=== PATIENT | female | born 1995 | race Hispanic/Latino ===

== ENCOUNTER 2018-08-26 10:21 | Emergency (ER) | payer OTHER ==
--- OUTSIDE RECORDS SUMMARY | 2018-08-26 10:27 | XMS REPORT | Continuity of Care Document ---
:1995 Author Organization Interface Problems Problem Status Onset Classification Date Comments Source Date Reported Encounter for 11/01/19 02/07/2018 other general 18 Medical counseling and Group advice on contraception care 11/01/19 02/07/2018 following 18 Medical vaginal delivery Group Second degree 10/14/19 01/12/2018 [place] perineal 18 [facility] laceration during delivery False labor at 10/12/19 01/09/2018 [place] or after 37 18 Land completed weeks of gestation LEAKING/PRESSURE Active 10/03/19 [place] 18 [facility] Encounter for 09/29/19 01/05/2018 supervision of 18 Medical other normal Group , third trimester Final: Uterine 09/23/19 09/26/2017 size-date 18 Medical discrepancy, Group third trimester Final: Encounter 09/15/20 09/18/2017 for supervision 17 Medical of other normal Group , third trimester Final: Need for 08/16/20 08/19/2017 Tdap vaccination 17 Medical Group Discharge 04/25/20 04/28/2017 [place] Diagnosis: 17 [facility] Vaginal discharge during Resolved 12/05/19 Problem 02/07/2018 17 Medical Group, [place] NON-STRESS TEST Active 08/14/20 [place] 15 [place] 2ND + PREG - Active 05/07/20 Condition 05/06/2015 NORMAL PREG 15 Medical SUPERV Group CONFIRMATION OF Inactive 04/05/20 Condition 05/06/2015 15 Medical Group VAGINITIS Inactive 04/04/20 Condition 05/06/2015 15 Medical Group Discharge 03/15/20 03/18/2015 [place] Diagnosis: 15 [facility] Abdominal pain in Discharge 03/15/20 03/18/2015 [place] Diagnosis: 15 [facility] Subchorionic hematoma Discharge 03/15/20 03/18/2015 [place] Diagnosis: 15 [facility] Morning sickness VOMITING AND Active 03/15/20 [facility] THINKS SHE'S PG 15 Land NORMAL DELIVERY Active 01/19/20 [facility] 15 [facility] Active 01/19/20 [facility] RELATED 15 Land Diaper Active 05/08/20 Problem 03/18/2015 3Data [place] rash<sup>3</sup> 14 migrated from Land [employer] on 02/16/15. Eruption<sup>4</ Active 05/08/20 Problem 03/18/2015 4Data MH [place] sup> 14 migrated from [place] [employer] on 02/16/15. DIAPER OR NAPKIN Inactive 05/08/20 Condition 05/06/2015 RASH 14 Medical Group RASH AND OTHER Inactive 05/08/20 Condition 05/06/2015 NONSPECIFIC SKIN 14 Medical ERUPTION Group Contraception Active 04/10/20 Problem 03/18/2015 1Data [place] care 14 migrated from Land management<sup>1 [employer] </sup> on 02/16/15. CONTRACEPTIVE Inactive 04/10/20 Condition 05/06/2015 MANAGEMENT 14 Medical Group - Inactive 03/23/20 Condition 05/06/2015 SPONTANEOUS 14 Medical Group FAMILY HISTORY Active 03/22/20 Condition 05/06/2015 OF DIABETES 14 Medical Group FAMILY HISTORY Active 03/22/20 Condition 05/06/2015 OF HYPERTENSION 14 Medical Group Cyst of Active 06/24/20 Problem 03/18/2015 2Data [place] ovary<sup>2</sup 12 migrated from Land > [employer] on 02/16/15. Generalized Active 06/24/20 Problem 03/18/2015 5Data [place] abdominal 12 migrated from Land pain<sup>5</sup> [employer] on 02/16/15. PELVIC PAIN Inactive 06/24/20 Condition 05/06/2015 12 Medical Group OTHER AND Inactive 06/24/20 Condition 05/06/2015 UNSPECIFIED 12 Medical OVARIAN CYST Group control Active Problem 02/07/2018 Medical Group, [place] Female Active Problem 02/07/2018 dyspareunia Medical Group, [place] Family history Active Problem 02/07/2018 of breast cancer Medical Group, [place] Fatigue Active Problem 02/07/2018 Medical Group, [place] Vaginitis Active Problem 02/07/2018 Medical Group, [place] Obesity Active Problem 02/07/2018 Medical Group, [place] care Active Problem 02/07/2018 following Medical vaginal delivery Group, [place] Gestational Active Problem 10/13/2015 [place] hypertension [place] Depression Active Problem 10/06/2017 Medical Group, [place] Encounter for Active Problem 04/28/2017 [place] supervision of Land other normal , second trimester Surveillance of Active Problem 10/06/2017 contraceptive Medical pill Group, [place] Final: 10/13/2015 [place] related [place] conditions, unspecified, unspecified trimester Gestational Active Problem 10/13/2015 [place] hypertension Land Gestational 01/09/2018 [place] [-induc Land ed] hypertension without significant proteinuria, third trimester 39 weeks 01/12/2018 Sugar gestation of Land Encounter for Active Problem 10/06/2017 supervision of Medical other normal Group, , third Sugar trimester Land Uterine Active Problem 10/06/2017 size-date Medical discrepancy, Group, third trimester [place] Other specified 01/12/2018 [facility] trauma to Land perineum and vulva Single live 01/12/2018 [place] ENCOUNTER FOR Active MH Sugar FULL-TERM Land UNCOMPLICATED DE Active Sugar RELATED Land CONDITIONS, UNSP, UNSP Medications Medication Details Route Status Patient Ordering Order Source Instructions Provider Date norethindrone 0.35 0.35 mg=1 tab, Active mg oral tablet PO, Daily, # 2018 Medical 30 tab, 6 Group Refill(s), Pharmacy: [place] [id number] 1 tab, Route: Inactive [place] Multivitamins oral PO, Drug Form: 2017 [place] tablet TAB, Dosing Weight 73.636, kg, Daily, Start date: 10/06/17 9:00:00 CARTRIDGE LOADER, Duration: 30 day, Stop date: 11/04/17 9:00:00 CARTRIDGE LOADER ibuprofen 600 mg 600 mg=1 tab, No Longer [place] oral tablet PO, Q6H, PRN Active 2017 [facility] Pain, take with food, X 30 day, # 30 tab, 0 Refill(s) Ibuprofen 600 mg, 1 tab, No Longer [place] Route: PO, Active 2017 [facility] Drug form: TAB, Q6H, Dosing Weight 73.636, kg, Start date: 10/05/17 12:00:00 CARTRIDGE LOADER, Duration: 30 day, Stop date: 11/04/17 6:00:00 CSTNotes: (Same as: Joshua) "Do Not Crush" Take with food. 0.5 ML Bordetella 0.5 mL, Route: No Longer [place] pertussis IM, Drug Form: Active 2018 [place] filamentous SUSP, Dosing hemagglutinin Weight 73.636, vaccine, kg, ONCALL, inactivated 0.01 Start date: MG/ML / Bordetella 10/05/17 pertussis fimbriae 12:00:00 CARTRIDGE LOADER, 2/3 vaccine, Duration: 1 inactivated 0.01 doses or MG/ML / Bordetella timesNotes: pertussis (Tdap ) For pertactin vaccine, Adolecent and inactivated 0.006 Adult use For MG/ML / Bordetella IM Use. Same pertussis toxoid as: Adacel vacci (Tdap) M-M-R II 0.5 mL, Route: No Longer [place] SUB-Q, Drug Active 2018 [place] Form: PDR/INJ, Dosing Weight 73.636, kg, ONCALL, Give only if patient rubella non-immune, Start date: 10/05/17 12:00:00 CARTRIDGE LOADER, Duration: 1 doses or timesNotes: (Same as: M-M-R II) (measles-mumps -rubella virus vaccine 0.5 ml INJ VL) WASTE: F/P - Red; E -Red GIVE PRIOR TO DISCHARGE Acetaminophen 325 1 tab, Route: No Longer [place] MG / Hydrocodone PO, Drug Form: Active 2018 [place] Bitartrate 5 MG TAB, Dosing Oral Tablet Weight 73.636, kg, Q4H, PRN Pain Score 4-6, Start date: 10/05/17 11:59:00 CARTRIDGE LOADER, Duration: 30 day, Stop date: 11/04/17 11:58:00 CSTNotes: (Same as: Coleridge 325/5) Do not exceed 4gm/day of acetaminophen. Acetaminophen 325 1 tab, Route: No Longer [place] MG / Hydrocodone PO, Drug Form: Active 2018 [place] Bitartrate 10 MG TAB, Dosing Oral Tablet Weight 73.636, kg, Q4H, PRN Pain Score 7-10, Start date: 10/05/17 11:59:00 CARTRIDGE LOADER, Duration: 30 day, Stop date: 11/04/17 11:58:00 CSTNotes: Do not exceed 4gm/day of acetaminophen. (Same as: Coleridge 325/10) Methylergonovine 0.2 mg, 1 mL, No Longer Sugar Route: IM, Active 2017 [facility] Drug form: INJ, PRN, Dosing Weight 73.636, kg, PRN Other -See Comment, Start date: 10/05/17 11:59:00 CARTRIDGE LOADER, Duration: 30 day, Stop date: 11/04/17 11:58:00 CSTNotes: (Same as:Methergine) zolpidem 5 mg, 1 tab, No Longer Sugar Route: PO, Active 2017 [facility] Drug form: TAB, Bedtime, Dosing Weight 73.636, kg, PRN Sleep, Start date: 10/05/17 11:59:00 CARTRIDGE LOADER, Duration: 30 day, Stop date: 11/04/17 11:58:00 CSTNotes: (Same As: Ambien) Benzocaine 200 1 spray, No Longer [place] MG/ML Topical Route: TOP, 2017 [facility] [place] [Dermoplast] PRN, Drug form: SPRY, PRN Irritation, Start date: 10/05/17 11:59:00 CARTRIDGE LOADER, Duration: 30 day, Stop date: 11/04/17 11:58:00 CSTNotes: (Same As: Dermoplast) WASTE: Aerosol - Return to Pharmacy FOR EXTERNAL USE ONLY Bisacodyl 15 mg, 3 tab, No Longer Sugar Route: PO, Active 2017 [facility] Drug form: ECTAB, Daily, Dosing Weight 73.636, kg, PRN Other -See Comment, Start date: 10/05/17 11:59:00 CARTRIDGE LOADER, Duration: 30 day, Stop date: 11/04/17 11:58:00 CSTNotes: (Same As: Dulcolax, Correctol) (Do Not Crush) "Do Not Crush" Ondansetron 4 mg, 2 mL, No Longer Sugar Route: IVP, Active 2017 [facility] Drug form: INJ, Q8H, Dosing Weight 73.636, kg, PRN Nausea & Vomiting, Start date: 10/05/17 11:59:00 CARTRIDGE LOADER, Duration: 30 day, Stop date: 11/04/17 11:58:00 CSTNotes: (Same as: Zofran) MEDICATION WASTE Product Size: 4 mg Product Wasted: ___ mg Docusate 100 mg, 1 cap, No Longer Sugar Route: PO, Active 2017 Drug form: CAP, BID, Dosing Weight 73.636, kg, PRN Constipation, Start date: 10/05/17 11:59:00 CARTRIDGE LOADER, Duration: 30 day, Stop date: 11/04/17 11:58:00 CSTNotes: (Same as: Colace) (Do Not Crush) lanolin topical 1 appl, Route: No Longer Sugar TOP, PRN, Drug Active 2017 form: OINT, PRN Other -See Comment, Start date: 10/05/17 11:59:00 CARTRIDGE LOADER, Duration: 30 day, Stop date: 11/04/17 11:58:00 CSTNotes: (Same as:Lanolin) Oxytocin 30 unit, 500 No Longer Sugar mL, Rate: 42 Active 2017 [place] ml/hr, Infuse over: 11.9 hr, Dosing Weight 73.636, kg, Route: IV, Total Volume: 500 mL, Start date: 10/05/17 11:59:00 CARTRIDGE LOADER, Duration: 2 day, Stop date: 10/07/17 11:58:00 CARTRIDGE LOADER, Replace Every: 11.9 hr Lactated Ringers 1,000 mL, No Longer [place] IV 1,000 mL Rate: 100 2017 [place] ml/hr, Infuse over: 10 hr, Route: IV, Dosing Weight 73.636 kg, Total Volume: 1,000, Start date: 10/05/17 11:59:00 CARTRIDGE LOADER, Duration: 30 day, Stop date: 11/04/17 11:58:00 CARTRIDGE LOADER, 1.79, m2 Carboprost 250 microgram, No Longer Sugar 1 mL, Route: Active 2017 [place] IM, Drug form: INJ, ONCALL, Dosing Weight 73.636, kg, Start date: 10/05/17 3:00:00 CARTRIDGE LOADER, Duration: 30 day, Stop date: 11/04/17 2:59:00 CSTNotes: (Same As: Hemabate) Citric Acid / 30 mL, Route: No Longer Sugar sodium citrate PO, Drug Form: Active 2017 [place] SOLN, Dosing Weight 73.636, kg, ONCALL, Start date: 10/05/17 3:00:00 CARTRIDGE LOADER, Duration: 30 day, Stop date: 11/04/17 2:59:00 CSTNotes: (Same As: Bicitra) Methylergonovine 0.2 mg, 1 mL, No Longer Sugar Route: IM, 2017 [facility] Drug form: INJ, ONCALL, Dosing Weight 73.636, kg, Start date: 10/05/17 3:00:00 CARTRIDGE LOADER, Duration: 30 day, Stop date: 11/04/17 2:59:00 CSTNotes: (Same as:Methergine) Misoprostol 1,000 No Longer Sugar microgram, 5 2017 [facility] tab, Route: RI, Drug form: TAB, ONCALL, Dosing Weight 73.636, kg, Start date: 10/05/17 3:00:00 CARTRIDGE LOADER, Duration: 1 doses or timesNotes: (Same as:Cytotec) Take with food Famotidine 20 mg, 2 mL, No Longer Sugar Route: IVP, 2017 [facility] Drug form: INJ, ONCALL, Dosing Weight 73.636, kg, Start date: 10/05/17 3:00:00 CARTRIDGE LOADER, Duration: 30 day, Stop date: 11/04/17 2:59:00 CSTNotes: (Same as: Pepcid) Can be dilute in 5-10cc NS IVP: Slow IV push over at least 2 minutes. Fentanyl / Route: No Longer Sugar ropivacaine EPIDURAL, 2017 [facility] Continuous Rate: 8, ml/hr, Infusion site: Lumbar, LEAD NURSE dose 3 mL, LEAD NURSE dose lockout: 15 minutes, 1 Hour limit: 20 mL, 200, mL, Start date: 10/05/17 2:45:00 CARTRIDGE LOADER, Duration: 30, day, Drug Form: INJ, Total volume: 200, mL, kg, Stop date: ...Notes: (Same as Naropin-Sublim aze) Oxytocin 30 unit, 500 No Longer Sugar mL, Rate: 2017 [facility] Titrate, Dosing Weight 73.636, kg, Route: IV, Total Volume: 500 mL, Start date: 10/05/17 2:44:00 CARTRIDGE LOADER, Duration: 2 day, Stop date: 10/07/17 2:43:00 CARTRIDGE LOADER, Replace Every: 24 hr Ondansetron 4 mg, 2 mL, No Longer Sugar Route: IVP, Active 2017 [place] Drug form: INJ, Q8H, Dosing Weight 73.636, kg, PRN Nausea & Vomiting, Start date: 10/05/17 2:44:00 CARTRIDGE LOADER, Duration: 30 day, Stop date: 11/04/17 2:43:00 CSTNotes: (Same as: Micki) MEDICATION WASTE Product Size: 4 mg Product Wasted: ___ mg Lidocaine 200 mg, 20 mL, No Longer Sugar Hydrochloride 10 Route: PERCUT, Active 2017 [facility] MG/ML Injectable Drug Form: Solution INJ, Dosing Weight 73.636, kg, PRN, PRN Other -See Comment, Start date: 10/05/17 2:44:00 CARTRIDGE LOADER, Duration: 1 doses or times, Stop date: Limited # of timesNotes: (Same as: Xylocaine) Terbutaline 0.25 mg, 0.25 No Longer Sugar mL, Route: Active 2017 [place] SUB-Q, Drug form: INJ, PRN, Dosing Weight 73.636, kg, PRN Other -See Comment, Start date: 10/05/17 2:44:00 CARTRIDGE LOADER, Duration: 1 doses or times, Stop date: Limited # of timesNotes: DO NOT USE IN BECK TENDER AREA (Same As: Savannathinikkie) Acetaminophen 325 2 tab, Route: No Longer [place] MG / Hydrocodone PO, Drug Form: Active 2017 [place] Bitartrate 5 MG TAB, Dosing Oral Tablet Weight 73.636, kg, Q4H, PRN Pain Score 7-10, Start date: 10/05/17 2:44:00 CARTRIDGE LOADER, Duration: 30 day, Stop date: 11/04/17 2:43:00 CSTNotes: (Same as: Coleridge 325/5) Do not exceed 4gm/day of acetaminophen. Ibuprofen 600 mg, 1 tab, No Longer Sugar Route: PO, Active 2017 [place] Drug form: TAB, Q6H, Dosing Weight 73.636, kg, PRN Other -See Comment, Start date: 10/05/17 2:44:00 CARTRIDGE LOADER, Duration: 30 day, Stop date: 11/04/17 2:43:00 CSTNotes: (Same as: Motrin) "Do Not Crush" Take with food. Butorphanol 2 mg, 1 mL, No Longer Sugar Route: IVP, Active 2017 [facility] Drug form: INJ, Q2H, Dosing Weight 73.636, kg, PRN Pain Score 7-10, Start date: 10/05/17 2:44:00 CARTRIDGE LOADER, Duration: 30 day, Stop date: 11/04/17 2:43:00 CSTNotes: (Same As: Stadol) MEDICATION WASTE Product Size: 2 mg Product Wasted: ___ mg Lactated Ringers 1,000 mL, No Longer Sugar IV 1,000 mL Rate: 125 Active 2017 [place] ml/hr, Infuse over: 8 hr, Route: IV, Dosing Weight 73.636 kg, Total Volume: 1,000, Start date: 10/05/17 2:44:00 CARTRIDGE LOADER, Duration: 30 day, Stop date: 11/04/17 2:43:00 CARTRIDGE LOADER, 1.79, m2 Calcium Chloride 1,000 mL, No Longer Sugar 0.0014 MEQ/ML / 1,000 ml/hr, Active 2017 [facility] Potassium Chloride Infuse Over: 1 0.004 MEQ/ML / hr, Route: IV, Sodium Chloride 1,000, Drug 0.103 MEQ/ML / form: INJ, Sodium Lactate ONCE, Dosing 0.028 MEQ/ML Weight 73.636 Injectable kg, Start Solution date: 10/05/17 2:44:00 CARTRIDGE LOADER, Stop date: 10/05/17 2:44:00 CARTRIDGE LOADER, Bolus for regional anesthesia per unit protocol Calcium Chloride 1,000 mL, Inactive Sugar 0.0014 MEQ/ML / Rate: 125 2018 [place] Potassium Chloride ml/hr, Infuse 0.004 MEQ/ML / over: 8 hr, Sodium Chloride Route: IV, 0.103 MEQ/ML / Dosing Weight Sodium Lactate 73.636 kg, 0.028 MEQ/ML Total Volume: Injectable 1,000, Start Solution date: 10/03/17 11:40:00 CARTRIDGE LOADER, Duration: 30 day, Stop date: 11/02/17 11:39:00 CARTRIDGE LOADER, 1.79, m2 ferrous sulfate Active 2017 [facility] Group Tylenol 975 mg, Route: Inactive [place] PO, Drug form: 2017 [place] TAB, ONCE, Dosing Weight 65.227, kg, Priority: STAT, Start date: 04/24/17 22:36:00 CDT, Stop date: 04/24/17 22:36:00 CDT 1 tab, Route: No Longer [place] Multivitamins oral PO, Drug Form: Active 2015 [place] tablet TAB, Dosing Weight 73.636, kg, Daily, Start date: 10/09/15 9:00:00, Duration: 30 day, Stop date: 11/07/15 9:00:00 ibuprofen 600 mg 600 mg=1 tab, Active [place] oral tablet PO, Q6H, PRN 2015 Pain, take with food, # 30 tab, 0 Refill(s) M-M-R II 0.5 mL, Route: No Longer Sugar SUB-Q, Drug Active 2015 [facility] Form: PDR/INJ, Dosing Weight 73.636, kg, ONCALL, Give only if patient rubella non-immune, Start date: 10/08/15 21:00:00, Duration: 1 doses or timesNotes: (Same as: M-M-R II) (measles-mumps -rubella virus vaccine 0.5 ml INJ VL) GIVE PRIOR TO DISCHARGE Ibuprofen 600 mg, 1 tab, No Longer Sugar Route: PO, Active 2015 [facility] Drug form: TAB, Q6H, Dosing Weight 73.636, kg, PRN Pain Score 4-6, Start date: 10/08/15 20:15:00, Duration: 30 day, Stop date: 11/07/15 20:14:00Notes: (Same as: Motrin) "Do Not Crush" Take with food. Acetaminophen 650 mg, 2 tab, No Longer Sugar Route: PO, Active 2015 [facility] Drug form: TAB, Q4H, Dosing Weight 73.636, kg, PRN Pain Score 1-3, Start date: 10/08/15 20:15:00, Duration: 30 day, Stop date: 11/07/15 20:14:00Notes: Do not exceed 4 gm/day. (Same as: Tylenol) Acetaminophen 325 1 tab, Route: No Longer [place] MG / Hydrocodone PO, Drug Form: Active 2015 [facility] Bitartrate 5 MG TAB, Dosing Oral Tablet Weight 73.636, kg, Q4H, PRN Pain Score 7-10, Start date: 10/08/15 20:15:00, Duration: 30 day, Stop date: 11/07/15 20:14:00Notes: (Same as: Coleridge 325/5) Do not exceed 4gm/day of acetaminophen. Bisacodyl 15 mg, 3 tab, No Longer Sugar Route: PO, Active 2015 [facility] Drug form: ECTAB, Daily, Dosing Weight 73.636, kg, PRN Other -See Comment, Start date: 10/08/15 20:15:00, Duration: 30 day, Stop date: 11/07/15 20:14:00Notes: (Same As: Dulcolax, Correctol) (Do Not Crush) "Do Not Crush" Ondansetron 4 mg, 2 mL, No Longer Sugar Route: IVP, Active 2015 [facility] Drug form: INJ, Q8H, Dosing Weight 73.636, kg, PRN Nausea & Vomiting, Start date: 10/08/15 20:15:00, Duration: 30 day, Stop date: 11/07/15 20:14:00Notes: (Same as: Micki) MEDICATION WASTE Product Size: 4 mg Product Wasted: ___ mg Docusate 100 mg, 1 cap, No Longer Sugar Route: PO, Active 2015 [facility] Drug form: CAP, BID, Dosing Weight 73.636, kg, PRN Constipation, Start date: 10/08/15 20:15:00, Duration: 30 day, Stop date: 11/07/15 20:14:00Notes: (Same as: Colace) (Do Not Crush) Benzocaine 200 1 spray, No Longer Sugar MG/ML Topical Route: TOP, Active 2015 [facility] [place] [Dermoplast] PRN, Drug form: SPRY, PRN Irritation, Start date: 10/08/15 20:15:00, Duration: 30 day, Stop date: 11/07/15 20:14:00Notes: (Same As: Dermoplast) FOR EXTERNAL USE ONLY Methylergonovine 0.2 mg, 1 mL, No Longer Sugar Route: IM, Active 2015 Drug form: INJ, PRN, Dosing Weight 73.636, kg, PRN Other -See Comment, Start date: 10/08/15 20:15:00, Duration: 30 day, Stop date: 11/07/15 20:14:00Notes: (Same as:Methergine) lanolin topical 1 appl, Route: No Longer Sugar TOP, PRN, Drug Active 2015 form: OINT, PRN Other -See Comment, Start date: 10/08/15 20:15:00, Duration: 30 day, Stop date: 11/07/15 20:14:00Notes: (Same as:Lanolin) zolpidem 5 mg, 1 tab, No Longer Sugar Route: PO, Active 2015 Drug form: TAB, Bedtime, Dosing Weight 73.636, kg, PRN Sleep, Start date: 10/08/15 20:15:00, Duration: 30 day, Stop date: 11/07/15 20:14:00Notes: (Same As: Ambien) Oxytocin 0.06 30 unit, 500 No Longer Sugar UNT/ML Injectable mL, Rate: 42 Active 2015 [place] Solution ml/hr, Infuse over: 11.9 hr, Dosing Weight 73.636, kg, Route: IV, Total Volume: 500 mL, Start date: 10/08/15 20:15:00, Duration: 2 doses or times, Stop date: 10/09/15 20:02:00, Replace Every: 11.9 hrNotes: (Same as: OXYTOCIN-D5LR) Lactated Ringers 1,000 mL, No Longer Sugar IV 1,000 mL Rate: 100 Active 2015 [place] ml/hr, Infuse over: 10 hr, Route: IV, Dosing Weight 73.636 kg, Total Volume: 1,000, Start date: 10/08/15 20:15:00, Duration: 30 day, Stop date: 11/07/15 20:14:00 Penicillin G 2,500,000 No Longer Sugar unit, 50 mL, 2015 Route: IVPB, Drug form: INJ, ABXQ4H, Dosing Weight 73.636, kg, Start date: 10/08/15 3:00:00 Penicillin G 5,000,000 No Longer Sugar Potassium [id number] unit, 100 mL, Active 2015 UNT/ML Injectable Route: IVPB, Solution Drug form: PDR/INJ, ONCALL, Dosing Weight 73.636, kg, Start date: 10/07/15 23:00:00 Misoprostol 1,000 No Longer Sugar microgram, 10 2015 tab, Route: RI, Drug form: TAB, ONCALL, Dosing Weight 73.636, kg, Start date: 10/07/15 23:00:00, Duration: 1 doses or timesNotes: (Same as:Cytotec) Take with food Famotidine 20 mg, 2 mL, No Longer Sugar Route: IVP, 2015 Drug form: INJ, ONCALL, Dosing Weight 73.636, kg, Start date: 10/07/15 23:00:00, Duration: 30 day, Stop date: 11/06/15 22:59:00Notes: (Same as: Pepcid) Can be dilute in 5-10cc NS IVP: Slow IV push over at least 2 minutes. Methylergonovine 0.2 mg, 1 mL, No Longer Sugar Route: IM, 2015 Drug form: INJ, ONCALL, Dosing Weight 73.636, kg, Start date: 10/07/15 23:00:00, Duration: 30 day, Stop date: 11/06/15 22:59:00Notes: (Same as:Methergine) Citric Acid / 30 mL, Route: No Longer Sugar sodium citrate PO, Drug Form: 2015 SOLN, Dosing Weight 73.636, kg, ONCALL, Start date: 10/07/15 23:00:00, Duration: 30 day, Stop date: 11/06/15 22:59:00Notes: (Same As: Bicitra) Carboprost 250 microgram, No Longer Sugar 1 mL, Route: Active 2015 [place] IM, Drug form: INJ, ONCALL, Dosing Weight 73.636, kg, Start date: 10/07/15 23:00:00, Duration: 30 day, Stop date: 11/06/15 22:59:00Notes: (Same As: Hemabate) Misoprostol 25 microgram, No Longer Sugar 0.25 tab, 2015 Route: VAG, Drug form: TAB, Q4H, Dosing Weight 73.636, kg, Priority: NOW, Start date: 10/07/15 22:08:00, Duration: 30 day, Stop date: 11/06/15 20:00:00Notes: (Same as:Cytotec) Take with food Fentanyl / Route: No Longer Sugar ropivacaine EPIDURAL, 2015 Continuous Rate: 8, ml/hr, Infusion site: Lumbar, LEAD NURSE dose 3 mL, LEAD NURSE dose lockout: 15 minutes, 1 Hour limit: 20 mL, 200, mL, Start date: 10/07/15 22:08:00, Duration: 30, day, Drug Form: INJ, Total volume: 200, mL, kg, Stop date: 11/06...Notes: (Same as Naropin-Sublim aze) lidocaine 1% 20 mL, Route: No Longer Sugar PERCUT, Drug Active 2015 [facility] Form: INJ, Dosing Weight 73.636, kg, PRN, PRN Other -See Comment, Start date: 10/07/15 22:01:00, Duration: 1 doses or times, Stop date: Limited # of timesNotes: Preservative free. (Same as: Xylocaine MPF) Butorphanol 2 mg, 1 mL, No Longer Sugar Route: IVP, Active 2015 Drug form: INJ, Q2H, Dosing Weight 73.636, kg, PRN Pain Score 6-10, Start date: 10/07/15 22:01:00, Duration: 30 day, Stop date: 11/06/15 22:00:00Notes: (Same As: Stadol) MEDICATION WASTE Product Size: 2 mg Product Wasted: ___ mg Ondansetron 4 mg, 2 mL, No Longer Sugar Route: IVP, Active 2015 [facility] Drug form: INJ, Q8H, Dosing Weight 73.636, kg, PRN Nausea & Vomiting, Start date: 10/07/15 22:01:00, Duration: 30 day, Stop date: 11/06/15 22:00:00Notes: (Same as: Micki) MEDICATION WASTE Product Size: 4 mg Product Wasted: ___ mg Terbutaline 0.25 mg, 0.25 No Longer Sugar mL, Route: Active 2015 [place] SUB-Q, Drug form: INJ, PRN, Dosing Weight 73.636, kg, PRN Other -See Comment, Start date: 10/07/15 22:01:00, Duration: 1 doses or times, Stop date: Limited # of timesNotes: DO NOT USE IN BECK TENDER AREA (Same As: Kenia) Calcium Chloride 1,000 mL, No Longer Sugar 0.0014 MEQ/ML / 1,000 ml/hr, Active 2015 [facility] Potassium Chloride Infuse Over: 1 0.004 MEQ/ML / hr, Route: IV, Sodium Chloride 1,000, Drug 0.103 MEQ/ML / form: INJ, Sodium Lactate ONCE, Dosing 0.028 MEQ/ML Weight 73.636 Injectable kg, Start Solution date: 10/07/15 22:01:00, Stop date: 10/07/15 22:01:00, Bolus for regional anesthesia per unit protocol lidocaine 1% 0.25 mL, No Longer Sugar injectable Route: Active 2015 [facility] solution INTRADERM, Drug Form: INJ, Dosing Weight 73.636, kg, PRN, PRN Other -See Comment, Start date: 10/07/15 22:01:00, Duration: 30 day, Stop date: 11/06/15 22:00:00Notes: Preservative free. (Same as: Xylocaine MPF) Lactated Ringers 1,000 mL, No Longer Sugar IV 1,000 mL Rate: 125 Active 2015 [place] ml/hr, Infuse over: 8 hr, Route: IV, Dosing Weight 73.636 kg, Total Volume: 1,000, Start date: 10/07/15 22:01:00, Duration: 30 day, Stop date: 11/06/15 22:00:00 Oxytocin 0.06 30 unit, 500 No Longer Sugar UNT/ML Injectable mL, Rate: 42 Active 2015 [place] Solution ml/hr, Infuse over: 11.9 hr, Dosing Weight 73.636, kg, Route: IV, Total Volume: 500 mL, Start date: 10/07/15 22:01:00, Duration: 2 day, Stop date: 10/09/15 22:00:00, Replace Every: 11.9 hrNotes: (Same as: OXYTOCIN-D5LR) ferrous sulfate 325 mg=1 tab, Active Sugar 325 MG Oral Tablet PO, TID, 0 2014 Refill(s) PROMETHAZINE HCL 1 tablet three Active 25 MG TABS times daily as 2015 Medical needed for Group nausea VITAMIN one by mouth Active daily 2014 [facility] Ondansetron 4 MG 4 mg=1 tab, Active [facility] Disintegrating PO, TID, PRN 2014 Tablet [Zofran] Nausea and Vomiting, X 4 day, # 10 tab, 0 Refill(s) Acetaminophen 650 mg, 2 tab, Inactive Sugar Route: PO, 2014 Drug form: TAB, ONCE, Dosing Weight 62.443, kg, Priority: STAT, Start date: 03/15/15 12:12:00, Stop date: 03/15/15 12:12:00Notes: Do not exceed 4 gm/day. (Same as: Tylenol) Saline Flush 0.9% 10 mL, Route: Inactive Sugar IVP, Drug 2014 Form: INJ, Dosing Weight 62.443, kg, PRN, PRN Line Flush, Start date: 03/15/15 12:12:00, Duration: 30 day, Stop date: 04/14/15 12:11:00Notes: (Same as: BD Posiflush) Sodium Chloride 1,000 mL, Inactive Sugar 0.154 MEQ/ML 1,000 ml/hr, 2014 Injectable Infuse Over: 1 Solution hr, Route: IV, 1,000, Drug form: INJ, ONCE, Priority: STAT, Dosing Weight 62.443 kg, Start date: 03/15/15 12:12:00, Duration: 1 doses or times, Stop date: 03/15/15 12:12:00 Ondansetron 4 mg, 2 mL, Inactive Sugar Route: IVP, 2014 Drug form: INJ, ONCE, Dosing Weight 62.443, kg, Priority: STAT, Start date: 03/15/15 12:12:00, Stop date: 03/15/15 12:12:00Notes: (Same as: Micki) MEDICATION WASTE Product Size: 4 mg Product Wasted: ___ mg PROMETHAZINE HCL 1/2 to 1 No Longer 25 MG TABS tablet three Active 2014 Medical times daily as Group needed for nausea ELIMITE 5 % CREA apply from No Longer neck down to Active 2013 Medical toes at HS and Group wash off in the morning SPRINTEC 28 1 tablet daily Active 0.25-35 MG-MCG 2013 Medical TABS Group SPRINTEC 28 1 tablet daily No Longer 0.25-35 MG-MCG Active 2013 Medical TABS Group SPRINTEC 28 one p.o. q. No Longer 0.25-35 MG-MCG day Active 2011 Medical TABS Group SPRINTEC 28 one p.o. q. No Longer 0.25-35 MG-MCG day Active 2011 Medical TABS Group Allergies, Adverse Reactions, Alerts Substance Category Reaction Severity Reaction Status Date Comments Source type Reported Immunizations Immunization Date Site Status Last Comments Source Given Updated diphtheria/pertu Left completed [facility] ssis, 7 Deltoid Comment: Group, acel/tetanus Injection [place] adult<sup>1</sup given and > patient tolerated well. Patient monitored for 15 minutes with no report of adverse reaction or concerns. influenza virus Left completed [facility] vaccine, 7 Deltoid Comment: Group, inactivated<sup> Injection [place] 2</sup> given and patient tolerated well. Patient monitored for 15 minutes with no complaints of adverse reaction or concerns. influenza virus Left completed [place] [facility] Medical vaccine, 7 Deltoid Comment: Group inactivated<sup> Injection 1</sup> given and patient tolerated well. Patient monitored for 15 minutes with no complaints of adverse reaction or concerns. diphtheria/pertu Right completed [facility] ssis, 5 deltoid Group, acel/tetanus [place] adult influenza virus Right completed [facility] vaccine, 5 deltoid Group, inactivated [place] Results Order Name Results Value Reference Date Interpretation Comments Source Range HEMATOLOGY Hgb 9.7 g/dL 12.0 - 10/06 [facility] 16.0 [facility] HEMATOLOGY Hct 29.6 % 36.0 - 10/06 [facility] 48.0 [facility] BLOOD BANK Antibody Negative 10/05 [facility] RESULTS Scrn [facility] (10/05/17 3:40 AM) BLOOD BANK ABO/Rh O POS 10/05 [facility] RESULTS [facility] HEMATOLOGY MPV 8.4 fL 7.4 - 10.4 10/05 Sugar /2017 [facility] HEMATOLOGY Platelet 242 K/CMM 133 - 450 10/05 Sugar /2017 [facility] HEMATOLOGY MCHC 32.7 g/dL 32.0 - 10/05 [facility] 36.0 [facility] HEMATOLOGY MCH 30.1 pg 27.0 - 10/05 [facility] 31.0 [facility] HEMATOLOGY Hct 31.8 % 36.0 - 10/05 [facility] 48.0 /2017 [facility] HEMATOLOGY MCV 91.9 fL 80.0 - 10/05 [place] 98.0 [facility] HEMATOLOGY RDW 13.6 % 11.5 - 10/05 [place] 14.5 [facility] HEMATOLOGY WBC 12.7 K/CMM 3.7 - 10.4 10/05 Sugar /2017 [facility] HEMATOLOGY Hgb 10.4 g/dL 12.0 - 10/05 [facility] 16.0 2018 [facility] HEMATOLOGY RBC 3.46 M/CMM 4.20 - 10/05 [facility] 5.40 /2017 [facility] HEMATOLOGY Segs-Bands # 8.6 K/CMM 1.5 - 8.1 10/05 Sugar /2017 [facility] HEMATOLOGY Eosinophils 0.1 K/CMM 0.0 - 0.5 10/05 [place] # /2017 [facility] HEMATOLOGY Basophils # 0.0 K/CMM 0.0 - 0.2 10/05 Sugar /2017 [facility] HEMATOLOGY Lymphocytes 3.1 K/CMM 1.0 - 5.5 10/05 [place] # /2017 [place] HEMATOLOGY Monocytes # 1.0 K/CMM 0.0 - 0.8 10/05 HEMATOLOGY Basophils 0.3 % 0.0 - 1.0 10/05 [place] HEMATOLOGY Segs 67.2 % 45.0 - 10/05 [place] 75.0 [place] HEMATOLOGY Lymphocytes 24.0 % 20.0 - 10/05 [place] 40.0 [place] HEMATOLOGY Eosinophils 0.7 % 0.0 - 4.0 10/05 HEMATOLOGY Monocytes 7.8 % 2.0 - 12.0 10/05 HEMATOLOGY RBC Morph Normal 10/05 (10/05/17 3:40 AM) HEMATOLOGY Plt Morph Normal 10/05 (10/05/17 3:40 AM) IMMUNOLOGY Treponemal Non Reactive Non 10/05 Ab *NA* (10/05/17 3:40 AM) IMMUNOLOGY Hep Bs Ag Negative Negative 10/05 *NA* (10/05/17 3:40 AM) BODY FLUIDS Amnisure ROM Negative Negative 10/03 (10/03/17 12:29 PM) BODY FLUIDS Amnisure ROM Negative Negative 04/25 [facility] (04/24/17 11:21 PM) URINE AND UA Bacteria Occasional None Seen 04/25 [facility] STOOL /HPF /HPF /2016 [facility] URINE AND UA Mucus Moderate None Seen 04/25 [facility] STOOL /LPF /LPF [place] URINE AND UA Blood Negative Negative 04/25 [facility] STOOL (04/24/17 10:46 PM) URINE AND UA 2.0 mg/dL 0.1 - 1.0 04/25 [facility] STOOL Urobilinogen /2016 [place] URINE AND UA WBC 1 /HPF 0 - 5 04/25 [place] URINE AND UA RBC null 0 - 2 04/25 [place] [facility] [place] URINE AND UA Nitrite Negative Negative 04/25 [facility] STOOL (04/24/17 10:46 PM) URINE AND UA Sq Epi Occasional Few /LPF 04/25 [facility] STOOL /LPF [place] URINE AND UA Leuk Est Negative Negative 04/25 [facility] STOOL (04/24/17 10:46 PM) URINE AND UA Ketones Trace Negative 04/25 [facility] STOOL mg/dL mg/dL [facility] URINE AND UA Bili Negative Negative 04/25 [place] STOOL [facility] *NA* (04/24/17 10:46 PM) URINE AND UA pH 5.0 5.0 - 8.0 04/25 [place] STOOL [facility] URINE AND UA Protein 30 mg/dL Negative 04/25 [place] STOOL mg/dL [facility] URINE AND UA Glucose 50 mg/dL Negative 04/25 [place] STOOL mg/dL [facility] URINE AND UA Turbidity Slight Clear 04/25 Sugar [facility] *ABN* (04/24/17 10:46 PM) URINE AND UA Color Yellow Yellow 04/25 Sugar [facility] *NA* (04/24/17 10:46 PM) URINE AND UA Spec Grav 1.032 <=1.030 04/25 Sugar [facility] Pelvis Pelvis EXAM: Pelvis Transvaginal US 01/06 - [facility] Transvagina Transvaginal /2016 - [facility] US US HISTORY: PAIN COMPARISON: 03/15/2015 Read by: Kong Daniel MD Dictated Date/time: 01/06/17 16:09 Electronically Signed by: Kong Daniel MD 01/06/17 16:10 FINAL REPORT Technique: Transvaginal Card scale and color doppler with limited spectral doppler imaging of the uterus and ovaries. Findings: The uterus measures 6.9 x 6.0 x 3.4 cm. The endometrial stripe measures 0.6 cm. The right ovary measures 2.5 x 1.7 x 1.6 cm. The left ovary measures 2.0 x 1.7 x 1.4 cm. There is normal doppler flow. No large masses are seen in the bilateral adnexa. There is no free fluid. IMPRESSION: Unremarkable pelvic ultrasound. HEMATOLOGY Hct 26.9 % 36.0 - 10/09 [facility] 48.0 /2015 [facility] HEMATOLOGY Hgb 9.0 g/dL 12.0 - 10/09 [facility] 16.0 [facility] BLOOD BANK ABO/Rh O POS 10/08 [facility] RESULTS [facility] BLOOD BANK Antibody Negative 10/08 [facility] RESULTS Scr [facility] (10/07/15 11:17 PM) HEMATOLOGY Basophils # 0.0 K/CMM 0.0 - 0.2 10/08 [place] /2015 [place] HEMATOLOGY Segs-Bands # 9.8 K/CMM 1.5 - 8.1 10/08 [place] /2015 [place] HEMATOLOGY Segs 72.7 % 45.0 - 10/08 [place] 75.0 /2015 [place] HEMATOLOGY Monocytes 7.9 % 2.0 - 12.0 10/08 [place] /2015 [place] HEMATOLOGY Basophils 0.3 % 0.0 - 1.0 10/08 [place] /2015 [place] HEMATOLOGY Eosinophils 0.4 % 0.0 - 4.0 10/08 [place] /2015 [place] HEMATOLOGY Lymphocytes 18.7 % 20.0 - 10/08 [place] 40.0 [place] HEMATOLOGY Monocytes # 1.1 K/CMM 0.0 - 0.8 10/08 [place] HEMATOLOGY Lymphocytes 2.5 K/CMM 1.0 - 5.5 10/08 [place] # /2015 [place] HEMATOLOGY Eosinophils 0.1 K/CMM 0.0 - 0.5 10/08 [place] # /2015 [place] HEMATOLOGY RDW 12.8 % 11.5 - 10/08 [place] 14.5 /2015 [place] HEMATOLOGY MPV 8.7 fL 7.4 - 10.4 10/08 [place] /2015 [place] HEMATOLOGY Platelet 269 K/CMM 133 - 450 10/08 [place] HEMATOLOGY MCV 93.2 fL 80.0 - 10/08 [place] 98.0 /2015 [place] HEMATOLOGY MCHC 33.6 g/dL 32.0 - 10/08 [place] 36.0 /2015 [place] HEMATOLOGY RBC 3.21 M/CMM 4.20 - 10/08 [place] 5.40 /2015 [place] HEMATOLOGY WBC 13.4 K/CMM 3.7 - 10.4 10/08 [place] HEMATOLOGY MCH 31.3 pg 27.0 - 10/08 [place] 31.0 /2015 [place] HEMATOLOGY Hct 29.9 % 36.0 - 10/08 [place] 48.0 [place] HEMATOLOGY Hgb 10.0 g/dL 12.0 - 10/08 [place] 16.0 [place] IMMUNOLOGY Hep Bs Ag Negative Negative 10/08 [place] *NA* (10/07/15 11:17 PM) IMMUNOLOGY Treponemal Non Reactive Non 10/08 [facility] Scr Reactive [place] *NA* (10/07/15 11:17 PM) Exam: Complete OB Ultrasound. 08/14 - [facility] F/U or F/U or /2014 - [facility] Repeat US Repeat US Reason for Exam: . Read by: Lottie Fritz MD Dictated Date/time: 08/14/15 15:59 Electronically Signed by: Lottie Fritz MD 08/14/15 16:30 FINAL REPORT Comparison Exam: 06/03/2015 Discussion: Real-time examination reveals the followin. Single 2. Live . 3. Presentation: Cephalic 4. heart rate: 135 bpm. 5. JEFERSON=14.0 cm. 6. Placenta: A. Position: Posterior B. Grade I C. No previa or abruptio. 7. Morphology: A. Cerebral ventricles not identified. B. Cerebellum not identified. C. Nose/lips identified. D. Four-chamber heart not well-seen due to lie E. Spine identified. F. Stomach identified. G. Bladder identified. H. Kidneys identified. I. Umbilical cord: 1. Three vessels. 2. insertion site not well-seen due to lie. 8. Cervix is not well-seen. 9. Biometry: BPD: 7.6 cm: ( 30 w 2 d) HC: 28.6 cm: ( 31 w 3 d) AC: 26.5 cm: ( 30 w 4 d) FL: 5.9 cm: ( 31 w 5 d) Ratios (%) FL/AC: 22 (20-24) FL/BPD: 78 (71-87) HC/AC: 1.08 ( 0.96 - 1.17 ) CI: 76 (70-86) PTM=4937 grams which is at 44 percentile, previously measuring 350 grams. ULTRASOUND: MA: 30 weeks 6 days CAM: 10/17/2015 IMPRESSION: 1. A single viable intrauterine in cephalic presentation with heart rate of 135 bpm. 2. Sonographic gestational age is 30 weeks 6 days. 3. Please see above for details. OBSTETRICAL ULTRASOUND 06/03 - [facility] complete US complete US /2014 [place] presentation: Cephalic Read by: Crescencio Hall MD Dictated Date/time: 06/03/15 15:19 Biometry: Electronically Signed by: Crescencio Hall 06/03/15 15:23 FINAL REPORT BPD: 4.5 cm 19 weeks and 6 days HC: 17.3 cm 19 weeks and 6 days AC: 15.3 cm 20 weeks and 4 days Femur: 3.3 cm 20 weeks and 2 days FL/AC (20-24): 21 FL/BPD (71-87): 72 HC/AC: 1.13 JEFERSON: Amniotic fluid volume appears normal and the JEFERSON is 11.3 cm EFW: 350 +/- 51 grams Placenta: Posterior not previa maturation grade 1 Cervical Length: 5.1 ESTIMATED GESTATIONAL AGE: By LMP: 20 weeks and 6 days By Ultrasound: 20 weeks and one day ESTIMATED DUE DATE: By LMP: 10/15/2015 By Ultrasound: 10/20/2015 By Prior Ultrasound: -- MORPHOLOGIC ASSESSMENT heart rate is 138 bpm. Details of anatomy visualized includes all 4 extremities, mid facial profile, 4 chamber heart, kidneys, cord insertion site, intracranial ventricles , spine, stomach, urinary bladder and a three-vessel cord. IMPRESSION: Single viable gestation in cephalic presentation. The sonographic age is 20 weeks and one day and CAM is 10/20/2015. heart rate is 138 bpm. The placenta is posterior not previa maturation grade 1. Hematology HGB 12.0 g/dL 12.0 - 05/06 16.0 /2014 [facility] Hematology HCT 35.4 % 36.0 - 05/06 MH 48.0 /2014 [facility] Hematology PLATELETS 226 K/CMM 133 - 450 05/06 MH /mm3 /2014 [facility] Serology RPR Non 05/06 Reactive /2014 [facility] BLOOD BANK ABO/Rh O POS 03/15 [facility] RESULTS /2014 [facility] [place] [id number] 03/15 1Interpretive Data: Reference Range: [place] GY mIU/mL /2014 Male 0 - 5 mIU/mL [facility] Non- Female 0 - 5 mIU/mL Note: hCG result should be used in conjunction with symptoms, results of other tests, and clinical impressions. Weeks of Gestation hCG (mIU/mL) 3 6 - 71 4 10-750 5 217 - 7,138 6 158 -31,795 7 3,697 - 163,563 8 32,065 - 149,571 9 63,803 - 151,410 10 46,506 - 186,977 11 27,832 - 210,612 14 13,950 - 62,530 15 12,039 - 70,971 16 9,040 - 56,451 17 8,175 - 55,868 18 8,099 - 58,176 HEMATOLOGY Basophils # 0.0 K/CMM 0.0 - 0.2 03/15 [place] /2014 [place] HEMATOLOGY Lymphocytes 15.9 % 20.0 - 03/15 [place] 40.0 /2014 [place] HEMATOLOGY Monocytes 7.6 % 2.0 - 12.0 03/15 [place] HEMATOLOGY Basophils 0.2 % 0.0 - 1.0 03/15 [place] HEMATOLOGY Eosinophils 0.3 % 0.0 - 4.0 03/15 [place] HEMATOLOGY Lymphocytes 1.9 K/CMM 1.0 - 5.5 03/15 [place] # /2014 [place] HEMATOLOGY Segs-Bands # 9.1 K/CMM 1.5 - 8.1 03/15 /2014 [place] HEMATOLOGY Eosinophils 0.0 K/CMM 0.0 - 0.5 03/15 [place] # /2014 [place] HEMATOLOGY Monocytes # 0.9 K/CMM 0.0 - 0.8 03/15 /2014 [place] HEMATOLOGY Segs 76.0 % 45.0 - 03/15 [place] 75.0 [place] HEMATOLOGY MCHC 33.2 g/dL 32.0 - 03/15 [place] 36.0 [place] HEMATOLOGY MCH 30.7 pg 27.0 - 03/15 [place] 31.0 [place] HEMATOLOGY RDW 12.4 % 11.5 - 03/15 [place] 14.5 /2014 [place] HEMATOLOGY Platelet 272 K/CMM 133 - 450 03/15 [place] /2014 [place] HEMATOLOGY MPV 9.0 fL 7.4 - 10.4 03/15 /2014 [place] HEMATOLOGY Hct 35.8 % 36.0 - 03/15 [place] 48.0 [place] HEMATOLOGY MCV 92.7 fL 80.0 - 03/15 [place] 98.0 [place] HEMATOLOGY WBC 12.0 K/CMM 3.7 - 10.4 03/15 /2014 [place] HEMATOLOGY Hgb 11.9 g/dL 12.0 - 03/15 [place] 16.0 [facility] HEMATOLOGY RBC 3.86 M/CMM 4.20 - 03/15 [place] 5.40 /2014 [place] URINE AND UA Bacteria Occasional None Seen 03/15 [place] STOOL /HPF /HPF /2014 [place] URINE AND UA WBC 0-2 /HPF None Seen 03/15 [place] STOOL /HPF /2014 [facility] URINE AND UA Sq Epi Occasional Few /LPF 03/15 [place] STOOL /LPF /2014 [facility] URINE AND Micro? Performed 03/15 [facility] STOOL [place] (03/15/15 12:26 PM) URINE AND UA Turbidity Clear Clear 03/15 [place] STOOL [facility] (03/15/15 12:26 PM) URINE AND UA Color Yellow Yellow 03/15 [place] STOOL [facility] *NA* (03/15/15 12:26 PM) URINE AND UA Glucose Negative Negative 03/15 [facility] STOOL mg/dL mg/dL [facility] URINE AND UA Protein Negative Negative 03/15 [place] STOOL mg/dL mg/dL [facility] URINE AND UA pH 6.0 5.0 - 8.0 03/15 Sugar [facility] URINE AND UA Spec Grav 1.020 <=1.030 03/15 Sugar [facility] URINE AND UA Blood Negative Negative 03/15 [place] STOOL [facility] (03/15/15 12:26 PM) URINE AND UA Bili Negative Negative 03/15 Sugar [facility] *NA* (03/15/15 12:26 PM) URINE AND UA Ketones Negative Negative 03/15 [place] STOOL mg/dL mg/dL [facility] URINE AND UA Leuk Est Negative Negative 03/15 [place] STOOL [facility] (03/15/15 12:26 PM) URINE AND UA Nitrite Negative Negative 03/15 [place] STOOL [facility] (03/15/15 12:26 PM) URINE AND UA 0.2 EU/dL 0.1 - 1.0 03/15 [place] STOOL Urobilinogen /2014 [facility] Pelvis w Pelvis w Examination: Pelvic with Transvaginal and Pelvic Dopp 03/15 - [place] Transvag Transvag and /2014 - [place] and Pelvis Pelvis Doppler US Doppler US History: Abdominal pain, acute Read by: Garfield Rider MD Dictated Date/time: 03/15/15 15:19 Electronically Signed by: Garfield Rider MD 03/15/15 15:22 FINAL REPORT DIAGNOSIS : Viable 9 week gestation with evidence of a semilunar fairly prominent subchorionic hemorrhage DISCUSSION: Pelvic sonography was completed demonstrating an intrauterine gestation with a mean sac diameter of 3.73 cm, and a crown-rump measurement of 20.24 mm, correlating with an average gestationa l age of 9 weeks and a heart rate of 167 beats per minute. There is a hypoechoic fluid collection around the chorion. It is fairly prominent and consistent with subchorionic hemorrhage. Both ovaries are identified showing no evidence of torsion or free fluid. Right Ovary: 2.7 x 1.8 x 1 cm Left Ovary: 3 x 1.8 x 1.4 cm Chemistry BETA-HCG QL POSITIVE 02/20 [facility] Chemistry BETA-HCG QL POSITIVE 02/20 [facility] Chemistry BETA-HCG QN 1.5 mIU/mL 03/22 [facility] Chemistry BETA-HCG QN 1.5 mIU/mL 03/22 [facility] Chemistry BETA-HCG QL POSITIVE 02/27 [facility] Chemistry BETA-HCG QL POSITIVE 02/27 [facility] Vital Signs Vital Sign Value Date Comments Source Heart Rate 80 11/01/2017 [facility] Temperature Oral (F) 98.4 F 11/01/2017 [facility] Systolic (mm Hg) 128 11/01/2017 [facility] Diastolic (mm Hg) 86 11/01/2017 [facility] BMI Calculated 28.38 11/01/2017 [facility] Height 152.4 cm 11/01/2017 [facility] Weight 65.909 11/01/2017 [facility] Systolic (mm Hg) 114 10/06/2017 [place] Diastolic (mm Hg) 79 10/06/2017 [place] Respitory Rate 18 10/06/2017 [place] Temperature Oral (F) 98.9 F 10/06/2017 [place] Heart Rate 97 10/06/2017 [place] Systolic (mm Hg) 121 10/06/2017 [place] Diastolic (mm Hg) 78 10/06/2017 [place] Temperature Oral (F) 98.9 F 10/06/2017 [place] Respitory Rate 18 10/06/2017 [place] Heart Rate 75 10/06/2017 [place] Heart Rate 88 10/06/2017 [place] Respitory Rate 18 10/06/2017 [place] Temperature Oral (F) 98.6 F 10/06/2017 [place] Systolic (mm Hg) 120 10/06/2017 [place] Diastolic (mm Hg) 81 10/06/2017 [place] BMI Calculated 31.7 10/05/2017 [place] Weight 73.636 10/05/2017 [place] Height 152.4 cm 10/05/2017 [place] Temperature Oral (F) 98.4 F 10/03/2017 [place] BMI Calculated 31.7 10/03/2017 [place] Weight 73.636 10/03/2017 [place] Height 152.4 cm 10/03/2017 [place] Respitory Rate 18 10/03/2017 [place] Heart Rate 113 10/03/2017 [place] Systolic (mm Hg) 122 10/03/2017 [place] Diastolic (mm Hg) 77 10/03/2017 [place] Heart Rate 118 09/29/2017 [facility] Weight 73.636 09/29/2017 [facility] BMI Calculated 31.7 09/29/2017 [facility] Height 152.4 cm 09/29/2017 [facility] Systolic (mm Hg) 133 09/29/2017 [facility] Diastolic (mm Hg) 87 09/29/2017 [facility] Height 152.4 cm 09/23/2017 [facility] BMI Calculated 30.92 09/23/2017 [facility] Weight 71.818 09/23/2017 [facility] Heart Rate 116 09/23/2017 [facility] Systolic (mm Hg) 115 09/23/2017 [facility] Diastolic (mm Hg) 76 09/23/2017 [facility] BMI Calculated 32.38 09/15/2017 [facility] Weight 72.727 09/15/2017 [facility] Height 149.86 cm 09/15/2017 [facility] Systolic (mm Hg) 121 09/15/2017 [facility] Diastolic (mm Hg) 82 09/15/2017 [facility] Height 152.4 cm 08/30/2017 [facility] BMI Calculated 31.9 08/30/2017 [facility] Weight 74.091 08/30/2017 [facility] Systolic (mm Hg) 126 08/30/2017 [facility] Diastolic (mm Hg) 79 08/30/2017 [facility] Heart Rate 122 08/30/2017 [facility] Height 149.86 cm 08/16/2017 [facility] Systolic (mm Hg) 129 08/16/2017 [facility] Diastolic (mm Hg) 80 08/16/2017 [facility] BMI Calculated 32.79 08/16/2017 [facility] Weight 73.636 08/16/2017 [facility] Weight 50.909 08/02/2017 [facility] Height 152.4 cm 08/02/2017 [facility] Systolic (mm Hg) 111 08/02/2017 [facility] Diastolic (mm Hg) 73 08/02/2017 [facility] BMI Calculated 21.92 08/02/2017 [facility] Heart Rate 112 08/02/2017 [facility] Diastolic (mm Hg) 68 04/25/2017 [place] Systolic (mm Hg) 104 04/25/2017 [place] Respitory Rate 18 04/25/2017 [place] Heart Rate 98 04/25/2017 [place] Temperature Oral (F) 97.9 F 04/25/2017 [place] Weight 65.227 04/25/2017 [place] Temperature Oral (F) 98.1 F 04/25/2017 [place] Heart Rate 113 04/25/2017 [place] Respitory Rate 20 04/25/2017 [place] Systolic (mm Hg) 135 04/25/2017 [place] Diastolic (mm Hg) 82 04/25/2017 [place] Systolic (mm Hg) 124 10/10/2015 [place] Diastolic (mm Hg) 77 10/10/2015 [place] Respitory Rate 18 10/10/2015 [place] Heart Rate 93 10/10/2015 [place] Temperature Oral (F) 98.5 F 10/10/2015 [place] Heart Rate 83 10/10/2015 [place] Respitory Rate 18 10/10/2015 [place] Systolic (mm Hg) 132 10/10/2015 [place] Diastolic (mm Hg) 85 10/10/2015 [place] Temperature Oral (F) 98.4 F 10/10/2015 [place] Systolic (mm Hg) 120 10/10/2015 [place] Diastolic (mm Hg) 69 10/10/2015 [place] Heart Rate 93 10/10/2015 [place] Temperature Oral (F) 98.1 F 10/10/2015 [place] Respitory Rate 16 10/10/2015 [place] Height 152.4 cm 10/08/2015 [place] BMI Calculated 31.7 10/08/2015 [place] Weight 73.636 10/08/2015 [place] Diastolic (mm Hg) 64 08/14/2015 [place] Respitory Rate 18 08/14/2015 [place] Heart Rate 109 08/14/2015 [place] Systolic (mm Hg) 110 08/14/2015 [place] Temperature Oral (F) 98.6 F 08/14/2015 [place] Weight 67.727 08/14/2015 [place] BMI Calculated 29.16 08/14/2015 [place] Height 152.4 cm 08/14/2015 [place] Weight 136 05/06/2015 [facility] Systolic (mm Hg) 98 05/06/2015 [facility] Diastolic (mm Hg) 63 05/06/2015 [facility] Heart Rate 103 05/06/2015 [facility] Weight 133 04/04/2015 [facility] Systolic (mm Hg) 119 04/04/2015 [facility] Diastolic (mm Hg) 76 04/04/2015 [facility] Heart Rate 98 04/04/2015 [facility] Heart Rate 75 03/15/2015 [place] Temperature Oral (F) 98.0 F 03/15/2015 [place] Systolic (mm Hg) 116 03/15/2015 [place] Diastolic (mm Hg) 67 03/15/2015 [place] Respitory Rate 18 03/15/2015 [place] Systolic (mm Hg) 112 03/15/2015 [place] Diastolic (mm Hg) 64 03/15/2015 [place] Respitory Rate 8 03/15/2015 [place] Heart Rate 79 03/15/2015 [place] Temperature Oral (F) 98.4 F 03/15/2015 [place] BMI Calculated 27.8 03/15/2015 [place] Weight 62.443 03/15/2015 [place] Respitory Rate 20 03/15/2015 [place] Temperature Oral (F) 98.0 F 03/15/2015 [place] Height 149.86 cm 03/15/2015 [place] Heart Rate 91 03/15/2015 [place] Systolic (mm Hg) 120 03/15/2015 [place] Diastolic (mm Hg) 81 03/15/2015 [place] Height 60 05/08/2014 [facility] Weight 143 05/08/2014 [facility] Temperature Oral (F) 99.2 F 05/08/2014 [facility] Respitory Rate 16 05/08/2014 [facility] Systolic (mm Hg) 125 05/08/2014 [facility] Diastolic (mm Hg) 79 05/08/2014 [facility] Heart Rate 116 05/08/2014 [facility] Weight 134 04/10/2014 [facility] Systolic (mm Hg) 124 04/10/2014 [facility] Diastolic (mm Hg) 80 04/10/2014 [facility] Heart Rate 92 04/10/2014 [facility] Weight 131 03/22/2014 [facility] Systolic (mm Hg) 136 03/22/2014 [facility] Diastolic (mm Hg) 83 03/22/2014 [facility] Heart Rate 96 03/22/2014 [facility] Weight 101 06/24/2012 [facility] Height 59 06/24/2012 [facility] Systolic (mm Hg) 102 06/24/2012 [facility] Diastolic (mm Hg) 70 06/24/2012 [facility] Heart Rate 84 06/24/2012 [facility] Encounters Location Location Encounter Encounter Reason Attending ADM DC Status Source Details Type Number For Provider Date Date Visit [facility] [id number] Chao 05/08 05/08 [facility] Visit [id number] DeFriece, Medical Medical MD Group Group [facility] Report [id number] Mejia 02/20 02/20 [place] [facility] [id number] Jun, /2014 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 [id number] Abram Roblero 03/15 03/15 [facility] [id number] Mejia 04/04 04/04 [place] [facility] [id number] [place], /2014 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 [facility] Report [id number] Mejia 05/06 05/06 [place] [facility] [address] [place], /2014 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 [facility] 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 Report [id number] Mejia 05/06 05/06 [place] [facility] [address] Jun, /2014 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 [id number] MEJIA 05/06 [facility] 0 [facility] Outpatient [id number] SONO VISIT 06/03 Active [facility] Outpatient [id number] SONO VISIT 06/03 Active [facility] Outpatient [id number] SONO VISIT 06/03 Active [facility] Outpatient [id number] SONO VISIT 06/03 Active [facility] Outpatient [id number] MEJIA 06/03 Active [facility] 2 [facility] Outpatient [id number] MEJIA 07/10 Active [facility] 6 [facility] Outpatient [id number] MEJIA 08/05 Active [facility] 7 [facility] Outpatient [id number] SONO VISIT 08/14 Active [facility] Outpatient [id number] MEJIA 08/14 Active [facility] 9 [facility] OBS [id number] Mejia 08/14 08/14 [facility] Observation 9 [place] /2014 [facility] [place] Patient Outpatient [id number] SONO VISIT 08/20 Active [facility] Outpatient [id number] MARCELL 08/20 Active [facility] 1 JACQUELINE /2015 [facility] Outpatient [id number] SONO VISIT 08/28 Active [facility]patient [id number] MEJIA 08/28 Active [facility] 3 [facility] Outpatient [id number] SONO VISIT 09/04 Active [facility] Outpatient [id number] MEJIA 09/04 Active [facility] 5 [facility] Outpatient [id number] SONO VISIT 09/11 Active [facility] Outpatient [id number] MEJIA 09/11 Active [facility] 7 [facility] Outpatient [id number] SONO VISIT 09/18 Active [facility] Outpatient [id number] MEJIA 09/18 Active [facility] 9 [facility] Outpatient [id number] SONO VISIT 09/25 Active [facility] Outpatient [id number] MEJIA 09/25 Active [facility] 1 [facility] Outpatient [id number] SONO VISIT 10/02 Active [facility] Outpatient [id number] MEJIA 10/02 Active [facility] 3 [facility] Inpatient [id number] Mejia 10/08 10/10 [facility] 0 Sang /2015 [facility] [place] Outpatient [id number] MEJIA 11/06 Active [facility] 4 [facility] Outpatient [id number] MEJIA 12/11 Active [facility] 5 [facility] Outpatient [id number] MEJIA 03/05 Active [facility] 6 [facility] Outpatient [id number] MEJIA 06/04 Active [facility] 7 [facility] Outpatient [id number] MEJIA 12/09 Active [facility] 8 [facility] Outpatient [id number] SONO VISIT 01/06 Active [facility] Outpatient [id number] SONO VISIT 01/06 Active [facility] Outpatient [id number] MEJIA 01/06 Active [facility] 0 [facility] Outpatient [id number] MEJIA 01/06 Active [facility] 1 [facility] Outpatient [id number] NEW[facility] ROOM 01/29 Active [facility] Outpatient [id number] SONO VISIT 02/22 Active [facility] Outpatient [id number] MEJIA 02/22 Active [facility] 7 [facility] Outpatient [id number] MEJIA 03/29 Active [facility] 8 [facility] Emergency [id number] [place] 04/25 04/25 [facility] 4 [facility] [place] Outpatient [id number] MEJIA 04/26 Active [facility] 9 [facility] Outpatient [id number] SONO VISIT 05/26 Active [facility] Outpatient [id number] MEJIA 05/26 Active [facility] 1 [facility] Outpatient [id number] MEJIA 06/14 Active [facility] 3 [facility] Outpatient [id number] MEJIA 06/28 Active [facility] 2 [facility] Outpatient [id number] MEJIA 07/19 Active [facility] 4 [facility] Outpatient [id number] SONO VISIT 08/02 Active [facility] Outpatient [id number] MEJIA 08/02 Active [facility] 6 [facility] 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 [id number] NURSE VISIT 08/02 08/03 [facility] 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 [id number] Mejia 08/02 08/03 [facility] 6 Medical Group Outpatient [id number] MEJIA 08/16 Active [facility] 7 [facility] 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 [id number] Mejia 08/16 08/17 [facility] 7 [facility] Group Outpatient [id number] MEJIA 08/30 Active [facility] 8 [facility] 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 [id number] Mejia 08/30 08/31 [facility] 8 Medical Group [facility] BECK TENDER Phone [phone] 09/08 09/10 [facility] Outpatient [id number] MEJIA 09/15 Active [facility] 9 [facility] 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 [id number] Mejia 09/15 09/16 [facility] 9 [facility] Group Outpatient [id number] SONO VISIT 09/23 Active [facility] Outpatient [id number] MEJIA 09/23 Active [facility] 0 [facility] 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 [id number] Mejia 09/23 09/24 [facility] [place] [facility] 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 Mejia 09/23 09/24 [facility] 0 [facility] Group Outpatient [id number] MEJIA 09/29 Active [facility] 1 [facility] BECK TENDER Phone [phone] 09/29 10/01 [facility] 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 [id number] Mejia 09/29 09/30 [facility] 1 Medical Group [facility] Observation [id number] Mejia 10/03 10/03 [facility] 4 [facility] [place] [facility] Inpatient [id number] Mejia 10/05 10/06 [facility] 1 [facility] [place] Outpatient [id number] MEJIA 11/01 Active [facility] 3 [facility] 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 [id number] Mejia 11/01 11/02 [facility] Group Outpatient [id number] MEJIA 05/18 [facility] 9 [facility] Outpatient [id number] MEJIA 05/31 [facility] 5 [facility] Outpatient [id number] MEJIA 08/22 [facility] 6 [place] Outpatient [id number] MEJIA 11/14 [facility] 7 [facility] Procedures Procedure Code Date Perfomer Comments Source care 50901 11/01/2017 Medical only (separate Group procedure)
--- OUTSIDE RECORDS SUMMARY | 2018-08-26 10:28 | XMS REPORT | Summary of Care ---
:1995 Author Organization [facility] Address [address] [place], [place] [address]- Encounter [facility]) [id number] Date(s): 08/14/15 - 08/14/15 [facility] [address] [place] [address]- Discharge Disposition: Home Attending Physician: Mejia Barahona MD Vital Signs Most recent to oldest [Reference Range]: 1 Height 152.4 cm (08/14/15 4:06 PM) Temperature Oral [96.4-99.1 DegF] 98.6 DegF (08/14/15 4:10 PM) Systolic Blood Pressure [90-140 mmHg] 110 mmHg (08/14/15 4:10 PM) Diastolic Blood Pressure [60-90 mmHg] 64 mmHg (08/14/15 4:10 PM) Respiratory Rate [14-20 BRMIN] 18 BRMIN (08/14/15 4:10 PM) Peripheral Pulse Rate [60-100 bpm] 109 bpm *HI* (08/14/15 4:10 PM) Weight 67.727 kg (08/14/15 4:06 PM) Body Mass Index 29.16 m2 (08/14/15 4:06 PM) Problem List Condition Effective Dates Status Health Status Informant Gestational hypertension(Confirmed) Active (Confirmed) 01/08/15 Active (Confirmed) < 03/24/14 Resolved Allergies, Adverse Reactions, Alerts Substance Reaction Severity Status NKDA Active Medications iron sulfate (ferrous sulfate) 325 mg oral tablet 325 mg=1 tab, PO, TID, 0 Refill(s) Start Date: 08/14/15 Status: Ordered Results No data available for this section Immunizations Vaccine Date Refusal Reason influenza virus vaccine, inactivated 07/10/15 Procedures No data available for this section Social History Social History Type Response Substance Abuse Use: None. Sexual Sexually active: Yes. Alcohol Never, Previous treatment: None. Smoking Status Never smoker; Exposure to Tobacco Smoke None; Cigarette Smoking Last 365 Days No; Reg Smoking Cessation Counseling No Assessment and Plan No data available for this section
--- OUTSIDE RECORDS SUMMARY | 2018-08-26 10:28 | XMS REPORT | Summary of Care ---
:1995 Author Encounter JOSIAH Trejo(BINTA) [id number] Date(s): 03/15/15 - 03/15/15 [facility] [address] [place] [address]- Discharge Diagnosis: Abdominal pain in Discharge Diagnosis: Subchorionic hematoma Discharge Diagnosis: Morning sickness Discharge Disposition: Home Physician Attending: Abram Roblero MD Vital Signs Most recent to oldest 1 2 3 [Reference Range]: Height 149.86 cm (03/15/15 11:46 AM) Temperature Oral [96.4-99.1 98.0 DegF 98.4 DegF 98.0 DegF DegF] (03/15/15 3:47 PM) (03/15/15 1:52 PM) (03/15/15 11:46 AM) Blood Pressure [90-140/60-90 116/67 mmHg 112/64 mmHg 120/81 mmHg mmHg] (03/15/15 3:47 PM) (03/15/15 1:52 PM) (03/15/15 11:46 AM) Respiratory Rate [14-20 18 BRMIN 8 BRMIN 20 BRMIN BRMIN] (03/15/15 3:47 PM) *LOW* (03/15/15 11:46 AM) (03/15/15 1:52 PM) Peripheral Pulse Rate [60-100 75 bpm 79 bpm 91 bpm bpm] (03/15/15 3:47 PM) (03/15/15 1:52 PM) (03/15/15 11:46 AM) Weight 62.443 kg (03/15/15 11:46 AM) Body Mass Index 27.8 m2 (03/15/15 11:46 AM) Problem List Condition Effective Dates Status Health Status Informant Contraception care management1 04/10/14 Active Cyst of ovary2 06/24/12 Active Diaper rash3 05/08/14 Active Eruption4 8/19/14 Active Generalized abdominal pain5 06/24/12 Active 1Data migrated from [employer] on 02/16/15.2Data migrated from [employer] on 02/16/15.3Data migrated from [employer] on 02/16/15.4Data migrated from [employer] on 02/16/15.5Data migrated from [employer] on 02/16/15. Allergies, Adverse Reactions, Alerts Substance Reaction Severity Status NKDA Active Medications acetaminophen 650 mg, 2 tab, Route: PO, Drug form: TAB, ONCE, Dosing Weight 62.443, kg, Priority: STAT, Start date: 03/15/15 12:12:00, Stop date: 03/15/15 12:12:00 Notes: Do not exceed 4 gm/day. (Same as: Tylenol) Start Date: 03/15/15 Stop Date: 03/15/15 Status: Completedondansetron 4 mg, 2 mL, Route: IVP, Drug form: INJ, ONCE, Dosing Weight 62.443, kg, Priority : STAT, Start date: 03/15/15 12:12:00, Stop date: 03/15/15 12:12:00 Notes: (Same as: Zofran) MEDICATION WASTE Product Size: 4 mgProduct Wasted: ___ mg Start Date: 03/15/15 Stop Date: 03/15/15 Status: CompletedSaline Flush 0.9% 10 mL, Route: IVP, Drug Form: INJ, Dosing Weight 62.443, kg, PRN, PRN Line Flush , Start date: 03/15/15 12:12:00, Duration: 30 day, Stop date: 04/14/15 12:11:00 Notes: (Same as: BD Posiflush) Start Date: 03/15/15 Stop Date: 03/15/15 Status: DiscontinuedSodium Chloride 0.9% (Bolus) IV 1,000 mL, 1,000 ml/hr, Infuse Over: 1 hr, Route: IV, 1,000, Drug form: INJ, ONCE , Priority: STAT, Dosing Weight 62.443 kg, Start date: 03/15/15 12:12:00, Duration: 1 doses or times, Stop date: 03/15/1512:12:00 Start Date: 03/15/15 Stop Date: 03/15/15 Status: CompletedZofran ODT 4 mg oral tablet, disintegrating 4 mg=1 tab, PO, TID, PRN Nausea and Vomiting, X 4 day, # 10 tab, 0 Refill(s) Start Date: 03/15/15 Stop Date: 03/19/15 Status: Ordered Results BLOOD BANK RESULTS Most recent to oldest [Reference Range]: 1 ABO/Rh O POS *Unknown* (03/15/15 12:26 PM) ENDOCRINOLOGY Most recent to oldest [Reference Range]: 1 hCG Tot [id number] mIU/mL 1 *NA* (03/15/15 12:26 PM) 1Interpretive Data: Reference Range: Male 0 - 5 mIU/mL Non- Female 0 - 5 mIU/mL Note: [...] 17 8,175 - 55,868 18 8,099 - 58,176URINE AND STOOL Most recent to oldest [Reference Range]: 1 UA Turbidity [Clear] Clear (03/15/15 12:26 PM) UA Color [Yellow] Yellow *NA* (03/15/15 12:26 PM) UA pH [5.0-8.0] 6.0 (03/15/15 12:26 PM) UA Spec Grav [<=1.030] 1.020 (03/15/15 12:26 PM) UA Glucose [Negative mg/dL] Negative mg/dL (03/15/15 12:26 PM) UA Blood [Negative] Negative (03/15/15 12:26 PM) UA Ketones [Negative mg/dL] Negative mg/dL *NA* (03/15/15 12: PM) UA Protein [Negative mg/dL] Negative mg/dL (03/15/15 12: PM) UA Urobilinogen [0.1-1.0 EU/dL] 0.2 EU/dL (03/15/15 12:26 PM) UA Bili [Negative] Negative *NA* (03/15/15: PM) UA Leuk Est [Negative] Negative (03/15/15 12:26 PM) UA Nitrite [Negative] Negative (03/15/15:26 PM) UA WBC [None Seen /HPF] 0-2 /HPF (03/15/15: PM) UA Bacteria [None Seen /HPF] Occasional /HPF (03/15/15: PM) UA Sq Epi [Few /LPF] Occasional /LPF (03/15/15:26 PM) Micro? Performed (03/15/15: PM) HEMATOLOGY Most recent to oldest [Reference Range]: 1 WBC [3.7-10.4 K/CMM] 12.0 K/CMM *HI* (03/15/15 12: PM) RBC [4.20-5.40 M/CMM] 3.86 M/CMM *LOW* (03/15/15 12: PM) Hgb [12.0-16.0 g/dL] 11.9 g/dL *LOW* (03/15/15: PM) Hct [36.0-48.0 %] 35.8 % *LOW* (03/15/15: PM) MCV [80.0-98.0 fL] 92.7 fL (03/15/15 12: PM) MCH [27.0-31.0 pg] 30.7 pg (03/15/15: PM) MCHC [32.0-36.0 g/dL] 33.2 g/dL (03/15/15: PM) RDW [11.5-14.5 %] 12.4 % (03/15/15 12: PM) Platelet [133-450 K/CMM] 272 K/CMM (03/15/15 12:26 PM) MPV [7.4-10.4 fL] 9.0 fL (03/15/15 12:26 PM) Segs [45.0-75.0 %] 76.0 % *HI* (03/15/15 12:26 PM) Lymphocytes [20.0-40.0 %] 15.9 % *LOW* (03/15/15 12:26 PM) Monocytes [2.0-12.0 %] 7.6 % (03/15/15 12:26 PM) Eosinophils [0.0-4.0 %] 0.3 % (03/15/15 12:26 PM) Basophils [0.0-1.0 %] 0.2 % (03/15/15 12:26 PM) Segs-Bands # [1.5-8.1 K/CMM] 9.1 K/CMM *HI* (03/15/15 12:26 PM) Lymphocytes # [1.0-5.5 K/CMM] 1.9 K/CMM (03/15/15 12:26 PM) Monocytes # [0.0-0.8 K/CMM] 0.9 K/CMM *HI* (03/15/15 12:26 PM) Eosinophils # [0.0-0.5 K/CMM] 0.0 K/CMM (03/15/15 12:26 PM) Basophils # [0.0-0.2 K/CMM] 0.0 K/CMM (03/15/15 12:26 PM) Immunizations No data available for this section Procedures No data available for this section Social History Social History Type Response Smoking Status Never smoker; Exposure to Tobacco Smoke None; Cigarette Smoking Last 365 Days No; Reg Smoking Cessation Counseling No Assessment and Plan No data available for this section
--- OUTSIDE RECORDS SUMMARY | 2018-08-26 10:28 | XMS REPORT | Summary of Care ---
:1995 Author Organization [facility] Address [address] [place], [place] [address]- Encounter HQ Maya([facility]) [id number] Date(s): 10/07/15 - 10/10/15 [facility] [address] [place] [address]- Final: related conditions, unspecified, unspecified trimester Discharge Disposition: Home Attending Physician: Mejia Barahona MD Admitting Physician: Mejia Barahona MD Vital Signs Most recent to oldest 1 2 3 [Reference Range]: Height 152.4 cm (10/07/15 9:53 PM) Temperature Oral [96.4-99.1 98.5 DegF 98.4 DegF 98.1 DegF DegF] (10/10/15 12:00 PM) (10/10/15 8:00 AM) (10/10/15 3:44 AM) Blood Pressure [90-140/60-90 124/77 mmHg 132/85 mmHg 120/69 mmHg mmHg] (10/10/15 12:00 PM) (10/10/15 8:00 AM) (10/10/15 3:44 AM) Respiratory Rate [14-20 BRMIN] 18 BRMIN 18 BRMIN 16 BRMIN (10/10/15 12:00 PM) (10/10/15 8:00 AM) (10/10/15 3:44 AM) Peripheral Pulse Rate [60-100 93 bpm 83 bpm 93 bpm bpm] (10/10/15 12:00 PM) (10/10/15 8:00 AM) (10/10/15 3:44 AM) Weight 73.636 kg (10/07/15 9:53 PM) Body Mass Index 31.7 m2 (10/07/15 9:53 PM) Problem List Condition Effective Dates Status Health Status Informant Gestational Active hypertension(Confirmed) Gestational Active hypertension(Confirmed) (Confirmed) 01/08/15 - 10/08/15 Resolved (Confirmed) < 03/24/14 Resolved Allergies, Adverse Reactions, Alerts Substance Reaction Severity Status NKDA Active Medications acetaminophen 650 mg, 2 tab, Route: PO, Drug form: TAB, Q4H, Dosing Weight 73.636, kg, PRN Pain Score 1-3, Start date: 10/08/15 20:15:00, Duration: 30 day, Stop date: 20:14:00 Notes: Do not exceed 4 gm/day. (Same as: Tylenol) Start Date: 10/08/15 Stop Date: 10/10/15 Status: Discontinuedacetaminophen-hydrocodone 325 mg-5 mg oral tablet 1 tab, Route: PO, Drug Form: TAB, Dosing Weight 73.636, kg, Q4H, PRN Pain Score 7-10, Start date: 10/08/15 20:15:00, Duration: 30 day, Stop date: 11/07/15 20:14 :00 Notes: (Same as: Echo 325/5) Do not exceed 4gm/day of acetaminophen. Start Date: 10/08/15 Stop Date: 10/10/15 Status: Discontinuedbisacodyl 15 mg, 3 tab, Route: PO, Drug form: ECTAB, Daily, Dosing Weight 73.636, kg, PRN Other -See Comment, Start date: 10/08/15 20:15:00, Duration: 30 day, Stop date: 11/07/15 20:14:00 Notes: (Same As: Dulcolax, Correctol) (Do Not Crush) "Do Not Crush" Start Date: 10/08/15 Stop Date: 10/10/15 Status: Discontinuedbisacodyl 10 mg, 1 supp, Route: PA, Drug form: SUPP, PRN, Dosing Weight 73.636, kg, PRN Other -See Comment, Start date: 10/08/15 20:15:00, Duration: 30 day, Stop date: 11/07/15 20:14:00 Notes: (Same As: Dulcolax, Bisco-Lax) Start Date: 10/08/15 Stop Date: 10/10/15 Status: Discontinuedbutorphanol 2 mg, 1 mL, Route: IVP, Drug form: INJ, Q2H, Dosing Weight 73.636, kg, PRN Pain Score 6-10, Start date: 10/07/15 22:01:00, Duration: 30 day, Stop date: 22:00:00 Notes: (Same As: Stadol) MEDICATION WASTE Product Size: 2 mgProduct Wasted: ___ mg Start Date: 10/07/15 Stop Date: 10/10/15 Status: Discontinuedbutorphanol 1 mg, 0.5 mL, Route: IVP, Drug form: INJ, Q2H, Dosing Weight 73.636, kg, PRN Pain Score 1-5, Start date: 10/07/15 22:01:00, Duration: 30 day, Stop date: 22:00:00 Notes: (Same As: Stadol) MEDICATION WASTE Product Size: 2 mgProduct Wasted: _1__ mg Start Date: 10/07/15 Stop Date: 10/10/15 Status: Discontinuedcarboprost 250 microgram, 1 mL, Route: IM, Drug form: INJ, ONCALL, Dosing Weight 73.636, kg , Start date: 10/07/15 23:00:00, Duration: 30 day, Stop date: 11/06/15 22:59:00 Notes: (Same As: Hemabate) Start Date: 10/07/15 Stop Date: 10/10/15 Status: Discontinuedcitric acid-sodium citrate 30 mL, Route: PO, Drug Form: SOLN, Dosing Weight 73.636, kg, ONCALL, Start date : 10/07/15 23:00:00, Duration: 30 day, Stop date: 11/06/15 22:59:00 Notes: (Same As: Bicitra) Start Date: 10/07/15 Stop Date: 10/10/15 Status: DiscontinuedDermoplast 20% topical spray 1 spray, Route: TOP, PRN, Drug form: SPRY, PRN Irritation, Start date: 10/08/15 20:15:00, Duration: 30 day, Stop date: 11/07/15 20:14:00 Notes: (Same As: Dermoplast) FOR EXTERNAL USE ONLY Start Date: 10/08/15 Stop Date: 10/10/15 Status: Discontinueddocusate 100 mg, 1 cap, Route: PO, Drug form: CAP, BID, Dosing Weight 73.636, kg, PRN Constipation, Start date: 10/08/15 20:15:00, Duration: 30 day, Stop date: 20:14:00 Notes: (Same as: Colace) (Do Not Crush) Start Date: 10/08/15 Stop Date: 10/10/15 Status: Discontinuedfamotidine 20 mg, 2 mL, Route: IVP, Drug form: INJ, ONCALL, Dosing Weight 73.636, kg, Start date: 10/07/15 23:00:00, Duration: 30 day, Stop date: 11/06/15 22:59:00 Notes: (Same as: Pepcid)Can be dilute in 5-10cc NS IVP: Slow IV push over at least 2 minutes. Start Date: 10/07/15 Stop Date: 10/10/15 Status: Discontinuedibuprofen 600 mg, 1 tab, Route: PO, Drug form: TAB, Q6H, Dosing Weight 73.636, kg, PRN Pain Score 4-6, Start date: 10/08/15 20:15:00, Duration: 30 day, Stop date: 20:14:00 Notes: (Same as: Motrin)"Do Not Crush" Take with food. Start Date: 10/08/15 Stop Date: 10/10/15 Status: Discontinuedibuprofen 800 mg, 2 tab, Route: PO, Drug form: TAB, Q8H, Dosing Weight 73.636, kg, PRN Pain Score 7-10, Start date: 10/08/15 20:15:00, Duration: 30 day, Stop date: 20:14:00 Notes: (Same as: Motrin)"Do Not Crush" Give with food. Start Date: 10/08/15 Stop Date: 10/10/15 Status: Discontinuedibuprofen 600 mg oral tablet 600 mg=1 tab, PO, Q6H, PRN Pain, take with food, # 30 tab, 0 Refill(s) Start Date: 10/09/15 Status: OrderedLactated Ringers (Bolus) IV 1,000 mL, 1,000 ml/hr, Infuse Over: 1 hr, Route: IV, 1,000, Drug form: INJ, ONCE , Dosing Weight 73.636 kg, Start date: 10/07/15 22:01:00, Stop date: 10/07/15 22 :01:00, Bolus for regional anesthesia perunit protocol Start Date: 10/07/15 Stop Date: 10/09/15 Status: CompletedLactated Ringers IV 1,000 mL 1,000 mL, Rate: 100 ml/hr, Infuse over: 10 hr, Route: IV, Dosing Weight 73.636 kg, Total Volume: 1,000, Start date: 10/08/15 20:15:00, Duration: 30 day, Stop date: 11/07/15 20:14:00 Start Date: 10/08/15 Stop Date: 10/10/15 Status: DiscontinuedLactated Ringers IV 1,000 mL 1,000 mL, Rate: 125 ml/hr, Infuse over: 8 hr, Route: IV, Dosing Weight 73.636 kg , Total Volume: 1,000, Start date: 10/07/15 22:01:00, Duration: 30 day, Stop date: 11/06/15 22:00:00 Start Date: 10/07/15 Stop Date: 10/10/15 Status: Discontinuedlanolin topical 1 appl, Route: TOP, PRN, Drug form: OINT, PRN Other -See Comment, Start date: 20:15:00, Duration: 30 day, Stop date: 11/07/15 20:14:00 Notes: (Same as:Lanolin) Start Date: 10/08/15 Stop Date: 10/10/15 Status: Discontinuedlidocaine 1% 20 mL, Route: PERCUT, Drug Form: INJ, Dosing Weight 73.636, kg, PRN, PRN Other - See Comment, Start date: 10/07/15 22:01:00, Duration: 1 doses or times, Stop date: Limited # of times Notes: Preservative free. (Same as: Xylocaine MPF) Start Date: 10/07/15 Stop Date: 10/09/15 Status: Completedlidocaine 1% injectable solution 0.25 mL, Route: INTRADERM, Drug Form: INJ, Dosing Weight 73.636, kg, PRN, PRN Other -See Comment, Start date: 10/07/15 22:01:00, Duration: 30 day, Stop date: 11/06/15 22:00:00 Notes: Preservative free. (Same as: Xylocaine MPF) Start Date: 10/07/15 Stop Date: 10/10/15 Status: LystaakyqaklO-F-A II 0.5 mL, Route: SUB-Q, Drug Form: PDR/INJ, Dosing Weight 73.636, kg, ONCALL, Give only if patient rubella non-immune, Start date: 10/08/15 21:00:00, Duration : 1 doses or times Notes: (Same as: M-M-R II) (yvychnu-defzi-gebnifx virus vaccine 0.5 ml INJ VL) GIVE PRIOR TO DISCHARGE Start Date: 10/08/15 Stop Date: 10/10/15 Status: Discontinuedmethylergonovine 0.2 mg, 1 mL, Route: IM, Drug form: INJ, PRN, Dosing Weight 73.636, kg, PRN Other -See Comment, Start date: 10/08/15 20:15:00, Duration: 30 day, Stop date: 11/07/15 20:14:00 Notes: (Same as:Methergine) Start Date: 10/08/15 Stop Date: 10/10/15 Status: Discontinuedmethylergonovine 0.2 mg, 1 mL, Route: IM, Drug form: INJ, ONCALL, Dosing Weight 73.636, kg, Start date: 10/07/15 23:00:00, Duration: 30 day, Stop date: 11/06/15 22:59:00 Notes: (Same as:Methergine) Start Date: 10/07/15 Stop Date: 10/10/15 Status: Discontinuedmisoprostol 25 microgram, 0.25 tab, Route: VAG, Drug form: TAB, Q4H, Dosing Weight 73.636, kg, Priority: NOW, Start date: 10/07/15 22:08:00, Duration: 30 day, Stop date: 11/06/15 20:00:00 Notes: (Same as:Cytotec) Take with food Start Date: 10/07/15 Stop Date: 10/08/15 Status: Discontinuedmisoprostol 1,000 microgram, 10 tab, Route: PA, Drug form: TAB, ONCALL, Dosing Weight 73.636 , kg, Start date: 10/07/15 23:00:00, Duration: 1 doses or times Notes: (Same as:Cytotec) Take with food Start Date: 10/07/15 Stop Date: 10/10/15 Status: Discontinuedondansetron 4 mg, 2 mL, Route: IVP, Drug form: INJ, Q8H, Dosing Weight 73.636, kg, PRN Nausea & Vomiting, Start date: 10/08/15 20:15:00, Duration: 30 day, Stop date: 11/07/15 20:14:00 Notes: (Same as: Zofran) MEDICATION WASTE Product Size: 4 mgProduct Wasted: ___ mg Start Date: 10/08/15 Stop Date: 10/10/15 Status: Discontinuedondansetron 4 mg, 2 mL, Route: IVP, Drug form: INJ, Q8H, Dosing Weight 73.636, kg, PRN Nausea & Vomiting, Start date: 10/07/15 22:01:00, Duration: 30 day, Stop date: 11/06/15 22:00:00 Notes: (Same as: Zofran) MEDICATION WASTE Product Size: 4 mgProduct Wasted: ___ mg Start Date: 10/07/15 Stop Date: 10/10/15 Status: Discontinuedoxytocin 30 units in D5LR 500mL (Titrate) IV 30 unit 30 unit, 500 mL, Rate: 42 ml/hr, Infuse over: 11.9 hr, Dosing Weight 73.636, kg , Route: IV, Total Volume: 500 mL, Start date: 10/08/15 20:15:00, Duration: 2 doses or times, Stop date: 10/09/15 20:02:00, Replace Every: 11.9 hr Notes: (Same as: OXYTOCIN-D5LR) Start Date: 10/08/15 Stop Date: 10/09/15 Status: Completedoxytocin 30 units in LR 500 mL 30 unit 30 unit, 500 mL, Rate: 42 ml/hr, Infuse over: 11.9 hr, Dosing Weight 73.636, kg , Route: IV, Total Volume: 500 mL, Start date: 10/07/15 22:01:00, Duration: 2 day, Stop date: 10/09/15 22:00:00, Replace Every: 11.9 hr Notes: (Same as: OXYTOCIN-D5LR) Start Date: 10/07/15 Stop Date: 10/09/15 Status: Completedpenicillin G potassium 2,500,000 unit, 50 mL, Route: IVPB, Drug form: INJ, ABXQ4H, Dosing Weight 73.636 , kg, Start date: 10/08/15 3:00:00 Start Date: 10/08/15 Stop Date: 10/09/15 Status: Discontinuedpenicillin G potassium 5,000,000 units injection 5,000,000 unit, 100 mL, Route: IVPB, Drug form: PDR/INJ, ONCALL, Dosing Weight 73.636, kg, Start date: 10/07/15 23:00:00 Start Date: 10/07/15 Stop Date: 10/08/15 Status: CompletedPrenatal Multivitamins oral tablet 1 tab, Route: PO, Drug Form: TAB, Dosing Weight 73.636, kg, Daily, Start date: 10/09/15 9:00:00, Duration: 30 day, Stop date: 11/07/15 9:00:00 Start Date: 10/09/15 Stop Date: 10/10/15 Status: DiscontinuedRopivacaine 0.2% + fentaNYL 2 mcg/ml Epidural CADD 200 mL Route: EPIDURAL, Continuous Rate: 8, ml/hr, Infusion site: Lumbar, SCOOP FILLER dose 3 mL , SCOOP FILLER dose lockout: 15 minutes, 1 Hour limit: 20 mL, 200, mL, Start date: 22:08:00, Duration: 30, day, Drug Form: INJ, Total volume: 200, mL, kg, Stop date: 11/06... Notes: (Same as Naropin-Sublimaze) Start Date: 10/07/15 Stop Date: 10/09/15 Status: Discontinuedterbutaline 0.25 mg, 0.25 mL, Route: SUB-Q, Drug form: INJ, PRN, Dosing Weight 73.636, kg, PRN Other -See Comment, Start date: 10/07/15 22:01:00, Duration: 1 doses or times, Stop date: Limited # of times Notes: DO NOT USE IN TIME CYCLE OPERATOR AREA(Same As: Kenia) Start Date: 10/07/15 Stop Date: 10/10/15 Status: Discontinuedzolpidem 5 mg, 1 tab, Route: PO, Drug form: TAB, Bedtime, Dosing Weight 73.636, kg, PRN Sleep, Start date: 10/08/15 20:15:00, Duration: 30 day, Stop date: 11/07/15 20: 14:00 Notes: (Same As: Cristian) Start Date: 10/08/15 Stop Date: 10/10/15 Status: Discontinued Results BLOOD BANK RESULTS Most recent to oldest [Reference Range]: 1 2 ABO/Rh O POS *Unknown* (10/07/15 11:17 PM) Antibody Scrn Negative (10/07/15 11:17 PM) IMMUNOLOGY Most recent to oldest [Reference Range]: 1 2 Treponemal Scr [Non Reactive] Non Reactive *NA* (10/07/15 11:17 PM) Hep Bs Ag [Negative] Negative *NA* (10/07/15 11:17 PM) HEMATOLOGY Most recent to oldest [Reference Range]: 1 2 WBC [3.7-10.4 K/CMM] 13.4 K/CMM *HI* (10/07/15 11:17 PM) RBC [4.20-5.40 M/CMM] 3.21 M/CMM *LOW* (10/07/15 11:17 PM) Hgb [12.0-16.0 g/dL] 9.0 g/dL 10.0 g/dL *LOW* *LOW* (10/09/15 4:25 AM) (10/07/15 11:17 PM) Hct [36.0-48.0 %] 26.9 % 29.9 % *LOW* *LOW* (10/09/15 4:25 AM) (10/07/15 11:17 PM) MCV [80.0-98.0 fL] 93.2 fL (10/07/15 11:17 PM) MCH [27.0-31.0 pg] 31.3 pg *HI* (10/07/15 11:17 PM) MCHC [32.0-36.0 g/dL] 33.6 g/dL (10/07/15 11:17 PM) RDW [11.5-14.5 %] 12.8 % (10/07/15 11:17 PM) Platelet [133-450 K/CMM] 269 K/CMM (10/07/15 11:17 PM) MPV [7.4-10.4 fL] 8.7 fL (10/07/15 11:17 PM) Segs [45.0-75.0 %] 72.7 % (10/07/15 11:17 PM) Lymphocytes [20.0-40.0 %] 18.7 % *LOW* (10/07/15 11:17 PM) Monocytes [2.0-12.0 %] 7.9 % (10/07/15 11:17 PM) Eosinophils [0.0-4.0 %] 0.4 % (10/07/15 11:17 PM) Basophils [0.0-1.0 %] 0.3 % (10/07/15 11:17 PM) Segs-Bands # [1.5-8.1 K/CMM] 9.8 K/CMM *HI* (10/07/15 11:17 PM) Lymphocytes # [1.0-5.5 K/CMM] 2.5 K/CMM (10/07/15 11:17 PM) Monocytes # [0.0-0.8 K/CMM] 1.1 K/CMM *HI* (10/07/15 11:17 PM) Eosinophils # [0.0-0.5 K/CMM] 0.1 K/CMM (10/07/15 11:17 PM) Basophils # [0.0-0.2 K/CMM] 0.0 K/CMM (10/07/15 11:17 PM) Immunizations Vaccine Date Refusal Reason diphtheria/pertussis, acel/tetanus adult 08/28/15 influenza virus vaccine, inactivated 07/10/15 Procedures No data available for this section Social History Social History Type Response Substance Abuse Use: None. Sexual Sexually active: Yes. Alcohol Never Smoking Status Never smoker; Exposure to Tobacco Smoke None; Cigarette Smoking Last 365 Days No; Reg Smoking Cessation Counseling No Assessment and Plan Extracted from: Title: ppd #2 Author: Aniyah Elise MD Date: 10/10/15 Impression and Plan PPD#2 Discharge home f/u in 4 weeks See home med rec form Patient understands precautions Acute blood loss anemia - VSS, asx Extracted from: Title: Clinical Document Author: Mejia Barahona MD Date: 10/08/15 H&P See OB record for further details. 20 y/o at 39 0/7 weeks here for induction of labor due to Gestational Hypertension. She is feeling contractions and movement. She denies headaches, vision changes, bleeding or ROM. She has had an otherwise uncomplicated course. History otherwise unchanged. VS: BPs 112-127/55-71 here (Last BP in office 141/91) FHTs: 120, reactive, moderate variability, contractions q 2-4 min. Cervix: FT/Thick/High (at 0430 by nurse). Physical Exam otherwise unchanged. GBS: + (by urine culture early in ) HIV: Neg. RPR: Neg. Impression/Plan: at 39 0/7 weeks, Gestational Hypertension, here for induction. Potential risks, complications and other options reviewed and questions answered. She states understanding and wants to proceed with induction of labor. She has received two doses of cytotec. Will re-evaluate cervix at 0830. Will repeat cytotec if needed. If not needed , will start pitocin. PCN started for GBS prophylaxis. Epidural at patient request.
--- OUTSIDE RECORDS SUMMARY | 2018-08-26 10:29 | XMS REPORT | Summary of Care ---
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 [address] [phone] Final: Encounter for supervision of other normal , third trimester Discharge Disposition: Home or Self Care Attending Physician: Mejia Barahona MD Vital Signs Most recent to oldest [Reference Range]: 1 Height 152.4 cm (08/30/17 10:47 AM) Blood Pressure [90-140/60-90 mmHg] 126/79 mmHg (08/30/17 10:47 AM) Peripheral Pulse Rate [60-100 bpm] 122 bpm *HI* (08/30/17 10:47 AM) Weight 74.091 kg (08/30/17 10:47 AM) Body Mass Index 31.9 m2 (08/30/17 10:47 AM) Problem List Condition Effective Dates Status Health Status Informant Female dyspareunia(Confirmed) Active Family history of breast Active cancer(Confirmed) Fatigue(Confirmed) Active Vaginitis(Confirmed) Active Depression(Confirmed) Active Encounter for supervision of other Active normal , third trimester(Confirmed) Obesity(Confirmed) Active Surveillance of contraceptive Active pill(Confirmed) (Confirmed) 12/04/16 Active (Confirmed) 01/08/15 - 10/08/15 Resolved (Confirmed) < 7/14 Resolved Uterine size-date discrepancy, Active third trimester(Confirmed) Allergies, Adverse Reactions, Alerts Substance Reaction Severity Status NKDA Active Medications No Known Medications Results No data available for this section Immunizations Given and Recorded Vaccine Date Status Refusal Reason diphtheria/pertussis, acel/tetanus adult1 08/16/17 Given diphtheria/pertussis, acel/tetanus adult 08/28/15 Given influenza virus vaccine, inactivated2 06/28/17 Given influenza virus vaccine, inactivated 07/10/15 Given 1Result Comment: Injection given and patient tolerated well. Patient monitored for 15 minutes with no report of adverse reaction or concerns.2Result Comment: Injection given and patient tolerated well. Patient monitored for 15 minutes with no complaints of adverse reaction or concerns. Procedures No data available for this section Social History Social History Type Response Substance Abuse Use: None. Sexual Sexually active: Yes. Alcohol Never Smoking Status Never smoker; Exposure to Tobacco Smoke None; Cigarette Smoking Last 365 Days No; Reg Smoking Cessation Counseling No Assessment and Plan No data available for this section
--- OUTSIDE RECORDS SUMMARY | 2018-08-26 10:29 | XMS REPORT | Summary of Care ---
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 [phone] Final: Encounter for supervision of other normal , third trimester Discharge Disposition: Home or Self Care Attending Physician: Mejia Barahona MD Vital Signs Most recent to oldest [Reference Range]: 1 Height 149.86 cm (09/15/17 12:36 PM) Blood Pressure [90-140/60-90 mmHg] 121/82 mmHg (09/15/17 12:36 PM) Weight 72.727 kg (09/15/17 12:36 PM) Body Mass Index 32.38 m2 (09/15/17 12:36 PM) Problem List Condition Effective Dates Status Health Status Informant Female dyspareunia(Confirmed) Active Family history of breast Active cancer(Confirmed) Fatigue(Confirmed) Active Vaginitis(Confirmed) Active Depression(Confirmed) Active Encounter for supervision of other Active normal , third trimester(Confirmed) Obesity(Confirmed) Active Surveillance of contraceptive Active pill(Confirmed) (Confirmed) 12/04/16 Active (Confirmed) 01/08/15 - 10/08/15 Resolved (Confirmed) < 03/24/14 Resolved Uterine size-date discrepancy, Active third trimester(Confirmed) [...]
--- OUTSIDE RECORDS SUMMARY | 2018-08-26 10:29 | XMS REPORT | Summary of Care ---
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 [address] [phone] Discharge Disposition: Home or Self Care Attending Physician: Mejia Barahona MD Vital Signs No data available for this section Problem List Condition Effective Dates Status Health Status Informant Female dyspareunia(Confirmed) Active Family history of breast Active cancer(Confirmed) Fatigue(Confirmed) Active Vaginitis(Confirmed) Active Depression(Confirmed) Active Encounter for supervision of other Active normal , third trimester(Confirmed) Obesity(Confirmed) Active Surveillance of contraceptive Active pill(Confirmed) (Confirmed) 12/04/16 Active (Confirmed) 01/08/15 - 10/08/15 Resolved (Confirmed) < 7/5/14 Resolved Uterine size-date discrepancy, Active third trimester(Confirmed) Allergies, Adverse Reactions, Alerts Substance Reaction Severity Status NKDA Active Medications No data available for this section Results No data available for this section [...]
--- OUTSIDE RECORDS SUMMARY | 2018-08-26 10:29 | XMS REPORT | Summary of Care ---
:1995 Author Organization [facility] Address [address] [place], [place] [address]- Encounter HQ Maya([facility]) [id number] Date(s): 10/03/17 - 10/03/17 [facility] [id number] [place] [address]- Discharge Disposition: Home or Self Care Attending Physician: Mejia Barahona MD Admitting Physician: Mejia Barahona MD Vital Signs Most recent to oldest [Reference Range]: 1 Height 152.4 cm (10/03/17 11:40 AM) Temperature Oral [96.4-99.1 DegF] 98.4 DegF (10/03/17 11:46 AM) Blood Pressure [90-140/60-90 mmHg] 122/77 mmHg (10/03/17 10:48 AM) Respiratory Rate [14-20 BRMIN] 18 BRMIN (10/03/17 10:48 AM) Peripheral Pulse Rate [60-100 bpm] 113 bpm *HI* (10/03/17 10:48 AM) Weight 73.636 kg (10/03/17 11:40 AM) Body Mass Index 31.7 m2 (10/03/17 11:40 AM) Problem List Condition Effective Dates Status [...] Substance Reaction Severity Status NKDA Active Medications Lactated Ringers Injection IV 1,000 mL 1,000 mL, Rate: 125 ml/hr, Infuse over: 8 hr, Route: IV, Dosing Weight 73.636 kg , Total Volume: 1,000, Start date: 10/03/17 11:40:00 REMOTE SENSING TECHNOLOGIST, Duration: 30 day, Stop date: 11/02/17 11:39:00 REMOTE SENSING TECHNOLOGIST, 1.79, m2 Start Date: 10/03/17 Stop Date: 10/03/17 Status: Discontinued Results BODY FLUIDS Most recent to oldest [Reference Range]: 1 Amnisure ROM [Negative] Negative (10/03/17 12:29 PM) Immunizations Given and Recorded Vaccine Date Status [...] Days No; Reg Smoking Cessation Counseling No entered on: 10/05/17 Assessment and Plan Extracted from: Title: OB Progress Note L&D Author: Ron Yen MD Date: Impression and Plan condition: Stable. Maternal condition: Stable. Plan Amniusre negative, not in labor, will discharge. .
--- OUTSIDE RECORDS SUMMARY | 2018-08-26 10:29 | XMS REPORT | Summary of Care ---
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 [phone] Final: Need for Tdap vaccination Final: Encounter for supervision of other normal , third trimester Discharge Disposition: Home or Self Care Attending Physician: Mejia Barahona MD Vital Signs Most recent to oldest [Reference Range]: 1 Height 149.86 cm (08/16/17 2:23 PM) Blood Pressure [90-140/60-90 mmHg] 129/80 mmHg (08/16/17 2:23 PM) Weight 73.636 kg (08/16/17 2:23 PM) Body Mass Index 32.79 m2 (08/16/17 2:23 PM) Problem List Condition Effective Dates Status [...]
--- OUTSIDE RECORDS SUMMARY | 2018-08-26 10:29 | XMS REPORT | Summary of Care ---
:1995 Author Organization [facility] [place] Address [address] [place] [address]- Encounter Maya(FIN) [id number] Date(s): 08/02/17 - 08/02/17 [facility] [address] [place] [phone] Discharge Disposition: Home or Self Care Attending Physician: VISIT, NURSE [facility] Vital Signs No data available for this section Problem List Condition Effective Dates Status Health Status Informant Female dyspareunia(Confirmed) Active Family history of breast Active cancer(Confirmed) Fatigue(Confirmed) Active Vaginitis(Confirmed) Active Depression(Confirmed) Active Encounter for supervision of other Active normal , third trimester(Confirmed) Obesity(Confirmed) Active Surveillance of contraceptive Active pill(Confirmed) (Confirmed) 12/04/16 Active (Confirmed) 01/08/15 - 10/08/15 Resolved (Confirmed) < 7//14 Resolved Uterine size-date discrepancy, Active third trimester(Confirmed) Allergies, Adverse Reactions, Alerts Substance Reaction Severity Status NKDA Active Medications No data available for this section Results No data available for this section Immunizations Given and Recorded Vaccine Date Status Refusal Reason influenza virus vaccine, inactivated1 06/28/17 Given influenza virus vaccine, inactivated 07/10/15 Given diphtheria/pertussis, acel/tetanus adult 08/28/15 Given 1Result Comment: Injection given and patient [...]
--- OUTSIDE RECORDS SUMMARY | 2018-08-26 10:29 | XMS REPORT | Summary of Care ---
:1995 Author Organization [facility] Address [address] [place], [place] [address]- Encounter HQ Maya(FIN) [id number] Date(s): 04/24/17 - 04/25/17 [facility] [address] [place] [address]- Discharge Diagnosis: Vaginal discharge during Discharge Disposition: Home or Self Care Attending Physician: Garfield Bustillo MD Vital Signs Most recent to oldest [Reference Range]: 1 2 Temperature Oral [96.4-99.1 DegF] 97.9 DegF 98.1 DegF (04/24/17 11:45 PM) (04/24/17 10:11 PM) Blood Pressure [90-140/60-90 mmHg] 135/82 mmHg (04/24/17 10:11 PM) Systolic Blood Pressure [90-140 mmHg] 104 mmHg (04/24/17 11:45 PM) Diastolic Blood Pressure [60-90 mmHg] 68 mmHg (04/24/17 11:45 PM) Respiratory Rate [14-20 BRMIN] 18 BRMIN 20 BRMIN (04/24/17 11:45 PM) (04/24/17 10:11 PM) Peripheral Pulse Rate [60-100 bpm] 98 bpm 113 bpm (04/24/17 11:45 PM) *HI* (04/24/17 10:11 PM) Weight 65.227 kg (04/24/17 10:11 PM) Problem List Condition Effective Dates Status Health Status Informant Female dyspareunia(Confirmed) Active Family history of breast Active cancer(Confirmed) Fatigue(Confirmed) Active Depression(Confirmed) Active Encounter for supervision of other Active normal , second trimester(Confirmed) Obesity(Confirmed) Active Surveillance of contraceptive Active pill(Confirmed) (Confirmed) 12/04/16 Active (Confirmed) 01/08/15 - 10/08/15 Resolved (Confirmed) < 03/24/14 Resolved Allergies, Adverse Reactions, Alerts Substance Reaction Severity Status NKDA Active Medications Tylenol 975 mg, Route: PO, Drug form: TAB, ONCE, Dosing Weight 65.227, kg, Priority: STAT, Start date: 04/24/17 22:36:00 CDT, Stop date: 04/24/17 22:36:00 CDT Start Date: 04/24/17 Stop Date: 04/24/17 Status: Completed Results URINE AND STOOL Most recent to oldest [Reference Range]: 1 UA Turbidity [Clear] Slight *ABN* (04/24/17 10:46 PM) UA Color [Yellow] Yellow *NA* (04/24/17 10:46 PM) UA pH [5.0-8.0] 5.0 (04/24/17 10:46 PM) UA Spec Grav [<=1.030] 1.032 *HI* (04/24/17 10:46 PM) UA Glucose [Negative mg/dL] 50 mg/dL *ABN* (04/24/17 10:46 PM) UA Blood [Negative] Negative (04/24/17 10:46 PM) UA Ketones [Negative mg/dL] Trace mg/dL *ABN* (04/24/17 10:46 PM) UA Protein [Negative mg/dL] 30 mg/dL *ABN* (04/24/17 10:46 PM) UA Urobilinogen [0.1-1.0 mg/dL] 2.0 mg/dL *HI* (04/24/17 10:46 PM) UA Bili [Negative] Negative *NA* (04/24/17 10:46 PM) UA Leuk Est [Negative] Negative (04/24/17 10:46 PM) UA Nitrite [Negative] Negative (04/24/17 10:46 PM) UA WBC [0-5 /HPF] 1 /HPF (04/24/17 10:46 PM) UA RBC [0-2 /HPF] <1 /HPF (04/24/17 10:46 PM) UA Bacteria [None Seen /HPF] Occasional /HPF *NA* (04/24/17 10:46 PM) UA Sq Epi [Few /LPF] Occasional /LPF *NA* (04/24/17 10:46 PM) UA Mucus [None Seen /LPF] Moderate /LPF *ABN* (04/24/17 10:46 PM) BODY FLUIDS Most recent to oldest [Reference Range]: 1 Amnisure ROM [Negative] Negative (04/24/17 11:21 PM) Immunizations Given and Recorded Vaccine Date Status Refusal Reason diphtheria/pertussis, acel/tetanus adult 08/28/15 Given influenza virus vaccine, inactivated 07/10/15 Given Procedures No data available for this section Social History Social History Type Response Substance Abuse Use: None. Sexual Sexually active: Yes. Alcohol Never Smoking Status Never smoker; Exposure to Tobacco Smoke None; Cigarette Smoking Last 365 Days No; Reg Smoking Cessation Counseling No Assessment and Plan No data available for this section
--- OUTSIDE RECORDS SUMMARY | 2018-08-26 10:29 | XMS REPORT | Summary of Care ---
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 [place], [place] [address] [phone] Vital Signs No data available for this section Problem List Condition Effective Dates Status Health Status Informant control(Confirmed) Active Female dyspareunia(Confirmed) Active Family history of breast Active cancer(Confirmed) Fatigue(Confirmed) Active Vaginitis(Confirmed) Active Obesity(Confirmed) Active care following vaginal Active delivery(Confirmed) (Confirmed) 12/04/16 - 10/05/17 Resolved (Confirmed) 01/08/15 - 10/08/15 Resolved (Confirmed) < 7//14 Resolved Allergies, Adverse Reactions, Alerts Substance Reaction [...] Yes. Alcohol Never Smoking Status Never smoker; Ready to change: No; Concerns about tobacco use in household: No; Exposure to Tobacco Smoke None; Cigarette Smoking Last 365 Days No; Reg Smoking Cessation Counseling No entered on: 11/01/17 Assessment and Plan No data available for this section
--- OUTSIDE RECORDS SUMMARY | 2018-08-26 10:29 | XMS REPORT | Summary of Care ---
:1995 Author Organization [facility] [place] Address [address] [place] [address]- Encounter Trenton_artemio(FIN) [id number] Date(s): 09/08/17 - 09/09/17 [facility] [address] [place] [phone] Vital Signs No data available for this [...]
--- OUTSIDE RECORDS SUMMARY | 2018-08-26 10:29 | XMS REPORT | Summary of Care ---
:1995 Author Organization [facility] Address [address] [place], [place] [address]- Encounter HQ Maya(FIN) [id number] Date(s): 10/03/17 - 10/03/17 [facility] [id number] [place] [address]- Encounter Diagnosis False labor at or after 37 completed weeks of gestation (Final) - 10/11/17 Gestational [-induced] hypertension without significant proteinuria, third trimester (Final) - 39 weeks gestation of (Final) - Discharge Disposition: Home or Self Care Attending [...] Total Volume: 1,000, Start date: 10/03/17 11:40:00 QUALITY IMPROVEMENT COORDINATOR, Duration: 30 day, Stop date: 11/02/17 11:39:00 QUALITY IMPROVEMENT COORDINATOR, 1.79, m2 Start Date: 10/03/17 Stop Date: [...] No entered on: 11/01/17 Assessment and Plan Extracted from: Title: OB Progress Note L&D Author: Ron Yen MD Date: Impression and Plan condition: Stable. Maternal condition: Stable. Plan Amniusre negative, not in labor, will discharge. .
--- OUTSIDE RECORDS SUMMARY | 2018-08-26 10:29 | XMS REPORT | Summary of Care ---
:1995 Author Organization [facility] INSPECTOR [place] Address [address] [place] [address]- Encounter Maya(FIN) [id number] Date(s): 08/02/17 - 08/02/17 [facility] INSPECTOR [address] [place] [phone] Final: Uterine size-date discrepancy, third trimester Discharge Disposition: Home or Self Care Attending Physician: Mejia Barahona MD Vital Signs Most recent to oldest [Reference Range]: 1 Height 152.4 cm (08/02/17 2:47 PM) Blood Pressure [90-140/60-90 mmHg] 111/73 mmHg (08/02/17 2:47 PM) Peripheral Pulse Rate [60-100 bpm] 112 bpm *HI* (08/02/17 2:47 PM) Weight 50.909 kg (08/02/17 2:47 PM) Body Mass Index 21.92 m2 (08/02/17 2:47 PM) Problem List Condition Effective Dates Status [...] No Assessment and Plan Extracted from: Title: Ob fu/Sono Author: Mejia Barahona MD Date: 08/02/17 Contractions: Very rare (one since last week). Bleeding: None. ROM: None. Headaches: Occasional. Movement: Yes. Other: None. BP: 111/73. Wt: 160 (158). Urine Dip: Trace protein, 1+ glucose. FH: 33 cm. FHT: 141. Cervix: Deferred. Ob Ultrasound today: Estimated Gestational Age: 30 4/7 weeks. Estimated Due Date: 10-07-17. Estimated Weight: 3# 8oz (49%). Abdominal Circumference: 44%. Amniotic Fluid Index: 11.7. Presentation: Vertex. Previa: No. Anatomy: No gross abnormalities noted. Cervix: 4.57 cm. Comments: Reassuring and consistent with dates. A/P: ( x 1) at 30 4/7 weeks. 1+ glucose: counseled diet/nutrition in . Ultrasound done for size greater than dates - ultrasound was reassuring and consistent with dates. Adequate growth noted. No abnormalities identified. Occasional headaches: discussed relief measures. Considering TDAP at next visit. Labor, Pre-Eclampsia and other warnings reviewed and questions answered. Updated on information concerning Zika virus and infection prevention measures. F/U: 2 week(s).
--- OUTSIDE RECORDS SUMMARY | 2018-08-26 10:29 | XMS REPORT | Summary of Care ---
:1995 Author Organization [facility]PER[facility] [employer] [place] Address [address] [place] [address]- Encounter Maya(FIN) [id number] Date(s): 09/23/17 - 09/23/17 [facility] [employer] [address] [place] [address] [phone] Final: Uterine size-date discrepancy, third trimester Discharge Disposition: Home or Self Care Attending Physician: Mejia Barahona MD Vital Signs Most recent to oldest [Reference Range]: 1 Height 152.4 cm (09/23/17 11:13 AM) Blood Pressure [90-140/60-90 mmHg] 115/76 mmHg (09/23/17 11:13 AM) Peripheral Pulse Rate [60-100 bpm] 116 bpm *HI* (09/23/17 11:13 AM) Weight 71.818 kg (09/23/17 11:13 AM) Body Mass Index 30.92 m2 (09/23/17 11:13 AM) Problem List Condition Effective Dates Status Health Status Informant Female dyspareunia(Confirmed) Active Family history of breast Active cancer(Confirmed) Fatigue(Confirmed) Active Vaginitis(Confirmed) Active Depression(Confirmed) Active Encounter for supervision of other Active normal , third trimester(Confirmed) Obesity(Confirmed) Active Surveillance of contraceptive Active pill(Confirmed) (Confirmed) 12/04/16 Active (Confirmed) 01/08/15 - 10/08/15 Resolved (Confirmed) < 714 Resolved Uterine size-date discrepancy, Active third trimester(Confirmed) Allergies, Adverse Reactions, Alerts Substance Reaction Severity Status NKDA Active Medications ferrous sulfate Start Date: 09/23/17 Status: Ordered Results No data available for [...]
--- OUTSIDE RECORDS SUMMARY | 2018-08-26 10:29 | XMS REPORT | Summary of Care ---
:1995 Author Organization [facility] [employer] [place] Address [address] [address]- Encounter HQ Maya(FIN) [id number] Date(s): 09/29/17 - 09/29/17 [facility] [address] [place] [address] [phone] Encounter Diagnosis Encounter for supervision of other normal , third trimester (Final) - Discharge Disposition: Home or Self Care Attending Physician: Mejia Barahona MD Vital Signs Most recent to oldest [Reference Range]: 1 Height 152.4 cm (09/29/17 12:36 PM) Blood Pressure [90-140/60-90 mmHg] 133/87 mmHg (09/29/17 12:36 PM) Peripheral Pulse Rate [60-100 bpm] 118 bpm *HI* (09/29/17 12:36 PM) Weight 73.636 kg (09/29/17 12:36 PM) Body Mass Index 31.7 m2 (09/29/17 12:36 PM) Problem List Condition Effective Dates [...] Reg Smoking Cessation Counseling No entered on: 09/29/17 Assessment and Plan No data available for this section
--- OUTSIDE RECORDS SUMMARY | 2018-08-26 10:30 | XMS REPORT | Continuity of Care Document ---
:1995 Author Organization [facility] Care Team Providers Name Role Phone MD Jun, Mejia Unavailable Unavailable Insurance Providers Payer name Policy type / Policy ID Covered democrat ID Policy Lazaro Coverage type BC[place] P[place] *SELF [place]Y* SLIDING FEE SCHEDULE - DIS[place] ACS - TMHP - TRADITIONAL *SELF PAY* *SELF PAY* SLIDING FEE SCHEDULE - DISCOUNT *SELF PAY* SLIDING FEE SCHEDULE - DISCOUNT *SELF PAY* SLIDING FEE SCHEDULE - DISCOUNT *SELF PAY* SLIDING FEE SCHEDULE - DISCOUNT *SELF PAY* SLIDING FEE SCHEDULE - DISCOUNT *SELF PAY* SLIDING FEE SCHEDULE - DISCOUNT *SELF PAY* SLIDING FEE SCHEDULE - DISCOUNT *SELF PAY* SLIDING FEE SCHEDULE - DISCOUNT *SELF PAY* SLIDING FEE SCHEDULE - DISCOUNT [facility] - [place] [facility] [facility] (MEDICAID HMO) *SELF PAY* SLIDING FEE SCHEDULE - [place] ACS - TMHP - TRADITIONAL COMMUNITY HEALTH CHOICE (MEDICAID HMO) [place] TM[place] - [place] ACS [place] TM[place] - [place]AD[place] ACS [place] TM[place] - [place] TM[place] - [place] ACS - TMHP - TRADITIONAL [facility] - [place] [facility] (MED[place] H[place]) [place] ACS - TMHP - TRADITIONAL *SELF PAY* SLIDING FEE SCHEDULE - DISCOUNT [facility] - [place] [facility] (MED[place]ID H[place]) [place] ACS - TMHP - TRADITIONAL *SELF PAY* SLIDING FEE SCHEDULE - DISCOUNT [facility] - [place] [facility] (MED[place] H[place]) [place] - TMHP - TRADITIONAL *SELF PAY* SLIDING FEE SCHEDULE - DISCOUNT [facility] - [place] [facility] (MED[place] H[place]) [place] ACS - TMHP - TRADITIONAL *SELF PAY* SLIDING FEE SCHEDULE - DISCOUNT *SELF PAY* COMMUNITY HEALTH CHOICE (MEDICAID HMO) [facility] - [place] [facility] (MED[place]ID H[place]) [place] ACS - TMHP - TRADITIONAL SLIDING FEE SCHEDULE - DISCOUNT *SELF PAY* SLIDING FEE SCHEDULE - DISCOUNT COMMUNITY HEALTH CHOICE (MEDICAID HMO) [facility] - [place] [facility] (MED[place]ID H[place]) [place] ACS - TMHP - TRADITIONAL *SELF PAY* SLIDING FEE SCHEDULE - DISCOUNT COMMUNITY HEALTH CHOICE (MEDICAID HMO) [facility] - [place] [facility] (MEDICAID H[place]) [place] ACS - TMHP - TRADITIONAL *SELF PAY* SLIDING FEE SCHEDULE - DISCOUNT COMMUNITY HEALTH CHOICE (MEDICAID HMO) [facility] - [place] [facility] (MEDICAID HMO) [place] ACS - TMHP - TRADITIONAL *SELF PAY* SLIDING FEE SCHEDULE - DISCOUNT COMMUNITY HEALTH CHOICE (MEDICAID HMO) [facility] - [place] [facility] (MEDICAID H[place]) [place] ACS - TMHP - TRADITIONAL *SELF PAY* [place]: ACS - TMHP - TRADITIONAL SLIDING FEE SCHEDULE - DISCOUNT COMMUNITY HEALTH CHOICE (MEDICAID HMO) [facility] - [place] [facility] (MEDICAID HMO) *SELF PAY* [place]: ACS - TMHP - TRADITIONAL SLIDING FEE SCHEDULE - DISCOUNT COMMUNITY HEALTH CHOICE (MEDICAID HMO) [facility] - [place] [facility] (MEDICAID HMO) [place] ACS - TMHP - TRADITIONAL SLIDING FEE SCHEDULE - DISCOUNT *SELF PAY* COMMUNITY HEALTH CHOICE (MEDICAID HMO) [facility] - [place] [facility] (MEDICAID HMO) *SELF PAY* [place]: ACS - TMHP - TRADITIONAL *SELF PAY* SLIDING FEE SCHEDULE - DISCOUNT COMMUNITY HEALTH CHOICE (MEDICAID HMO) [facility] - [place] [facility] (MEDICAID HMO) *SELF PAY* SLIDING FEE SCHEDULE - DISCOUNT [place] ACS - TMHP - TRADITIONAL *SELF PAY* SLIDING FEE SCHEDULE - DISCOUNT COMMUNITY HEALTH CHOICE (MEDICAID HMO) [facility] - [place] [facility] (MEDICAID HMO) *SELF PAY* SLIDING FEE SCHEDULE - DISCOUNT [place] ACS - TMHP - TRADITIONAL *SELF PAY* SLIDING FEE SCHEDULE - DISCOUNT COMMUNITY HEALTH CHOICE (MEDICAID HMO) [facility] - [place] [facility] (MEDICAID HMO) *SELF PAY* SLIDING FEE SCHEDULE - DISCOUNT [place] ACS - TMHP - TRADITIONAL *SELF PAY* SLIDING FEE SCHEDULE - DISCOUNT COMMUNITY HEALTH CHOICE (MEDICAID HMO) [facility] - [place] [facility] (MEDICAID HMO) *SELF PAY* SLIDING FEE SCHEDULE - DISCOUNT [place] ACS - TMHP - TRADITIONAL *SELF PAY* SLIDING FEE SCHEDULE - DISCOUNT COMMUNITY HEALTH CHOICE (MEDICAID HMO) [facility] [place] (MED[place] H[place]) [place] ACS - TMHP - TRADITIONAL *SELF PAY* SLIDING FEE SCHEDULE - DISCOUNT [facility] - COMMUN[facility] (MEDICAID [place] ACS - TMHP - TRADITIONAL *SELF PAY* SLIDING FEE SCHEDULE - DISCOUNT COMMUNITY HEALTH CHOICE (MEDICAID HMO) [facility] - [facility] [place] (MED[place] H[place]) [place] ACS - TMHP - TRADITIONAL *SELF PAY* SLIDING FEE SCHEDULE - DISCOUNT [facility] - COMMUN[facility] ([place]ICAID [place] ACS - TMHP - TRADITIONAL *SELF PAY* SLIDING FEE SCHEDULE - DISCOUNT COMMUNITY HEALTH CHOICE (MEDICAID HMO) [facility] - [facility] [place] (MEDICA[place] H[place]) [place] ACS - TMHP - TRADITIONAL *SELF PAY* SLIDING FEE SCHEDULE - DISCOUNT [place] ACS - TMHP - TRADITIONAL *SELF PAY* SLIDING FEE SCHEDULE - DISCOUNT COMMUNITY HEALTH CHOICE (MEDICAID HMO) [facility] - [facility] [place] (MEDICAID H[place]) [place] ACS - TMHP - TRADITIONAL *SELF PAY* SLIDING FEE SCHEDULE - DISCOUNT [place] ACS - TMHP - TRADITIONAL *SELF PAY* SLIDING FEE SCHEDULE - DISCOUNT [facility] CHOICE (MEDICAID HMO) [facility] [place] (MEDICAID HMO) [place] ACS - TMHP - TRADITIONAL *SELF PAY* SLIDING FEE SCHEDULE - DISCOUNT Encounters Encounter Performer Location Date Lab Report Mejia Barahona MD [facility] [place] [facility] Coordinator Apr 04, 2015 Problems Problem Effective Dates Problem Status PELVIC PAIN Jun 24, 2012 Active OTHER AND UNSPECIFIED OVARIAN CYST Jun 24, 2012 Active FAMILY HISTORY OF DIABETES Mar 22, 2014 Active FAMILY HISTORY OF HYPERTENSION Mar 22, 2014 Active - SPONTANEOUS Mar 23, 2014 Active CONTRACEPTIVE MANAGEMENT Apr 10, 2014 Active DIAPER OR [place] RASH May 08, 2014 Active RASH AND OTHER NONSPECIFIC SKIN ERUPTION May 08, 2014 Active CONFIRMATION OF Apr 05, 2015 Active VAGINITIS Apr 04, 2015 Active Procedures Date Description Comments Jun 24, 2012 smoking status never smoker May 08, 2014 smoking status Never smoker Medications Medication Instructions Start Date Status SPRINTEC 28 0.25-35 MG-MCG TABS one p.o. q. day Jun 24, 2012 Inactive SPRINTEC 28 0.25-35 MG-MCG TABS 1 tablet daily Apr 10, 2014 Inactive ELIMITE 5 % CREA apply from neck down to toes at May 08, 2014 Inactive HS and wash off in the morning PROMETHAZINE HCL 25 MG TABS 1/2 to 1 tablet three times Mar 13, 2015 Inactive daily as needed for nausea VITAMIN one by mouth daily Apr 04, 2015 Active Vital Signs Date Description Test Result Jun 24, 2012 weight E&M - 3141-9 WEIGHT 101 lb Jun 24, 2012 height E&M - 8302-2 HEIGHT 59 in Jun 24, 2012 blood pressure, systolic - 8480-6 BP SYSTOLIC 102 mm Hg Jun 24, 2012 blood pressure, diastolic - 8462-4 BP DIASTOLIC 70 mm Hg Jun 24, 2012 pulse rate E&M - 8867-4 PULSE RATE 84 /min Mar 22, 2014 weight E&M - 3141-9 WEIGHT 131 lb Mar 22, 2014 blood pressure, systolic, sitting, left arm BP SYS SIT L 136 mm Hg Mar 22, 2014 blood pressure, diastolic, sitting, left arm BP MARIA LUISA SIT L 83 mm Hg Mar 22, 2014 blood pressure, systolic - 8480-6 BP SYSTOLIC 136 mm Hg Mar 22, 2014 blood pressure, diastolic - 8462-4 BP DIASTOLIC 83 mm Hg Mar 22, 2014 pulse rate, sitting, left PULSE SIT L 96 /min Mar 22, 2014 pulse rate E&M - 8867-4 PULSE RATE 96 /min Apr 10, 2014 weight E&M - 3141-9 WEIGHT 134 lb Apr 10, 2014 blood pressure, systolic, sitting, left arm BP SYS SIT L 124 mm Hg Apr 10, 2014 blood pressure, diastolic, sitting, left arm BP MARIA LUISA SIT L 80 mm Hg Apr 10, 2014 blood pressure, systolic - 8480-6 BP SYSTOLIC 124 mm Hg Apr 10, 2014 blood pressure, diastolic - 8462-4 BP DIASTOLIC 80 mm Hg Apr 10, 2014 pulse rate, sitting, left PULSE SIT L 92 /min Apr 10, 2014 pulse rate E&M - 8867-4 PULSE RATE 92 /min May 08, 2014 height E&M - 8302-2 HEIGHT 60 in May 08, 2014 weight E&M - 3141-9 WEIGHT 143 lb May 08, 2014 temperature E&M TEMPERATURE 99.2 deg f May 08, 2014 respiratory rate E&M - 9279-1 RESP RATE 16 /min May 08, 2014 blood pressure, systolic - 8480-6 BP SYSTOLIC 125 mm Hg May 08, 2014 blood pressure, diastolic - 8462-4 BP DIASTOLIC 79 mm Hg May 08, 2014 pulse rate E&M - 8867-4 PULSE RATE 116 /min Apr 04, 2015 weight E&M - 3141-9 WEIGHT 133 lb Apr 04, 2015 blood pressure, systolic, sitting, left arm BP SYS SIT L 119 mm Hg Apr 04, 2015 blood pressure, diastolic, sitting, left arm BP MARIA LUISA SIT L 76 mm Hg Apr 04, 2015 blood pressure, systolic - 8480-6 BP SYSTOLIC 119 mm Hg Apr 04, 2015 blood pressure, diastolic - 8462-4 BP DIASTOLIC 76 mm Hg Apr 04, 2015 pulse rate, sitting, left PULSE SIT L 98 /min Apr 04, 2015 pulse rate E&M - 8867-4 PULSE RATE 98 /min Results Date Description Test Name Value Reference Interpretation Status Feb 27, beta HCG, serum, BETA-HCG POSITIVE null NEGATIVE High 2013 qualitative QL Mar 22, beta HCG, serum, BETA-HCG 1.5 mIU/mL SEEJESUS 2013 quantitative QN Feb 20, beta HCG, serum, BETA-HCG POSITIVE null NEGATIVE High 2014 qualitative QL
--- OUTSIDE RECORDS SUMMARY | 2018-08-26 10:30 | XMS REPORT | Summary of Care ---
:[address] [facility] Address [address] [place], [place] [address]- Encounter HQ Maya([facility]) [id number] Date(s): 10/05/17 - 10/06/[address] [facility] [address] [place] [address]- Encounter Diagnosis Second degree perineal laceration during delivery (Final) - 10/13/17 Other specified trauma to perineum and vulva (Final) - 39 weeks gestation of (Final) - Single live (Final) - Discharge Disposition: Home or Self Care Attending Physician: Mejia Barahona MD Admitting Physician: Mejia Barahona MD Vital Signs Most recent to oldest 1 2 3 [Reference Range]: Height 152.4 cm (10/05/17 2:42 AM) Temperature Oral [96.4-99.1 98.9 DegF 98.9 DegF 98.6 DegF DegF] (10/06/17 3:26 PM) (10/06/17 11:26 AM) (10/06/17 7:21 AM) Blood Pressure [90-140/60-90 114/79 mmHg 121/78 mmHg 120/81 mmHg mmHg] (10/06/17 3:26 PM) (10/06/17 11:26 AM) (10/06/17 7:21 AM) Respiratory Rate [14-20 BRMIN] 18 BRMIN 18 BRMIN 18 BRMIN (10/06/17 3:26 PM) (10/06/17 11:26 AM) (10/06/17 7:21 AM) Peripheral Pulse Rate [60-100 97 bpm 75 bpm 88 bpm bpm] (10/06/17 3:26 PM) (10/06/17 11:26 AM) (10/06/17 7:21 AM) Weight 73.636 kg (10/05/17 2:42 AM) Body Mass Index 31.7 m2 (10/05/17 2:42 AM) Problem List Condition Effective Dates Status Health Status Informant control(Confirmed) Active Female dyspareunia(Confirmed) Active Family history of breast Active cancer(Confirmed) Fatigue(Confirmed) Active Vaginitis(Confirmed) Active Obesity(Confirmed) Active care following vaginal Active delivery(Confirmed) (Confirmed) 12/04/16 - 10/05/17 Resolved (Confirmed) 01/08/15 - 10/08/15 Resolved (Confirmed) < 03/24/14 Resolved Allergies, Adverse Reactions, Alerts Substance Reaction Severity Status NKDA Active Medications acetaminophen-hydrocodone 325 mg-10 mg oral tablet 1 tab, Route: PO, Drug Form: TAB, Dosing Weight 73.636, kg, Q4H, PRN Pain Score 7-10, Start date: 10/05/17 11:59:00 INTELLIGENCE OFFICER BASIC, Duration: 30 day, Stop date: 11/04/17 11:58:00 INTELLIGENCE OFFICER BASIC Notes: Do not exceed 4gm/day of acetaminophen. (Same as: [place] 325/10) Start Date: 10/05/17 Stop Date: 10/06/17 Status: Discontinuedacetaminophen-hydrocodone 325 mg-5 mg oral tablet 1 tab, Route: PO, Drug Form: TAB, Dosing Weight 73.636, kg, Q4H, PRN Pain Score 4-6, Start date: 10/05/17 11:59:00 INTELLIGENCE OFFICER BASIC, Duration: 30 day, Stop date: 11/04/17 11 :58:00 INTELLIGENCE OFFICER BASIC Notes: (Same as: [place] 325/5) Do not exceed 4gm/day of acetaminophen. Start Date: 10/05/17 Stop Date: 10/06/17 Status: Discontinuedacetaminophen-hydrocodone 325 mg-5 mg oral tablet 2 tab, Route: PO, Drug Form: TAB, Dosing Weight 73.636, kg, Q4H, PRN Pain Score 7-10, Start date: 10/05/17 2:44:00 INTELLIGENCE OFFICER BASIC, Duration: 30 day, Stop date: 11/04/17 2: 43:00 INTELLIGENCE OFFICER BASIC Notes: (Same as: [place] 325/5) Do not exceed 4gm/day of acetaminophen. Start Date: 10/05/17 Stop Date: 10/06/17 Status: Discontinuedacetaminophen-hydrocodone 325 mg-5 mg oral tablet 1 tab, Route: PO, Drug Form: TAB, Dosing Weight 73.636, kg, Q4H, PRN Pain Score 4-6, Start date: 10/05/17 2:44:00 INTELLIGENCE OFFICER BASIC, Duration: 30 day, Stop date: 11/04/17 2: 43:00 INTELLIGENCE OFFICER BASIC Notes: (Same as: [place] 325/5) Do not exceed 4gm/day of acetaminophen. Start Date: 10/05/17 Stop Date: 10/06/17 Status: Discontinuedbisacodyl 15 mg, 3 tab, Route: PO, Drug form: ECTAB, Daily, Dosing Weight 73.636, kg, PRN Other -See Comment, Start date: 10/05/17 11:59:00 INTELLIGENCE OFFICER BASIC, Duration: 30 day, Stop date: 11/04/17 11:58:00 INTELLIGENCE OFFICER BASIC Notes: (Same As: Dulcolax, Correctol) (Do Not Crush) "Do Not Crush" Start Date: 10/05/17 Stop Date: 10/06/17 Status: Discontinuedbisacodyl 10 mg, 1 supp, Route: ND, Drug form: SUPP, PRN, Dosing Weight 73.636, kg, PRN Other -See Comment, Start date: 10/05/17 11:59:00 INTELLIGENCE OFFICER BASIC, Duration: 30 day, Stop date: 11/04/17 11:58:00 INTELLIGENCE OFFICER BASIC Notes: (Same As: Dulcolax, Bisco-Lax) Start Date: 10/05/17 Stop Date: 10/06/17 Status: Discontinuedbutorphanol 2 mg, 1 mL, Route: IVP, Drug form: INJ, Q2H, Dosing Weight 73.636, kg, PRN Pain Score 7-10, Start date: 10/05/17 2:44:00 INTELLIGENCE OFFICER BASIC, Duration: 30 day, Stop date: 11/04 2:43:00 INTELLIGENCE OFFICER BASIC Notes: (Same As: Stadol) MEDICATION WASTE Product Size: 2 mgProduct Wasted: ___ mg Start Date: 10/05/17 Stop Date: 10/06/17 Status: Discontinuedbutorphanol 1 mg, 0.5 mL, Route: IVP, Drug form: INJ, Q2H, Dosing Weight 73.636, kg, PRN Pain Score 4-6, Start date: 10/05/17 2:44:00 INTELLIGENCE OFFICER BASIC, Duration: 30 day, Stop date: 11/04/17 2:43:00 INTELLIGENCE OFFICER BASIC Notes: (Same As: Stadol) MEDICATION WASTE Product Size: 2 mgProduct Wasted: ___ mg Start Date: 10/05/17 Stop Date: 10/06/17 Status: Discontinuedcarboprost 250 microgram, 1 mL, Route: IM, Drug form: INJ, ONCALL, Dosing Weight 73.636, kg , Start date: 10/05/17 3:00:00 INTELLIGENCE OFFICER BASIC, Duration: 30 day, Stop date: 11/04/17 2:59: 00 INTELLIGENCE OFFICER BASIC Notes: (Same As: Hemabate) Start Date: 10/05/17 Stop Date: 10/06/17 Status: Discontinuedcitric acid-sodium citrate 30 mL, Route: PO, Drug Form: SOLN, Dosing Weight 73.636, kg, ONCALL, Start date : 10/05/17 3:00:00 INTELLIGENCE OFFICER BASIC, Duration: 30 day, Stop date: 11/04/17 2:59:00 INTELLIGENCE OFFICER BASIC Notes: (Same As: Bicitra) Start Date: 10/05/17 Stop Date: 10/06/17 Status: DiscontinuedDermoplast 20% topical spray 1 spray, Route: TOP, PRN, Drug form: SPRY, PRN Irritation, Start date: 10/05/17 11:59:00 INTELLIGENCE OFFICER BASIC, Duration: 30 day, Stop date: 11/04/17 11:58:00 INTELLIGENCE OFFICER BASIC Notes: (Same As: Dermoplast)WASTE: Aerosol - Return to Pharmacy FOR EXTERNAL USE ONLY Start Date: 10/05/17 Stop Date: 10/06/17 Status: Discontinueddocusate 100 mg, 1 cap, Route: PO, Drug form: CAP, BID, Dosing Weight 73.636, kg, PRN Constipation, Start date: 10/05/17 11:59:00 INTELLIGENCE OFFICER BASIC, Duration: 30 day, Stop date: 11:58:00 INTELLIGENCE OFFICER BASIC Notes: (Same as: Colace) (Do Not Crush) Start Date: 10/05/17 Stop Date: 10/06/17 Status: Discontinuedfamotidine 20 mg, 2 mL, Route: IVP, Drug form: INJ, ONCALL, Dosing Weight 73.636, kg, Start date: 10/05/17 3:00:00 INTELLIGENCE OFFICER BASIC, Duration: 30 day, Stop date: 11/04/17 2:59:00 INTELLIGENCE OFFICER BASIC Notes: (Same as: Pepcid)Can be dilute in 5-10cc NS IVP: Slow IV push over at least 2 minutes. Start Date: 10/05/17 Stop Date: 10/06/17 Status: Discontinuedibuprofen 600 mg, 1 tab, Route: PO, Drug form: TAB, Q6H, Dosing Weight 73.636, kg, Start date: 10/05/17 12:00:00 INTELLIGENCE OFFICER BASIC, Duration: 30 day, Stop date: 11/04/17 6:00:00 INTELLIGENCE OFFICER BASIC Notes: (Same as: Motrin)"Do Not Crush" Take with food. Start Date: 10/05/17 Stop Date: 10/06/17 Status: Discontinuedibuprofen 600 mg, 1 tab, Route: PO, Drug form: TAB, Q6H, Dosing Weight 73.636, kg, PRN Other -See Comment, Start date: 10/05/17 2:44:00 INTELLIGENCE OFFICER BASIC, Duration: 30 day, Stop date: 11/04/17 2:43:00 INTELLIGENCE OFFICER BASIC Notes: (Same as: Motrin)"Do Not Crush" Take with food. Start Date: 10/05/17 Stop Date: 10/06/17 Status: Discontinuedibuprofen 600 mg oral tablet 600 mg=1 tab, PO, Q6H, PRN Pain, take with food, X 30 day, # 30 tab, 0 Refill(s) Start Date: 10/05/17 Stop Date: 11/01/17 Status: DiscontinuedLactated Ringers (Bolus) IV 1,000 mL, 1,000 ml/hr, Infuse Over: 1 hr, Route: IV, 1,000, Drug form: INJ, ONCE , Dosing Weight 73.636 kg, Start date: 10/05/17 2:44:00 INTELLIGENCE OFFICER BASIC, Stop date: 2:44:00 INTELLIGENCE OFFICER BASIC, Bolus for regional anesthesia per unit protocol Start Date: 10/05/17 Stop Date: 10/06/17 Status: DiscontinuedLactated Ringers IV 1,000 mL 1,000 mL, Rate: 100 ml/hr, Infuse over: 10 hr, Route: IV, Dosing Weight 73.636 kg, Total Volume: 1,000, Start date: 10/05/17 11:59:00 INTELLIGENCE OFFICER BASIC, Duration: 30 day, Stop date: 11/04/17 11:58:00 INTELLIGENCE OFFICER BASIC, 1.79, m2 Start Date: 10/05/17 Stop Date: 10/06/17 Status: DiscontinuedLactated Ringers IV 1,000 mL 1,000 mL, Rate: 125 ml/hr, Infuse over: 8 hr, Route: IV, Dosing Weight 73.636 kg , Total Volume: 1,000, Start date: 10/05/17 2:44:00 INTELLIGENCE OFFICER BASIC, Duration: 30 day, Stop date: 11/04/17 2:43:00 INTELLIGENCE OFFICER BASIC, 1.79, m2 Start Date: 10/05/17 Stop Date: 10/06/17 Status: Discontinuedlanolin topical 1 appl, Route: TOP, PRN, Drug form: OINT, PRN Other -See Comment, Start date: 11:59:00 INTELLIGENCE OFFICER BASIC,Duration: 30 day, Stop date: 11/04/17 11:58:00 INTELLIGENCE OFFICER BASIC Notes: (Same as:Lanolin) Start Date: 10/05/17 Stop Date: 10/06/17 Status: Discontinuedlidocaine 1% 200 mg, 20 mL, Route: PERCUT, Drug Form: INJ, Dosing Weight 73.636, kg, PRN, PRN Other -See Comment,Start date: 10/05/17 2:44:00 INTELLIGENCE OFFICER BASIC, Duration: 1 doses or times, Stop date: Limited # of times Notes: (Same as: Xylocaine) Start Date: 10/05/17 Stop Date: 10/06/17 Status: Discontinuedlidocaine 1% injectable solution 2.5 mg, 0.25 mL, Route: INTRADERM, Drug Form: INJ, Dosing Weight 73.636, kg, PRN , PRN Other -See Comment, Start date: 10/05/17 2:44:00 INTELLIGENCE OFFICER BASIC, Duration: 30 day, Stop date: 11/04/17 2:43:00 INTELLIGENCE OFFICER BASIC Notes: (Same as: Xylocaine) Start Date: 10/05/17 Stop Date: 10/06/17 Status: JfkkoyhdqujaL-W-O II 0.5 mL, Route: SUB-Q, Drug Form: PDR/INJ, Dosing Weight 73.636, kg, ONCALL, Give only if patient rubella non-immune, Start date: 10/05/17 12:00:00 INTELLIGENCE OFFICER BASIC, Duration: 1 doses or times Notes: (Same as: M-M-R II) (kuclqqe-nwkwx-qviicwn virus vaccine 0.5 ml INJ VL) WASTE: F/P - Red; E -Red GIVE PRIOR TO DISCHARGE Start Date: 10/05/17 Stop Date: 10/06/17 Status: Discontinuedmethylergonovine 0.2 mg, 1 mL, Route: IM, Drug form: INJ, PRN, Dosing Weight 73.636, kg, PRN Other -See Comment, Start date: 10/05/17 11:59:00 INTELLIGENCE OFFICER BASIC, Duration: 30 day, Stop date: 11/04/17 11:58:00 INTELLIGENCE OFFICER BASIC Notes: (Same as:Methergine) Start Date: 10/05/17 Stop Date: 10/06/17 Status: Discontinuedmethylergonovine 0.2 mg, 1 mL, Route: IM, Drug form: INJ, ONCALL, Dosing Weight 73.636, kg, Start date: 10/05/17 3:00:00 INTELLIGENCE OFFICER BASIC, Duration: 30 day, Stop date: 11/04/17 2:59:00 INTELLIGENCE OFFICER BASIC Notes: (Same as:Methergine) Start Date: 10/05/17 Stop Date: 10/06/17 Status: Discontinuedmisoprostol 1,000 microgram, 5 tab, Route: ND, Drug form: TAB, ONCALL, Dosing Weight 73.636 , kg, Start date: 10/05/17 3:00:00 INTELLIGENCE OFFICER BASIC, Duration: 1 doses or times Notes: (Same as:Cytotec) Take with food Start Date: 10/05/17 Stop Date: 10/06/17 Status: Discontinuedondansetron 4 mg, 2 mL, Route: IVP, Drug form: INJ, Q8H, Dosing Weight 73.636, kg, PRN Nausea & Vomiting, Start date: 10/05/17 11:59:00 INTELLIGENCE OFFICER BASIC, Duration: 30 day, Stop date: 11/04/17 11:58:00 INTELLIGENCE OFFICER BASIC Notes: (Same as: Zofran) MEDICATION WASTE Product Size: 4 mgProduct Wasted: ___ mg Start Date: 10/05/17 Stop Date: 10/06/17 Status: Discontinuedondansetron 4 mg, 2 mL, Route: IVP, Drug form: INJ, Q8H, Dosing Weight 73.636, kg, PRN Nausea & Vomiting, Start date: 10/05/17 2:44:00 INTELLIGENCE OFFICER BASIC, Duration: 30 day, Stop date: 11/04/17 2:43:00 INTELLIGENCE OFFICER BASIC Notes: (Same as: Zofran) MEDICATION WASTE Product Size: 4 mgProduct Wasted: ___ mg Start Date: 10/05/17 Stop Date: 10/06/17 Status: Discontinuedoxytocin 30 units in NS 500ml (Titrate) IV 30 unit 30 unit, 500 mL, Rate: 42 ml/hr, Infuse over: 11.9 hr, Dosing Weight 73.636, kg , Route: IV, Total Volume: 500 mL, Start date: 10/05/17 11:59:00 INTELLIGENCE OFFICER BASIC, Duration: 2 day, Stop date: 10/07/17 11:58:00 INTELLIGENCE OFFICER BASIC, Replace Every: 11.9 hr Start Date: 10/05/17 Stop Date: 10/06/17 Status: Discontinuedoxytocin 30 units in NS 500ml (Titrate) IV 30 unit 30 unit, 500 mL, Rate: Titrate, Dosing Weight 73.636, kg, Route: IV, Total Volume: 500 mL, Start date: 10/05/17 2:44:00 INTELLIGENCE OFFICER BASIC, Duration: 2 day, Stop date: 2:43:00 INTELLIGENCE OFFICER BASIC, Replace Every: 24 hr Start Date: 10/05/17 Stop Date: 10/06/17 Status: Discontinuedoxytocin 30 units in NS 500ml (Titrate) IV 30 unit 30 unit, 500 mL, Rate: 42 ml/hr, Infuse over: 11.9 hr, Dosing Weight 73.636, kg , Route: IV, Total Volume: 500 mL, Start date: 10/05/17 2:44:00 INTELLIGENCE OFFICER BASIC, Duration: 2 day, Stop date: 10/07/17 2:43:00 INTELLIGENCE OFFICER BASIC, Replace Every: 11.9 hr Start Date: 10/05/17 Stop Date: 10/06/17 Status: DiscontinuedPrenatal Multivitamins oral tablet 1 tab, Route: PO, Drug Form: TAB, Dosing Weight 73.636, kg, Daily, Start date: 10/06/17 9:00:00 INTELLIGENCE OFFICER BASIC,Duration: 30 day, Stop date: 11/04/17 9:00:00 INTELLIGENCE OFFICER BASIC Start Date: 10/06/17 Stop Date: 10/06/17 Status: DiscontinuedRopivacaine 0.2% + fentaNYL 2 mcg/ml Epidural CADD 200 mL Route: EPIDURAL, Continuous Rate: 8, ml/hr, Infusion site: Lumbar, HUMAN RESOURCES OPERATIONS MANAGER dose 3 mL , HUMAN RESOURCES OPERATIONS MANAGER dose lockout: 15 minutes, 1 Hour limit: 20 mL, 200, mL, Start date: 2:45:00 INTELLIGENCE OFFICER BASIC, Duration: 30, day, Drug Form: INJ, Total volume: 200, mL, kg, Stop date: ... Notes: (Same as Naropin-Sublimaze) Start Date: 10/05/17 Stop Date: 10/06/17 Status: Discontinuedterbutaline 0.25 mg, 0.25 mL, Route: SUB-Q, Drug form: INJ, PRN, Dosing Weight 73.636, kg, PRN Other -See Comment, Start date: 10/05/17 2:44:00 INTELLIGENCE OFFICER BASIC, Duration: 1 doses or times, Stop date: Limited # of times Notes: DO NOT USE IN ORAL SURGERY ASSISTANT AREA(Same As: Kenia) Start Date: 10/05/17 Stop Date: 10/06/17 Status: Discontinuedtetanus/diphth/pertussis (Tdap) adult/adol 5 units-2 units- 15.5 mcg/0.5 mL intramuscular suspension 0.5 mL, Route: IM, Drug Form: SUSP, Dosing Weight 73.636, kg, ONCALL, Start date : 10/05/17 12:00:00 INTELLIGENCE OFFICER BASIC, Duration: 1 doses or times Notes: (Tdap ) For Adolecent and Adult use For IM Use. Same as: Adacel (Tdap) Start Date: 10/05/17 Stop Date: 10/06/17 Status: Discontinuedzolpidem 5 mg, 1 tab, Route: PO, Drug form: TAB, Bedtime, Dosing Weight 73.636, kg, PRN Sleep, Start date: 10/05/17 11:59:00 INTELLIGENCE OFFICER BASIC, Duration: 30 day, Stop date: 11/04/17 11:58:00 INTELLIGENCE OFFICER BASIC Notes: (Same As: Ninaterrell) Start Date: 10/05/17 Stop Date: 10/06/17 Status: Discontinued Results BLOOD BANK RESULTS Most recent to oldest [Reference Range]: 1 2 ABO/Rh O POS *Unknown* (10/05/17 3:40 AM) Antibody Scrn Negative (10/05/17 3:40 AM) IMMUNOLOGY Most recent to oldest [Reference Range]: 1 2 Treponemal Ab [Non Reactive] Non Reactive *NA* (10/05/17 3:40 AM) Hep Bs Ag [Negative] Negative *NA* (10/05/17 3:40 AM) HEMATOLOGY Most recent to oldest [Reference Range]: 1 2 WBC [3.7-10.4 K/CMM] 12.7 K/CMM *HI* (10/05/17 3:40 AM) RBC [4.20-5.40 M/CMM] 3.46 M/CMM *LOW* (10/05/17 3:40 AM) Hgb [12.0-16.0 g/dL] 9.7 g/dL 10.4 g/dL *LOW* *LOW* (10/06/17 5:16 AM) (10/05/17 3:40 AM) Hct [36.0-48.0 %] 29.6 % 31.8 % *LOW* *LOW* (10/06/17 5:16 AM) (10/05/17 3:40 AM) MCV [80.0-98.0 fL] 91.9 fL (10/05/17 3:40 AM) MCH [27.0-31.0 pg] 30.1 pg (10/05/17 3:40 AM) MCHC [32.0-36.0 g/dL] 32.7 g/dL (10/05/17 3:40 AM) RDW [11.5-14.5 %] 13.6 % (10/05/17 3:40 AM) MPV [7.4-10.4 fL] 8.4 fL (10/05/17 3:40 AM) Platelet [133-450 K/CMM] 242 K/CMM (10/05/17 3:40 AM) Segs [45.0-75.0 %] 67.2 % (10/05/17 3:40 AM) Lymphocytes [20.0-40.0 %] 24.0 % (10/05/17 3:40 AM) Monocytes [2.0-12.0 %] 7.8 % (10/05/17 3:40 AM) Eosinophils [0.0-4.0 %] 0.7 % (10/05/17 3:40 AM) Basophils [0.0-1.0 %] 0.3 % (10/05/17 3:40 AM) Segs-Bands # [1.5-8.1 K/CMM] 8.6 K/CMM *HI* (10/05/17 3:40 AM) Lymphocytes # [1.0-5.5 K/CMM] 3.1 K/CMM (10/05/17 3:40 AM) Monocytes # [0.0-0.8 K/CMM] 1.0 K/CMM *HI* (10/05/17 3:40 AM) Eosinophils # [0.0-0.5 K/CMM] 0.1 K/CMM (10/05/17 3:40 AM) Basophils # [0.0-0.2 K/CMM] 0.0 K/CMM (10/05/17 3:40 AM) RBC Morph Normal (10/05/17 3:40 AM) Plt Morph Normal (10/05/17 3:40 AM) Immunizations Given and Recorded Vaccine Date Status [...] 11/01/17 Assessment and Plan Extracted from: Title: - day 1 Author: Mejia Barahona MD Date: 10/06/17 PPD # 1 Subjective: No complaints. Pain controlled, tolerating regular diet, no excessive bleeding, no dizziness, no depression. VS: Stable, afebrile. PE: Heart: Regular rate and rhythm, no murmur. Lungs: Bilaterally clear to auscultation. Abdomen: Soft, non-tender. Fundus: Firm, non-tender. Extremeties: Trace edema, non-tender. Lochia: Within normal limits. H.7 (10.4 pre-delivery) A/P: PPD # 1 Doing well. Will discharge home. risks/warnings and instructions reviewed and questions answered. FU 4 weeks. Rx: Ibuprofen 600 mg. Extracted from: Title: Clinical Document Author: Mejia Barahona MD Date: 10/05/17 H&P See OB record for further details. 22y/o at 38=9 5/7 weeks here for induction of labor. She is feeling contractions and movement. She denies headaches, vision changes, bleeding or ROM. She has had an uncomplicated course. Ob Hx: 1 x term , no complications. History otherwise unchanged. VS: Stable, afebrile. FHTs: 135, moderate variability, contractions q 2-3 min. Cervix: 2/80/-2, soft, posterior, vertex. Physical Exam otherwise unchanged. GBS: Neg. HIV: Neg. RPR: Neg. BT: O+. Impression/Plan: 22y/o at 39 5/7 weeks here for induction. Potential risks, complications and other options reviewed and questions answered. She states understanding and wants to proceed with induction of labor. Epidural at patient request.
--- OUTSIDE RECORDS SUMMARY | 2018-08-26 10:30 | XMS REPORT | Summary of Care ---
:1995 Author Organization [facility] CUSTOMER CONTACT REPRESENTATIVE [facility] Address [address] [place] [address]- Encounter HQ Maya(FIN) [id number] Date(s): 11/01/17 - 11/01/17 [facility] CUSTOMER CONTACT REPRESENTATIVE [address] [place] [address] [phone] Encounter Diagnosis Encounter for other general counseling and advice on contraception (Final) - 09/06 care following vaginal delivery (Final) - 11/01/17 Discharge Disposition: Home or Self Care Attending Physician: Mejia Barahona MD Vital Signs Most recent to oldest [Reference Range]: 1 Height 152.4 cm (11/01/17 11:13 AM) Temperature Oral [96.4-99.1 DegF] 98.4 DegF (11/01/17 11:13 AM) Blood Pressure [90-140/60-90 mmHg] 128/86 mmHg (11/01/17 11:13 AM) Peripheral Pulse Rate [60-100 bpm] 80 bpm (11/01/17 11:13 AM) Weight 65.909 kg (11/01/17 11:13 AM) Body Mass Index 28.38 m2 (11/01/17 11:13 AM) Problem List Condition Effective Dates Status Health Status Informant control(Confirmed) Active Female dyspareunia(Confirmed) Active Family history of breast Active cancer(Confirmed) Fatigue(Confirmed) Active Vaginitis(Confirmed) Active Obesity(Confirmed) Active care following vaginal Active delivery(Confirmed) (Confirmed) 12/04/16 - 10/05/17 Resolved (Confirmed) 01/08/15 - 10/08/15 Resolved (Confirmed) < 7/14 Resolved Allergies, Adverse Reactions, Alerts Substance Reaction Severity Status NKDA Active Medications norethindrone 0.35 mg oral tablet 0.35 mg=1 tab, PO, Daily, # 30 tab, 6 Refill(s), Pharmacy: [facility] [id number] Start Date: 11/01/17 Status: Ordered Results No data available for [...] complaints of adverse reaction or concerns. Procedures Procedure Date Related Diagnosis Body Site Status care only (separate 11/01/17 Completed procedure) Social History Social History Type Response Substance [...]
--- OUTSIDE RECORDS SUMMARY | 2018-08-26 10:30 | XMS REPORT | Summary of Care ---
:1995 Author Organization [facility] MEAT TRIMMER [place] Address [address] [place] [address]- Encounter HQ Maya(FIN) [id number] Date(s): 09/29/17 - 09/29/17 [facility] ME[facility] TR[facility]MER [address] [place] [address] [phone] Encounter Diagnosis Encounter for supervision of other [...] (Confirmed) 01/08/15 - 10/08/15 Resolved (Confirmed) < 7/01/31 Resolved Allergies, Adverse Reactions, Alerts Substance Reaction [...]
--- OUTSIDE RECORDS SUMMARY | 2018-08-26 10:30 | XMS REPORT | Summary of Care ---
:1995 Author Organization [facility] HEAD FILTER TANK TENDER HELPER [place] Address [address] [place] [address]- Encounter HQ Maya(FIN) [id number] Date(s): 09/29/17 - 09/29/17 [facility] HEAD FILTER TANK TENDER HELPER [address] [place] [address] [phone] Encounter Diagnosis Encounter for supervision of other [...]
--- OUTSIDE RECORDS SUMMARY | 2018-08-26 10:30 | XMS REPORT | Continuity of Care Document ---
:1995 Author Organization [facility] Care Team Providers Name Role Phone MD Alice, Chao Unavailable Unavailable Insurance Providers Payer name Policy type / Policy ID Covered green party ID Policy [place] Coverage type BC[place] P[place] [place]IL[place] [employer] D[place] OSPCP [place] *SELF PAY* SLIDING FEE SCHEDULE - DISCOUNT [...] - DISCOUNT Encounters Encounter Performer Location Date Office Visit Chao Jenkins MD [facility] May 08, 2014 [place] Problems Problem Effective Dates Problem Status PELVIC [...] NONSPECIFIC SKIN ERUPTION May 08, 2014 Active Procedures Date Description Comments Jun 24, 2012 smoking status never smoker May 08, 2014 smoking status Never smoker Medications Medication Instructions Start Date Status SPRINTEC 28 0.25-35 MG-MCG TABS one p.o. q. day Jun 24, 2012 Inactive SPRINTEC 28 0.25-35 MG-MCG TABS 1 tablet daily Apr 10, 2014 Active ELIMITE 5 % CREA apply from neck down to toes at May 08, 2014 Active HS and wash off in the morning Vital Signs Date Description Test Result Jun 24, 2012 weight E&M WEIGHT 101 lb Jun 24, 2012 height E&M HEIGHT 59 in Jun 24, 2012 blood pressure, systolic BP SYSTOLIC 102 mm Hg Jun 24, 2012 blood pressure, diastolic BP DIASTOLIC 70 mm Hg Jun 24, 2012 pulse rate E&M PULSE RATE 84 /min Mar 22, 2014 weight E&M WEIGHT 131 lb Mar 22, 2014 blood pressure, systolic, sitting, left arm BP SYS SIT L 136 mm Hg Mar 22, 2014 blood pressure, diastolic, sitting, left arm BP MARIA LUISA SIT L 83 mm Hg Mar 22, 2014 blood pressure, systolic BP SYSTOLIC 136 mm Hg Mar 22, 2014 blood pressure, diastolic BP DIASTOLIC 83 mm Hg Mar 22, 2014 pulse rate, sitting, left PULSE SIT L 96 /min Mar 22, 2014 pulse rate E&M PULSE RATE 96 /min Apr 10, 2014 weight E&M WEIGHT 134 lb Apr 10, 2014 blood pressure, systolic, sitting, left arm BP SYS SIT L 124 mm Hg Apr 10, 2014 blood pressure, diastolic, sitting, left arm BP MARIA LUISA SIT L 80 mm Hg Apr 10, 2014 blood pressure, systolic BP SYSTOLIC 124 mm Hg Apr 10, 2014 blood pressure, diastolic BP DIASTOLIC 80 mm Hg Apr 10, 2014 pulse rate, sitting, left PULSE SIT L 92 /min Apr 10, 2014 pulse rate E&M PULSE RATE 92 /min May 08, 2014 height E&M HEIGHT 60 in May 08, 2014 weight E&M WEIGHT 143 lb May 08, 2014 temperature E&M TEMPERATURE 99.2 deg f May 08, 2014 respiratory rate E&M RESP RATE 16 /min May 08, 2014 blood pressure, systolic BP SYSTOLIC 125 mm Hg May 08, 2014 blood pressure, diastolic BP DIASTOLIC 79 mm Hg May 08, 2014 pulse rate E&M PULSE RATE 116 /min Results Date Description Test Name Value Reference Interpretation Status Feb 27, beta HCG, serum, BETA-HCG POSITIVE null NEGATIVE High 2013 qualitative QL Mar 22, beta HCG, serum, BETA-HCG 1.5 mIU/mL SEEBELOW 2013 quantitative QN
--- OUTSIDE RECORDS SUMMARY | 2018-08-26 10:31 | XMS REPORT | Continuity of Care Document ---
:1995 Author Organization [facility] Care Team Providers Name Role Phone MD Jun, Mejia Unavailable Unavailable Insurance Providers Payer name Policy type / Policy ID Covered republican ID Policy Lazaro Coverage type BCBS P[place] *SELF PAY* SLIDING FEE SCHEDULE - DISCOUNT [...] SLIDING FEE SCHEDULE - DISCOUNT [facility] - [place] [facility] (MEDICAID HMO) *SELF PAY* SLIDING F[place]EDU[place] - [place] ACS - TM[place] - TRADITIONAL COMMUNITY HEALTH CHOICE (MEDICA[place] H[place]) [place]: [place] ACS [place] ACS - [place] ACS [place]: [place] TRADITIONAL [facility] - [place] [facility] ([place] H[place]) [place] - [place] - [place]ADITION[place] *SELF PAY* SLIDING FEE SCHEDULE - DISCOUNT [facility] - [place] [facility] ([place] H[place]: [place] - [place] - [place]ITION[place] *SELF PAY* SLIDING FEE SCHEDULE - DISCOUNT [facility] - [place] [facility] ([place] H[place]) [place] ACS - TMHP - [place]ADITION[place] *SELF PAY* SLIDING FEE SCHEDULE - DISCOUNT [facility] - [place] [facility] ([place] H[place] ACS - TM[place] - [place]ADITION[place] *SELF PAY* SLIDING FEE SCHEDULE - DISCOUNT *SELF PAY* COMMUNITY HEALTH CHOICE (MEDICAID HMO) [facility] - [place] [facility] ([place] H[place]) [place] ACS - TM[place] - [place]ADITION[place] SLIDING FEE SCHEDULE - DISCOUNT *SELF PAY* SLIDING FEE SCHEDULE - DISCOUNT [facility] (MEDICAID HMO) [facility] - [place] [facility] [place] (MED[place] H[place] - TMHP - TRADITIONAL Encounters Encounter Performer Location Date Lab Report Mejia Barahona MD [facility] [employer] Feb 20, 2015 Problems Problem Effective Dates Problem Status [...] E&M - 8867-4 PULSE RATE 116 /min Results Date Description Test Name Value Reference Interpretation Status Feb 27, beta HCG, serum, BETA-HCG POSITIVE null NEGATIVE High 2013 qualitative QL Mar 22, beta HCG, serum, BETA-HCG 1.5 mIU/mL SEEBELOW 2014 quantitative QN Feb 20, beta HCG, serum, BETA-HCG POSITIVE null NEGATIVE High 2014 qualitative QL
--- OUTSIDE RECORDS SUMMARY | 2018-08-26 10:31 | XMS REPORT | Continuity of Care Document ---
:1995 Author Organization [facility] Care Team Providers Name Role Phone MD Jun, Mejia Unavailable Unavailable Insurance Providers Payer name Policy type / Policy ID Covered constitution party ID Policy Lazaro Coverage type BCBS P[place] *SELF PAY* SLIDING FEE SCHEDULE - DISCOUNT [...] SLIDING FEE SCHEDULE - DISCOUNT [facility] - [place] [facility] (MEDICAID HMO) *SELF PAY* SLIDING F[place]EDULE - [place] ACS - TMHP - TRADITIONAL COMMUNITY HEALTH CHOICE (MEDICA[place] H[place]) [place]: [place] - [place] ACS - [place] - [place] ACS - [place] - [place] ACS - [place] - [place]: ACS - TMHP - TRADITIONAL [facility] - [place] [facility] (MED[place] H[place]) [place] ACS - TMHP - TRADITIONAL *SELF PAY* SLIDING FEE SCHEDULE - DISCOUNT [facility] - [place] [facility] (MED[place] H[place]) [place] ACS - TM[place] - TRADITIONAL *SELF PAY* SLIDING FEE SCHEDULE - DISCOUNT [facility] - [place] [facility] (MED[place] H[place]) [place] ACS - TM[place] - TRADITIONAL *SELF PAY* SLIDING FEE SCHEDULE - DISCOUNT [facility] - [place] [facility] (MED[place] H[place]) [place] ACS - TMHP - TRADITIONAL *SELF PAY* SLIDING FEE SCHEDULE - DISCOUNT *SELF PAY* COMMUNITY HEALTH CHOICE (MEDICAID HMO) [facility] - [place] [facility] (MED[place] H[place]) [place] ACS - TMHP - TRADITIONAL SLIDING FEE SCHEDULE - DISCOUNT *SELF PAY* SLIDING FEE SCHEDULE - DISCOUNT COMMUNITY HEALTH CHOICE (MEDICAID HMO) [facility] - [place] [facility] ([place] H[place]) [place] ACS - TMHP - TRADITIONAL *SELF PAY* SLIDING FEE SCHEDULE - DISCOUNT COMMUNITY HEALTH CHOICE (MEDICAID HMO) [facility] - [place] [facility] (MED[place] H[place]) [place]: ACS - TM[place] - TRADITIONAL *SELF PAY* SLIDING FEE SCHEDULE - DISCOUNT COMMUNITY HEALTH CHOICE (MEDICAID HMO) [facility] - [place] [facility] (MEDICAID H[place]) [place] ACS - TMHP - TRADITIONAL *SELF PAY* SLIDING FEE SCHEDULE - DISCOUNT COMMUNITY HEALTH CHOICE (MEDICAID HMO) [facility] - [place] [facility] (MEDICAID H[place]) [place] ACS - TMHP - TRADITIONAL *SELF [place]* [place]: ACS - TM[place] - TRADITIONAL SLIDING FEE SCHEDULE - DISCOUNT COMMUNITY HEALTH CHOICE (MEDICAID HMO) [facility] - [place] [facility] (MEDICAID HMO) *SELF [place]* [place]: ACS - TM[place] - TRADITIONAL SLIDING FEE SCHEDULE - DISCOUNT COMMUNITY HEALTH CHOICE (MEDICAID HMO) [facility] - [place] [facility] (MEDICAID H[place]) [place] ACS - TMHP - TRADITIONAL SLIDING FEE SCHEDULE - DISCOUNT *SELF PAY* COMMUNITY HEALTH CHOICE (MEDICAID HMO) [facility] - [place] [facility] (MEDICAID HMO) *SELF [place]* [place]: ACS - TMHP - TRADITION[place] *SELF PAY* SLIDING FEE SCHEDULE - DISCOUNT COMMUNITY HEALTH CHOICE (MEDICAID HMO) [facility] - [place] [facility] (MEDICAID HMO) *SELF PAY* SLIDING FEE SCHEDULE - DIS[place]: ACS - TMHP - TRADITIONAL *SELF PAY* SLIDING FEE SCHEDULE - DISCOUNT COMMUNITY HEALTH CHOICE (MEDICAID HMO) [facility] - [place] [facility] (MEDICAID HMO) *SELF PAY* SLIDING FEE SCHEDULE - DISCOUNT [place]: ACS - TMHP - TRADITIONAL *SELF PAY* SLIDING FEE SCHEDULE - DISCOUNT COMMUNITY HEALTH CHOICE (MEDICAID HMO) [facility] - [place] [facility] (MEDICAID HMO) *SELF PAY* SLIDING FEE SCHEDULE - DISCOUNT [place]: ACS - TMHP - TRADITIONAL *SELF PAY* SLIDING FEE SCHEDULE - DISCOUNT COMMUNITY HEALTH CHOICE (MEDICAID HMO) [facility] - [place] [facility] (MEDICAID HMO) *SELF PAY* SLIDING FEE SCHEDULE - DIS[place]: ACS - TMHP - TRADITIONAL *SELF PAY* SLIDING FEE SCHEDULE - DISCOUNT COMMUNITY HEALTH CHOICE (MEDICAID HMO) [facility] - [facility] (MEDICAID HMO) [place] ACS - TMHP - TRADITIONAL *SELF PAY* SLIDING FEE SCHEDULE - DISCOUNT [employer] - COMMUNITY PLAN (MEDICAID [place] ACS - TMHP - TRADITIONAL *SELF PAY* SLIDING FEE SCHEDULE - DISCOUNT COMMUNITY HEALTH CHOICE (MEDICAID HMO) [facility] - [facility] (MEDICAID H[place]) [place] ACS - TMHP - TRADITIONAL *SELF PAY* SLIDING FEE SCHEDULE - DISCOUNT [employer] - COMMUNITY PLAN (MEDICAID [place] ACS - TMHP - TRADITIONAL *SELF PAY* SLIDING FEE SCHEDULE - DISCOUNT COMMUNITY HEALTH CHOICE (MEDICAID HMO) [facility] - [facility] (MEDICAID HMO) [place] ACS - TMHP - TRADITIONAL *SELF PAY* SLIDING FEE SCHEDULE - DIS[place]: ACS - TMHP - TRADITIONAL *SELF PAY* SLIDING FEE SCHEDULE - DISCOUNT COMMUNITY HEALTH CHOICE (MEDICAID HMO) [facility] - [facility] (MEDICAID HMO) [place] ACS - TMHP - TRADITIONAL *SELF PAY* SLIDING FEE SCHEDULE - DIS[place]: ACS - TMHP - TRADITIONAL *SELF PAY* SLIDING FEE SCHEDULE - DISCOUNT COMMUNITY HEALTH CHOICE (MEDICAID HMO) [facility] - [facility] (MEDICAID HMO) [place] ACS - TMHP - TRADITIONAL *SELF PAY* SLIDING FEE SCHEDULE - DIS[place]: ACS - TMHP - TRADITIONAL *SELF PAY* SLIDING FEE SCHEDULE - DISCOUNT COMMUNITY HEALTH CHOICE (MEDICAID HMO) [facility] - [facility] (MEDICAID HMO) [place] ACS - TMHP - TRADITIONAL *SELF PAY* SLIDING FEE SCHEDULE - DIS[place]: ACS - TMHP - TRADITIONAL *SELF PAY* SLIDING FEE SCHEDULE - DISCOUNT COMMUNITY HEALTH CHOICE (MEDICAID HMO) [facility] - 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 Problems Problem Effective Dates Problem Status PELVIC PAIN Jun 24, 2012 Inactive OTHER AND UNSPECIFIED OVARIAN CYST Jun 24, 2012 Inactive FAMILY HISTORY OF DIABETES Mar 22, 2014 Active FAMILY HISTORY OF HYPERTENSION Mar 22, 2014 Active - SPONTANEOUS Mar 23, 2014 Inactive CONTRACEPTIVE MANAGEMENT Apr 10, 2014 Inactive DIAPER OR [place] RASH May 08, 2014 Inactive RASH AND OTHER NONSPECIFIC SKIN ERUPTION May 08, 2014 Inactive CONFIRMATION OF Apr 05, 2015 Inactive VAGINITIS Apr 04, 2015 Inactive 2ND + PREG - NORMAL PREG SUPERV May 07, 2015 Active Procedures Date Description Comments Jun 24, 2012 smoking status never smoker May 08, 2014 smoking status Never smoker May 06, 2015 smoking status Never smoker Medications Medication Instructions [...] by mouth daily Apr 04, 2015 Active PROMETHAZINE HCL 25 MG TABS 1 tablet three times daily as May 06, 2015 Active needed for nausea Vital Signs Date Description Test Result Jun [...] E&M - 8867-4 PULSE RATE 98 /min May 06, 2015 weight E&M - 3141-9 WEIGHT 136 lb May 06, 2015 blood pressure, systolic, sitting, left arm BP SYS SIT L 98 mm Hg May 06, 2015 blood pressure, diastolic, sitting, left arm BP MARIA LUISA SIT L 63 mm Hg May 06, 2015 blood pressure, systolic - 8480-6 BP SYSTOLIC 98 mm Hg May 06, 2015 blood pressure, diastolic - 8462-4 BP DIASTOLIC 63 mm Hg May 06, 2015 pulse rate, sitting, left PULSE SIT L 103 /min May 06, 2015 pulse rate E&M - 8867-4 PULSE RATE 103 /min Results Date Description Test Name Value Reference Interpretation Status Feb 27, beta HCG, serum, BETA-HCG POSITIVE null NEGATIVE High 2013 qualitative QL Mar 22, beta HCG, serum, BETA-HCG 1.5 mIU/mL SEEBELOW 2014 quantitative QN Feb 20, beta HCG, serum, BETA-HCG POSITIVE null NEGATIVE High 2014 qualitative QL
--- OUTSIDE RECORDS SUMMARY | 2018-08-26 10:31 | XMS REPORT | Continuity of Care Document ---
:1995 Author Organization [facility] Care Team Providers Name Role Phone MD Jun, Mejia Unavailable Unavailable Insurance Providers Payer name Policy type / Policy ID Covered libertarian ID Policy Lazaro Coverage type BC[place] *SELF PAY* SLIDING FEE SCHEDULE - DISCOUNT [...] - DISCOUNT COMMUNITY HEALTH CHOICE (MEDICAID HMO) [facility] [place] [facility] (MED[place] H[place]) [place] ACS - TMHP - TRADITIONAL *SELF PAY* SLIDING FEE SCHEDULE - DISCOUNT COMMUNITY HEALTH CHOICE (MEDICAID HMO) [facility] [place] [facility] (MEDICA[place] H[place]) [place] ACS - [place] - TRADITION[place] *SELF [place]* [place]: [place] - [place] - TRADITIONAL SLIDING FEE SCHEDULE - DISCOUNT COMMUNITY HEALTH CHOICE (MEDICAID HMO) [facility] [place] [facility] (MEDICAID HMO) *SELF [place]* [place]: ACS - TM[place] - TRADITIONAL SLIDING FEE SCHEDULE - DISCOUNT COMMUNITY HEALTH CHOICE (MEDICAID HMO) [facility] [place] [facility] (MEDICAID H[place]) [place] ACS - TMHP - TRADITIONAL SLIDING FEE SCHEDULE - DISCOUNT *SELF PAY* COMMUNITY HEALTH CHOICE (MEDICAID HMO) [facility] [place] [facility] (MEDICAID HMO) *SELF [place]* [place]: ACS - TM[place] - TRADITION[place] *SELF PAY* SLIDING FEE SCHEDULE - DISCOUNT COMMUNITY HEALTH CHOICE (MEDICAID HMO) [facility] [place] [facility] (MEDICAID HMO) *SELF PAY* SLIDING FEE SCHEDULE - DISCOUNT [place]: ACS - TMHP - TRADITIONAL *SELF PAY* SLIDING FEE SCHEDULE - DISCOUNT COMMUNITY HEALTH CHOICE (MEDICAID HMO) [facility] [place] [facility] (MEDICAID HMO) *SELF PAY* SLIDING FEE SCHEDULE - DIS[place]: ACS - TMHP - TRADITIONAL *SELF PAY* SLIDING FEE SCHEDULE - DISCOUNT COMMUNITY HEALTH CHOICE (MEDICAID HMO) [facility] [facility] (MEDICAID HMO) *SELF PAY* SLIDING FEE SCHEDULE - DISCOUNT [place]: ACS - TMHP - TRADITIONAL *SELF PAY* SLIDING FEE SCHEDULE - DISCOUNT COMMUNITY HEALTH CHOICE (MEDICAID HMO) [facility] [facility] (MEDICAID HMO) *SELF PAY* SLIDING FEE SCHEDULE - DIS[place]: ACS - TMHP - TRADITIONAL *SELF PAY* SLIDING FEE SCHEDULE - DISCOUNT COMMUNITY HEALTH CHOICE (MEDICAID HMO) [facility] [place] (MEDICAID HMO) [place] ACS - TMHP - TRADITIONAL *SELF PAY* SLIDING FEE SCHEDULE - DISCOUNT [employer] - COMMUNITY PLAN (MEDICAID [place] ACS - TMHP - TRADITIONAL *SELF PAY* SLIDING FEE SCHEDULE - DISCOUNT COMMUNITY HEALTH CHOICE (MEDICAID HMO) [facility] (MEDICAID HMO) [place] ACS - TMHP - TRADITIONAL *SELF PAY* SLIDING FEE SCHEDULE - DISCOUNT [employer] [facility] - COMMUNITY PLAN (MEDICAID [place]: ACS - TMHP - TRADITIONAL *SELF PAY* SLIDING FEE SCHEDULE - DISCOUNT COMMUNITY HEALTH CHOICE (MEDICAID HMO) [facility] (MEDICAID HMO) [place] ACS - TMHP - TRADITIONAL *SELF PAY* SLIDING FEE SCHEDULE - DISCOUNT [place]: ACS - TMHP - TRADITIONAL *SELF PAY* SLIDING FEE SCHEDULE - DISCOUNT COMMUNITY HEALTH CHOICE (MEDICAID HMO) [facility] (MEDICAID HMO) [place] ACS - TMHP - TRADITIONAL *SELF PAY* SLIDING FEE SCHEDULE - DISCOUNT [place]: ACS - TMHP - TRADITIONAL *SELF PAY* SLIDING FEE SCHEDULE - DISCOUNT COMMUNITY HEALTH CHOICE (MEDICAID HMO) [facility] (MEDICAID HMO) [place] ACS - TMHP - TRADITIONAL *SELF PAY* SLIDING FEE SCHEDULE - DISCOUNT [place]: ACS - TMHP - TRADITIONAL *SELF PAY* SLIDING FEE SCHEDULE - DISCOUNT COMMUNITY HEALTH CHOICE (MEDICAID HMO) [facility] (MEDICAID HMO) [place] ACS - TMHP - TRADITIONAL *SELF PAY* SLIDING FEE SCHEDULE - DISCOUNT [place]: ACS - TM[place] - TRADITIONAL *SELF PAY* SLIDING FEE SCHEDULE - DISCOUNT COMMUNITY HEALTH CHOICE (MEDICAID HMO) [facility] (MEDICAID HMO) [place] ACS - TMHP - TRADITIONAL *SELF PAY* SLIDING FEE SCHEDULE - DISCOUNT [place]: ACS - TMHP - TRADITIONAL *SELF PAY* SLIDING FEE SCHEDULE - DISCOUNT COMMUNITY HEALTH CHOICE (MEDICAID HMO) [facility] [place] (MEDICAID HMO) [place] ACS - TMHP - TRADITIONAL *SELF PAY* SLIDING FEE SCHEDULE - DISCOUNT Encounters Encounter Performer Location Date Lab Report 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
--- OUTSIDE RECORDS SUMMARY | 2018-08-26 10:32 | XMS REPORT | Continuity of Care Document ---
:1995 Author Organization [facility] Care Team Providers Name Role Phone MD Jun, Mejia Unavailable Unavailable Insurance Providers Payer name Policy type / Policy ID Covered democrat ID Policy Lazaro Coverage type BCBS [place] *SELF PAY* SLIDING FEE SCHEDULE - DISCOUNT [...] SLIDING FEE SCHEDULE - DISCOUNT [facility] - [place] [facility] (MEDICAID HMO) *SELF PAY* SLIDING F[place]EDULE - [place] ACS - TM[place] - TRADITIONAL COMMUNITY HEALTH CHOICE (MEDICAID H[place]: [place] - [place] - [place] ACS - TM[place] - [place]AD[place] ACS - TM[place] - [place]AD[place]: ACS - [place] - [place]AD[place]: ACS - TM[place] - TRADITIONAL [facility] - [place] [facility] (MED[place] H[place]) [place]: ACS - TM[place] - TRADITIONAL *SELF PAY* SLIDING FEE SCHEDULE - DISCOUNT [facility] - [place] [facility] (MED[place] H[place]) [place] ACS - TMHP - TRADITIONAL *SELF PAY* SLIDING FEE SCHEDULE - DISCOUNT [facility] - [place] [facility] (MED[place] H[place]) [place] ACS - TMHP - TRADITIONAL *SELF PAY* SLIDING FEE SCHEDULE - DISCOUNT [facility] - [place] [facility] (MED[place] H[place]) [place] ACS - TMHP - TRADITIONAL *SELF PAY* SLIDING FEE SCHEDULE - DISCOUNT *SELF PAY* COMMUNITY HEALTH CHOICE (MEDICAID HMO) [facility] - [place] [facility] (MED[place] H[place]) [place] ACS - TMHP - TRADITIONAL SLIDING FEE SCHEDULE - DISCOUNT *SELF PAY* SLIDING FEE SCHEDULE - DISCOUNT COMMUNITY HEALTH CHOICE (MEDICAID HMO) [facility] - [place] [facility] (MED[place] H[place]) [place] ACS - TMHP - TRADITIONAL *SELF PAY* SLIDING FEE SCHEDULE - DISCOUNT COMMUNITY HEALTH CHOICE (MEDICAID HMO) [facility] [place] [facility] (MED[place] H[place]) [place]: ACS - TMHP - TRADITIONAL *SELF PAY* SLIDING FEE SCHEDULE - DISCOUNT COMMUNITY HEALTH CHOICE (MEDICAID HMO) [facility] - [place] [facility] (MEDICAID H[place]) [place]: ACS - TMHP - TRADITIONAL *SELF PAY* SLIDING FEE SCHEDULE - DISCOUNT COMMUNITY HEALTH CHOICE (MEDICAID HMO) [facility] - [place] [facility] (MEDICAID H[place]) [place] ACS - TMHP - TRADITIONAL *SELF [place]* [place]: ACS - TMHP - TRADITIONAL SLIDING FEE SCHEDULE - DISCOUNT COMMUNITY HEALTH CHOICE (MEDICAID HMO) [facility] - [place] [facility] (MEDICAID HMO) *SELF PA[place]* [place]: ACS - TMHP - TRADITIONAL SLIDING FEE SCHEDULE - DISCOUNT COMMUNITY HEALTH CHOICE (MEDICAID HMO) [facility] - [place] [facility] (MEDICAID H[place]) [place]: ACS - TMHP - TRADITIONAL SLIDING FEE SCHEDULE - DISCOUNT *SELF PAY* COMMUNITY HEALTH CHOICE (MEDICAID HMO) [facility] - [place] [facility] (MEDICAID HMO) *SELF [place]* [place]: ACS - TM[place] - TRADITIONAL *SELF PAY* SLIDING FEE SCHEDULE - DISCOUNT COMMUNITY HEALTH CHOICE (MEDICAID HMO) [facility] - [place] [facility] (MEDICAID HMO) *SELF PAY* SLIDING FEE SCHEDULE - DIS[place]: ACS - TMHP - TRADITIONAL *SELF PAY* SLIDING FEE SCHEDULE - DISCOUNT COMMUNITY HEALTH CHOICE (MEDICAID HMO) [facility] - [place] [facility] (MEDICAID HMO) *SELF PAY* SLIDING FEE SCHEDULE - DIS[place]: ACS - TMHP - TRADITIONAL *SELF PAY* SLIDING FEE SCHEDULE - DISCOUNT COMMUNITY HEALTH CHOICE (MEDICAID HMO) [facility] - [place] [facility] (MEDICAID HMO) *SELF PAY* SLIDING FEE SCHEDULE - DIS[place]: ACS - TMHP - TRADITIONAL *SELF PAY* SLIDING FEE SCHEDULE - DISCOUNT COMMUNITY HEALTH CHOICE (MEDICAID HMO) [facility] - [place] [facility] (MEDICAID HMO) *SELF PAY* SLIDING FEE SCHEDULE - DIS[place]: ACS - TMHP - TRADITIONAL *SELF PAY* SLIDING FEE SCHEDULE - DISCOUNT COMMUNITY HEALTH CHOICE (MEDICAID HMO) [facility] [place]MED[place] H[place]) [place] ACS - TMHP - TRADITIONAL *SELF PAY* SLIDING FEE SCHEDULE - DISCOUNT [employer] - COMMUNITY PLAN (MEDICAID [place] ACS - TMHP - TRADITIONAL *SELF PAY* SLIDING FEE SCHEDULE - DISCOUNT COMMUNITY HEALTH CHOICE (MEDICAID HMO) [facility] [place]MED[place] H[place]) [place] ACS - TMHP - TRADITIONAL *SELF PAY* SLIDING FEE SCHEDULE - DISCOUNT [employer] - COMMUNITY PLAN (MEDICAID [place] ACS - TMHP - TRADITIONAL *SELF PAY* SLIDING FEE SCHEDULE - DISCOUNT COMMUNITY HEALTH CHOICE (MEDICAID HMO) [facility] [place] [place]MED[place] H[place]) [place] ACS - TMHP - TRADITIONAL *SELF PAY* SLIDING FEE SCHEDULE - DIS[place]: ACS - TMHP - TRADITIONAL *SELF PAY* SLIDING FEE SCHEDULE - DISCOUNT COMMUNITY HEALTH CHOICE (MEDICAID HMO) [facility] [place]MED[place] H[place]) [place] ACS - TMHP - TRADITIONAL *SELF PAY* SLIDING FEE SCHEDULE - DIS[place]: ACS - TMHP - TRADITIONAL *SELF PAY* SLIDING FEE SCHEDULE - DISCOUNT COMMUNITY HEALTH CHOICE (MEDICAID HMO) [facility] [place] [place]MED[place]) [place] ACS - TMHP - TRADITIONAL *SELF PAY* SLIDING FEE SCHEDULE - DIS[place]: ACS - TMHP - TRADITIONAL *SELF PAY* SLIDING FEE SCHEDULE - DISCOUNT COMMUNITY HEALTH CHOICE (MEDICAID HMO) [facility] [place]MED[place]) [place] ACS - TMHP - TRADITIONAL *SELF PAY* SLIDING FEE SCHEDULE - DIS[place]: ACS - TMHP - TRADITIONAL *SELF PAY* SLIDING FEE SCHEDULE - DISCOUNT COMMUNITY HEALTH CHOICE (MEDICAID HMO) [facility] [place]MED[place]) [place] - TM[facility] - TRADITIONAL *SELF PAY* SLIDING FEE SCHEDULE - DISCOUNT [place] - TRADITIONAL *SELF PAY* SLIDING FEE SCHEDULE - DISCOUNT [facility] CHOICE (MEDICAID HMO) [facility] [place] (MEDICAID H[place]) [place] - TM[facility] - TRADITIONAL *SELF PAY* SLIDING FEE SCHEDULE - DISCOUNT Encounters Encounter Performer Location Date Lab Report Mejia Barahona MD [facility] [employer] May 06, 2015 Problems Problem Effective Dates [...] blood pressure, diastolic, sitting, left arm BP MAIRA LUISA SIT L 63 mm Hg May [...] Description Test Name Value Reference Interpretation Status May 06, hemoglobin, blood HGB 12.0 g/dL 12.0-16.0 2014May 06, hematocrit, blood HCT 35.4 % 36.0-48.0 Low 2014May 06, platelet count PLATELETS 226 K/CMM [phone] /mm3 Feb 27, beta HCG, serum, BETA-HCG QL POSITIVE NEGATIVE High 2013 qualitative null Mar 22, beta HCG, serum, BETA-HCG QN 1.5 mIU/mL SEEBELOW 2013 quantitative Feb 20, beta HCG, serum, BETA-HCG QL POSITIVE NEGATIVE High 2014 qualitative null May 06, rapid plasma RPR Non Reactive Non Reactive 2014 reagin antibody, null serum
--- OUTSIDE RECORDS SUMMARY | 2018-08-26 10:32 | XMS REPORT | Continuity of Care Document ---
:1995 Author Organization [facility] Care Team Providers Name Role Phone MD Jun, Mejia Unavailable Unavailable Insurance Providers Payer name Policy type / Policy ID Covered democrat ID Policy Lazaro Coverage type BCBS P[place] *SELF [place]Y* SLIDING FEE SCHEDULE - DISCOUNT [...] SLIDING FEE SCHEDULE - DISCOUNT [facility] - [place] [facility] (MEDICAID HMO) *SELF PAY* SLIDING F[place]EDU[place] - [place] ACS - [facility] - TRADITIONAL COMMUNITY HEALTH CHOICE (MEDICAID H[place]) [place]: [place] ACS - TM[place] ACS - TM[facility] - [place] ACS - [place]: ACS - TM[place] - TRADITIONAL [facility] - [place] [facility] (MED[place] H[place]) [place] ACS - TMHP - TRADITIONAL *SELF PAY* SLIDING FEE SCHEDULE - DISCOUNT [facility] - [place] [facility] [place]MED[place]) [place] ACS - TM[facility] - TRADITIONAL *SELF PAY* SLIDING FEE SCHEDULE - DISCOUNT [facility] - [place] [facility] (MED[place]) [place] ACS - TMHP - TRADITIONAL *SELF PAY* SLIDING FEE SCHEDULE - DISCOUNT [facility] - [place] [facility] (MED[place] ACS - TM[facility] - TRADITIONAL *SELF PAY* SLIDING FEE SCHEDULE - DISCOUNT *SELF PAY* COMMUNITY HEALTH CHOICE (MEDICAID HMO) [facility] - [place] [facility] (MED[place] H[place]) [place] ACS - TM[facility] - TRADITIONAL SLIDING FEE SCHEDULE - DISCOUNT *SELF PAY* SLIDING FEE SCHEDULE - DISCOUNT COMMUNITY HEALTH CHOICE (MEDICAID HMO) [facility] - [place] [facility] (MED[place] H[place]) [place] ACS - TMHP - TRADITIONAL *SELF PAY* SLIDING FEE SCHEDULE - DISCOUNT COMMUNITY HEALTH CHOICE (MEDICAID HMO) [facility] - [place] [facility] (MED[place] H[place]) [place]: ACS - TM[facility] - TRADITIONAL *SELF PAY* SLIDING FEE SCHEDULE - DISCOUNT COMMUNITY HEALTH CHOICE (MEDICAID HMO) [facility] - [place] [facility] (MEDICAID H[place]) [place] ACS - TMHP - TRADITIONAL *SELF PAY* SLIDING FEE SCHEDULE - DISCOUNT COMMUNITY HEALTH CHOICE (MEDICAID HMO) [facility] - [place] [facility] (MEDICAID H[place]) [place] ACS - TM[facility] - TRADITIONAL *SELF PAY* [place]: ACS - TMHP - TRADITIONAL SLIDING FEE SCHEDULE - DISCOUNT COMMUNITY HEALTH CHOICE (MEDICAID HMO) [facility] - [place] [facility] (MEDICAID HMO) *SELF PAY* [place]: ACS - TM[facility] - TRADITIONAL SLIDING FEE SCHEDULE - DISCOUNT COMMUNITY HEALTH CHOICE (MEDICAID HMO) [facility] - [place] [facility] (MEDICAID H[place]) [place]: ACS - [facility] - TRADITIONAL SLIDING FEE SCHEDULE - DISCOUNT *SELF PAY* COMMUNITY HEALTH CHOICE (MEDICAID HMO) [facility] - [place] [facility] (MEDICAID HMO) *SELF PAY* [place]: ACS - [facility] - TRADITIONAL *SELF PAY* SLIDING FEE SCHEDULE - DISCOUNT COMMUNITY HEALTH CHOICE (MEDICAID HMO) [facility] - [place] [facility] (MEDICAID HMO) *SELF PAY* SLIDING FEE SCHEDULE - DIS[place]: ACS - TM[facility] - TRADITIONAL *SELF PAY* SLIDING FEE SCHEDULE - DISCOUNT COMMUNITY HEALTH CHOICE (MEDICAID HMO) [facility] - [place] [facility] (MEDICAID HMO) *SELF PAY* SLIDING FEE SCHEDULE - DISCOUNT [place]: ACS - TM[facility] - TRADITIONAL *SELF PAY* SLIDING FEE SCHEDULE - DISCOUNT COMMUNITY HEALTH CHOICE (MEDICAID HMO) [facility] - [place] [facility] (MEDICAID HMO) *SELF PAY* SLIDING FEE SCHEDULE - DIS[place]: ACS - TM[facility] - TRADITIONAL *SELF PAY* SLIDING FEE SCHEDULE - DISCOUNT COMMUNITY HEALTH CHOICE (MEDICAID HMO) [facility] - [place] [facility] (MEDICAID HMO) *SELF PAY* SLIDING FEE SCHEDULE - DISCOUNT [place]: ACS - TM[facility] - TRADITIONAL *SELF PAY* SLIDING FEE SCHEDULE - DISCOUNT COMMUNITY HEALTH CHOICE (MEDICAID HMO) [facility] (MEDICAID HMO) [place] ACS - TM[facility] - TRADITIONAL *SELF PAY* SLIDING FEE SCHEDULE - DISCOUNT [employer] - COMMUNITY PLAN (MEDICAID [place]: ACS - TM[facility] - TRADITIONAL *SELF PAY* SLIDING FEE SCHEDULE - DISCOUNT COMMUNITY HEALTH CHOICE (MEDICAID HMO) [facility] - [facility] (MEDICAID HMO) [place] ACS - TM[facility] - TRADITIONAL *SELF PAY* SLIDING FEE SCHEDULE - DISCOUNT [employer] - COMMUNITY PLAN (MEDICAID [place]: ACS - TMHP - TRADITIONAL *SELF PAY* SLIDING FEE SCHEDULE - DISCOUNT COMMUNITY HEALTH CHOICE (MEDICAID HMO) [facility] (MEDICAID HMO) [place] ACS - TM[facility] - TRADITIONAL *SELF PAY* SLIDING FEE SCHEDULE - DISCOUNT [place]: ACS - TM[facility] - TRADITIONAL *SELF PAY* SLIDING FEE SCHEDULE - DISCOUNT COMMUNITY HEALTH CHOICE (MEDICAID HMO) [facility] (MEDICAID HMO) [place] ACS - TM[facility] - TRADITIONAL *SELF PAY* SLIDING FEE SCHEDULE - DISCOUNT [place]: ACS - TM[facility] - TRADITIONAL *SELF PAY* SLIDING FEE SCHEDULE - DISCOUNT COMMUNITY HEALTH CHOICE (MEDICAID HMO) [facility] (MEDICAID HMO) [place] ACS - TM[facility] - TRADITIONAL *SELF PAY* SLIDING FEE SCHEDULE - DISCOUNT [place]: ACS - TM[facility] - TRADITIONAL *SELF PAY* SLIDING FEE SCHEDULE - DISCOUNT COMMUNITY HEALTH CHOICE (MEDICAID HMO) [facility] (MEDICAID HMO) [place] ACS - TM[facility] - TRADITIONAL *SELF PAY* SLIDING FEE SCHEDULE - DISCOUNT [place]: ACS - TM[facility] - TRADITIONAL *SELF PAY* SLIDING FEE SCHEDULE - DISCOUNT COMMUNITY HEALTH CHOICE (MEDICAID HMO) [facility] (MEDICAID HMO) [place] ACS - TM[facility] - TRADITIONAL *SELF PAY* SLIDING FEE SCHEDULE - DISCOUNT [place]: ACS - TM[facility] - TRADITIONAL *SELF PAY* SLIDING FEE SCHEDULE - DISCOUNT COMMUNITY HEALTH CHOICE (MEDICAID HMO) [facility] (MEDICAID HMO) [place] ACS - TM[facility] - TRADITIONAL *SELF PAY* SLIDING FEE SCHEDULE - DISCOUNT Encounters Encounter Performer Location Date Lab Report Mejia Barahona MD [facility] [place] [facility]Re[facility] May 06, 2015 Problems Problem Effective Dates [...] 2014May 06, platelet count PLATELETS 226 K/CMM [phone] /mm3 Feb 27, beta HCG, serum, BETA-HCG QL POSITIVE NEGATIVE High 2013 qualitative null Mar 22, beta HCG, serum, BETA-HCG QN 1.5 mIU/mL SEEBELOW 2013 quantitative Feb 20, beta HCG, serum, BETA-HCG QL POSITIVE NEGATIVE High 2014 qualitative null May 06, rapid plasma RPR Non Reactive Non Reactive 2014 reagin antibody, null serum
--- OUTSIDE RECORDS SUMMARY | 2018-08-26 10:33 | XMS REPORT | Continuity of Care Document ---
:1995 Author Organization [facility] Care Team Providers Name Role Phone MD Jun, Mejia Unavailable Unavailable Insurance Providers Payer name Policy type / Policy ID Covered constitution party ID Policy Lazaro Coverage type BCBS P[place]IL[place] OSPCP [place] *SELF PAY* SLIDING FEE SCHEDULE - DISCOUNT [...] SLIDING FEE SCHEDULE - DISCOUNT [facility] - [place] [facility] (MEDICAID HMO) *SELF PAY* SLIDING FEE SCHEDULE - [place] ACS - TM[facility] - TRADITIONAL COMMUNITY HEALTH CHOICE (MEDICAID H[place]) [place]: ACS - TM[place] - TRADITIONAL [place] ACS - TMHP - [place]ADITIONAL [place] ACS - TMHP - [place]ADITIONAL [place]: ACS - TM[facility] - [place]AD[place]AL [place]: ACS - TM[facility] - TRADITIONAL [facility] - [place] [facility] (MEDICAID H[place]) [place]: ACS - TMHP - TRADITIONAL *SELF PAY* SLIDING FEE SCHEDULE - DISCOUNT [facility] - [place] [facility] (MEDICAID H[place]) [place] ACS - TMHP - TRADITIONAL *SELF PAY* SLIDING FEE SCHEDULE - DISCOUNT [facility] - [place] [facility] (MEDICAID H[place]) [place]: ACS - TMHP - TRADITIONAL *SELF PAY* SLIDING FEE SCHEDULE - DISCOUNT [facility] - [place] [facility] (MEDICAID HMO) [place]: ACS - TMHP - TRADITIONAL *SELF PAY* SLIDING FEE SCHEDULE - DISCOUNT *SELF PAY* COMMUNITY HEALTH CHOICE (MEDICAID HMO) [facility] - [place] [facility] (MEDICAID H[place]) [place]: ACS - TM[facility] - TRADITIONAL SLIDING FEE SCHEDULE - DISCOUNT *SELF PAY* SLIDING FEE SCHEDULE - DISCOUNT COMMUNITY HEALTH CHOICE (MEDICAID HMO) [facility] - [place] [facility] (MEDICAID HMO) [place]: ACS - TM[facility] - TRADITIONAL *SELF PAY* SLIDING FEE SCHEDULE - DISCOUNT COMMUNITY HEALTH CHOICE (MEDICAID HMO) [facility] - [place] [facility] (MEDICAID H[place]) [place]: ACS - TMHP - TRADITIONAL *SELF PAY* SLIDING FEE SCHEDULE - DISCOUNT COMMUNITY HEALTH CHOICE (MEDICAID HMO) [facility] - [place] [facility] (MEDICAID H[place]) [place]: ACS - TM[facility] - TRADITIONAL *SELF PAY* SLIDING FEE SCHEDULE - DISCOUNT COMMUNITY HEALTH CHOICE (MEDICAID HMO) [facility] - [place] [facility] (MEDICAID H[place]) [place] ACS - TMHP - TRADITIONAL *SELF PAY* [place]: ACS - TMHP - TRADITIONAL SLIDING FEE SCHEDULE - DISCOUNT COMMUNITY HEALTH CHOICE (MEDICAID HMO) [facility] - [place] [facility] (MEDICAID HMO) *SELF PAY* [place]: ACS - TM[facility] - TRADITIONAL SLIDING FEE SCHEDULE - DISCOUNT COMMUNITY HEALTH CHOICE (MEDICAID HMO) [facility] - [place] [facility] (MEDICAID H[place]) [place]: ACS - TM[facility] - TRADITIONAL SLIDING FEE SCHEDULE - DISCOUNT *SELF PAY* COMMUNITY HEALTH CHOICE (MEDICAID HMO) [facility] - [place] [facility] (MEDICAID HMO) *SELF PAY* [place]: ACS - TM[facility] - TRADITIONAL *SELF PAY* SLIDING FEE SCHEDULE - DISCOUNT COMMUNITY HEALTH CHOICE (MEDICAID HMO) [facility] - [place] [facility] (MEDICAID HMO) *SELF PAY* SLIDING FEE SCHEDULE - DIS[place]: ACS - TMHP - TRADITIONAL *SELF PAY* SLIDING FEE SCHEDULE - DISCOUNT COMMUNITY HEALTH CHOICE (MEDICAID HMO) [facility] - [place] [facility] (MEDICAID HMO) *SELF PAY* SLIDING FEE SCHEDULE - DISCOUNT [place]: ACS - TMHP - TRADITIONAL *SELF PAY* SLIDING FEE SCHEDULE - DISCOUNT COMMUNITY HEALTH CHOICE (MEDICAID HMO) [facility] - [place] [facility] (MEDICAID HMO) *SELF PAY* SLIDING FEE SCHEDULE - DISCOUNT [place]: ACS - TMHP - TRADITIONAL *SELF PAY* SLIDING FEE SCHEDULE - DISCOUNT COMMUNITY HEALTH CHOICE (MEDICAID HMO) [facility] - [place] [facility] (MEDICAID HMO) *SELF PAY* SLIDING FEE SCHEDULE - DISCOUNT [place]: ACS - TMHP - TRADITIONAL *SELF PAY* SLIDING FEE SCHEDULE - DISCOUNT COMMUNITY HEALTH CHOICE (MEDICAID HMO) [facility] (MEDICAID HMO) [place] ACS - TMHP - TRADITIONAL *SELF PAY* SLIDING FEE SCHEDULE - DISCOUNT [employer] - COMMUNITY PLAN (MEDICAID [place]: ACS - TMHP - TRADITIONAL *SELF PAY* SLIDING FEE SCHEDULE - DISCOUNT COMMUNITY HEALTH CHOICE (MEDICAID HMO) [facility] (MEDICAID HMO) [place] ACS - TM[facility] - TRADITIONAL *SELF PAY* SLIDING FEE SCHEDULE - DISCOUNT [employer] - COMMUNITY PLAN (MEDICAID [place]: ACS - TMHP - TRADITIONAL *SELF PAY* SLIDING FEE SCHEDULE - DISCOUNT COMMUNITY HEALTH CHOICE (MEDICAID HMO) [facility] (MEDICAID HMO) [place] ACS - TMHP - TRADITIONAL *SELF PAY* SLIDING FEE SCHEDULE - DISCOUNT [place]: ACS - TMHP - TRADITIONAL *SELF PAY* SLIDING FEE SCHEDULE - DISCOUNT COMMUNITY HEALTH CHOICE (MEDICAID HMO) [facility] - [facility] (MEDICAID HMO) [place] ACS - TMHP - TRADITIONAL *SELF PAY* SLIDING FEE SCHEDULE - DISCOUNT [place]: ACS - TM[facility] - TRADITIONAL *SELF PAY* SLIDING FEE SCHEDULE - DISCOUNT COMMUNITY HEALTH CHOICE (MEDICAID HMO) [facility] (MEDICAID HMO) [place] ACS - TM[facility] - TRADITIONAL *SELF PAY* SLIDING FEE SCHEDULE - DISCOUNT [place]: ACS - TMHP - TRADITIONAL *SELF PAY* SLIDING FEE SCHEDULE - DISCOUNT COMMUNITY HEALTH CHOICE (MEDICAID HMO) [facility] (MEDICAID HMO) [place]: ACS - TMHP - TRADITIONAL *SELF PAY* SLIDING FEE SCHEDULE - DISCOUNT [place]: ACS - TMHP - TRADITIONAL *SELF PAY* SLIDING FEE SCHEDULE - DISCOUNT COMMUNITY HEALTH CHOICE (MEDICAID HMO) [facility] (MEDICAID HMO) [place] ACS - TMHP - TRADITIONAL *SELF PAY* SLIDING FEE SCHEDULE - DISCOUNT [place]: ACS - TMHP - TRADITIONAL *SELF PAY* SLIDING FEE SCHEDULE - DISCOUNT COMMUNITY HEALTH CHOICE (MEDICAID HMO) [facility] (MEDICAID H[facility]) [place] ACS - TMHP - TRADITIONAL *SELF PAY* SLIDING FEE SCHEDULE - DISCOUNT Encounters Encounter Performer Location Date Lab Report Mejia Barahona MD [facility] [place] [facility]-N[facility] 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
--- NOTE | 2018-08-26 12:33 | EDPHYS ---
Physician Documentation [facility] Unit Name: Veronica Hdogson Age: 23 yrs Sex: Female : 1995 Arrival Date: 08/26/2018 Time: 10:25 Bed 12 Private MD: out of town, doctor ED Physician Audie Stoll HPI: 08/26 11:28 This 23 yrs old Female presents to ER via Ambulatory with complaints of Cough, snw Ear Pain. 11:28 The patient or guardian reports cough, described as moderate. Onset: The snw symptoms/episode began/occurred gradually, 1 week(s) ago, and became persistent. Severity of symptoms: At their worst the symptoms were mild, moderate. Associated signs and symptoms: Pertinent positives: earache. It is unknown whether or not the patient has had similar symptoms in the past. The patient has not recently seen a physician. daughter with similar s/s. 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 - Social history:: Smoking status: Patient/guardian denies using tobacco. - Ebola Screening: : Patient negative for fever greater than or equal to 101.5 degrees Fahrenheit, and additional compatible Ebola Virus Disease symptoms Patient denies exposure to infectious person Patient denies travel to an Ebola-affected area in the 21 days before illness onset No symptoms or risks identified at this time. ROS: 11:27 Constitutional: Negative for fever, chills, and weight loss, Eyes: Negative for injury, snw pain, redness, and discharge. 11:27 Neck: Negative for injury, pain, and swelling, Cardiovascular: Negative for chest pain, palpitations, and edema. 11:27 Abdomen/GI: Negative for abdominal pain, nausea, vomiting, diarrhea, and constipation, Back: Negative for injury and pain, : Negative for injury, bleeding, discharge, and swelling, MS/Extremity: Negative for injury and deformity, Skin: Negative for injury, rash, and discoloration, Neuro: Negative for headache, weakness, numbness, tingling, and seizure, Psych: Negative for depression, anxiety, suicide ideation, homicidal ideation, and hallucinations. 11:27 ENT: Positive for ear pain, nasal discharge. 11:27 Respiratory: Positive for cough. Exam: 11:27 Constitutional: This is a well developed, well nourished patient who is awake, alert, snw and in no acute distress. Head/Face: Normocephalic, atraumatic. Eyes: Pupils equal round and reactive to light, extra-ocular motions intact. Lids and lashes normal. Conjunctiva and sclera are non-icteric and not injected. Cornea within normal limits. Periorbital areas with no swelling, redness, or edema. ENT: Nares patent. No nasal discharge, no septal abnormalities noted. Tympanic membranes are normal and external auditory canals are clear. Oropharynx with no redness, swelling, or masses, exudates, or evidence of obstruction, uvula midline. Mucous membranes moist. Neck: Trachea midline, no thyromegaly or masses palpated, and no cervical lymphadenopathy. Supple, full range of motion without nuchal rigidity, or vertebral point tenderness. No Meningismus. Chest/axilla: Normal chest wall appearance and motion. Nontender with no deformity. No lesions are appreciated. Cardiovascular: Regular rate and rhythm with a normal S1 and S2. No gallops, murmurs, or rubs. Normal PMI, no JVD. No pulse deficits. Abdomen/GI: Soft, non-tender, with normal bowel sounds. No distension or tympany. No guarding or rebound. No evidence of tenderness throughout. Back: No spinal tenderness. No costovertebral tenderness. Full range of motion. Skin: Warm, dry with normal turgor. Normal color with no rashes, no lesions, and no evidence of cellulitis. MS/ Extremity: Pulses equal, no cyanosis. Neurovascular intact. Full, normal range of motion. Neuro: Awake and alert, GCS 15, oriented to person, place, time, and situation. Cranial nerves II-XII grossly intact. Motor strength 5/5 in all extremities. Sensory grossly intact. Cerebellar exam normal. Normal gait. Psych: Awake, alert, with orientation to person, place and time. Behavior, mood, and affect are within normal limits. 11:27 Respiratory: the patient does not display signs of respiratory distress, Respirations: shallow respirations, Breath sounds: are clear throughout, cough. Vital Signs: 11:00 BP 142 / 80; Pulse 77; Resp 16; Temp 97.7; Pulse Ox 100% on R/A; Pain 4/10; iw MDM: 11:01 Patient medically screened. snw 12:33 Data reviewed: vital signs, nurses notes. Data interpreted: Pulse oximetry: on room air snw is 100 %. Interpretation: normal. Counseling: I had a detailed discussion with the patient and/or guardian regarding: the historical points, exam findings, and any diagnostic results supporting the discharge/admit diagnosis, the presence of at least one elevated blood pressure reading (>120/80) during this emergency department visit, lab results, the need for outpatient follow up, to return to the emergency department if symptoms worsen or persist or if there are any questions or concerns that arise at home. Special discussion: Based on the history and exam findings, there is no indication for further emergent testing or inpatient evaluation. I discussed with the patient/guardian the need to see the primary care provider for further evaluation of the symptoms. 08/26 11:19 Order name: Flu; Complete Time: 12:31 snw Administered Medications: No medications were administered Disposition: 17:40 Co-signature as Attending Physician, Audie Stoll MD I agree with the assessment and kdr plan of care. Disposition: 08/26/18 12:32 Discharged to Home. Impression: Acute upper respiratory infection, unspecified. - Condition is Stable. - Discharge Instructions: Viral Respiratory Infection, Cool Mist Vaporizer, Rehydration, Adult. - Prescriptions for Zyrtec 10 mg Oral Tablet - take 1 tablet by ORAL route once daily As needed; 20 tablet. Tessalon Perles 100 mg Oral Capsule - take 1 capsule by ORAL route every 8 hours As needed; 15 capsule. - Work release form, Medication Reconciliation Form, Thank You Letter, Antibiotic Education, Prescription Opioid Use form. - Follow up: Private Physician; When: 2 - 3 days; Reason: Recheck today's complaints, Continuance of care, Re-evaluation by your physician. Follow up: Emergency Department; When: As needed; Reason: Worsening of condition. Signatures: Dispatcher [employer] Audie Gupta MD MD kdr Therrien, Shelly, MANAGER RESOURCE-C MANAGER RESOURCE-Csnw Keny, Ariela, RN RN iw Corrections: (The following items were deleted from the chart) 12:57 12:32 08/26/2018 12:32 Discharged to Home. Impression: Acute upper respiratory iw infection, unspecified. Condition is Stable. Forms are Medication Reconciliation Form, Thank You Letter, Antibiotic Education, Prescription Opioid Use. Follow up: Private Physician; When: 2 - 3 days; Reason: Recheck today's complaints, Continuance of care, Re-evaluation by your physician. Follow up: Emergency Department; When: As needed; Reason: Worsening of condition. snw
--- NOTE | 2018-08-26 12:33 | ER ---
Nurse's Notes [facility] Name: Veronica Hodgson Age: 23 yrs Sex: Female : 1995 Arrival Date: 08/26/2018 Time: 10:25 Bed 12 Private MD: out of town, doctor Diagnosis: Acute upper respiratory infection, unspecified Presentation: 08/26 11:00 Presenting complaint: Patient states: Bilateral Ear Pain, dry cough and runny nose for iw several days now, denies fever, reports bodyaches as well. Transition of care: patient was not received from another setting of care. Onset of symptoms was August 26, 2018. Risk Assessment: Do you want to hurt yourself or someone else? Patient reports no desire to harm self or others. Initial Sepsis Screen: Does the patient meet any 2 criteria? No. Patient's initial sepsis screen is negative. Does the patient have a suspected source of infection? No. Patient's initial sepsis screen is negative. Care prior to arrival: None. 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 - Social history:: Smoking status: Patient/guardian denies using tobacco. - Ebola Screening: : Patient negative for fever greater than or equal to 101.5 degrees Fahrenheit, and additional compatible Ebola Virus Disease symptoms Patient denies exposure to infectious person Patient denies travel to an Ebola-affected area in the 21 days before illness onset No symptoms or risks identified at this time. Vital Signs: 11:00 BP 142 / 80; Pulse 77; Resp 16; Temp 97.7; Pulse Ox 100% on R/A; Pain 4/10; iw ED Course: 10:25 Patient arrived in ED. ag5 10:26 out of town, doctor is Private Physician. ag5 10:47 [facility]alloway [facility]-C [facility] snw 10:47 Audie Stoll MD is Attending Physician. snw 11:00 Keny, Ariela, RN is Primary Nurse. iw 11:11 Triage completed. iw 11:11 Arm band placed on. iw Administered Medications: No medications were administered Outcome: 12:32 Discharge ordered by . snw 12:57 Patient left the ED. iw Signatures: Emely Galloway, APPEALS BOARD REFEREE-C APPEALS BOARD REFEREE-Csnw Ariela Bustillo, RN RN iw CatalinaDennise clayton ag5
== END 2018-08-26 12:57 | disposition home or self-care (01) ==
LOC: ER 10:21
DX: J06.9 Acute upper respiratory infection, unspecified (principal); F41.9 Anxiety disorder, unspecified; F32.9 Major depressive disorder, single episode, unspecified; Z79.899 Other long term (current) drug therapy
CPT/HCPCS: 87804; 99281

== ENCOUNTER 2023-07-25 20:19 | Emergency (ER) | payer OTHER ==
--- OUTSIDE RECORDS SUMMARY | 2023-07-25 20:24 | XMS REPORT | Continuity of Care Document ---
:1995 Author Organization [facility] t Address [address] [facility] [place] [address] Care Team Providers Name Role Phone Shanita Selby Primary Care Physician Chapin Fragoso Attending Clinician Unavailable MEJIA BARAHONA Attending Clinician Unavailable MEJIA BARAHONA Attending Clinician Unavailable ROSAMARIA IBANEZ Attending Clinician Unavailramu MEDINA Attending Clinician Unavailable Mejia Barahona Attending Clinician Peggy Mena RN Attending Clinician Unavailable Ritu Haley RD Attending Clinician Unavailable ELYSSA AJ Attending Clinician Unavailable Doctor Unassigned, [facility] Attending Clinician Unavailable [facility] Attending Clinician Unavailable Holly Chacon PA-C Attending Clinician HOLLY CHACON Attending Clinician Unavailable VISIT, NURSE CINDY Attending Clinician Unavailable Garfield Bustillo Attending Clinician Abram Roblero Attending Clinician MEJIA BARAHONA Admitting Clinician Unavailable CAROL Admitting Clinician Unavailable Mejia Barahona Admitting Clinician Payers Payer Name Policy Type Policy Number Effective Date Expiration Date Elvira kovacs [facility] COMMUNITY PLAN [id number] 2015 STAR 00:00:00 [facility] [place] STAR [id number] 2020 00:00:00 Problems Condition Condition Condition Status Onset Resolution Last Treating Co mments Source Name Details Category Date Date Treatment Clinician Date CONTRACTIO CONTRACTI Diagnosis Active 2021-11-29 Memalice N ON Active 11-29 03:16:00 l 11/29/2021 00:00: Justice pretty [place] 00 [place] 37 weeks 37 weeks Disease Active [place] gestation gestation 11-25 00:00: 00 WEEKLY BPP WEEKLY Diagnosis Active 2021-11-21 Memoria BPP Active 11-20 13:00:00 l 11/20/2021 00:00: Jsutice SHAHID [place] 00 [place] Gestationa Gestationa Disease Active U T l diabetes l diabetes 1-20 He alth mellitus mellitus 00:00: (GDM) (GDM) 00 controlled controlled on oral on oral hypoglycem hypoglycem ic drug, ic drug, antepartum antepartum 32 W 32 W Diagnosis Active 2020-092021-11-14 Mem oria GROWTH GROWTH 09-28 11:05:00 l Active 00:00: Bruce 07/29/2021 00 MH [place] Diagnosis Active 2020-092021-07-29 Me moria ANATOMY US ANATOMY US 0- 13:21:00 l FOR FOR 00:00: Bruce ANOMALIES ANOMALIES 00 AND CX LE AND CX LE Active 07/10/2021 [place] Diagnosis Active 2021-11-28 Memoria RELATED-VA RELATED-VA 03-20 15:59:00 l GINAL GINAL 08:00: Bruce Active 00 03/20/2021 [place] R10.2 - R10.2 - Diagnosis Active 2020-11-15 Memoria PELVIC AND PELVIC AND 10-29 11:10:00 l PERINEAL PERINEAL 00:01: Justice pretty PAIN PAIN 00 Active 10/29/2020 KLEBER OPID Reynolds LEAKING/ND LEAKING/P Diagnosis Active 2017-10-06 Memoria ESSURE RESSURE 1-14 21:50:00 l Active 00:00: [place] 10/03/2017 00 MH [place] NON-STRESS NON-STRES Diagnosis Active 2014-092015-08-16 Memoria TEST S TEST 10-14 09:51:00 l Active 00:00: [place] 08/14/2015 00 MH [place] VOMITING VOMITING Diagnosis Active 2015-03-15 Memoria AND THINKS AND THINKS 03-15 12:54:00 l SHE'S PG SHE'S PG 00:00: Justice n Active 00 03/15/2015 MH [place] NORMAL NORMAL Diagnosis Active 2015-10-15 Me moria DELIVERY DELIVERY 01-18 16:23:00 l Active 00:00: Bruce 01/18/2015 00 MH [place] Diagnosis Active 2015-08-25 Memoria RELATED RELATED 01-18 14:24:00 l Active 00:00: [place] 01/18/2015 00 MH [place] Diaper Diaper Problem Active 2015-03-18 Mem oria rash rash 05-08 04:51:32 l (disorder) (disorder) 00:00: He rmann Active 00 05/08/2014 Problem 03/18/2015 <sup>3</guaman p>Data migrated from OpenTable on 02/16/15. [place] Eruption Eruption Problem Active 2015-03-18 Memoria of skin of skin 05-08 04:51:32 l (disorder) (disorder) 00:00: He rmann Active 05/08/2014 Problem 03/18/2015 <sup>4</guaman p>Data migrated from OpenTable on 02/16/15. [place] Contracept Contracep Problem Active 2015-03-18 Memoria ion care tion care 04-10 04:51:32 l management management 00:00: He rmann (procedure (procedure 00 ) ) Active 04/10/2014 Problem 03/18/2015 <sup>1</guaman p>Data migrated from OpenTable on 02/16/15. [place] Cyst of Cyst of Problem Active 2011-092015-03-18 Me moria ovary ovary 0-05 04:51:32 l (disorder) (disorder) 00:00: He rmann Active 00 06/24/2012 Problem 03/18/2015 <sup>2</guaman p>Data migrated from OpenTable on 02/16/15. Kelly Joe Generalize Problem Active 2011-092015-03-18 M emoria d Generalize 0-05 04:51:32 l abdominal d 00:00: Bruce pain abdominal 00 (finding) pain (finding) Active 06/24/2012 Problem 03/18/2015 <sup>5</s up>Data migrated from OpenTable on 02/16/15. Kelly Joe No known No known Disease Unive rs active active ity of problems problems [facility] Gestationa Problem 2018-01-09 M emoria l Gestationa 13:51:43 l [ l Justice n -induced] [ hypertensi -induced] on without hypertensi significan on without t significan proteinuri t a, third proteinuri trimester a, third trimester 01/09/2018 Kelly Joe 39 weeks 39 weeks Problem 2018-01-12 Memoria gestation gestation 14:50:03 l of of Bruce 01/12/2018 Kelly Joe Other Other Problem 2018-01-12 Memor ia specified specified 14:50:03 l trauma to trauma to Herm melony perineum perineum and vulva and vulva 01/12/2018 Kelly Joe Single Single Problem 2018-01-12 Lorenzo sunday live live 14:50:03 l 01/12/2018 Justice n Kelly Joe Final: Final: Problem 2015-10-13 Mem oria 01:13:27 l related related [place] conditions conditions , , unspecifie unspecifie d, d, unspecifie unspecifie d d trimester trimester 10/13/2015 Kelly Joe Patient Patient Problem Active 2019-03-12 Ri moria encounter encounter 11:56:53 l status status [place] (finding) (finding) Active Problem 03/12/2019 Medical Group Dyspareuni Dyspareun Problem Active 2021-12-22 Memoria a ia 23:25:04 l (finding) (finding) Herm melony Active Problem 12/22/2021 Medical Group, IRASEMA GarciaM H Kelly Joe Family Family Problem Active 2021-12-22 Lorenzo sunday history of history of 23:25:04 l malignant malignant Herm melony neoplasm neoplasm of breast of breast (situation (situation ) ) Active Problem 12/22/2021 Medical Group, IRASEMA Garcia,Keith H [place] Fatigue Fatigue Problem Active 2021-12-22 Me moripark (finding) (finding) 23:25:04 l Active Bruce Problem 12/22/2021 Medical Group, IRASEMA Garcia,Keith H [place] Depressive Depressiv Problem Active 2017-10-06 Memoria disorder e disorder 04:25:06 l (disorder) (disorder) He rmann Active Problem 10/06/2017 Medical Group, [place] Obesity Obesity Problem Active 2021-12-22 Me moria (disorder) (disorder) 23:25:04 l Active [place] Problem 12/22/2021 Medical Group, IRASEMA Garcia,Keith H [place] Oral Oral Problem Active 2017-10-06 Memor ia contracept contracept 04:25:06 l ion status ion status He rmann (finding) (finding) Active Problem 10/06/2017 Medical Group, [place] Problem Active 2018-02-07 Me femi care 11:37:25 l status care Bruce (finding) status (finding) Active Problem 02/07/2018 Medical Group, [place] Vaginitis Vaginitis Problem Active 2021-12-22 Memoria (disorder) (disorder) 23:25:04 l Active Bruce Problem 12/22/2021 Medical Group, IRASEMA Garcia,Keith H [place] Gravid Gravid Problem Active 2017-10-06 Lorenzo sunday uterus uterus 04:25:06 l size for size for Justice n dates dates discrepanc discrepanc y y (finding) (finding) Active Problem 10/06/2017 Medical Group, [place] Contracept Contracep Problem Active 2021-12-22 Memoria ion tion 23:25:04 l (finding) (finding) Herm melony Active Problem 12/22/2021 Medical Group, IRASEMA Garcia,Keith H [place] Amenorrhea Amenorrhe Problem Active 2021-12-22 Memoria (finding) a 23:25:04 l (finding) Bruce Active Problem 12/22/2021 Medical Group, IRASEMA Garcia,M H [place] Pain in Pain in Problem Active 2021-12-22 Me moripark female female 23:25:04 l pelvis pelvis Bruce (finding) (finding) Active Problem 12/22/2021 Medical Group, IRASEMA Garcia,Keith Salomon [place] Gestationa Gestation Problem Active 2015-10-13 Memoria l al 01:13:27 l hypertensi hypertensi Rafi blue on on (disorder) (disorder) Active Problem 10/13/2015 [place] - Problem Active 2015-10-13 M emoria induced - 01:13:27 l hypertensi induced Stacey nn on hypertensi (disorder) on (disorder) Active Problem 10/13/2015 [place] ENCOUNTER ENCOUNTER Diagnosis Active 2015-10-15 Memoria FOR FOR 16:23:00 l FULL-TERM FULL-TERM Herm melony UNCOMPLICA UNCOMPLICA SHERRON DE SHERRON DE Active [place] Diagnosis Active 2015-10-08 Memoria RELATED RELATED 15:20:00 l CONDITIONS CONDITIONS He su , UNSP, , UNSP, UNSP UNSP Active [place] Patient Patient Problem Resolve 2021-12-22 2021-12-22 Memoria currently currently d 03-24 23:25:04 23:25:04 l 00:00: Justice pretty (finding) (finding) 00 Resolved 03/24/2014 Problem 12/22/2021 Medical Group, IRASEMA Garcia,M H [place] History of Past Illness Condition Condition Condition Status Onset Resolution Last Treating Co mments Source Name Details Category Date Date Treatment Clinician Date Amenorrhea Amenorrhe Problem 2018-092019-07-22 2019-07-22 Memaliec , a, 0-30 00:00:29 00:00:29 l unspecifie unspecifie 21:24: Rafi blue d d 00 07/19/2019 9 [facility] Group Pelvic and Pelvic Problem 2018-092019-07-22 2019-07-22 Memoria perineal and 0-30 00:00:29 00:00:29 l pain perineal 21:24: Bruce pain 00 07/19/2019 07/22/2019 Medical Group Other Other Problem 2018-2019-06-21 2019-06-21 M emoria specified specified 06-19 23:26:43 23:26:43 l dyspareuni dyspareuni 18:21: Rafi nick a 00 06/19/2019 06/21/2019 Medical Group Secondary Secondary Problem 2018-2019-06-21 2019-06-21 Memoria amenorrhea amenorrhea 06-19 23:26:43 23:26:43 l 06/19/2019 18:21: Justice pretty 06/21/2019 00 Medical Group Other Other Problem 2018-2019-06-04 2019-06-04 M emoria fatigue fatigue 06-02 23:03:32 23:03:32 l 06/02/2019 19:53: Justice pretty 06/04/2019 00 [facility] Group Encounter Encounter Problem 2019-06-04 2019-06-04 Memoria for other for other 06-02 23:03:32 23:03:32 l general general 19:53: Bruce counseling counseling 00 and advice and advice on on contracept contracept ion ion 06/02/2019 9 [facility] Encounter Encounter Problem 2017-092019-03-12 2019-03-12 Memoria for for 10-23 11:56:53 11:56:53 l surveillan surveillan 21:45: Rafi blue ce of ce of 00 injectable injectable contracept contracept kristina kristina 08/22/2018 03/12/2019 Medical Group Encounter Encounter Problem 2018-12-18 2018-12-18 Memoria for for 05-31 12:19:06 12:19:06 l initial initial 20:51: Bruce prescripti prescripti 00 on of on of injectable injectable contracept contracept kristina kristina 05/31/2018 12/18/2018 Medical Group Unspecifie Problem 2018-12-05 2018-12-05 Memoria d Unspecifie 05-18 11:00:40 11:00:40 l dyspareuni d 18:21: Justice pretty a dyspareuni 00 a 05/18/2018 12/05/2018 [facility] Group Encounter Problem 2018-02-07 2018-02-07 Memoria for Encounter 2 11:37:25 11:37:25 l routine for 17:37: Bruce routine 00 follow-up follow-up 11/01/2017 02/07/2018 Medical Group Second Second Problem 2018-01-12 2018-01-12 Memoria degree degree 1-25 14:50:03 14:50:03 l perineal perineal 04:58: Justice pretty laceration laceration 54 during during delivery delivery 10/14/2017 8 [place] False False Problem 2018-01-09 2018-01-09 M emoria labor at labor at 10-12 13:51:43 13:51:43 l or after or after 05:10: Justcie pretty 37 37 07 completed completed weeks of weeks of gestation gestation 10/12/2017 01/09/2018 [place] Encounter Encounter Problem 2018-01-05 2018-01-05 Memoria for for 09-29 13:50:37 13:50:37 l supervisio supervisio 23:12: Rafi blue n of other n of other 00 normal normal , , third third trimester trimester 09/29/2017 01/05/2018 Medical Group Uterine Uterine Problem 2017-09-26 2017-09-26 Memoria size-date size-date 09-23 01:27:04 01:27:04 l discrepanc discrepanc 17:31: Rafi blue y, third y, third 00 trimester trimester 09/23/2017 09/26/2017 Medical Group Encounter Encounter Problem 2016-092017-08-19 2017-08-19 Memoria for for 10-16 02:14:41 02:14:41 l immunizati immunizati 21:06: Rafi blue on on 08/16/2017 08/19/2017 Medical Group Other Other Problem 2017-04-28 2017-04-28 M emoria specified specified 04-25 00:23:25 00:23:25 l 05:00: Herm melony related related 00 conditions conditions , , unspecifie unspecifie d d trimester trimester 04/25/2017 7 [place] Discharge Discharge Problem 2015-03-18 2015-03-18 Memoria Diagnosis: Diagnosis: 03-15 04:51:32 04:51:32 l Abdominal Abdominal 05:00: Herm melony pain in pain in 00 03/15/2015 03/18/2015 [place] Discharge Discharge Problem 2015-03-18 2015-03-18 Memoria Diagnosis: Diagnosis: 03-15 04:51:32 04:51:32 l Subchorion Subchorion 05:00: He rmann ic ic 00 hematoma hematoma 03/15/2015 03/18/2015 MH [place] Discharge Discharge Problem 2014-2015-03-18 2015-03-18 Memoria Diagnosis: Diagnosis: 03-15 04:51:32 04:51:32 l Morning Morning 05:00: Bruce sickness sickness 00 03/15/2015 03/18/2015 MH [place] Allergies, Adverse Reactions, Alerts Allergy Allergy Status Severity Reaction(s) Onset Inactive Treating Comm ents Source Name Type Date Date Clinician No Known No Known Active Memori a Medicati Medicati l on on [place] Allergie Allergie s s NO KNOWN Drug Active Univers ALLERGIE Class ity of S [facility] Social History Social Habit Start Date Stop Date Quantity Comments [facility] Std Drinks History [facility] Health Alcohol Binge History [facility] Alcohol Comment Alcohol intake 2023-05-07 2023-05-07 Lifetime [facility] 00:00:00 00:00:00 non-drinker (finding) Tobacco use and 2022-05-07 2022-05-07 Smokeless tobacco [facility] exposure 00:00:00 00:00:00 non-user Exposure to 2022-04-21 2022-05-01 Not sure [facility] SARS-CoV-2 00:00:00 10:00:00 (event) History SDOH 2021-04-18 2021-04-18 1 [facility] Alcohol Frequency 00:00:00 00:00:00 Social History 2019[facility]06[facility]02 [facility]06[facility] 19:06:52 Sex [birth year] [facility] 00:00[facility]00 00:00:00 [facility] Smoking Status Start Date Stop Date Source Never smoked tobacco [facility] Unknown if ever smoked [facility] Medications Ordered Filled Start Stop Current Ordering Indication Dosage Frequency Signature Comments Components Source Medication Medication Date Date Medication? Clinician (SIG) Name Name 2022- No Take by [facility] Vit-Fe 05-07 mouth. Health Fumarate-FA 13:13: 00:00 ( 15 :00 PO) 2022- No Take by [facility] Vit-Fe 05-07 mouth. Health Fumarate-FA 13:13: 00:00 ( 15 :00 PO) sertraline Yes [facility] (Zoloft) 50 8-11 Health MG tablet 00:00: 00 sertraline 0 Yes [facility] (Zoloft) 50 8-11 Health MG tablet 00:00: 00 Yes Take by [facility] Vit-Fe 8-18 mouth. Health Fumarate-FA 10:40: ( 33 PO) No 1 tab, Memoria Multivitami 3-13 Route: PO, l ns oral 14:00: Drug Form: Herm melony tablet 00 TAB, Dosing Weight 81.364, kg, Daily, Start date: 11/30/21 9:00:00 CDT, Duration: 30 day, Stop date: 12/29/21 9:00:00 CDT, 0 ibuprofen Yes 600 mg = 1 Me moria 600 mg oral 3-13 tab, PO, l tablet 12:48: Q6H, PRN Pain, take with food, X 30 day, # 30 tab, 0 Refill(s), Pharmacy: [facility] [id number], 152.4, cm, 11/29/21 0:43:00 ED TRANSPORTER, Height, 81.364, kg, 11/29/21 0:43:00 ED TRANSPORTER, Weight Saline No Notes: Memoria Flush 0.9% 3-13 (Same as: l 03:00: BD Bruce 00 Posiflush) Ibuprofen No Notes: Memori a 3-12 (Same as: kathleen 18:00: Motrin) "Do Not Crush" Take with food. Measles No Notes: Memoria Virus 3-12 (Same as: l Vaccine 16:00: M-M-R II) Stacey nn Live, 00 (measles-m Lainey' umps-rubel attenuated la virus [place] vaccine strain 2000 0.5 ml INJ UNT/ML / VL) WASTE: Mumps Virus F/P - Red; Vaccine E -Red Live, [place] [id number] DISCHARGE UNT/ML / Rubella Virus Vaccine Live ([place] RA 27-3 Strain) 2000 UNT/ML Injectable Solution [M-M-R II] Calcium No 1,000 mL, Memor ia Chloride 3-12 1,000 l 0.0014 16:00: ml/hr, MEQ/ML / 00 Infuse Potassium Over: 1 Chloride hr, Route: 0.004 IV, 1,000, MEQ/ML / Drug form: Sodium INJ, Chloride ONCALL, 0.103 Dosing MEQ/ML / Weight Sodium 81.364 kg, Lactate Start 0.028 date: MEQ/ML 11/29/21 Injectable 10:00:00 Solution ED TRANSPORTER, Duration: 1 doses or times, For OB hemorrhage per physician direction, 0 Oxytocin No Notes: Memoria 3-12 (Same as: l 16:00: Pitocin) Hazardous Drug Group 3:Reproduc tive risk Hazardous Drug -- Refer to safe handling procedure PPE Matrix Misoprostol No Notes: Lorenzo sunday 3-12 (Same l 16:00: as:Cytotec ) Hazardous Drug Group 3:Reproduc tive risk Hazardous Drug -- Refer to safe handling procedure PPE Matrix Take with food Methylergon No Notes: Lorenzo sunday ovine 3-12 (Same l 16:00: as:Metherg ine) Hazardous Drug Group 3:Reproduc tive risk Hazardous Drug -- Refer to safe handling procedure PPE Matrix Atropine No Notes: Memoria Sulfate 3-12 (Same As: l 0.025 MG / 16:00: Lomotil) [facility] Diphenoxyla MAX Adult te dose = 8 Hydrochlori tabs/day de 2.5 MG Oral Tablet Carboprost No Notes: Memor ia 3-12 (Same As: l 16:00: Hemabate) Tranexamic No Notes: Memor ia Acid 3-12 (Same As: l 16:00: Cyklokapro n) Lactated No 1,000 mL, Lorenzo sunday Ringers IV 3-12 Rate: 100 l 1,000 mL 15:16: ml/hr, Infuse over: 10 hr, Route: IV, Dosing Weight 81.364 kg, Total Volume: 1,000, see special instructio n for rate while completing infusion from recovery for the 20 Units of Oxytocin., Start date: 11/29/21 9:16:00 ED TRANSPORTER, Duration:. .. Ondansetron No Notes: Lorenzo sunday 3-12 (Same as: l 15:16: Zofran) MEDICATION WASTE Product Size: 4 mg Product Wasted: ___ mg Docusate No Notes: Memoria 3-12 (Same as: l 15:16: Colace) (Do Not Crush) Bisacodyl No Notes: Memori a 3-12 (Same As: l 15:16: Dulcolax, Correctol) (Do Not Crush) "Do Not Crush" lanolin No Notes: Memoria topical 3-12 (Same l 15:16: as:Lanolin ) Benzocaine No Notes: Memor ia 200 MG/ML / 12 (Same As: l Menthol 5 15:16: [facility] He rmann MG/ML ) WASTE: Topical Aerosol - Trevett Return to [[facility]] FOR EXTERNAL USE ONLY Oxytocin No Notes: Memoria 3-12 Hazardous l 15:16: Drug Group 3:Reproduc tive risk Hazardous Drug -- Refer to safe handling procedure PPE Matrix Saline No Notes: Memoria Flush 0.9% -12 (Same as: l 15:16: BD Posiflush) Acetaminoph No Notes: Lorenzo sunday en 325 MG / 3-12 (Same as: l Hydrocodone 15:16: [place] Stacey nn Bitartrate 00 325/5) Do 5 MG Oral not exceed Tablet 4gm/day of acetaminop hen. Acetaminoph No Notes: Do M emoria en 325 MG / 3-12 not exceed l Hydrocodone 15:16: 4gm/day of [place] Bitartrate 00 acetaminop 10 MG Oral hen. (Same Tablet as: [place] 325/10) Oxytocin No Notes: Memoria 3-12 Hazardous l 10:17: Drug Group [place] 00 3:Reproduc tive risk Hazardous Drug -- Refer to safe handling procedure PPE Matrix Ibuprofen No Notes: Memori a 3-12 (Same as: l 09:00: Motrin) "Do Not Crush" Take with food. Calcium No 1,000 mL, Memor ia Chloride 3-12 1,000 l 0.0014 09:00: ml/hr, MEQ/ML 00 Infuse Potassium Over: 1 Chloride hr, Route: 0.004 IV, 1,000, MEQ/ML / Drug form: Sodium INJ, Chloride ONCALL, 0.103 Dosing MEQ/ML / Weight Sodium 81.364 kg, Lactate Start 0.028 date: MEQ/ML 11/29/21 Injectable 3:00:00 Solution ED TRANSPORTER, Duration: 1 doses or times, For OB hemorrhage per physician direction, 0 Oxytocin No Notes: Memoria 3-12 (Same as: l 09:00: Pitocin) [facility]ardous Drug Group 3:Reproduc tive risk Hazardous Drug -- Refer to safe handling procedure PPE Matrix Misoprostol No Notes: Lorenzo sunday 3-12 (Same l 09:00: as:Cytotec ) Hazardous Drug Group 3:Reproduc tive risk Hazardous Drug -- Refer to safe handling procedure PPE Matrix Take with food Methylergon No Notes: Lorenzo sunday ovine 3-12 (Same l 09:00: as:Metherg ine) Hazardous Drug Group 3:Reproduc tive risk Hazardous Drug -- Refer to safe handling procedure PPE Matrix Atropine No Notes: Memoria Sulfate 3-12 (Same As: l 0.025 MG / 09:00: Lomotil) [facility] Diphenoxyla 00 MAX Adult te dose = 8 Hydrochlori tabs/day de 2.5 MG Oral Tablet Carboprost No Notes: Memor ia 3-12 (Same As: l 09:00: Hemabate) Tranexamic No Notes: Memor ia Acid 3-12 (Same As: l 09:00: Cyklokapro n) Fentanyl / No Notes: Memor ia ropivacaine 3-12 (Same as l 08:46: Naropin-Guaman blimaze) Calcium No 1,000 mL, Memor ia Chloride 3-12 Rate: 125 l 0.0014 08:11: ml/hr, Bruce MEQ/ML / 00 Infuse Potassium over: 8 Chloride hr, Route: 0.004 IV, Dosing MEQ/ML / Weight Sodium 81.364 kg, Chloride Total 0.103 Volume: MEQ/ML / 1,000, see Sodium special Lactate instructio 0.028 ns when MEQ/ML infusing Injectable 20 Units Solution of Oxytocin., Start date: 11/29/21 2:11:00 ED TRANSPORTER, Duration: 30 day, Stop date: 12/29/21 2:10:00 CDT, B... oxytocin 30 No Notes: Lorenzo sunday units in NS 3-12 Hazardous l 500 mL 08:11: Drug Group Stacey nn (Bolus) IV 00 3:Reproduc 10.02 unit tive risk Hazardous Drug -- Refer to safe handling procedure PPE Matrix oxytocin 30 No Notes: Lorenzo sunday units in NS 3-12 Hazardous l 500 mL IV 08:11: Drug Group Rafi rmann 19.98 unit 00 3:Reproduc tive risk Hazardous Drug -- Refer to safe handling procedure PPE Matrix Butorphanol No Notes: Lorenzo sunday 3-12 (Same As: l 08:11: Stadol) [place] 00 Acetaminoph No Notes: Lorenzo sunday en 325 MG / 3-12 (Same as: l Hydrocodone 08:11: [place] Stacey nn Bitartrate 00 325/5) Do 5 MG Oral not exceed Tablet 4gm/day of acetaminop hen. Acetaminoph No Notes: Do M emoria en 325 MG / 3-12 not exceed l Hydrocodone 08:11: 4gm/day of [place] Bitartrate 00 acetaminop 10 MG Oral hen. (Same Tablet as: [place] 325/10) Ondansetron No Notes: Lorenzo sunday 3-12 (Same as: l 08:11: Zofran) Bruce 00 MEDICATION WASTE Product Size: 4 mg Product Wasted: ___ mg Lidocaine No Notes: Memori a Hydrochlori 3-12 Preservati l de 10 MG/ML 08:11: ve free. He rmann Injectable 00 (Same as: Solution Xylocaine MPF) Terbutaline No Notes: Lorenzo sunday 3-12 DO NOT l 08:11: USE IN Bruce 00 BUSINESS SUPPORT ADMINISTRATOR AREA (Same As: Brethine) Benzocaine No Notes: Memor ia 200 MG/ML / 3-12 (Same As: l Menthol 5 08:11: [facility] He rmann MG/ML ) WASTE: Topical Aerosol - Trevett Return to [[facility]] FOR EXTERNAL USE ONLY Oxytocin No Notes: Memoria 3-12 Hazardous l 08:11: Drug Group 3:Reproduc tive risk Hazardous Drug -- Refer to safe handling procedure PPE Matrix Labetalol No 0 Memoria 12 Refill(s) l 06:52: Prena1 Yes PO, Daily, Memor ia 3-12 0 l 06:52: Refill(s) glyBURIDE No 2.5 mg = 1 Me moria 2.5 mg oral 12 tab, PO, l tablet 06:52: Daily, 0 Refill(s) labetalol Yes [facility] (Normodyne) [facility] 100 MG 00:00: tablet 00 labetalol 0 2022- No [facility] (Normodyne) 2-18 Health 100 MG 00:00: 00:00 tablet 00 :00 labetalol 2021-0 2022- No [facility] (Normodyne) 10-28-18 Health 100 MG 00:00: 00:00 tablet 00 :00 glyBURIDE 2021-0 Yes [id number] 2.5mg Take 1 U T (Diabeta) 10-16 tablet Health 2.5 MG 00:00: (2.5 mg tablet 00 total) by mouth 2 (two) times a day with meals. glyBURIDE 2021-0 3- No [id number] 2.5mg Take 1 [facility] (Diabeta) 10-16 tablet Health 2.5 MG 00:00: 00:00 (2.5 mg tablet 00 :00 total) by mouth 2 (two) times a day with meals. glyBURIDE 2021-0 3- No [id number] 2.5mg Take 1 UT (Diabeta) 10-16 tablet Health 2.5 MG 00:00: 00:00 (2.5 mg tablet 00 :00 total) by mouth 2 (two) times a day with meals. Alcohol 2020-09 Yes [id number] Use as UT Swabs 2-30 directed. Health (Alcohol 00:00: Prep) pads 00 Gauze Pads 2020-09 Yes [id number] Use as U T 2"X2" pads 2-30 directed. Heal th 00:00: 00 Lancets 33G 2020-09 Yes [id number] 1{fabienne Q.25D 1 Lancet 4 UT misc 2-30 t} (four) Health 00:00: times a 00 day. sharps 2020-09 Yes [id number] Use as UT container 2-30 directed. Healt h 00:00: 00 Blood 2020-09 Yes [id number] Check UT Glucose 2-30 fasting Health Monitoring 00:00: blood Suppl (True 00 sugar and Metrix Air 2 hours Glucose after each Meter) meal. w/Device kit glucose 2020-09 Yes [id number] Use as UT blood (True 2-30 instructed He alth Metrix 00:00: Blood 00 Glucose Test) test strip Alcohol 2020-09- No [id number] Use as UT Swabs 2-30 08-18 directed. Health (Alcohol 00:00: 00:00 Prep) pads 00 :00 Gauze Pads 2020-09- No [id number] Use as UT 2"X2" pads 2-30 08-18 directed. [facility] 00:00: 00:00 00 :00 Lancets 33G 2020-09- No [id number] 1{fabienne Q.25D 1 Lancet 4 UT misc 2-30 08-18 t} (four) Health 00:00: 00:00 times a 00 :00 day. sharps 2020-09- No [id number] Use as UT container 2-30 08-18 directed. Heal 00:00: 00:00 00 :00 Blood 2020-09- No [id number] Check UT Glucose 2-30 08-18 fasting Health Monitoring 00:00: 00:00 blood Suppl (True 00 :00 sugar and Metrix Air 2 hours Glucose after each Meter) meal. w/Device kit glucose 2020-09- No [id number] Use as UT blood (True 2-30 08-18 instructed H ealth Metrix 00:00: 00:00 Blood 00 :00 Glucose Test) test strip Alcohol 2020-09- No [id number] Use as UT Swabs 05-07 directed. Health (Alcohol 00:00: 00:00 Prep) pads 00 :00 Gauze Pads 2020-09- No [id number] Use as UT 2"X2" pads 05-07 directed. Hea lth 00:00: 00:00 00 :00 Lancets 33G 2020-09- No [id number] 1{fabienne Q.25D 1 Lancet 4 UT misc 05-07 t} (four) Health 00:00: 00:00 times a 00 :00 day. sharps 2020-09- No [id number] Use as UT container 05-07 directed. Heal th 00:00: 00:00 00 :00 Blood 2020-09- No [id number] Check UT Glucose 05-07 fasting Health Monitoring 00:00: 00:00 blood Suppl (True 00 :00 sugar and Metrix Air 2 hours Glucose after each Meter) meal. w/Device kit glucose 2020-09- No [id number] Use as UT blood (True 05-07 instructed H ealth Metrix 00:00: 00:00 Blood 00 :00 Glucose Test) test strip norethindro 2018-09 Yes 0.35 mg = M emoria ne 0.35 mg 0-30 1 tab, PO, l oral tablet 21:24: Daily, # He rmann 00 30 tab, 6 Refill(s), Pharmacy: [place] [id number] medroxyprog 2019- Yes 10 mg = 1 M emoria esterone 9-13 tab, PO, l acetate 10 19:54: Daily, # Her gomes MG Oral 00 10 tab, 1 Tablet Refill(s), [Provera] Pharmacy: [place] [id number] Depo-Controller [place] 2019-0 No 150 mg, Mem oria a 2-25 Route: IM, l 22:32: Drug form: Bruce 00 SUSP, ONCE, Dosing Weight 65.909, kg, Start date: 11/14/18 16:32:00 ED TRANSPORTER, Stop date: 11/14/18 16:32:00 ED TRANSPORTER Depo-Controller [place] 2018- No 150 mg, Mem oria a 2-03 Route: IM, l 21:46: Drug form: [place] 00 SUSP, ONCE, Dosing Weight 63.324, kg, Start date: 08/22/18 15:46:00 ED TRANSPORTER, Stop date: 08/22/18 15:46:00 ED TRANSPORTER Depo-Controller [place] 2017-09 Yes 150 mg = 1 Memoria a 2-03 mL, IM, l Contracepti 21:45: q3mo, # 1 H ermann ve 150 00 mL, 0 mg/mL Refill(s) intramuscul ar suspension Depo-Controller [place] No 150 mg, Mem oria a 9-11 Route: IM, l 20:52: Drug form: [place] 00 SUSP, ONCE, Dosing Weight 64.545, kg, Start date: 05/31/18 15:52:00 CDT, Stop date: 05/31/18 15:52:00 CDT norethindro Yes 0.35 mg = M emoria ne 0.35 mg 12 1 tab, PO, l oral tablet 17:38: Daily, # He rmann 00 30 tab, 6 Refill(s), Pharmacy: [address] No 1 tab, Memoria Multivitami -17 Route: PO, l ns oral 15:00: Drug Form: Herm melony tablet 00 TAB, Dosing Weight 73.636, kg, Daily, Start date: 10/06/17 9:00:00 ED TRANSPORTER, Duration: 30 day, Stop date: 11/04/17 9:00:00 ED TRANSPORTER ibuprofen No 600 mg = 1 Me moria 600 mg oral 1-16 tab, PO, l tablet 18:00: Q6H, PRN [place] 00 Pain, take with food, X 30 day, # 30 tab, 0 Refill(s) Ibuprofen No Notes: Memori a 1-16 (Same as: l 18:00: Motrin) Bruce 00 "Do Not Crush" Take with food. 0.5 ML No Notes: Memoria Bordetella 1-16 (Tdap ) l pertussis 18:00: For Bruce filamentous 00 Adolecent hemagglutin and Adult in vaccine, use For IM inactivated Use. Same 0.01 MG/ML as: Adacel / (Tdap) Bordetella pertussis fimbriae 2/3 vaccine, inactivated 0.01 MG/ML / Bordetella pertussis pertactin vaccine, inactivated 0.006 MG/ML / Bordetella pertussis toxoid vacci M-M-R II No Notes: Memoria 10-05 (Same as: l 18:00: M-M-R II) [place] (measles-m umps-rubel la virus vaccine 0.5 ml INJ VL) WASTE: F/P - Red; E -Red GIVE PRIOR TO DISCHARGE Acetaminoph No Notes: Lorenzo sunday en 325 MG / 10-05 (Same as: l Hydrocodone 17:59: [place] Stacey nn Bitartrate 00 325/5) Do 5 MG Oral not exceed Tablet 4gm/day of acetaminop hen. Acetaminoph No Notes: Do M emoria en 325 MG / 10-05 not exceed l Hydrocodone 17:59: 4gm/day of [place] Bitartrate 00 acetaminop 10 MG Oral hen. (Same Tablet as: [place] 325/10) Methylergon No Notes: Lorenzo sunday ovine 10-05 (Same l 17:59: as:Metherg [place] ine) zolpidem No Notes: Memoria 10-05 (Same As: l 17:59: Ambien) [place] 00 Benzocaine No Notes: Memor ia 200 MG/ML 10-05 (Same As: l Topical 17:59: Dermoplast Herm melony Trevett 00 ) WASTE: [Dermoplast Aerosol - ] Return to Pharmacy FOR EXTERNAL USE ONLY Bisacodyl No Notes: Memori a 10-05 (Same As: l 17:59: Dulcolax, [place] Correctol) (Do Not Crush) "Do Not Crush" Ondansetron No Notes: Lorenzo sunday 16 (Same as: l 17:59: Zofran) [place] MEDICATION WASTE Product Size: 4 mg Product Wasted: ___ mg Docusate No Notes: Memoria 1-16 (Same as: l 17:59: Colace) Bruce 00 (Do Not Crush) lanolin No Notes: Memoria topical 1-16 (Same l 17:59: as:Lanolin ) Oxytocin No 30 unit, Memor ia 1-16 500 mL, l 17:59: Rate: 42 [place] 00 ml/hr, Infuse over: 11.9 hr, Dosing Weight 73.636, kg, Route: IV, Total Volume: 500 mL, Start date: 10/05/17 11:59:00 ED TRANSPORTER, Duration: 2 day, Stop date: 10/07/17 11:58:00 ED TRANSPORTER, Replace Every: 11.9 hr Lactated No 1,000 mL, Lorenzo sunday Ringers IV - Rate: 100 l 1,000 mL 17:59: ml/hr, Bruce 00 Infuse over: 10 hr, Route: IV, Dosing Weight 73.636 kg, Total Volume: 1,000, Start date: 10/05/17 11:59:00 ED TRANSPORTER, Duration: 30 day, Stop date: 11/04/17 11:58:00 ED TRANSPORTER, 1.79, m2 Carboprost No Notes: Memor ia 1-16 (Same As: l 09:00: Hemabate) [place] Citric Acid No Notes: Lorenzo sunday / sodium 1-16 (Same As: l citrate 09:00: Bicitra) Justice n 00 Methylergon No Notes: Lorenzo sunday ovine 1-16 (Same l 09:00: as:Metherg [place] 00 ine) Misoprostol No Notes: Lorenzo sunday 1-16 (Same l 09:00: as:Cytotec Bruce ) Take with food Famotidine No Notes: Memor ia 1-16 (Same as: l 09:00: Pepcid) [place] 00 Can be dilute in 5-10cc NS IVP: Slow IV push over at least 2 minutes. Fentanyl / 2018 No Notes: Memor ia ropivacaine 1-16 (Same as l 08:45: Naropin-Guaman [place] 00 blimaze) Oxytocin 2018-0 No 30 unit, Memor ia 1-16 500 mL, l 08:44: Rate: Bruce 00 Titrate, Dosing Weight 73.636, kg, Route: IV, Total Volume: 500 mL, Start date: 10/05/17 2:44:00 ED TRANSPORTER, Duration: 2 day, Stop date: 10/07/17 2:43:00 ED TRANSPORTER, Replace Every: 24 hr Ondansetron No Notes: Lorenzo sunday 16 (Same as: l 08:44: Zofran) Rbuce 00 MEDICATION WASTE Product Size: 4 mg Product Wasted: ___ mg Lidocaine No Notes: Memori a Hydrochlori 10-05 (Same as: l de 10 MG/ML 08:44: Xylocaine) Bruce Injectable 00 Solution Terbutaline No Notes: Lorenzo sunday 10-05 DO NOT l 08:44: USE IN [place] 00 BUSINESS SUPPORT ADMINISTRATOR AREA (Same As: [place]) Acetaminoph No Notes: Lorenzo sunday en 325 MG / 10-05 (Same as: l Hydrocodone 08:44: [place] Stacey nn Bitartrate 00 325/5) Do 5 MG Oral not exceed Tablet 4gm/day of acetaminop hen. Ibuprofen No Notes: Memori a 16 (Same as: l 08:44: Motrin) "Do Not Crush" Take with food. Butorphanol No Notes: Lorenzo sunday 16 (Same As: l 08:44: Stadol) [place] 00 MEDICATION WASTE Product Size: 2 mg Product Wasted: ___ mg Lactated No 1,000 mL, Lorenzo sunday Ringers IV 10-05 Rate: 125 l 1,000 mL 08:44: ml/hr, Bruce 00 Infuse over: 8 hr, Route: IV, Dosing Weight 73.636 kg, Total Volume: 1,000, Start date: 10/05/17 2:44:00 ED TRANSPORTER, Duration: 30 day, Stop date: 11/04/17 2:43:00 ED TRANSPORTER, 1.79, m2 Calcium 2018 No 1,000 mL, Memor ia Chloride 10-05 1,000 l 0.0014 08:44: ml/hr, Bruce MEQ/ML / 00 Infuse Potassium Over: 1 Chloride hr, Route: 0.004 IV, 1,000, MEQ/ML / Drug form: Sodium INJ, ONCE, Chloride Dosing 0.103 Weight MEQ/ML / 73.636 kg, Sodium Start Lactate date: 0.028 10/05/17 MEQ/ML 2:44:00 Injectable ED TRANSPORTER, Stop Solution date: 10/05/17 2:44:00 ED TRANSPORTER, Bolus for regional anesthesia per unit protocol Calcium No 1,000 mL, Memor ia Chloride 1-14 Rate: 125 l 0.0014 17:40: ml/hr, Brcue MEQ/ML / 00 Infuse Potassium over: 8 Chloride hr, Route: 0.004 IV, Dosing MEQ/ML / Weight Sodium 73.636 kg, Chloride Total 0.103 Volume: MEQ/ML / 1,000, Sodium Start Lactate date: 0.028 10/03/17 MEQ/ML 11:40:00 Injectable ED TRANSPORTER, Solution Duration: 30 day, Stop date: 11/02/17 11:39:00 ED TRANSPORTER, 1.79, m2 ferrous Yes Memoria sulfate 1-04 l 17:20: Bruce Tylenol No 975 mg, Memoria 8-06 Route: PO, l 03:36: Drug form: [place] 00 TAB, ONCE, Dosing Weight 65.227, kg, Priority: STAT, Start date: 04/24/17 22:36:00 CDT, Stop date: 04/24/17 22:36:00 CDT No 1 tab, Memoria Multivitami 1-20 Route: PO, l ns oral 15:00: Drug Form: Herm melony tablet 00 TAB, Dosing Weight 73.636, kg, Daily, Start date: 10/09/15 9:00:00, Duration: 30 day, Stop date: 11/07/15 9:00:00 ibuprofen Yes 600 mg = 1 Me moria 600 mg oral 1-20 tab, PO, l tablet 12:30: Q6H, PRN [place] Pain, take with food, # 30 tab, 0 Refill(s) M-M-R II No Notes: Memoria 1-20 (Same as: l 03:00: M-M-R II) Bruce (measles-m umps-rubel la virus vaccine 0.5 ml INJ VL) GIVE PRIOR TO DISCHARGE Ibuprofen No Notes: Memori a 1-20 (Same as: l 02:15: Motrin) [place] 00 "Do Not Crush" Take with food. Acetaminoph No Notes: Do M emoria en 1-20 not exceed l 02:15: 4 gm/day. Bruce (Same as: Tylenol) Acetaminoph No Notes: Lorenzo sunday en 325 MG / -20 (Same as: l Hydrocodone 02:15: [place] Stacey nn Bitartrate 00 325/5) Do 5 MG Oral not exceed Tablet 4gm/day of acetaminop hen. Bisacodyl No Notes: Memori a 1-20 (Same As: l 02:15: Dulcolax, Bruce 00 Correctol) (Do Not Crush) "Do Not Crush" Ondansetron No Notes: Lorenzo sunday 1-20 (Same as: l 02:15: Zofran) [place] 00 MEDICATION WASTE Product Size: 4 mg Product Wasted: ___ mg Docusate No Notes: Memoria 1-20 (Same as: l 02:15: Colace) [place] (Do Not Crush) Benzocaine No Notes: Memor ia 200 MG/ML -20 (Same As: l Topical 02:15: Dermoplast Herm melony Trevett 00 ) FOR [Dermoplast EXTERNAL ] USE ONLY Methylergon No Notes: Lorenzo sunday ovine 1-20 (Same l 02:15: as:Metherg [place] ine) lanolin No Notes: Memoria topical 1-20 (Same l 02:15: as:Lanolin [place] ) zolpidem No Notes: Memoria 1-20 (Same As: l 02:15: Ambien) [place] Oxytocin No Notes: Memoria 0.06 UNT/ML -20 (Same as: l Injectable 02:15: OXYTOCIN-D H ermann Solution 00 5LR) Lactated No 1,000 mL, Lorenzo sunday Ringers IV -20 Rate: 100 l 1,000 mL 02:15: ml/hr, [place] 00 Infuse over: 10 hr, Route: IV, Dosing Weight 73.636 kg, Total Volume: 1,000, Start date: 10/08/15 20:15:00, Duration: 30 day, Stop date: 11/07/15 20:14:00 Penicillin No 2,500,000 Me moria G 1-19 unit, 50 l 09:00: mL, Route: [place] 00 IVPB, Drug form: INJ, ABXQ4H, Dosing Weight 73.636, kg, Start date: 10/08/15 3:00:00 Penicillin No 5,000,000 Me moria G Potassium 1-19 unit, 100 l [id number] 05:00: mL, Route: Herm melony UNT/ML 00 IVPB, Drug Injectable form: Solution PDR/INJ, ONCALL, Dosing Weight 73.636, kg, Start date: 10/07/15 23:00:00 Misoprostol No Notes: Lorenzo sunday 1-19 (Same l 05:00: as:Cytotec [place] 00 ) Take with food Famotidine No Notes: Memor ia 1-19 (Same as: l 05:00: Pepcid) Can be dilute in 5-10cc NS IVP: Slow IV push over at least 2 minutes. Methylergon No Notes: Lorenzo sunday ovine 1-19 (Same l 05:00: as:Metherg [place] 00 ine) Citric Acid No Notes: Lorenzo sunday / sodium 1-19 (Same As: l citrate 05:00: Bicitra) Justice n 00 Carboprost No Notes: Memor ia 1-19 (Same As: l 05:00: Hemabate) [place] 00 Misoprostol No Notes: Lorenzo sunday 1-19 (Same l 04:08: as:Cytotec [place] 00 ) Take with food Fentanyl / No Notes: Memor ia ropivacaine 1-19 (Same as l 04:08: Naropin-Guaman [place] 00 blimaze) lidocaine No Notes: Memori a 1% 1-19 Preservati l 04:01: ve free. (Same as: Xylocaine MPF) Butorphanol No Notes: Lorenzo sunday 1-19 (Same As: l 04:01: Stadol) Bruce MEDICATION WASTE Product Size: 2 mg Product Wasted: ___ mg Ondansetron No Notes: Lorenzo sunday 10-08 (Same as: l 04:01: Zofran) [place] MEDICATION WASTE Product Size: 4 mg Product Wasted: ___ mg Terbutaline No Notes: Lorenzo sunday 10-08 DO NOT l 04:01: USE IN [place] 00 BUSINESS SUPPORT ADMINISTRATOR AREA (Same As: [place]) Calcium No 1,000 mL, Memor ia Chloride 10-08 1,000 l 0.0014 04:01: ml/hr, [place] MEQ/ML / 00 Infuse Potassium Over: 1 Chloride hr, Route: 0.004 IV, 1,000, MEQ/ML / Drug form: Sodium INJ, ONCE, Chloride Dosing 0.103 Weight MEQ/ML / 73.636 kg, Sodium Start Lactate date: 0.028 10/07/15 MEQ/ML 22:01:00, Injectable Stop date: Solution 10/07/15 22:01:00, Bolus for regional anesthesia per unit protocol lidocaine No Notes: Memori a 1% 10-08 Preservati l injectable 04:01: ve free. Her gomes solution 00 (Same as: Xylocaine MPF) Lactated No 1,000 mL, Lorenzo sunday Ringers IV 10-08 Rate: 125 l 1,000 mL 04:01: ml/hr, Bruce Infuse over: 8 hr, Route: IV, Dosing Weight 73.636 kg, Total Volume: 1,000, Start date: 10/07/15 22:01:00, Duration: 30 day, Stop date: 11/06/15 22:00:00 Oxytocin No Notes: Memoria 0.06 UNT/ML 10-08 (Same as: l Injectable 04:01: OXYTOCIN-D H ermann Solution 00 5LR) ferrous 2014-09 Yes 325 mg = 1 Lorenzo sunday sulfate 325 1-25 tab, PO, l MG Oral 23:05: TID, 0 Bruce Tablet 00 Refill(s) Ondansetron Yes 4 mg = 1 Me moria 4 MG 6- tab, PO, l Disintegrat 20:41: TID, PRN He rmann ing Tablet 00 Nausea and [Zofran] Vomiting, X 4 day, # 10 tab, 0 Refill(s) Acetaminoph No Notes: Do M emoria en 03-15 not exceed l 17:12: 4 gm/day. Bruce 00 (Same as: Tylenol) Saline No Notes: Memoria Flush 0.9% 03-15 (Same as: l 17:12: BD [place] 00 Posiflush) Sodium No 1,000 mL, Memori a Chloride 03-15 1,000 l 0.154 17:12: ml/hr, Bruce MEQ/ML 00 Infuse Injectable Over: 1 Solution hr, Route: IV, 1,000, Drug form: INJ, ONCE, Priority: STAT, Dosing Weight 62.443 kg, Start date: 03/15/15 12:12:00, Duration: 1 doses or times, Stop date: 03/15/15 12:12:00 Ondansetron No Notes: Lorenzo sunday 03-15 (Same as: l 17:12: Zofran) [place] 00 MEDICATION WASTE Product Size: 4 mg Product Wasted: ___ mg No known No [facility] No known No [facility] Immunizations Ordered Filled Immunization Date Status Comments [facility] e Immunization Name Name Tdap 2021-10-[address] [facility] 00:00:00 Tdap 2021-10-[address] [facility] 00:00:00 Tdap 2021-10-[address] [facility] 00:00:00 influenza virus Unknown Completed [facility] vaccine, [place] inactivated diphtheria/pertussi Unknown Completed [facility] s, acel/tetanus [place] adult<sup>1</sup> diphtheria/pertussi Unknown Completed [facility] s, acel/tetanus [place] adult<sup>2</sup> influenza virus Unknown Completed [facility] vaccine, [place] inactivated<sup>2</ sup> influenza virus Unknown Completed [facility] vaccine, [place] inactivated<sup>1</ sup> diphtheria/pertussi Unknown Completed [facility] s, acel/tetanus [place] adult influenza virus Unknown Completed [facility] vaccine, [place] inactivated Vital Signs Vital Name Observation Time Observation Value Comments Source Systolic blood 2023-05-07 15:29:00 122 mm[Hg] [facility] Diastolic blood 2023-05-07 15:29:00 91 mm[Hg] [facility] Heart rate 2023-05-07 15:29:00 98 /min [facility] Body temperature 2023-05-07 15:27:00 36.83 [facility] height 2023-05-07 15:27:00 152.4 cm [facility] weight 2023-05-07 15:27:00 82.555 [facility] BMI 2023-05-07 15:27:00 35.54 kg/m2 [facility] Systolic blood 2022-05-07 15:39:00 115 mm[Hg] [facility] Diastolic blood 2022-05-07 15:39:00 88 mm[Hg] [facility] Heart rate 2022-05-07 15:39:00 102 /min [facility] temperature 2022-05-07 15:39:00 36.67 [facility] height 2022-05-07 15:39:00 152.4 cm [facility] weight 2022-05-07 15:39:00 70.761 [facility] BMI 2022-05-07 15:39:00 30.47 [facility]/m2 [facility] Heart Rate 2021-11-30 16:17:31 [facility] [place] Respitory Rate 2021-11-30 16:17:31 Mem[facility] al [place] Systolic (mm Hg) 2021-11-30 16:17:23 Lorenzo rial [place] Diastolic (mm Hg) 2021-11-30 16:17:23 Mem orial [place] Heart Rate 2021-11-30 16:17:23 [facility] [place] Temperature Oral (F) 2021-11-30 16:17:00 98.3 F [facility] [place] Temperature Oral (F) 2021-11-30 16:16:38 98.3 F [facility] [place] Heart Rate 2021-11-30 12:21:39 [facility] [place] Respitory Rate 2021-11-30 12:21:39 Mem[facility] al [place] Systolic (mm Hg) 2021-11-30 12:21:28 Lorenzo rial [place] Diastolic (mm Hg) 2021-11-30 12:21:28 Mem orial [place] Temperature Oral (F) 2021-11-30 12:21:14 98 F [facility] [place] Respitory Rate 2021-11-30 09:19:18 [facility] al [place] Systolic (mm Hg) 2021-11-30 09:19:00 Lorenzo rial [place] Diastolic (mm Hg) 2021-11-30 09:19:00 Mem orial [place] Height 2021-11-29 06:47:00 152.4 cm [facility] [place] BMI Calculated 2021-11-29 06:47:00 [facility] al [place] Weight 2021-11-29 06:47:00 [facility] [place] Systolic (mm Hg) 2019-07-19 21:00:00 Lorenzo rial [place] Diastolic (mm Hg) 2019-07-19 21:00:00 Mem orial [place] Heart Rate 2019-07-19 21:00:00 [facility] [place] Height 2019-07-19 21:00:00 149.86 cm [facility] [place] Weight 2019-07-19 21:00:00 [facility] [place] BMI Calculated 2019-07-19 21:00:00 [facility] [place] Systolic (mm Hg) 2019-06-19 16:05:00 Lorenzo rial [place] Diastolic (mm Hg) 2019-06-19 16:05:00 Mem orial [place] Heart Rate 2019-06-19 16:05:00 [facility] [place] Height 2019-06-19 16:05:00 152.4 cm [facility] [place] Weight 2019-06-19 16:05:00 [facility] [place] BMI Calculated 2019-06-19 16:05:00 [facility] al [place] Systolic (mm Hg) 2019-06-02 19:06:00 Lorenzo rial [place] Diastolic (mm Hg) 2019-06-02 19:06:00 Mem orial [place] Heart Rate 2019-06-02 19:06:00 [facility] [place] Height 2019-06-02 19:06:00 152.4 cm [facility] [place] Weight 2019-06-02 19:06:00 [facility] [place] BMI Calculated 2019-06-02 19:06:00 Memori al [place] BMI Calculated 2018-11-14 22:24:00 [facility] al [place] Height 2018-11-14 22:24:00 152.4 cm [facility] [place] Weight 2018-11-14 22:24:00 [facility] [place] Heart Rate 2018-11-14 22:24:00 [facility] [place] Systolic (mm Hg) 2018-11-14 22:24:00 Lorenzo rial [place] Diastolic (mm Hg) 2018-11-14 22:24:00 Mem orial [place] Height 2018-08-22 21:32:00 152.4 cm [facility] [place] BMI Calculated 2018-08-22 21:32:00 [facility] al [place] Weight 2018-08-22 21:32:00 [facility] [place] Systolic (mm Hg) 2018-08-22 21:32:00 Lorenzo rial [place] Diastolic (mm Hg) 2018-08-22 21:32:00 Mem orial [place] Heart Rate 2018-08-22 21:32:00 [facility] [place] BMI Calculated 2018-05-31 20:25:00 [facility] al [place] Weight 2018-05-31 20:25:00 [facility] [place] Heart Rate 2018-05-31 20:25:00 [facility] [place] Systolic (mm Hg) 2018-05-31 20:25:00 Lorenzo rial [place] Diastolic (mm Hg) 2018-05-31 20:25:00 Mem orial [place] Height 2018-05-31 20:25:00 152.4 cm [facility] [place] Weight 2018-05-18 18:02:00 [facility] [place] BMI Calculated 2018-05-18 18:02:00 [facility] al [place] Height 2018-05-18 18:02:00 152.4 cm [facility] [place] Heart Rate 2018-05-18 18:02:00 [facility] [place] Systolic (mm Hg) 2018-05-18 18:02:00 Lorenzo rial [place] Diastolic (mm Hg) 2018-05-18 18:02:00 Mem orial [place] Heart Rate 2017-11-01 17:13:00 [facility] [place] Temperature Oral (F) 2017-11-01 17:13:00 98.4 F [facility] [place] Systolic (mm Hg) 2017-11-01 17:13:00 Lorenzo rial [place] Diastolic (mm Hg) 2017-11-01 17:13:00 Mem orial [place] BMI Calculated 2017-11-01 17:13:00 Memori al [place] Height 2017-11-01 17:13:00 152.4 cm [facility] [place] Weight 2017-11-01 17:13:00 [facility] [place] Systolic (mm Hg) 2017-10-06 21:26:00 Lorenzo rial [place] Diastolic (mm Hg) 2017-10-06 21:26:00 Mem orial [place] Respitory Rate 2017-10-06 21:26:00 Mem[facility] al [place] Temperature Oral (F) 2017-10-06 21:26:00 98.9 F [facility] [place] Heart Rate 2017-10-06 21:26:00 [facility] [place] Systolic (mm Hg) 2017-10-06 17:26:00 Lorenzo rial [place] Diastolic (mm Hg) 2017-10-06 17:26:00 Mem orial [place] Temperature Oral (F) 2017-10-06 17:26:00 98.9 F [facility] [place] Respitory Rate 2017-10-06 17:26:00 [facility] [place] Heart Rate 2017-10-06 17:26:00 [facility] [place] Heart Rate 2017-10-06 13:21:00 [facility] [place] Respitory Rate 2017-10-06 13:21:00 [facility] [place] Temperature Oral (F) 2017-10-06 13:21:00 98.6 F [facility] [place] Systolic (mm Hg) 2017-10-06 13:21:00 Lorenzo rial [place] Diastolic (mm Hg) 2017-10-06 13:21:00 Mem orial [place] BMI Calculated 2017-10-05 08:42:00 [facility] al [place] Weight 2017-10-05 08:42:00 [facility] [place] Height 2017-10-05 08:42:00 152.4 cm [facility] [place] Temperature Oral (F) 2017-10-03 17:46:00 98.4 F [facility] [place] BMI Calculated 2017-10-03 17:40:00 [facility] [place] Weight 2017-10-03 17:40:00 [facility] [place] Height 2017-10-03 17:40:00 152.4 cm [facility] [place] Respitory Rate 2017-10-03 16:48:00 Mem[facility] al [place] Heart Rate 2017-10-03 16:48:00 [facility] [place] Systolic (mm Hg) 2017-10-03 16:48:00 Lorenzo rial [place] Diastolic (mm Hg) 2017-10-03 16:48:00 Mem orial [place] Heart Rate 2017-09-29 18:36:00 [facility] [place] Weight 2017-09-29 18:36:00 [facility] [place] BMI Calculated 2017-09-29 18:36:00 Mem[facility] al [place] Height 2017-09-29 18:36:00 152.4 cm [facility] [place] Systolic (mm Hg) 2017-09-29 18:36:00 Lorenzo rial [place] Diastolic (mm Hg) 2017-09-29 18:36:00 Mem orial [place] Height 2017-09-23 17:13:00 152.4 cm [facility] [place] BMI Calculated 2017-09-23 17:13:00 [facility] [place] Weight 2017-09-23 17:13:00 [facility] [place] Heart Rate 2017-09-23 17:13:00 [facility] [place] Systolic (mm Hg) 2017-09-23 17:13:00 Lorenzo rial [place] Diastolic (mm Hg) 2017-09-23 17:13:00 Mem orial [place] BMI Calculated 2017-09-15 18:36:00 [facility] al [place] Weight 2017-09-15 18:36:00 [facility] [place] Height 2017-09-15 18:36:00 149.86 cm [facility] [place] Systolic (mm Hg) 2017-09-15 18:36:00 Lorenzo rial [place] Diastolic (mm Hg) 2017-09-15 18:36:00 Mem orial [place] Height 2017-08-30 16:47:00 152.4 cm [facility] BMI Calculated 2017-08-30 16:47:00 [facility] [place] Weight 2017-08-30 16:47:00 [facility] [place] Systolic (mm Hg) 2017-08-30 16:47:00 Lorenzo rial [place] Diastolic (mm Hg) 2017-08-30 16:47:00 Mem orial [place] Heart Rate 2017-08-30 16:47:00 [facility] [place] Height 2017-08-16 20:23:00 149.86 cm [facility] [place] Systolic (mm Hg) 2017-08-16 20:23:00 Lorenzo rial [place] Diastolic (mm Hg) 2017-08-16 20:23:00 Mem orial [place] BMI Calculated 2017-08-16 20:23:00 [facility] [place] Weight 2017-08-16 20:23:00 [facility] [place] Weight 2017-08-02 20:47:00 [facility] [place] Height 2017-08-02 20:47:00 152.4 cm [facility] [place] Systolic (mm Hg) 2017-08-02 20:47:00 Lorenzo rial [place] Diastolic (mm Hg) 2017-08-02 20:47:00 Mem orial [place] BMI Calculated 2017-08-02 20:47:00 [facility] [place] Heart Rate 2017-08-02 20:47:00 [facility] [place] Diastolic (mm Hg) 2017-04-25 04:45:00 Mem o[facility] [place] Systolic (mm Hg) 2017-04-25 04:45:00 Lorenzo rial [place] Respitory Rate 2017-04-25 04:45:00 [facility] [place] Heart Rate 2017-04-25 04:45:00 [facility] [place] Temperature Oral (F) 2017-04-25 04:45:00 97.9 F [facility] [place] Weight 2017-04-25 03:11:00 [facility] [place] Temperature Oral (F) 2017-04-25 03:11:00 98.1 F [facility] [place] Heart Rate 2017-04-25 03:11:00 [facility] [place] Respitory Rate 2017-04-25 03:11:00 [facility] [place] Systolic (mm Hg) 2017-04-25 03:11:00 Lorenzo rial [place] Diastolic (mm Hg) 2017-04-25 03:11:00 Mem orial [place] Systolic (mm Hg) 2015-10-10 18:00:00 Lorenzo rial [place] Diastolic (mm Hg) 2015-10-10 18:00:00 Mem orial [place] Respitory Rate 2015-10-10 18:00:00 [facility] [place] Heart Rate 2015-10-10 18:00:00 [facility] [place] Temperature Oral (F) 2015-10-10 18:00:00 98.5 F [facility] [place] Heart Rate 2015-10-10 14:00:00 [facility] [place] Respitory Rate 2015-10-10 14:00:00 [facility] Systolic (mm Hg) 2015-10-10 14:00:00 [facility] [place] Diastolic (mm Hg) 2015-10-10 14:00:00 [facility] Temperature Oral (F) 2015-10-10 14:00:00 98.4 F [facility] Systolic (mm Hg) 2015-10-10 09:44:00 [facility] [place] Diastolic (mm Hg) 2015-10-10 09:44:00 [facility] [place] Heart Rate 2015-10-10 09:44:00 [facility] Temperature Oral (F) 2015-10-10 09:44:00 98.1 F [facility] Respitory Rate 2015-10-10 09:44:00 [facility] Height 2015-10-08 03:53:00 152.4 cm [facility] [place] BMI Calculated 2015-10-08 03:53:00 [facility] Weight 2015-10-08 03:53:00 [facility] [place] Diastolic (mm Hg) 2015-08-14 22:10:00 [facility] [place] Respitory Rate 2015-08-14 22:10:00 [facility] [place] Heart Rate 2015-08-14 22:10:00 [facility] Systolic (mm Hg) 2015-08-14 22:10:00 Lorenzo rial [place] Temperature Oral (F) 2015-08-14 22:10:00 98.6 F [facility] [place] Weight 2015-08-14 22:06:00 [facility] [place] BMI Calculated 2015-08-14 22:06:00 [facility] Height 2015-08-14 22:06:00 152.4 cm [facility] Heart Rate 2015-03-15 20:47:00 [facility] [place] Temperature Oral (F) 2015-03-15 20:47:00 98.0 F [facility] [place] Systolic (mm Hg) 2015-03-15 20:47:00 Lorenzo rial [place] Diastolic (mm Hg) 2015-03-15 20:47:00 Mem orial [place] Respitory Rate 2015-03-15 20:47:00 Memori al [facility] Systolic (mm Hg) 2015-03-15 18:52:00 Lorenzo rial Bruce Diastolic (mm Hg) 2015-03-15 18:52:00 Mem orial [place] Respitory Rate 2015-03-15 18:52:00 Memori al [place] Heart Rate 2015-03-15 18:52:00 [facility] [place] Temperature Oral (F) 2015-03-15 18:52:00 98.4 F [facility] [place] BMI Calculated 2015-03-15 16:46:00 Ady salazar Bruce Weight 2015-03-15 16:46:00 Mague Barrera Respitory Rate 2015-03-15 16:46:00 Ady Mark Temperature Oral (F) 2015-03-15 16:46:00 98.0 F Mague Barrera Height 2015-03-15 16:46:00 149.86 cm Mague Barrera Heart Rate 2015-03-15 16:46:00 Mague Barrera Systolic (mm Hg) 2015-03-15 16:46:00 Lorenzo Barrera Diastolic (mm Hg) 2015-03-15 16:46:00 [facility] horacio Barrera Procedures Procedure Date / Time Performing Clinician Source Performed THINPREP TIS PAP RFLX HPV 2023-05-07 15:56:00 [facility] MRNA E6/E7,C. TRACH, N. [place] Larsen GONORRHOEAE THINPREP TIS PAP RFLX HPV 2022-05-07 16:23:00 [facility] MRNA E6/E7,C. TRACH, N. [place] Larsen GONORRHOEAE NO SHOW OR MISSED 2021-02-27 18:47:57 Doctor Unassigned, [facility] APPOINTMENT POLICY [facility] ACKNOWLEDGEMENT care only 2017-11-01 17:39:00 Pavan Barrera (separate procedure) Encounters Start End Encounter Admission Attending Care Care Encounter Source Date/Time Date/Time Type Type Clinicians Facility Department ID 2022-07-23 Outpatient Fragoso, STLMLC [facility] [id number] Common 11:49:01 [facility] 2022-06-08 Outpatient Fragoso, STLMLC [facility] [id number] Common 13:05:01 [facility] 2022-04-01 Outpatient Fragoso, STLC [facility] [id number] Common 14:00:01 [facility] 2021-12-03 Outpatient [facility] [id number] [place] 08:37:40 [facility] 2021-10-30 Outpatient [facility] [id number] [place] 15:27:47 [facility] 2021-10-29 Outpatient [facility] [id number] [place] 14:19:41 [facility] 2021-10-21 Inpatient SANGALLI, MHFB MHFB 2031 M HFB 07:12:30 MEJIA 2021-10-20 Outpatient SANGALLI, [facility] [id number] UT 14:21:42 [facility] 2021-10-15 Outpatient Fragoso, STLMLC [facility] [id number] Common 13:50:46 [facility] [address] [facility] 2021-08-18 Outpatient SANGALLI, [facility] [id number] UT 10:55:11 [facility] 2021-07-28 Outpatient SANGALLI, [facility] [id number] UT 14:20:24 [facility] 2024-05-08 2024-05-08 Outpatient VESELY, [facility] [id number] [place] 11:00:00 11:00:00 [facility] 2023-05-07 2023-05-07 Office Shauna, UTP 1.2.840.114 [id number] [place] 10:30:00 11:00:36 Visit Rosamaria VENTURA 350.1.13.58 He alth [place] 9.2.7.2.686 Larsen [id number] 1 2022-05-07 2022-05-07 Office Shauna, UTP 1.2.840.114 [id number] [place] 11:00:00 11:40:01 Visit Rosamaria VENTURA 350.1.13.58 He alth [place] 9.2.7.2.686 Larsen [id number] 1 2022-03-31 2022-03-31 Outpatient AMBREEN_FAR [facility] 68 [id number] [place] 11:58:00 11:58:00 HANA 0712 [facility] 2021-12-30 2021-12-30 Office Jun, UTP 1.2.256.063 [id number] [place] 09:45:00 10:22:18 Visit Mejia VENTURA 350.1.13.58 He alth 9.2.7.2.686 [id number] 1 2021-11-21 2021-12-21 [facility] [id number] Memoria 18:52:00 04:59:00 r Bruce 02 l Dittmer Stacey nn 2021-11-21 2021-12-20 Outpatient Sangalli, MHSL [facility] [id number] 12:52:00 23:59:00 Mejia Adams 02 2021-11-29 2021-11-30 Inpatient [facility] [id number] Memoria 06:37:00 17:50:00 r Bruce 32 l Dittmer Stacey nn 2021-11-29 2021-11-30 Outpatient Sangalli, MHSL S [id number] 00:37:00 12:50:00 Mejia Adams 2021-11-29 2021-11-30 Outpatient Sangalli, MHSL S [id number] 00:37:00 12:50:00 Mejia Adams 32 2021-11-29 2021-11-29 Inpatient E SANGALLI, MHFB FB [id number] FB 02:11:00 00:37:00 MEJIA 2021-11-25 2021-11-25 Routine Sangalli, UTP 1.2.193.125 [id number] UT 15:30:00 16:51:52 Mejia VENTURA 350.1.13.58 H ealth 9.2.7.2.686 [id number] 1 2021-11-21 2021-11-21 Outpatient SANGALLI, MHFB MHFB [id number] MHFB 12:52:00 12:52:00 MEJIA 2021-11-21 2021-11-21 Routine Sangalli, UTP 1.2.502.715 [id number] UT 11:00:00 11:03:41 Mejia VENTURA 350.1.13.58 H ealth 9.2.7.2.686 [id number] 1 2021-11-21 2021-11-21 Telephone Peggy Mena UTP [facility] 1.2.840. 114 [id number] [place] 00:00:00 00:00:00 Peggy Mena SUGAR 350.1.13.58 [facility] 9.2.7.2.686 PLA[address] 5 [phone] AND 2 WOMENS 2021-11-17 2021-11-17 Telephone Peggy Mena [facility] 1.2.840. 114 [id number] UT 00:00:00 00:00:00 Peggy Mena SUGAR 350.1.13.58 Health [facility] 9.2.7.2.686 [address] 6 [id number] AND 2 WOMENS 2021-10-17 2021-11-16 [facility] [id number] [facility] 16:58:00 05:59:00 r Bruce 01 l Dittmer Stacey nn 2021-10-17 2021-11-15 Outpatient Sangalli, MHSL [facility] [id number] 10:58:00 23:59:00 Mejia Bryan 01 2021-10-17 2021-11-15 Outpatient SANGPOOLI, MHFB MHFB [id number] MHFB 10:58:00 23:59:00 MEJIA 2021-11-14 2021-11-14 Routine Jun, UTP 1.2.681.504 [id number] UT 14:00:00 14:20:20 Mejia VENTURA 350.1.13.58 H ealth 9.2.7.2.686 [id number] 1 2021-11-12 2021-11-12 Diabetes Michael, UTP [facility] 1.2.840.114 [id number] UT 14:00:00 14:23:31 Education Ritu SU[place] 350.1.13.58 Health [facility] [facility] 9.2.7.2.686 PLAZA 0 [id number] AND 0 WOMENS 2021-11-07 2021-11-07 Routine Sangaristeo, UTP 1.2.849.460 [id number] UT 14:00:00 14:32:43 Mejia VENTURA 350.1.13.58 H ealth 9.2.7.2.686 [id number] 1 2021-10-30 2021-10-30 Routine Jun, UTP 1.2.473.004 [id number] UT 15:30:00 15:30:00 Mejia VENTURA 350.1.13.58 H ealth 9.2.7.2.686 [id number] 1 2021-10-29 2021-10-29 Diabetes Michael, UTP [facility] 1.2.840.114 [id number] UT 14:00:00 14:26:49 Education Ritu SU[place]AR 350.1.13.58 Health [facility] [facility] 9.2.7.2.686 PLA[address] 6 [phone] AND 0 WOMENS 2021-10-22 2021-10-22 Telephone Peggy Mena UTP 1.2.840. 114 [id number] UT 00:00:00 00:00:00 Peggy Mena LORENZO 350.1.13.58 Health 9.2.7.2.686 [id number] 1 2021-10-20 2021-10-20 Routine Sangpooli, UTP 1.2.428.148 [id number] UT 13:45:00 14:21:49 Mejia LORENZO 350.1.13.58 H ealth 9.2.7.2.686 [id number] 1 2021-10-17 2021-10-17 Diabetes Michael, UTP [facility] 1.2.840.114 [id number] UT 15:00:00 15:19:43 Education Ritu SUGAR 350.1.13.58 Health [facility] 9.2.7.2.686 PLAZA 0 [id number] AND 0 WOMENS 2021-10-16 2021-10-16 Routine Sangalli, UTP 1.2.444.139 [id number] UT 14:30:00 14:30:00 Mejia LORENZO 350.1.13.58 H ealth 9.2.7.2.686 [id number] 1 2021-10-09 2021-10-09 Routine Sangalli, UTP 1.2.623.820 [id number] UT 14:45:00 15:37:39 Mejia LORENZO 350.1.13.58 H ealth 9.2.7.2.686 [id number] 1 2021-10-03 2021-10-03 Diabetes Michael, UTP [facility] 1.2.840.114 [id number] UT 15:00:00 15:23:07 Education Ritu SUGAR 350.1.13.58 Health [facility] 9.2.7.2.686 PLAZA 9 [phone] AND 0 WOMENS 2021-10-02 2021-10-02 Routine Jun, UTP 1.2.524.809 [id number] UT 15:00:00 15:36:55 Mejia LORENZO 350.1.13.58 H ealth 9.2.7.2.686 [id number] 1 2021-09-30 2021-09-30 Telephone Michael, UTP 6410 1.2.840.114 [id number] [place] 00:00:00 00:00:[address] 350.1.13.58 Health 9.2.7.2.686 [id number] 0 2021-09-26 2021-09-26 Routine Jun, UTP 1.2.069.795 [id number] UT 15:30:00 16:26:34 Mejia LORENZO 350.1.13.58 H ealth 9.2.7.2.686 [id number] 1 2021-09-19 2021-09-19 Telephone Peggy Mena UTP 1.2.840. 114 [id number] UT 00:00:00 00:00:00 Peggy Mena 350.1.13.58 Health 9.2.7.2.686 [id number] 1 2021-09-18 2021-09-18 Routine Jun UTP 1.2.653.598 [id number] UT 15:30:00 16:39:18 Mejia LORENZO 350.1.13.58 H ealth 9.2.7.2.686 [id number] 1 2021-09-09 2021-09-09 Telephone Peggy Mena UTP 1.2.840. 114 [id number] UT 00:00:00 00:00:00 Peggy Mena 350.1.13.58 Health 9.2.7.2.686 [id number] 1 2021-07-29 2021-08-28 [facility] [id number] [facility] 17:21:00 05:59:00 brenda Barrera 00 l Dittmer Herma nn 2021-07-29 2021-08-27 Outpatient Sangalli, MHSL [facility] [id number] 11:21:00 23:59:00 Mejia Adams 00 2021-07-29 2021-07-29 Outpatient SANGALLI, MHFB MHFB [id number] FB 11:21:00 11:21:00 MEJIA 2021-07-28 2021-07-28 Routine Sangalli, UTP 1.2.364.418 [id number] UT 13:34:28 14:20:28 Mejia LORENZO 350.1.13.58 H ealth 9.2.7.2.686 [id number] 1 2021-07-08 2021-07-08 Telephone Rajesh Peggy UTP 1.2.840. 114 [id number] UT 00:00:00 00:00:00 Peggy Mena L[place]ZO 350.1.13.58 Health 9.2.7.2.686 [id number] 1 2021-07-03 2021-07-03 Routine Sangalli, UTP 1.2.752.159 [id number] UT 13:56:29 14:51:52 Mejia LORENZO 350.1.13.58 H ealth 9.2.7.2.686 [id number] 1 2021-05-30 2021-05-30 Routine Sangalli, UTP 1.2.775.093 [id number] UT 09:23:29 09:52:05 Mejia LORENZO 350.1.13.58 H ealth 9.2.7.2.686 [id number] 1 2021-05-01 2021-05-01 Initial Sangalli, UTP 1.2.013.306 [id number] UT 14:14:35 14:52:30 Mejia LORENZO 350.1.13.58 H ealth 9.2.7.2.686 [id number] 1 2021-04-18 2021-04-18 Office Sangalli, UTP 1.2.700.122 [id number] UT 11:25:09 12:02:26 Visit Mejia VENTURA 350.1.13.58 [facility] 9.2.7.2.686 [id number] 1 2021-03-31 2021-03-31 Outpatient ELYSSA WYLIE [facility] [id number] [facility] 09:30:00 09:30:[address] [facility] 2021-02-27 2021-02-27 Outpatient ELYSSA WYLIE [facility] [id number] [facility] 14:00:00 14:00:[address] [facility] 2021-02-27 2021-02-27 Orders Doctor KENNY 1.2.840.114 [id number] 00:00:00 00:00:00 Only Unassigned, ANGEL 350.1.13.10 [facility] 4.2.7.2.686 [id number] [id number] 2021-02-27 2021-02-27 Orders Doctor KENNY 1.2.840.114 [id number] [facility] 00:00:00 00:00:00 Only Unassigned, ANGEL 350.1.13.10 ity of [facility] 4.2.7.2.686 [place] as [id number] [address] 2020-11-15 2020-11-16 Outpt Diag nullFlavo [facility] [id number] [facility] 17:01:00 05:59:00 Services r Outpatient 01 l Imaging Bruce [place] 2020-11-15 2020-11-15 Outpatient Jun, OIP [facility] [id number] 11:01:00 23:59:00 Mejia Adams 01 2020-03-13 2020-03-13 Urgent Pob1, Acute [facility] 1.2.840.114 [id number] 13:02:10 13:22:10 Care Care [facility] Health 350.1.13.10 [place] 4.2.7.2.686 Jordi [id number] nal [address] 2020-03-13 2020-03-13 Urgent Pob1, Acute Care Clinic [facility] 1. 2.840.114 [id number] [facility] 13:02:10 13:22:10 Care ChaconHolly houser [facility] 350.1.13.10 ity of [place] 4.2.7.2.686 [place] as Jordi [phone] [address] 2020-03-13 2020-03-13 Outpatient R HOLLY CHACON [facility] [id number] [facility] 13:00:00 13:00:00 ity of [facility] 2020-01-30 2020-01-31 Outpt Diag nullFlavo [facility] [id number] Memoria 14:28:00 04:59:00 [facility] 2020-01-30 2020-01-30 Outpatient Sangalli, MHOIP MHOIP [id number] 09:28:00 23:59:00 Mejia Adams 00 2019-07-20 2019-07-21 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 [id number] Memoria 13:47:26 13:47:26 Visit r Lorenzo 31 kathleen [place] 2019-07-20 2019-07-21 Outpatient [facility] MG [id number] 08:47:26 08:47:26 31 2019-07-19 2019-07-20 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 [facility]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 4 [id number] Memoria 20:15:00 04:59:59 brenda [place] 62 kathleen Bruce 2019-07-19 2019-07-19 [place] [id number] 15:15:00 23:59:59 Mejia Adams 62 2019-07-19 2019-07-19 Outpatient MHIE MHIE [id number] Memoria 15:15:00 15:15:00 62 kathleen [place] 2019-06-19 2019-06-20 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 [facility]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 4 [id number] Memoria 16:30:00 04:59:59 r Lorenzo 61 kathleen Bruce 2019-06-19 2019-06-20 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 [facility]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 4 [id number] Memoria 15:30:00 04:59:59 r Lorenzo 60 kathleen [place] 2019-06-19 2019-06-19 [place] [id number] 11:30:00 23:59:59 Mejia Adams 61 2019-06-19 2019-06-19 Outpatient VISIT, MHMG MG [id number] 10:30:00 23:59:59 NURSE STWH 60 CINDY 2019-06-19 2019-06-19 Outpatient MHIE MHIE [id number] Memoria 11:30:00 11:30:00 61 kathleen Bruce 2019-06-19 2019-06-19 Outpatient MHIE MHIE [id number] Memoria 10:30:00 10:30:00 60 kathleen [place] 2019-06-05 2019-06-06 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 [id number] Memoria 13:53:23 13:53:23 Visit brenda Ventura 28 kathleen [place] 2019-06-05 2019-06-06 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 [id number] Memoria 13:53:06 13:53:06 Visit brenda Ventura 27 kathleen [place] 2019-06-05 2019-06-06 Outpatient MHMG MHMG [id number] 08:53:23 08:53:23 28 2019-06-05 2019-06-06 Outpatient MHMG MHMG [id number] 08:53:06 08:53:06 27 2019-06-02 2019-06-03 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 [facility]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 4 [id number] Memoria 19:00:00 04:59:59 r Kelly Joe 59 kathleen [place] 2019-06-02 2019-06-02 Outpatient Sangalli, MHMG MHMG [id number] 14:00:00 23:59:59 Mejia Adams 59 2019-06-02 2019-06-02 Outpatient MHIE MHIE [id number] Memoria 14:00:00 14:00:00 59 kathleen Barrera 2019-01-23 2019-01-23 Ambulatory nullFlavo [facility] BUSINESS SUPPORT ADMINISTRATOR 4 [id number] Memoria 16:30:00 16:30:00 Pre-Reg r Lorenzo 58 kathleen Barrera 2019-01-23 2019-01-23 Outpatient MHIE MHIE [id number] Memoria 11:30:00 11:30:00 58 kathleen Barrera 2019-01-23 2019-01-23 Outpatient Sangalli, MHMG MHMG [id number] 11:30:00 11:30:00 Mejia Adams 58 2018-11-14 2018-11-15 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 [facility] BUSINESS SUPPORT ADMINISTRATOR 4 [id number] Memoria 21:45:00 05:59:59 r Lorenzo 57 kathleen Barrera 2018-11-14 2018-11-14 [place] [id number] 15:45:00 23:59:59 Mejia Adams 57 2018-11-14 2018-11-14 Outpatient MHIE MHIE [id number] Memoria 15:45:00 15:45:00 57 kathleen Barrera 2018-08-22 2018-08-23 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 MG BUSINESS SUPPORT ADMINISTRATOR 4 [id number] Memoria 21:45:00 05:59:59 r Lorenzo 56 kathleen Barrera 2018-08-22 2018-08-22 [place] [id number] 15:45:00 23:59:59 Mejia Adams 56 2018-08-22 2018-08-22 Outpatient MHIE MHIE [id number] Memoria 15:45:00 15:45:00 56 kathleen Barrera 2018-05-31 2018-06-01 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 MG BUSINESS SUPPORT ADMINISTRATOR 4 [id number] Memoria 20:00:00 04:59:59 r Lorenzo 55 kathleen Barrera 2018-05-31 2018-05-31 [place] [id number] 15:00:00 23:59:59 Mejia Adams 55 2018-05-31 2018-05-31 [place] [id number] 15:00:00 23:59:59 Mejia Adams 55 2018-05-31 2018-05-31 Outpatient MHIE IE [id number] Memoria 15:00:00 15:00:00 55 kathleen Barrera 2018-05-18 2018-05-19 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 MG BUSINESS SUPPORT ADMINISTRATOR 4 [id number] Memoria 17:30:00 04:59:59 r Lorenzo 29 kathleen Barrera 2018-05-18 2018-05-18 [place] [id number] 12:30:00 23:59:59 Mejia Adams 29 2018-05-18 2018-05-18 Outpatient MHIE MHIE [id number] Memoria 12:30:00 12:30:00 29 kathleen Barrera 2018-04-21 2018-04-21 Ambulatory nullFlavo MG BUSINESS SUPPORT ADMINISTRATOR 4 [id number] Memoria 19:30:00 19:30:00 Pre-Reg r Lorenzo 54 kathleen Barrera 2018-04-21 2018-04-21 Outpatient Sangalli, MHMG [facility] [id number] 14:30:00 14:30:00 Mejia Adams 54 2017-11-01 2017-11-02 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 MG BUSINESS SUPPORT ADMINISTRATOR 4 [id number] Memoria 17:30:00 05:59:59 r Lorenzo 53 kathleen Barrera 2017-11-01 2017-11-01 Outpatient Sangalli, MG [facility] [id number] 11:30:00 23:59:59 Mejia Adams 53 2017-11-01 2017-11-01 Outpatient MHIE [facility] [id number] Memoria 11:30:00 11:30:00 53 kathleen Barrera 2017-10-05 2017-10-06 Inpatient nullFlavo [facility] [id number] Memoria 08:34:51 22:30:00 brenda Barrera 21 l Dittmer Stacey nn 2017-10-05 2017-10-06 [place] [id number] 02:34:51 16:30:00 Mejia Adams 21 2017-10-03 2017-10-03 Observatio nullFlavo [facility] [id number] Memoria 16:28:00 20:00:00 n brenda Barrera 24 l Dittmer Stacey nn 2017-10-03 2017-10-03 Outpatient Sangalli, MHSL MHSL [id number] 10:28:31 14:00:00 Mejia Adams 24 2017-10-03 2017-10-03 Outpatient Sangalli, MHSL MHSL [id number] 10:28:00 14:00:00 Mejia Adams 24 2017-09-29 2017-10-01 Phone nullFlavo [facility] BUSINESS SUPPORT ADMINISTRATOR [id number] Memoria 17:20:00 05:59:59 Message r Lorenzo 04 kathleen Barrera 2017-09-29 2017-09-30 Outpatient MG [facility] [id number] 11:20:00 23:59:59 04 2017-09-29 2017-09-30 OP Fisher Seal nullFlavo [facility] BUSINESS SUPPORT ADMINISTRATOR 45 [id number] Memoria 18:30:00 05:59:59 Clinic r Lorenzo 51 kathleen Bruce 2017-09-29 2017-09-29 Outpatient Sangalli, MHMG MHMG [id number] 12:30:00 23:59:59 Mejia Bryan 51 2017-09-29 2017-09-29 Outpatient Sangalli, MHMG [facility]MG [id number] 12:30:00 23:59:59 Mejia Bryan 51 2017-09-29 2017-09-29 Outpatient Sangalli, MHMG MHMG [id number] 12:30:00 23:59:59 Mejia Adams 51 2017-09-29 2017-09-29 Outpatient MHIE MHIE [id number] Memoria 12:30:00 12:30:00 51 kathleen Barrera 2017-09-23 2017-09-24 OP Fisher Seal nullFlavo [facility] BUSINESS SUPPORT ADMINISTRATOR 45 [id number] Memoria 17:30:00 05:59:59 Clinic r Lorenzo 50 kathleen Barrera 2017-09-23 2017-09-24 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 MG BUSINESS SUPPORT ADMINISTRATOR 4 [id number] Memoria 17:00:00 05:59:59 r Lorenzo 52 kathleen Barrera 2017-09-23 2017-09-23 [place] [id number] 11:30:00 23:59:59 Mejia Adams 50 2017-09-23 2017-09-23 Outpatient Sangalli, MHMG MHMG [id number] 11:00:00 23:59:59 Mejia Adams 52 2017-09-23 2017-09-23 Outpatient MHIE MHIE [id number] Memoria 11:30:00 11:30:00 50 kathleen Barrera 2017-09-23 2017-09-23 Outpatient MHIE MHIE [id number] Memoria 11:00:00 11:00:00 52 kathleen Barrera 2017-09-15 2017-09-16 OP Fisher Seal nullFlavo [facility] BUSINESS SUPPORT ADMINISTRATOR 45 [id number] Memoria 18:30:00 05:59:59 Clinic r Lorenzo 49 kathleen Barrera 2017-09-15 2017-09-15 [place] [id number] 12:30:00 23:59:59 Mejia Adams 49 2017-09-15 2017-09-15 Outpatient MHIE MHIE [id number] Memoria 12:30:00 12:30:00 49 kathleen Bruce 2017-09-08 2017-09-10 Phone nullFlavo [facility] BUSINESS SUPPORT ADMINISTRATOR [id number] Memoria 20:01:00 05:59:59 Message r Lorenzo 03 kathleen Bruce 2017-09-08 2017-09-09 Outpatient MHMG MHMG [id number] 14:01:00 23:59:59 03 2017-08-30 2017-08-31 OP Fisher Seal nullFlavo [facility] BUSINESS SUPPORT ADMINISTRATOR 45 [id number] Memoria 16:30:00 05:59:59 Clinic r Lorenzo 48 kathleen Barrera 2017-08-30 2017-08-30 Outpatient Sangalli, MHMG MHMG [id number] 10:30:00 23:59:59 Mejia Adams 48 2017-08-30 2017-08-30 Outpatient MHIE MHIE [id number] Memoria 10:30:00 10:30:00 48 kathleen Barrera 2017-08-16 2017-08-17 OP Fisher Seal nullFlavo [facility] BUSINESS SUPPORT ADMINISTRATOR 45 [id number] Memoria 20:00:00 05:59:59 Clinic r Lorenzo 47 kathleen Barrera 2017-08-16 2017-08-16 [place] [id number] 14:00:00 23:59:59 Mejia Adams 47 2017-08-16 2017-08-16 Outpatient MHIE MHIE [id number] Memoria 14:00:00 14:00:00 47 kathleen Barrera 2017-08-02 2017-08-03 OP Fisher Seal nullFlavo [facility] BUSINESS SUPPORT ADMINISTRATOR 45 [id number] Memoria 20:30:00 05:59:59 Clinic r Lorenzo 46 kathleen Barrera 2017-08-02 2017-08-03 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 [facility] BUSINESS SUPPORT ADMINISTRATOR 4 [id number] Memoria 20:00:00 05:59:59 r Lorenzo 45 kathleen Barrera 2017-08-02 2017-08-02 [place] [id number] 14:30:00 23:59:59 Mejia Adams 46 2017-08-02 2017-08-02 Outpatient VISIT, MHMG MHMG [id number] 14:00:00 23:59:59 NURSE STWH 45 CINDY 2017-08-02 2017-08-02 Outpatient MHIE MHIE [id number] Memoria 14:30:00 14:30:00 46 kathleen Barrera 2017-08-02 2017-08-02 Outpatient MHIE MHIE [id number] Memoria 14:00:00 14:00:00 45 kathleen Barrera 2017-07-19 2017-07-19 Outpatient MHIE MHIE [id number] Memoria 11:30:00 11:30:00 44 kathleen Barrera 2017-06-28 2017-06-28 Outpatient MHIE MHIE [id number] Memoria 09:00:00 09:00:00 42 kathleen Barrera 2017-06-14 2017-06-14 Outpatient MHIE MHIE [id number] Memoria 13:45:00 13:45:00 43 kathleen Barrera 2017-05-26 2017-05-26 Outpatient MHIE MHIE [id number] Memoria 15:30:00 15:30:00 41 kathleen Barrera 2017-05-26 2017-05-26 Outpatient MHIE MHIE [id number] Memoria 15:00:00 15:00:00 40 kathleen Barrera 2017-04-26 2017-04-26 Outpatient MHIE MHIE [id number] Memoria 11:00:00 11:00:00 39 kathleen Barrera 2017-04-25 2017-04-25 Emergency [facility] [id number] Memoria 03:08:00 05:21:00 r Bruce 14 kathleen Ibarra 2017-04-24 2017-04-25 Outpatient Keny, MHSL S [id number] 22:08:00 00:21:00 Garfield Aleman 2017-03-29 2017-03-29 Outpatient MHIE MHIE [id number] Memoria 09:30:00 09:30:00 38 kathleen Barrera 2017-02-22 2017-02-22 Outpatient MHIE MHIE [id number] Memoria 13:45:00 13:45:00 37 kathleen Barrera 2017-02-22 2017-02-22 Outpatient MHIE MHIE [id number] Memoria 13:00:00 13:00:00 36 kathleen Barrera 2017-01-29 2017-01-29 Outpatient MHIE MHIE [id number] Memoria 14:00:00 14:00:00 34 kathleen Barrera 2017-01-06 2017-01-06 Outpatient MHIE MHIE [id number] Memoria 15:30:00 15:30:00 31 kathleen Barrera 2017-01-06 2017-01-06 Outpatient MHIE MHIE [id number] Memoria 15:00:00 15:00:00 33 kathleen Barrera 2017-01-06 2017-01-06 Outpatient MHIE MHIE [id number] Memoria 15:00:00 15:00:00 30 kathleen Barrera 2017-01-06 2017-01-06 Outpatient MHIE MHIE [id number] Memoria 15:00:00 15:00:00 32 kathleen Barrera 2016-12-09 2016-12-09 Outpatient MHIE MHIE [id number] Memoria 15:45:00 15:45:00 28 kathleen Barrera 2016-06-04 2016-06-04 Outpatient MHIE MHIE [id number] Memoria 15:45:00 15:45:00 27 kathleen Barrera 2016-03-05 2016-03-05 Outpatient MHIE MHIE [id number] Memoria 15:45:00 15:45:00 26 kathleen Barrera 2015-12-12 2015-12-12 Outpatient MHIE MHIE [id number] Memoria 15:00:00 15:00:00 25 kathleen Barrera 2015-11-06 2015-11-06 Outpatient MHIE MHIE [id number] Memoria 12:45:00 12:45:00 24 kathleen Barrera 2015-10-08 2015-10-10 Inpatient [facility] [id number] Memoria 03:48:00 22:50:00 r Bruce 40 l Kelly Ibarra nn 2015-10-07 2015-10-10 [facility] MHSL MHSL [id number] 21:48:00 16:50:00 Mejia Adams 40 2015-10-02 2015-10-02 Outpatient MHIE MHIE [id number] Memoria 13:30:00 13:30:00 23 kathleen Barrera 2015-10-02 2015-10-02 Outpatient MHIE MHIE [id number] Memoria 13:00:00 13:00:00 22 kathleen Barrera 2015-09-25 2015-09-25 Outpatient MHIE MHIE [id number] Memoria 13:30:00 13:30:00 21 kathleen Barrera 2015-09-25 2015-09-25 Outpatient MHIE MHIE [id number] Memoria 13:00:00 13:00:00 20 kathleen Barrera 2015-09-18 2015-09-18 Outpatient MHIE MHIE [id number] Memoria 13:30:00 13:30:00 19 kathleen Barrera 2015-09-18 2015-09-18 Outpatient MHIE MHIE [id number] Memoria 13:00:00 13:00:00 18 kathleen Barrear 2015-09-11 2015-09-11 Outpatient MHIE MHIE [id number] Memoria 15:45:00 15:45:00 17 kathleen Barrera 2015-09-11 2015-09-11 Outpatient MHIE MHIE [id number] [facility] 15:30:00 15:30:00 16 kathleen Barrera 2015-09-04 2015-09-04 Outpatient MHIE MHIE [id number] [facility] 14:00:00 14:00:00 15 kathleen Barrera 2015-09-04 2015-09-04 Outpatient MHIE MHIE [id number] [facility] 13:30:00 13:30:00 14 kathleen Barrera 2015-08-28 2015-08-28 Outpatient MHIE MHIE [id number] [facility] 14:00:00 14:00:00 13 kathleen Barrera 2015-08-28 2015-08-28 Outpatient MHIE MHIE [id number] [facility] 13:30:00 13:30:00 12 kathleen Barrera 2015-08-20 2015-08-20 Outpatient MHIE MHIE [id number] [facility] 14:15:00 14:15:00 11 kathleen Barrera 2015-08-20 2015-08-20 Outpatient MHIE MHIE [id number] [facility] 13:30:00 13:30:00 10 kathleen Barrera 2015-08-14 2015-08-[id number] 21:54:00 23:15:00 Observatiandreina Barrera 29 l n Patient [facility] 2015-08-14 2015-08-14 Outpatient Aleksi, MHSL MHSL [id number] 15:54:00 17:15:00 Mejia Ray 2015-08-14 2015-08-14 Outpatient MHIE MHIE [id number] [facility] 12:45:00 12:45:00 09 kathleen Barrera 2015-08-14 2015-08-14 Outpatient MHIE MHIE [id number] [facility] 10:00:00 10:00:00 08 kathleen Barrera 2015-08-05 2015-08-05 Outpatient MHIE MHIE [id number] [facility] 11:00:00 11:00:00 07 kathleen Barrera 2015-07-10 2015-07-10 Outpatient MHIE MHIE [id number] [facility] 09:45:00 09:45:00 06 kathleen Barrera 2015-06-03 2015-06-03 Outpatient MHIE MHIE [id number] [facility] 10:30:00 10:30:00 02 kathleen Barrera 2015-06-03 2015-06-03 Outpatient MHIE MHIE [id number] [facility] 10:00:00 10:00:00 03 kathleen Barrera 2015-06-03 2015-06-03 Outpatient MHIE MHIE [id number] [facility] 10:00:00 10:00:00 04 kathleen Barrera 2015-06-03 2015-06-03 Outpatient MHIE MHIE [id number] [facility] 10:00:00 10:00:00 05 kathleen Barrera 2015-06-03 2015-06-03 Outpatient MHIE MHIE [id number] Memoria 10:00:00 10:00:00 01 kathleen Barrera 2015-05-06 2015-05-06 Outpatient MHIE MHIE [id number] [facility]oria 14:30:00 14:30:00 00 kathleen Barrera 2015-03-15 2015-03-15 [facility] [id number] Memoria 16:41:00 21:22:00 Emergency brenda Barrera 01 [facility] Heath Ibarra 2015-03-15 2015-03-15 Outpatient Annika Abram [id number] 11:41:00 16:22:00 [id number] 01 Results Test Description Test Time Test Comments Results Result Comments Source THINPREP TIS PAP RFLX HPV MRNA E6/E7,Deo AGUIRRE 2023-05-11 15:27:00 Test Item Value Reference Range Interpretation Comme nts CLINICAL INFORMATION: SEE NOTE None g iven (test code = 57317-1) LMP: (test code = SEE NOTE NONE GIVEN 8665-2) PREV. PAP: (test code SEE NOTE NONE G IVEN = 33182-1) PREV. BX: (test code SEE NOTE NONE GI REINALDO = 06236-5) SOURCE: (test code = SEE NOTE None gi reinaldo ) STATEMENT OF SEE NOTE Satisfactory fo r ADEQUACY: (test code evaluat ion.Endocervical/trans = ) formation zone componentpresen t.Age and/or menstrual statu s not provided INTERPRETATION/RESULT SEE NOTE Cytolo gy Results: Negative : (test code = [place] [address]-7) malignancy. COMMENT: (test code = SEE NOTE This P ap test has been ) evaluated with Ne[employer]ix technology. MOLD INJECTOR: SEE NOTE LIAN, CT( CP) CT screening (test code = ) locati on: [facility] [address] [place],[address] 3 HOUR SPECIMEN (test SEE NOTE EXPLAN ATORY NOTE: The Pap is code = 341199345) a screenin g test for cervical cancer. It is n ot a diagnostic test and is subject to fals e negative and false positive results. It is most reliable w hen a satisfactory sa mple, regularly obtai winston, is submitted with relevant clinical findin gs and history, and wh en the Pap result is evalu ated along with historic a nd current clinical inform ation. CHLAMYDIA TRACHOMATIS NOT DETECTED NOT DETECTED RNA, TMA, UROGENITAL (test code = 44175-4) NEISSERIA GONORRHOEAE NOT DETECTED NOT DETECTED RNA, TMA, UROGENITAL (test code = 70490-7) (Always Message) SEE NOTE The analyti bernardo performance (test code = characteristics of thisassay, 917975963) when used to te st SurePath(TM) sp ecimens have beendetermined by [employer]. Th e modifications h avenot been cleared or appr rodri by the FDA. This assay hasbeen validated pursu ant to the CLIA regulation s and isused for clinical pu rposes. For additional info rmation, please refer tohttps://educa padmini.threadsy/faq /QAP147(This link is being p rovided for information/edu cational purposes only.) RAC (test code = RAC) Performing Organization Information: ? ?Site ID: IG ? ?Name: [employer] [employer] ? ?Address: [address] [place] [address] [place] [address] ? ?Director: MARIA E CM MD [facility] Hospital[facility]INPRE[facility] TIS P[facility] RFLX HPV MRNA E6/E7,C. TRACH, N. KSQZWMYFEWD3805-08-39 15:00:00 Test Item Value Reference Interpretation Comments Range CLINICAL SEE NOTE None given INFORMATION: (test code = 34030-1) LMP: (test code = SEE NOTE NONE GIVEN 8665-2) PREV. PAP: (test SEE NOTE NONE GIVEN code = 55937-8) PREV. BX: (test SEE NOTE NONE GIVEN code = 87980-8) SOURCE: (test SEE NOTE None given code = 06104-4) STATEMENT OF SEE NOTE Satisfactory fo r ADEQUACY: (test evaluation.E ndocervic code = 00722-8) al/transform ation zone component absent.Age and/ or menstrual statu s not provided INTERPRETATION/RE SEE NOTE Negative f or SULT: (test code intraepithe lial = 18460-8) lesion or malig thien. COMMENT: (test SEE NOTE This Pap test has code = 98314-1) been evaluat ed with Prism Digitalassiste d technology. MOLD INJECTOR: SEE NOTE LRW, CT( CP) (test code = 09670-3) 3 HOUR SPECIMEN SEE NOTE EXPLANATORY NOTE: The (test code = Pap is a screen ing 484997364) test for cervic al cancer. It is n ot a diagnostic test and is subject to f alse negative and fa lse positive result s. It is most reliabl e when a satisfactory sample, regular ly obtained, is submitted with relevant clinic al findings and hi story, and when the Pa p result is evalu ated along with hist oric and current cli nical information. CHLAMYDIA NOT DETECTED NOT DETECTED TRACHOMATIS RNA, TMA, UROGENITAL (test code = 30840-1) NEISSERIA NOT DETECTED NOT DETECTED GONORRHOEAE RNA, TMA, UROGENITAL (test code = 88358-2) (Always Message) SEE NOTE The analyti bernardo (test code = performance 924403648) characteristics of thisassay, when used to test SurePat h(TM) specimens have beendetermined by [employer] cs. The modificatio ns havenot been cl eared or approved by the FDA. This assay hasbeen validat ed pursuant to the CLIA regulations and isused for clin ical purposes. For additional information, pl ease refer tohttps://educa tion.iHELP World .eSeekers/f aq/ILS855(This link is being provid ed for information/edu cation al purposes onl y.) RAC (test code = Performing RAC) Organization Information: ? ?Site ID: IG ? ?Name: [employer] ? ?Address: [address] [place] [address]. [place] [address] ? ?Director: MARIA E CM MD [place] WhsdpnDBSLOCFZQW8635-98-02 03:41:00 Test Item Value Reference Range Interpretation Comments Hgb (test code = Hgb) 9.0 12.0-16.[address] [facility] IbtaengUSIHSPSUVU5412-14-06 03:41:00 Test Item Value Reference Range Interpretation Comments Hct (test code = Hct) 26.5 36.0-48.[address] [facility] [employer] MHWFDKG0726-28-52 08:15:00 Test Item Value Reference Range Interpretation Comments ABO/Rh (test code = ABO/Rh) O POS [facility] [employer] [id number] 08:15:00 Test Item Value Reference Range Interpretation Comments Antibody Scrn (test Negative (11/29/21 2:15 code = Antibody Scrn) AM) [facility] [employer] [id number] 08:15:00 Test Item Value Reference Range Interpretation Comments Glucose Lvl (test code = Glucose Lvl) 77 70-[address] [facility] [employer] [id number] 08:15:00 Test Item Value Reference Range Interpretation Comments BUN (test code = BUN) 7 7-22 [place] 402962-03-12 08:15:00 Test Item Value Reference Range Interpretation Comments Creatinine Lvl (test code = Creatinine 0.54 0.50-1.40 Lvl) [place] 402962-03-12 08:15:00 Test Item Value Reference Range Interpretation Comments Sodium Lvl (test code = Sodium Lvl) 136 135-145 [place] 402962-03-12 08:15:00 Test Item Value Reference Range Interpretation Comments Potassium Lvl (test code = Potassium 3.8 3.5-5.1 Lvl) [place] 402962-03-12 08:15:00 Test Item Value Reference Range Interpretation Comments Chloride Lvl (test code = Chloride Lvl) 108 95-109 [place] 402962-03-12 08:15:00 Test Item Value Reference Range Interpretation Comments CO2 (test code = CO2) 21 24-32 [place] 402962-03-12 08:15:00 Test Item Value Reference Range Interpretation Comments Calcium Lvl (test code = Calcium Lvl) 8.9 8.5-10.5 [place] 402962-03-12 08:15:00 Test Item Value Reference Range Interpretation Comments Total Protein (test code = Total 6.7 6.4-8.4 Protein) [place] 402962-03-12 08:15:00 Test Item Value Reference Range Interpretation Comments Albumin Lvl (test code = Albumin Lvl) 2.5 3.5-5.0 [place] 402962-03-12 08:15:00 Test Item Value Reference Range Interpretation Comments ALT (test code = ALT) 16 <=65 [place] [address]-03-12 08:15:00 Test Item Value Reference Range Interpretation Comments AST (test code = AST) 17 <=37 [place] 402962-03-12 08:15:00 Test Item Value Reference Range Interpretation Comments Alk Phos (test code = Alk Phos) 160 39-136 [place] 402962-03-12 08:15:00 Test Item Value Reference Range Interpretation Comments Bili Total (test code = Bili Total) 0.5 0.2-1.3 [place] 402962-03-12 08:15:00 Test Item Value Reference Range Interpretation Comments AGAP (test code = AGAP) 10.8 10.0-20.0 [place] [address]-03-12 08:15:00 Test Item Value Reference Range Interpretation Comments B/C Ratio (test code = B/C Ratio) 13 1 6-[address]03-12 08:15:00 Test Item Value Reference Range Interpretation Comments Globulin (test code = Globulin) 4.2 2.7-4.2 [place] [address]-03-12 08:15:00 Test Item Value Reference Range Interpretation Comments A/G Ratio (test code = A/G Ratio) 0.6 1 0.7-1.6 [place] [address]-03-12 08:15:00 Test Item Value Reference Range Interpretation Comments eGFR (test code = eGFR) 131 [place] 199582-03-12 08:15:00 Test Item Value Reference Range Interpretation Comments WBC (test code = WBC) 11.2 3.7-10.4 [place] [address]-03-12 08:15:00 Test Item Value Reference Range Interpretation Comments RBC (test code = RBC) 3.17 4.20-5.[address]03-12 08:15:00 Test Item Value Reference Range Interpretation Comments Hgb (test code = Hgb) 9.5 12.0-16.[address]03-12 08:15:00 Test Item Value Reference Range Interpretation Comments Hct (test code = Hct) 28.7 36.0-48.[address]03-12 08:15:00 Test Item Value Reference Range Interpretation Comments MCV (test code = MCV) 90.3 80.0-98.0 [address]03-12 08:15:00 Test Item Value Reference Range Interpretation Comments MCH (test code = MCH) 30.0 pg 27.0-31.0 [place] [address]-03-12 08:15:00 Test Item Value Reference Range Interpretation Comments MCHC (test code = MCHC) 33.2 32.0-36.0 [place] [address]-03-12 08:15:00 Test Item Value Reference Range Interpretation Comments RDW (test code = RDW) 13.2 11.5-14.5 [place] [address]-03-12 08:15:00 Test Item Value Reference Range Interpretation Comments Platelet (test code = Platelet) 234 133-450 [facility] HospitalEkcrukuUUTXJWDIIU4542-35-31 08:15:00 Test Item Value Reference Range Interpretation Comments MPV (test code = MPV) 8.1 7.4-10.4 [place] [address]-03-12 08:15:00 Test Item Value Reference Range Interpretation Comments Segs (test code = Segs) 70.9 45.0-75.0 [place] [address]-03-12 08:15:00 Test Item Value Reference Range Interpretation Comments Lymphocytes (test code = Lymphocytes) 20.2 20.0-40.0 [place] [address]-03-12 08:15:00 Test Item Value Reference Range Interpretation Comments Monocytes (test code = Monocytes) 8.0 2.0-12.0 [place] [address]-03-12 08:15:00 Test Item Value Reference Range Interpretation Comments Eosinophils (test code = Eosinophils) 0.6 <=4.0 [facility] HospitalLnrnvmrNQHFPPAMQJ5728-23-86 08:15:00 Test Item Value Reference Range Interpretation Comments Basophils (test code = Basophils) 0.3 <=1.0 [place] [address]-03-12 08:15:00 Test Item Value Reference Range Interpretation Comments Neutrophils # (test code = Neutrophils 7.9 1.5-8.1 #) [place] [address]-03-12 08:15:00 Test Item Value Reference Range Interpretation Comments Lymphocytes # (test code = Lymphocytes 2.3 1.0-5.5 #) [facility] HospitalBxuvgocKTOOUVIYGM8149-22-90 08:15:00 Test Item Value Reference Range Interpretation Comments Monocytes # (test code = Monocytes #) 0.9 <=0.8 [place] [address]-03-12 08:15:00 Test Item Value Reference Range Interpretation Comments Eosinophils # (test code = Eosinophils 0.1 <=0.5 #) [facility] HospitalFcqamlhXZYHHZGLNF6516-93-45 08:15:00 Test Item Value Reference Range Interpretation Comments Hep Bs Ag (test code Negative *NA*(11/29/21 = Hep Bs Ag) 2:15 AM) [facility] JnbshhuYFGBMPGTCQ5750-60-50 08:15:00 Test Item Value Reference Range Interpretation Comments HIV Ag/Ab 4th Gen Negative *NA*(11/29/21 (test code = HIV 2:15 AM) Ag/Ab 4th Gen) [facility] RvfopheYEETNWQYWK0341-81-55 08:15:00 Test Item Value Reference Range Interpretation Comments Treponemal Ab (test code Non-Reactive = Treponemal Ab) *NA*(11/29/21 2:15 AM) [facility] TldlvcbTYTOCARIEI1405-85-91 08:15:00 Test Item Value Reference Range Interpretation Comments Coronavirus (COVID-19) Not Detected (11/29/21 TONY (test code = 2:15 AM) Coronavirus (COVID-19) TONY) AW-EnergyWorntvkLLIOHYRRJR0128-56-66 11:16:00 Test Item Value Reference Range Interpretation Comments Hgb (test code = Hgb) 9.7 12.0-16.0 AW-EnergyMtzwavbKELHWIPHBJ9177-76-17 11:16:00 Test Item Value Reference Range Interpretation Comments Hct (test code = Hct) 29.6 36.0-48.0 [facility] YWNVXAD7837-49-12 09:40:00 Test Item Value Reference Range Interpretation Comments Antibody Scrn (test Negative (10/05/17 3:40 code = Antibody Scrn) AM) [facility] HPTHDFI8264-32-64 09:40:00 Test Item Value Reference Range Interpretation Comments ABO/Rh (test code = ABO/Rh) O POS AW-EnergyOpzicbrOOIPPGVWVT7301-60-25 09:40:00 Test Item Value Reference Range Interpretation Comments MPV (test code = MPV) 8.4 7.4-10.4 AW-EnergyKtowqucCUMKYXATEG2415-32-20 09:40:00 Test Item Value Reference Range Interpretation Comments Platelet (test code = Platelet) 242 133-450 [facility] DjkyncuXSBAJLYSPR9654-41-17 09:40:00 Test Item Value Reference Range Interpretation Comments MCHC (test code = MCHC) 32.7 32.0-36.0 AW-EnergyDxjzagfIMEDXXVTZC5064-55-07 09:40:00 Test Item Value Reference Range Interpretation Comments MCH (test code = MCH) 30.1 pg 27.0-31.0 [facility] HospitalMpsvbzpKNRTCHICMT7486-02-18 09:40:00 Test Item Value Reference Range Interpretation Comments Hct (test code = Hct) 31.8 36.0-48.0 [facility] HospitalDxuhikpHWQEVGMJWK2934-14-41 09:40:00 Test Item Value Reference Range Interpretation Comments MCV (test code = MCV) 91.9 80.0-98.0 [facility] HospitalRvqnynbIZZJFPNDKH8119-00-90 09:40:00 Test Item Value Reference Range Interpretation Comments RDW (test code = RDW) 13.6 11.5-14.5 [facility] HospitalJxartflTIVKWWAIVE5620-04-58 09:40:00 Test Item Value Reference Range Interpretation Comments WBC (test code = WBC) 12.7 3.7-10.4 [facility] HospitalKodwnarEHTBFJFCCZ0326-98-99 09:40:00 Test Item Value Reference Range Interpretation Comments Hgb (test code = Hgb) 10.4 12.0-16.0 [facility] HospitalPsyfstiZVZQAPNFUX0079-33-93 09:40:00 Test Item Value Reference Range Interpretation Comments RBC (test code = RBC) 3.46 4.20-5.40 [facility] HospitalEudeoluXCVBNDTOAY0192-38-85 09:40:00 Test Item Value Reference Range Interpretation Comments Segs-Bands # (test code = Segs-Bands #) 8.6 1.5-8.1 [facility] HospitalZllcpfeSZTUVNOWYD0305-51-85 09:40:00 Test Item Value Reference Range Interpretation Comments Eosinophils # (test code = Eosinophils 0.1 <=0.5 #) [facility] HospitalMwnjnoxZUBYFRYXFF3311-72-86 09:40:00 Test Item Value Reference Range Interpretation Comments Basophils # (test code = Basophils #) 0.0 <=0.2 [facility] HospitalVakjnlyOSPEDKZBQG5846-50-25 09:40:00 Test Item Value Reference Range Interpretation Comments Lymphocytes # (test code = Lymphocytes 3.1 1.0-5.5 #) [facility] HospitalYyxfnhvRZRRJHWGNE6909-94-53 09:40:00 Test Item Value Reference Range Interpretation Comments Monocytes # (test code = Monocytes #) 1.0 <=0.8 [facility] HospitalFxozdedEIIQORERON9323-03-53 09:40:00 Test Item Value Reference Range Interpretation Comments Basophils (test code = Basophils) 0.3 <=1.0 [facility] HospitalNyduahaGCQAXTNRVY6166-87-14 09:40:00 Test Item Value Reference Range Interpretation Comments Segs (test code = Segs) 67.2 45.0-75.0 [facility] HospitalWnjcomjHZYWVFGNJT6095-49-55 09:40:00 Test Item Value Reference Range Interpretation Comments Lymphocytes (test code = Lymphocytes) 24.0 20.0-40.0 [facility] AlmaBmiwkldPKWWLAKTIH6356-69-63 09:40:00 Test Item Value Reference Range Interpretation Comments Eosinophils (test code = Eosinophils) 0.7 <=4.0 [facility] AlmaFtccaecYOBHZQVUVL0663-66-04 09:40:00 Test Item Value Reference Range Interpretation Comments Monocytes (test code = Monocytes) 7.8 2.0-12.0 [facility] AlmaLptsqjgYDEICPUZZX7805-74-22 09:40:00 Test Item Value Reference Range Interpretation Comments RBC Morph (test code = Normal (10/05/17 3:40 RBC Morph) AM) [facility] AlmaGlfhbdnVTILTOHTRT6629-50-77 09:40:00 Test Item Value Reference Range Interpretation Comments Plt Morph (test code = Normal (10/05/17 3:40 Plt Morph) AM) [facility] HospitalPpilkliCLNYWPNYWT2179-49-54 09:40:00 Test Item Value Reference Range Interpretation Comments Treponemal Ab (test code Non Reactive = Treponemal Ab) *NA*(10/05/17 3:40 AM) [facility] HospitalNlphkqbZAATSRFUPW2879-98-72 09:40:00 Test Item Value Reference Range Interpretation Comments Hep Bs Ag (test code Negative *NA*(10/05/17 = Hep Bs Ag) 3:40 AM) [facility] XSVMSA2305-08-15 18:29:00 Test Item Value Reference Range Interpretation Comments Amnisure ROM (test code Negative (10/03/17 = Amnisure ROM) 12:29 PM) [facility] JELMKV4726-73-69 04:21:00 Test Item Value Reference Range Interpretation Comments Amnisure ROM (test code Negative (04/24/17 11:21 = Amnisure ROM) PM) [facility] [id number] 03:46:00 Test Item Value Reference Range Interpretation Comments UA Bacteria (test code = UA Occasional /HPF Bacteria) [facility] [id number] 03:46:00 Test Item Value Reference Range Interpretation Comments UA Mucus (test code = UA Mucus) Moderate /LPF [facility] AND [id number] 03:46:00 Test Item Value Reference Range Interpretation Comments UA Blood (test code = Negative (04/24/17 10:46 UA Blood) PM) [facility] AND [id number] 03:46:00 Test Item Value Reference Range Interpretation Comments UA Urobilinogen (test code = UA 2.0 0.1-1.0 Urobilinogen) [facility] AND [id number] 03:46:00 Test Item Value Reference Range Interpretation Comments UA WBC (test code = UA WBC) 1 <=5 [facility] AND [id number] 03:46:00 Test Item Value Reference Range Interpretation Comments UA RBC (test code = UA RBC) no gt <=2 [facility] AND [id number] 03:46:00 Test Item Value Reference Range Interpretation Comments UA Nitrite (test code Negative (04/24/17 10:46 = UA Nitrite) PM) [facility] AND [id number] 03:46:00 Test Item Value Reference Range Interpretation Comments UA Sq Epi (test code = UA Sq Occasional /LPF Epi) [facility] AND [id number] 03:46:00 Test Item Value Reference Range Interpretation Comments UA Leuk Est (test Negative (04/24/17 10:46 code = UA Leuk Est) PM) [facility] AND [id number] 03:46:00 Test Item Value Reference Range Interpretation Comments UA Ketones (test code = UA Trace mg/dL Ketones) [facility] AND [id number] 03:46:00 Test Item Value Reference Range Interpretation Comments UA Bili (test code = Negative *NA*(04/24/17 UA Bili) 10:46 PM) [facility] AND [id number] 03:46:00 Test Item Value Reference Range Interpretation Comments UA pH (test code = UA pH) 5.0 5.0-8.0 [facility] AND [id number] 03:46:00 Test Item Value Reference Range Interpretation Comments UA Protein (test code = UA Protein) 30 mg/dL [facility] AND OEYCQ9762-74-18 03:46:00 Test Item Value Reference Range Interpretation Comments UA Glucose (test code = UA Glucose) 50 mg/dL [facility] AND [id number] 03:46:00 Test Item Value Reference Range Interpretation Comments UA Turbidity (test code Slight *ABN*(04/24/17 = UA Turbidity) 10:46 PM) [facility] AND [id number] 03:46:00 Test Item Value Reference Range Interpretation Comments UA Color (test code = Yellow *NA*(04/24/17 UA Color) 10:46 PM) [facility] AND [id number] 03:46:00 Test Item Value Reference Range Interpretation Comments UA Spec Grav (test code = UA Spec Grav) 1.032 [facility] HospitalHplvbtlIMAXSJJDDO8830-55-41 10:25:00 Test Item Value Reference Range Interpretation Comments Hct (test code = Hct) 26.9 36.0-48.0 [facility] HospitalKqwcovvGNWQYHJQDB8209-51-46 10:25:00 Test Item Value Reference Range Interpretation Comments Hgb (test code = Hgb) 9.0 12.0-16.0 [facility] DKBCKPD7847-42-49 05:17:00 Test Item Value Reference Range Interpretation Comments ABO/Rh (test code = ABO/Rh) O POS [facility] [employer] AVYNNJF2388-71-21 05:17:00 Test Item Value Reference Range Interpretation Comments Antibody Scrn (test Negative (10/07/15 code = Antibody Scrn) 11:17 PM) [facility] HospitalQujteahKJABMQUPZH8493-06-72 05:17:00 Test Item Value Reference Range Interpretation Comments Basophils # (test code = Basophils #) 0.0 <=0.2 [facility] HospitalYnugfmcDLSNMNBMUI8903-49-38 05:17:00 Test Item Value Reference Range Interpretation Comments Segs-Bands # (test code = Segs-Bands #) 9.8 1.5-8.1 [facility] HospitalPthudqdPFLCWVQDDG5806-29-49 05:17:00 Test Item Value Reference Range Interpretation Comments Segs (test code = Segs) 72.7 45.0-75.0 [facility] HospitalNmaykbfKRMPQATJLW7747-91-07 05:17:00 Test Item Value Reference Range Interpretation Comments Monocytes (test code = Monocytes) 7.9 2.0-12.0 [facility] HospitalSpymnkvMIAOPCCETW0665-74-07 05:17:00 Test Item Value Reference Range Interpretation Comments Basophils (test code = Basophils) 0.3 <=1.0 [facility] HospitalLmtpvfcGLXCHPAHFN8781-98-71 05:17:00 Test Item Value Reference Range Interpretation Comments Eosinophils (test code = Eosinophils) 0.4 <=4.0 [facility] HospitalVcddrduLNSZSPFGOE8821-23-54 05:17:00 Test Item Value Reference Range Interpretation Comments Lymphocytes (test code = Lymphocytes) 18.7 20.0-40.0 [facility] HospitalHjmncveADTKUYTIVA7323-66-88 05:17:00 Test Item Value Reference Range Interpretation Comments Monocytes # (test code = Monocytes #) 1.1 <=0.8 [facility] HospitalOrlplrqGOLSGGVTPP0116-55-88 05:17:00 Test Item Value Reference Range Interpretation Comments Lymphocytes # (test code = Lymphocytes 2.5 1.0-5.5 #) [facility] HospitalBmcwhxsDVDNNCRLTQ1223-56-21 05:17:00 Test Item Value Reference Range Interpretation Comments Eosinophils # (test code = Eosinophils 0.1 <=0.5 #) [facility] HospitalPmgkzkdUFZTDTTHRG8835-79-83 05:17:00 Test Item Value Reference Range Interpretation Comments RDW (test code = RDW) 12.8 11.5-14.5 [facility] HospitalYpqxjvjHPBMECJNVF6294-93-74 05:17:00 Test Item Value Reference Range Interpretation Comments MPV (test code = MPV) 8.7 7.4-10.4 [facility] H[id number] 05:17:00 Test Item Value Reference Range Interpretation Comments Platelet (test code = Platelet) 269 133-450 [facility] HospitalNammixpKOWIVIQJBG6006-77-14 05:17:00 Test Item Value Reference Range Interpretation Comments MCV (test code = MCV) 93.2 80.0-98.0 [facility] HospitalRgjjtkgKOATYDZKOW0216-58-69 05:17:00 Test Item Value Reference Range Interpretation Comments MCHC (test code = MCHC) 33.6 32.0-36.0 [facility] HospitalTddxvvxHUBCWFUWWH8918-08-22 05:17:00 Test Item Value Reference Range Interpretation Comments RBC (test code = RBC) 3.21 4.20-5.40 [facility] HospitalLrwokwcRITAPXWJSM9820-64-05 05:17:00 Test Item Value Reference Range Interpretation Comments WBC (test code = WBC) 13.4 3.7-10.4 [facility] HospitalFtvrnioWKJRXDEUCA9846-19-26 05:17:00 Test Item Value Reference Range Interpretation Comments MCH (test code = MCH) 31.3 pg 27.0-31.0 [facility] HospitalUzbgphkUHMRVPQEDM7476-88-84 05:17:00 Test Item Value Reference Range Interpretation Comments Hct (test code = Hct) 29.9 36.0-48.0 [facility] HospitalXkmfzpqXITLPJTZYD0333-02-48 05:17:00 Test Item Value Reference Range Interpretation Comments Hgb (test code = Hgb) 10.0 12.0-16.0 [facility] HospitalDbtfcibYIFUKSKSBU9038-91-40 05:17:00 Test Item Value Reference Range Interpretation Comments Hep Bs Ag (test code Negative *NA*(10/07/15 = Hep Bs Ag) 11:17 PM) [facility] HospitalYmjtyshCNDTNCEBIE4206-53-78 05:17:00 Test Item Value Reference Range Interpretation Comments Treponemal Scr (test Non Reactive code = Treponemal Scr) *NA*(10/07/15 11:17 PM) [facility] HospitalP[facility] Pharm[facility] B[facility] [id number] 17:26:00 Test Item Value Reference Range Interpretation Comments ABO/Rh (test code = ABO/Rh) O POS [facility] HospitalD[id number] 17:26:00 Test Item Value Reference Range Interpretation Comments hCG Tot (test code = hCG Tot) [address]77 [facility] HospitalTtorxlyIMEFOKLVXK6611-06-77 17:26:00 Test Item Value Reference Range Interpretation Comments Basophils # (test code = Basophils #) 0.0 <=0.2 [facility]dqiqdhDPPZFKSWKN6318-12-48 17:26:00 Test Item Value Reference Range Interpretation Comments Lymphocytes (test code = Lymphocytes) 15.9 20.0-40.0 [facility]maMvwxoeeQYPTDGULZZ3545-85-85 17:26:00 Test Item Value Reference Range Interpretation Comments Monocytes (test code = Monocytes) 7.6 2.0-12.0 [facility] HospitalZepkfskAOUDNRUYZI8555-52-98 17:26:00 Test Item Value Reference Range Interpretation Comments Basophils (test code = Basophils) 0.2 <=1.0 [facility] HospitalWfkubieHKTFEWYODX4651-33-27 17:26:00 Test Item Value Reference Range Interpretation Comments Eosinophils (test code = Eosinophils) 0.3 <=4.0 [facility] HospitalKhqqzzoAQJJYNUPJQ0288-19-79 17:26:00 Test Item Value Reference Range Interpretation Comments Lymphocytes # (test code = Lymphocytes 1.9 1.0-5.5 #) [facility] HospitalGftotquFYMUZCZPDF4647-57-46 17:26:00 Test Item Value Reference Range Interpretation Comments Segs-Bands # (test code = Segs-Bands #) 9.1 1.5-8.1 [facility] HospitalJjkypljUBGNPFPZNP2317-55-08 17:26:00 Test Item Value Reference Range Interpretation Comments Eosinophils # (test code = Eosinophils 0.0 <=0.5 #) [facility] HospitalMwiimheFSBXAIOWDC6798-64-75 17:26:00 Test Item Value Reference Range Interpretation Comments Monocytes # (test code = Monocytes #) 0.9 <=0.8 [facility] HospitalXefqessANLZYYKTSP3152-22-62 17:26:00 Test Item Value Reference Range Interpretation Comments Segs (test code = Segs) 76.0 45.0-75.0 [facility] HospitalEdlebryMSVZEKRFDT6632-19-27 17:26:00 Test Item Value Reference Range Interpretation Comments MCHC (test code = MCHC) 33.2 32.0-36.0 [facility] HospitalCepsfvkGPEMFYBLJU7189-23-00 17:26:00 Test Item Value Reference Range Interpretation Comments MCH (test code = MCH) 30.7 pg 27.0-31.0 [facility] HospitalIvzbhppYADUDVWERJ6230-06-22 17:26:00 Test Item Value Reference Range Interpretation Comments RDW (test code = RDW) 12.4 11.5-14.5 [facility] HospitalMiluovnQKKJZHOLTS0159-62-68 17:26:00 Test Item Value Reference Range Interpretation Comments Platelet (test code = Platelet) 272 133-450 [facility] HospitalYalccyeCJOEPVGDLW8318-23-83 17:26:00 Test Item Value Reference Range Interpretation Comments MPV (test code = MPV) 9.0 7.4-10.4 [facility] HospitalBxqrrpsFMZKVAWAXR5998-36-82 17:26:00 Test Item Value Reference Range Interpretation Comments Hct (test code = Hct) 35.8 36.0-48.0 [facility] HospitalWlhrjigWLYJNRNMUL8224-16-36 17:26:00 Test Item Value Reference Range Interpretation Comments MCV (test code = MCV) 92.7 80.0-98.0 [facility] HospitalUnssyexMWSBUWJHRU6397-68-59 17:26:00 Test Item Value Reference Range Interpretation Comments WBC (test code = WBC) 12.0 3.7-10.4 [facility] HospitalUwhqkpdWVGEHVOFWM6760-08-33 17:26:00 Test Item Value Reference Range Interpretation Comments Hgb (test code = Hgb) 11.9 12.0-16.0 [facility] HospitalIxywpmdDLPSZDSHSL3450-17-07 17:26:00 Test Item Value Reference Range Interpretation Comments RBC (test code = RBC) 3.86 4.20-5.40 [facility] AND [id number] 17:26:00 Test Item Value Reference Range Interpretation Comments UA Bacteria (test code = UA Occasional /HPF Bacteria) [facility] AND [id number] 17:26:00 Test Item Value Reference Range Interpretation Comments UA WBC (test code = UA WBC) 0-2 /HPF [facility] AND [id number] 17:26:00 Test Item Value Reference Range Interpretation Comments UA Sq Epi (test code = UA Sq Occasional /LPF Epi) [facility] AND [id number] 17:26:00 Test Item Value Reference Range Interpretation Comments Micro? (test code = Performed (03/15/15 12:26 Micro?) PM) [facility] AND [id number] 17:26:00 Test Item Value Reference Range Interpretation Comments UA Turbidity (test code = Clear (03/15/15 12:26 UA Turbidity) PM) [facility] AND [id number] 17:26:00 Test Item Value Reference Range Interpretation Comments UA Color (test code = Yellow *NA*(03/15/15 UA Color) 12:26 PM) [facility] AND [id number] 17:26:00 Test Item Value Reference Range Interpretation Comments UA Glucose (test code = UA Negative mg/dL Glucose) [facility] AND [id number] 17:26:00 Test Item Value Reference Range Interpretation Comments UA Protein (test code = UA Negative mg/dL Protein) [facility] AND [id number] 17:26:00 Test Item Value Reference Range Interpretation Comments UA pH (test code = UA pH) 6.0 1 5.0-8.0 [facility] AND [id number] 17:26:00 Test Item Value Reference Range Interpretation Comments UA Spec Grav (test code = UA Spec 1.020 1 Grav) [facility] AND [id number] 17:26:00 Test Item Value Reference Range Interpretation Comments UA Blood (test code = Negative (03/15/15 12:26 UA Blood) PM) [facility] AND [id number] 17:26:00 Test Item Value Reference Range Interpretation Comments UA Bili (test code = Negative *NA*(03/15/15 UA Bili) 12:26 PM) [facility] AND [id number] 17:26:00 Test Item Value Reference Range Interpretation Comments UA Ketones (test code = UA Negative mg/dL Ketones) [facility] AND [id number] 17:26:00 Test Item Value Reference Range Interpretation Comments UA Leuk Est (test Negative (03/15/15 12:26 code = UA Leuk Est) PM) [facility] AND [id number] 17:26:00 Test Item Value Reference Range Interpretation Comments UA Nitrite (test code Negative (03/15/15 12:26 = UA Nitrite) PM) [facility] AND [id number] 17:26:00 Test Item Value Reference Range Interpretation Comments UA Urobilinogen (test code = UA 0.2 0.1-1.0 Urobilinogen) [facility]
[2023-07-25 22:02] LABS: Hematocrit 34.3 % (36.0-45.0); Lymphocytes % 31.1 % (15.3-44.8); MCV 92.5 fL (80-100); MPV 8.1 fL (7.6-11.3); Platelets 240 thou/uL (152-406); RBC Red Blood Cell Count 3.71 M/uL (3.86-4.86); Specific Gravity 1.022 (1.005-1.030)
[2023-07-25] MEDS ORDERED: ONDANSETRON 4 MG/2 ML VIAL ONE (22:08)
[2023-07-25] MEDS ORDERED: KETOROLAC 30 MG/ML INJ ONE (22:08)
[2023-07-25] MEDS ORDERED: NA CHLORIDE 0.9% 1,000 ML ONE (22:08)
[2023-07-25 22:12] LABS: Specific Gravity 1.022 (1.005-1.030); Urine Bacteria None Seen /HPF (<20); Urine Bilirubin NEGATIVE (Negative); Urine Blood Negative (Negative); Urine Clarity Extremely Turbid (Clear); Urine Color Light-Yellow (Yellow); Urine Crystals Unidentified Few /HPF (None Seen); Urine Glucose NEGATIVE (Negative); Urine Mucus Slight /HPF (None Seen); Urine Protein NEGATIVE (Negative); Urine RBC <5 /HPF (None Seen); Urine Urobilinogen Normal (Normal)
[2023-07-25 22:17] LABS: Albumin 3.5 g/dL (3.4-5.0); Bilirubin Total 0.3 mg/dL (0.2-1.0); Potassium 3.5 mEq/L (3.5-5.1); Protein, Total 7.1 g/dL (6.4-8.2)
--- NOTE | 2023-07-25 23:52 | EDPHYS ---
Physician Documentation [facility] Name: Veronica Hodgson Age: 28 yrs Sex: Female : 1995 Arrival Date: 07/25/2023 Time: 20:19 Bed 14 Private MD: ED Physician Dionicio Kemp HPI: 07/25 21:05 This 28 yrs old Female presents to ER via Ambulatory with complaints of cp Abdominal Pain. 21:05 The patient presents with abdominal pain in the lower abdomen, in the periumbilical cp area. 21:05 Onset: The symptoms/episode began/occurred 2 day(s) ago. cp 21:05 The symptoms radiate to suprapubic and pelvic area. Associated signs and symptoms: cp Pertinent negatives: constipation, diarrhea, dysuria, vaginal discharge, vomiting, vaginal bleeding. The symptoms are described as constant. Severity of pain: in the emergency department the pain is unchanged despite home interventions. 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 - Social history:: Smoking status: Patient denies any tobacco usage or history of. ROS: 21:10 Constitutional: Negative for body aches, chills, fever, poor PO intake, cp 21:10 Eyes: Negative for injury, pain, redness, and discharge, cp 21:10 ENT: Negative for drainage from ear(s), ear pain, sore throat, difficulty swallowing, difficulty handling secretions, 21:10 Respiratory: Negative for cough, shortness of breath, wheezing, 21:10 Abdomen/GI: Positive for abdominal pain, Negative for vomiting, diarrhea, constipation, 21:10 Back: Negative for pain at rest, pain with movement, 21:10 : Negative for urinary symptoms, flank pain, vaginal bleeding, vaginal discharge, 21:10 All other systems are negative, Exam: 21:13 Constitutional: The patient appears in no acute distress, alert, awake, non-toxic, well cp developed, well nourished, overweight 21:13 Head/Face: Normocephalic, atraumatic. cp 21:13 Eyes: Periorbital structures: appear normal, Conjunctiva: normal, no exudate, no injection, Sclera: no appreciated abnormality, Lids and lashes: appear normal, bilaterally, 21:13 ENT: External ear(s): are unremarkable, Nose: is normal, Mouth: Lips: moist, Oral mucosa: pink and intact, moist, Posterior pharynx: is normal, airway is patent, no erythema, no exudate, 21:13 Chest/axilla: Inspection: normal, 21:13 Cardiovascular: Rate: tachycardic, Rhythm: regular, 21:13 Respiratory: the patient does not display signs of respiratory distress, Respirations: normal, no use of accessory muscles, no retractions, labored breathing, is not present, Breath sounds: are clear throughout, no decreased breath sounds, no stridor, no wheezing, 21:13 Abdomen/GI: Inspection: obese Bowel sounds: active, all quadrants, Palpation: soft, in all quadrants, mild abdominal tenderness, in the umbilical area, right lower quadrant and left lower quadrant, rebound tenderness, is not appreciated, involuntary guarding, is not appreciated, 21:13 Back: CVA tenderness, is absent, Vital Signs: 20:39 BP 151 / 94; Pulse 107; Resp 18; Temp 98.7(TE); Pulse Ox 100% on R/A; Weight 81.65 kg; hb Height 5 ft. 0 in. ; Pain 7/10; 11 00:16 BP 127 / 86; Pulse 92; Resp 19 S; Pulse Ox 100% on R/A; lg3 07/25 20:39 Body Mass Index 35.15 (81.65 kg, 152.4 cm) hb 07/25 20:39 Pain Scale: Adult hb MDM: 07/25 20:44 Patient medically screened. cp 22:00 Differential diagnosis: appendicitis, non-specific abd pain, Ovarian Torsion, Pelvic cp Inflammatory Disease, Pyelonephritis, Ureterolithiasis, urinary tract infection. 23:50 Data reviewed: vital signs, nurses notes, lab test result(s), radiologic studies, CT cp scan. I considered the following discharge prescriptions or medication management in the emergency department Medications were administered in the Emergency Department. See MAR. Counseling: I had a detailed discussion with the patient and/or guardian regarding the historical points, exam findings, and any diagnostic results supporting the discharge/admit diagnosis, lab results, radiology results, to return to the emergency department if symptoms worsen or persist or if there are any questions or concerns that arise at home. Special discussion: Based on the patient's Hx, exam, and Dx evaluation, there is no indication for emergent surgery or inpatient Tx. It is understood by the patient/guardian that if the Sx's persist or worsen they need to return immediately for re-evaluation. 07/25 21: Order name: CBC with Diff; Complete Time: 22:16 cp 07/25 22:16 Interpretation: Normal except: RBC 3.71; HGB 11.7; HCT 34.3; RDW 12.0. 07/25 21: Order name: CMP; Complete Time: 23:41 cp 07/25 23:41 Interpretation: Normal except: CL 109; GLUC 147; GLOB 3.6; A/G 1.0. 07/25 21: Order name: Lipase; Complete Time: 23:41 07/25 21: Order name: Test, Urine; Complete Time: 22:16 cp 07/25 21: Order name: Urinalysis w/ reflexes; Complete Time: 22:16 cp 07/25 23:41 Interpretation: Normal except: [facility] Extremely Turbid; UESTR 25. 07/25 21: Order name: CT Abd/Pelvis - IV Contrast Only 07/25 21: Order name: IV Saline Lock; Complete Time: 21:52 cp 07/25 21: Order name: Labs collected and sent; Complete Time: 21:52 cp Administered Medications: 22:01 Drug: NS 0.9% IV 1000 ml IV at 1 bolus Per protocol; 1000 mL bolus Route: IV; Rate: 1 lg3 bolus; Site: right antecubital; 07/26 00:17 Follow up: IV Status: Completed infusion; IV Intake: 1000ml [facility] 07/25 22: Drug: TORadol - Ketorolac IVP 15 mg IVP once Route: IVP; Site: right antecubital; 3 07/26 00:17 Follow up: Response: No adverse reaction; Marked relief of symptoms [facility] 07/25 22:01 Drug: Ondansetron IVP 4 mg IVP once; over 2 minutes Route: IVP; Site: right antecubital;lg3 07/26 00:17 Follow up: Response: No adverse reaction; Marked relief of symptoms lg3 Disposition: 01:15 Co-signature as Attending Physician, Dionicio Kemp MD I agree with the assessment sp4 and plan of care. I reviewed the patient's care provided by the Advanced Practice Provider and agree with the diagnosis and treatment plan. Disposition Summary: 07/25/23 23:52 Discharge Ordered Notes: Location: Home cp Problem: new cp Symptoms: have improved cp Condition: Stable cp Diagnosis - Other and unspecified ovarian cysts cp Followup: cp - With: Private Physician - When: 1 week - Reason: pain continues Discharge Instructions: - Discharge Summary Sheet cp - Ovarian Cyst cp Forms: - Medication Reconciliation Form cp - Thank You Letter cp - Antibiotic Education cp - Prescription Opioid Use cp - Patient Portal Instructions cp - Leadership Thank You Letter cp Prescriptions: - Ibuprofen 800 mg Oral Tablet - take 1 tablet ORAL route every 8 hours As needed take with food; 30 tablet; cp Refills: 0, Product Selection Permitted Signatures: Dispatcher [employer] EDIN Quang Obrien PA PA cp Naa Rivera, RN RN Catherine Luong RN RN lg3 Dionicio Kemp MD MD sp4
--- NOTE | 2023-07-25 23:52 | ER ---
Nurse's Notes [facility] Name: Veronica Hodgson Age: 28 yrs Sex: Female : 1995 Arrival Date: 07/25/2023 Time: 20:19 Bed 14 Private MD: Diagnosis: Other and unspecified ovarian cysts Presentation: 07/25 20:39 Chief complaint: Lower abdominal pain, pelvic pain, and nausea x 2 days. Coronavirus hb screen: At this time, the client does not indicate any symptoms associated with coronavirus-19. Ebola Screen: No symptoms or risks identified at this time. Initial Sepsis Screen: Does the patient meet any 2 criteria? No. Patient's initial sepsis screen is negative. Does the patient have a suspected source of infection? No. Patient's initial sepsis screen is negative. Risk Assessment: Do you want to hurt yourself or someone else? Patient reports no desire to harm self or others. Onset of symptoms was July 24, 2023. 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 - Social history:: Smoking status: Patient denies any tobacco usage or history of. Screenin:50 [facility] ED Fall Risk Assessment (Adult) History of falling in the last 3 months, lg3 including since admission No falls in past 3 months (0 pts). Abuse screen: Denies threats or abuse. Denies injuries from another. Nutritional screening: No deficits noted. Tuberculosis screening: No symptoms or risk factors identified. Assessment: 21:50 General: Appears in no apparent distress. comfortable, Behavior is calm, cooperative. lg3 Pain: Complains of pain in low back area, right lower quadrant, left lower quadrant and pelvis. Neuro: No deficits noted. Shields Agitation-Sedation Scale (RASS): 0 - Alert and Calm Level of Consciousness is awake, alert, obeys commands, Oriented to person, place, time, situation. Cardiovascular: No deficits noted. Denies chest pain, shortness of breath, Capillary refill < 3 seconds Clubbing of nail beds is absent JVD is absent Patient's skin is warm and dry. Respiratory: No deficits noted. Airway is patent Respiratory effort is even, unlabored, Respiratory pattern is regular, symmetrical. GI: Bowel sounds present X 4 quads. Abd is soft X 4 quads Abdomen is tender to palpation in right lower quadrant and left lower quadrant Reports lower abdominal pain, nausea. : No deficits noted. No signs and/or symptoms were reported regarding the genitourinary system. EENT: No deficits noted. No signs and/or symptoms were reported regarding the EENT system. Derm: No deficits noted. No signs and/or symptoms reported regarding the dermatologic system. Skin is intact, is healthy with good turgor, Skin is dry, Skin is normal, Skin temperature is warm. Musculoskeletal: No deficits noted. No signs and/or symptoms reported regarding the musculoskeletal system. Circulation, motion, and sensation intact. Range of motion: intact in all extremities. 22:58 Reassessment: Patient appears in no apparent distress at this time. No changes from lg3 previously documented assessment. Patient and/or family updated on plan of care and expected duration. Pain level reassessed. Patient is alert, oriented x 3, equal unlabored respirations, skin warm/dry/pink. 07/26 00:16 Reassessment: Patient appears in no apparent distress at this time. No changes from lg3 previously documented assessment. Patient and/or family updated on plan of care and expected duration. Pain level reassessed. Patient is alert, oriented x 3, equal unlabored respirations, skin warm/dry/pink. Vital Signs: 07/25 20:39 BP 151 / 94; Pulse 107; Resp 18; Temp 98.7(TE); Pulse Ox 100% on R/A; Weight 81.65 kg; hb Height 5 ft. 0 in. ; Pain 7/10; 07/26 00:16 BP 127 / 86; Pulse 92; Resp 19 S; Pulse Ox 100% on R/A; lg3 07/25 20:39 Body Mass Index 35.15 (81.65 kg, 152.4 cm) hb 07/25 20:39 Pain Scale: Adult hb ED Course: 07/25 20:22 Patient arrived in ED. ag3 20:24 Quang Obrien PA is PHCP. cp 20:24 Dionicio Kemp MD is Attending Physician. cp 20:40 Triage completed. hb 20:41 Arm band placed on. hb 21:37 Catherine Downey, AMARILIS is Primary Nurse. lg3 21:50 Patient has correct armband on for positive identification. Placed in gown. Bed in low lg3 position. Call light in reach. Side rails up X 1. Client placed on continuous cardiac and pulse oximetry monitoring. NIBP monitoring applied. Door closed. Noise minimized. Warm blanket given. Family accompanied patient. 21:50 Inserted saline lock: 22 gauge in right antecubital area, using aseptic technique. lg3 Blood collected. Patient maintains SpO2 saturation greater than 95% on room air. 21:52 CBC with Diff Sent. lg3 21:52 CMP Sent. lg3 21:52 Test, Urine Sent. lg3 21:52 Lipase Sent. lg3 21:52 Urinalysis w/ reflexes Sent. lg3 23:01 CT Abd/Pelvis - IV Contrast Only In Process Unspecified. EDMS 07/26 00:17 No provider procedures requiring assistance completed. IV discontinued, intact, lg3 bleeding controlled, No redness/swelling at site. Pressure dressing applied. Administered Medications: 07/25 22:01 Drug: NS 0.9% IV 1000 ml IV at 1 bolus Per protocol; 1000 mL bolus Route: IV; Rate: 1 lg3 bolus; Site: right antecubital; 07/26 00:17 Follow up: IV Status: Completed infusion; IV Intake: 1000ml lg3 07/25 22:01 Drug: TORadol - Ketorolac IVP 15 mg IVP once Route: IVP; Site: right antecubital; lg3 07/26 00:17 Follow up: Response: No adverse reaction; Marked relief of symptoms lg3 07/25 22:01 Drug: Ondansetron IVP 4 mg IVP once; over 2 minutes Route: IVP; Site: right antecubital;lg3 07/26 00:17 Follow up: Response: No adverse reaction; Marked relief of symptoms lg3 Medication: 00:18 VIS not applicable for this client. lg3 Intake: 00:17 IV: 1000ml; Total: 1000ml. lg3 Outcome: 07/25 23:52 Discharge ordered by . cp 11/06 00:17 Discharged to home ambulatory, lg3 Condition: stable Discharge instructions given to patient, Instructed on discharge instructions, follow up and referral plans. medication usage, Demonstrated understanding of instructions, follow-up care, medications, Prescriptions given X 1, 00:18 Patient left the ED. lg3 Signatures: Dispatcher [employer] EDMS Quang Obrien PA PA cp Baxter, Heather, RN RN Cony Faustin ag3 Catherine Downey RN RN lg3 Corrections: (The following items were deleted from the chart) 07/25 20:42 20:39 Chief complaint: Lower abdominal pain and nausea x 2 days. hb hb
[2023-07-26 00:22] VITALS: TEMP 98.7; O2SAT 100
[2023-07-26 00:24] VITALS: BP 127/86
--- NOTE | 2023-07-26 10:35 | RAD REPORT ---
EXAM DESCRIPTION: CT Abdomen and Pelvis With Intravenous Contrast CLINICAL HISTORY: The patient is 28 years old and is Female; ABD PAIN TECHNIQUE: Axial computed tomography images of the abdomen and pelvis with intravenous contrast. S agittal and coronal reformatted images were created and reviewed. This CT exam was performed using one or more of the following dose reduction techniques: automated exposure control, adjustment of t he mA and/or kV according to patient size, and/or use of iterative reconstruction technique. COMPARISON: No relevant prior studies available. FINDINGS: Lung bases: Unremarkable. No mass. No consolidation. ABDOMEN: Liver: Hepatomegaly with diffuse hepatic steatosis. Gallbladder and bile ducts: Unremarkable. No calcified stones. No ductal dilation. Pancreas: Unremarkable. No mass. No ductal dilation. Spleen: Unremarkable. No splenomegaly. Adrenals: Unremarkable. No mass. Kidneys and ureters: Unremarkable. No solid mass. No hydronephrosis. Stomach and bowel: Unremarkable. No obstruction. No mucosal thickening. PELVIS: Appendix: No findings to suggest acute appendicitis. Bladder: Unremarkable. Reproductive: Likely 2.2 cm corpus luteum cyst in the left ovary. ABDOMEN and PELVIS: Intraperitoneal space: Small amount of free fluid in the lower pelvis. No free air. Bones/joints: No acute fracture. No dislocation. Soft tissues: Unremarkable. Vasculature: Unremarkable. No abdominal aortic aneurysm. Lymph nodes: Unremarkable. No enlarged lymph nodes. IMPRESSION: No acute finding in the abdomen/pelvis. Electronically signed by: Isaac Mclaughlin MD 07/25/2023 11:37 PM SENIOR COMPUTER SPECIALIST Due to temporary technical issues with the PACS/Fluency reporting system, reports are being signed by the in house radiologist without review as a courtesy to ensure prompt reporting. The interpreting r adiologist is fully responsible for the content of the report.
== END 2023-07-26 00:18 | disposition home or self-care (01) ==
LOC: ER 20:19
DX: N83.299 Other ovarian cyst, unspecified side (principal)
CPT/HCPCS: 96361; 85025; 81001; 36415; 81025; 83690; 80053; 74177; 96375; 96374; 99285; Q9967; J2405; J7030

== ENCOUNTER 2024-04-19 16:32 | Emergency (ER) | payer OTHER ==
--- OUTSIDE RECORDS SUMMARY | 2024-04-19 16:36 | XMS REPORT | Continuity of Care Document ---
Author Name Unknown Address [address] [facility] [address]. [address] [place] [address] [facility] thconnect Address [address] [facility]. [address] [place] [address] Care Team Providers Care Dance Master Name Role Phone Shanita Selby Primary Care Physician [phone] Chapin Fragoso Attending Clinician Unavailable MEJIA BARAHONA Attending Clinician Unavailable ROSAMARIA VILLATORO Attending Clinicia n Unavailable GREG ARVIZU Attending Clinician UnavailSRAVANTHI Ayala Attending Clinician Unavailable CAROL Attending Clinician Unavailable Rajesh OLMOS, Peggy Attending Clinician UnavailRitu Hayden RD Attending Clinician Unav ailELYSSA Phillips Attending Clinician Unavailable Doctor Unassigned, [place] Attending Clinician U navailable Pob[facility], [facility] Attending Clinician Holly George PA-C Attending Clinician [phone] HOLLY HARRISON Attending Clinician Unavailable GENESISLANIE Admitting Clinician Unavailable Payers Payer Name Policy Type Policy Number Effective Date Expirati on Date Source [facility] STAR [id number] 2015 00:00:00 [employer] CHOICE POS II [id number] 2020 00:00:00 [facility] STAR [id number] 2020 00:00:00 Problems Condition Name Condition Details Condition Category Status Onset Date Resolution Date Last Treatment Date Treating Clinician Comments Source 37 weeks gestation of 37 weeks gestation of Disease Active 3-08 00:00: 00 [facility] Diet controlled gestationa l diabetes mellitus (GDM) in second trimester Diet controlled gestationa l diabetes mellitus (GDM) in second trimester Disease Active 1-20 00:00: 00 [facility] Encounter for supervisio n of other normal , unspecifie d trimester Encounter for supervisio n of other normal , unspecifie d trimester Disease Active 8- 00:00: 00 [facility] No known active problems No known active problems Disease [facility] Allergies, Adverse Reactions, Alerts Allergy Name Allergy Type Status Severity Reaction(s) Onset Date Inactive Date Treating Clinician Comments Source NO KNOWN ALLERGIE S Drug Class Active [facility] Social History Social Habit Start Date Stop Date Quantity Comments Source ASSERTION 2023-07-22 00:00:00 [facility] Sexual orientation 2021-04-18 08:26:14 Heterosexual (finding) [facility] History SDOH Alcohol Std Drinks [facility] History SDOH Alcohol Binge [facility] History SDOH Alcohol Comment [facility] Alcoholic beverage intake 2024-03-15 00:00:00 2024-03-15 00:00:00 Lifetime non-drinker (finding) [facility] Alcohol intake 2023-08-24 00:00:00 2023-08-24 00:00:00 Lifetime non-drinker (finding) [facility] History of Social function 2023-08-24 00:00:00 2023-08-24 00:00:00 [facility] Tobacco use and exposure 2022-05-07 00:00:2022-05-07 00:00:00 Smokeless tobacco non-user [facility] Exposure to SARS-CoV-2 (event) 2022-04-21 00:00:00 2022-05-01 10:00:00 Not sure [facility] History SDOH Alcohol Frequency 2021-04-18 00:00:00 2021-04-18 00:00:00 1 [facility] Sex Assigned At 1995 00:00:00 1995 00:00:00 [facility] Smoking Status Start Date Stop Date Source Never smoked tobacco [facility] Unknown if ever smoked [facility] Medications Ordered Medication Name Filled Medication Name Start Date Stop Date Current Medication? Ordering Clinician Indication Dosage Frequency Signature (SIG) Comments Components Source Blood Pressure Monitoring (Blood Pressure Cuff) [facility] 02-01 00:00: 00 Yes [id number] Take blood pressure three times per day. Document readings and bring logs to each clinic visit. [facility] promethazin e (Phenergan) 25 MG tablet 2022-09 00:00: 00 09-24 05:59 :00 No [id number] 25mg Q6H Take 1 tablet (25 mg total) by mouth every 6 (six) hours if needed for nausea or vomiting. [facility] Vit-Fe Fumarate-FA ( PO) 05-07 13:13: 15 05-07 00:00 :00 No Take by mouth. [facility] sertraline (Zoloft) 50 MG tablet - 00:00: 00 Yes [facility] Vit-Fe Fumarate-FA ( PO) 05-07 10:40: 33 Yes Take by mouth. [facility] labetalol (Normodyne) 100 MG tablet - 00:00: 00 05-07 00:00 :00 No [facility] glyBURIDE (Diabeta) 2.5 MG tablet 1- 00:00: 00 05-07 00:00 :00 No [id number] 2.5mg Take 1 tablet (2.5 mg total) by mouth 2 (two) times a day with meals. [facility] Alcohol Swabs (Alcohol Prep) pads 2020-09 00:00: 00 05-07 00:00 :00 No [id number] Use as directed. [facility] Gauze Pads 2"X2" pads 2020-09 00:00: 00 05-07 00:00 :00 No [id number] Use as directed. [facility] Lancets 33G misc 2020-09 2 00:00: 00 05-07 00:00 :00 No [id number] 1{fabienne t} Q.25D 1 Lancet 4 (four) times a day. [facility] sharps container 2020-09 00:00: 00 05-07 00:00 :00 No [id number] Use as directed. [facility] Blood Glucose Monitoring Suppl (True Metrix Air Glucose Meter) w/Device kit 2020-09 00:00: 00 05-07 00:00 :00 No [id number] Check fasting blood sugar and 2 hours after each meal. [facility] glucose blood (True Metrix Blood Glucose Test) test strip 2020-09 00:00: 00 05-07 00:00 :00 No [id number] Use as instructed [facility] No known medications No Un estevan y of [facility] Immunizations Ordered Immunization Name Filled Immunization Name Date Status Comments Source Tdap 2021-10-09 00:00:00 Completed [facility] Tdap 2021-10-09 00:00:00 Completed [facility] Tdap 2021-10-09 00:00:00 Completed [facility] Unknown [facility]pleted [facility] Unknown Completed [facility] T[facility] Unknown Completed [facility] T[facility] Unknown Completed [facility] Unknown Completed [facility] Tdap Unknown Completed [facility] Td[facility] Unknown Completed [facility] T[facility] Unknown Completed [facility] Td[facility] Unknown Completed [facility] Unknown [facility] T[facility] Unknown [facility]pleted [facility] Unknown Completed [facility] Unknown Completed [facility] T[facility] Unknown Completed [facility] Tdap Unknown Completed [facility] Tdap Unknown Completed [facility] Tdap Unknown Completed [facility] Tdap Unknown Completed [facility] Tdap Unknown Completed [facility] Td[facility] Unknown Completed [facility] Tdap Unknown Completed [facility] Tdap Unknown Completed [facility] Tdap Unknown Completed [facility] Tdap [facility] Vital Signs Vital Name Observation Time Observation Value Comments S ource Systolic blood pressure 2024-03-15 20:55:00 125 mm[Hg] [facility] Diastolic blood pressure 2024-03-15 20:55:00 88 mm[Hg] [facility] Heart rate 2024-03-15 20:55:00 102 /min [facility] Body temperature 2024-03-15 20:55:00 36.5 Miriam [facility] Body weight 2024-03-15 20:55:00 85.73 kg [facility] BMI 2024-03-15 20:55:00 36.91 kg/m2 [facility] Systolic blood pressure 2024-02-29 21:01:00 119 mm[Hg] [facility] Diastolic blood pressure 2024-02-29 21:01:00 85 mm[Hg] [facility] Heart rate 2024-02-29 21:01:00 98 /min [facility] Body temperature 2024-02-29 21:01:00 36.44 Miriam [facility] Body weight 2024-02-29 21:01:00 85.276 kg [facility] BMI 2024-02-29 21:01:00 36.72 kg/m2 [facility] Systolic blood pressure 2024-02-18 14:04:00 114 mm[Hg] [facility] Diastolic blood pressure 2024-02-18 14:04:00 82 mm[Hg] [facility] Heart rate 2024-02-18 14:04:00 105 /min [facility] Body temperature 2024-02-18 14:04:00 36.5 Miriam [facility] Body weight 2024-02-18 14:04:00 85.276 kg [facility] BMI 2024-02-18 14:04:00 36.72 kg/m2 [facility] Systolic blood pressure 2024-02-02 15:41:00 123 mm[Hg] [facility] Diastolic blood pressure 2024-02-02 15:41:00 87 mm[Hg] [facility] Heart rate 2024-02-02 15:20:00 109 /min [facility] Body temperature 2024-02-02 15:19:00 36.44 Miriam [facility] Body weight 2024-02-02 15:19:00 83.915 kg [facility] BMI 2024-02-02 15:19:00 36.13 kg/m2 [facility] Systolic blood pressure 2024-01-17 15:50:00 108 mm[Hg] [facility] Diastolic blood pressure 2024-01-17 15:50:00 74 mm[Hg] [facility] Heart rate 2024-01-17 15:50:00 94 /min [facility] Body temperature 2024-01-17 15:50:00 36.28 Miriam [facility] Body weight 2024-01-17 15:50:00 83.915 kg [facility] BMI 2024-01-17 15:50:00 36.13 kg/m2 [facility] Systolic blood pressure 2023-12-27 15:49:00 117 mm[Hg] [facility] Diastolic blood pressure 2023-12-27 15:49:00 71 mm[Hg] [facility] Heart rate 2023-12-27 15:49:00 100 /min [facility] Body temperature 2023-12-27 15:49:00 36.67 Miriam [facility] Body weight 2023-12-27 15:49:00 84.369 kg [facility] BMI 2023-12-27 15:49:00 36.33 kg/m2 [facility] Systolic blood pressure 2023-12-21 15:06:00 114 mm[Hg] [facility] Diastolic blood pressure 2023-12-21 15:06:00 82 mm[Hg] [facility] Heart rate 2023-12-21 15:06:00 99 /min [facility] Body temperature 2023-12-21 15:06:00 36.44 Miriam [facility] Body weight 2023-12-21 15:06:00 83.462 kg [facility] BMI 2023-12-21 15:06:00 35.94 kg/m2 [facility] Systolic blood pressure 2023-12-13 14:14:00 113 mm[Hg] [facility] Diastolic blood pressure 2023-12-13 14:14:00 82 mm[Hg] [facility] Heart rate 2023-12-13 14:14:00 93 /min [facility] Body temperature 2023-12-13 14:14:00 36.44 Miriam [facility] Body weight 2023-12-13 14:14:00 83.462 kg [facility] BMI 2023-12-13 14:14:00 35.94 kg/m2 [facility] Systolic blood pressure 2023-11-05 15:25:00 130 mm[Hg] [facility] Diastolic blood pressure 2023-11-05 15:25:00 72 mm[Hg] [facility] Heart rate 2023-11-05 15:25:00 108 /min [facility] Body temperature 2023-11-05 15:25:00 36.28 Miriam [facility] Body weight 2023-11-05 15:25:00 83.462 kg [facility] BMI 2023-11-05 15:25:00 35.94 kg/m2 [facility] Systolic blood pressure 2023-10-12 16:14:00 120 mm[Hg] [facility] Diastolic blood pressure 2023-10-12 16:14:00 85 mm[Hg] [facility] Heart rate 2023-10-12 16:14:00 94 /min [facility] Body temperature 2023-10-12 16:13:00 36.28 Miriam [facility] Body weight 2023-10-12 16:13:00 82.101 kg [facility] BMI 2023-10-12 16:13:00 35.35 kg/m2 [facility] Systolic blood pressure 2023-09-24 15:57:00 117 mm[Hg] [facility] Diastolic blood pressure 2023-09-24 15:57:00 83 mm[Hg] [facility] Heart rate 2023-09-24 15:57:00 102 /min [facility] Body temperature 2023-09-24 15:57:00 36.61 Miriam [facility] Body weight 2023-09-24 15:57:00 83.008 kg [facility] BMI 2023-09-24 15:57:00 35.74 kg/m2 [facility] Systolic blood pressure 2023-09-09 16:22:00 114 mm[Hg] [facility] Diastolic blood pressure 2023-09-09 16:22:00 85 mm[Hg] [facility] Heart rate 2023-09-09 16:22:00 96 /min [facility] Body temperature 2023-09-09 16:21:00 36.33 Miriam [facility] Body weight 2023-09-09 16:21:00 82.555 kg [facility] BMI 2023-09-09 16:21:00 35.54 kg/m2 [facility] Systolic blood pressure 2023-08-24 16:36:00 119 mm[Hg] [facility] Diastolic blood pressure 2023-08-24 16:36:00 86 mm[Hg] [facility] Heart rate 2023-08-24 16:36:00 103 /min [facility] Body temperature 2023-08-24 16:36:00 36.33 Miriam [facility] Body weight 2023-08-24 16:36:00 84.369 kg [facility] BMI 2023-08-24 16:36:00 36.33 kg/m2 [facility] Systolic blood pressure 2023-08-06 16:06:00 118 mm[Hg] [facility] Diastolic blood pressure 2023-08-06 16:06:00 90 mm[Hg] [facility] Heart rate 2023-08-06 16:06:00 93 /min [facility] Body temperature 2023-08-06 16:06:00 36.5 Miriam [facility] Body height 2023-08-06 16:06:00 152.4 cm [facility] Body weight 2023-08-06 16:06:00 83.462 kg [facility] BMI 2023-08-06 16:06:00 35.94 kg/m2 [facility] Systolic blood pressure 2023-07-27 15:47:00 121 mm[Hg] [facility] Diastolic blood pressure 2023-07-27 15:47:00 93 mm[Hg] [facility] Heart rate 2023-07-27 15:47:00 89 /min [facility] Body temperature 2023-07-27 15:46:00 36.56 Miriam [facility] Body height 2023-07-27 15:46:00 152.4 cm [facility] Body weight 2023-07-27 15:46:00 83.915 kg [facility] BMI 2023-07-27 15:46:00 36.13 kg/m2 [facility] Systolic blood pressure 2023-05-07 15:29:00 122 mm[Hg] [facility] Diastolic blood pressure 2023-05-07 15:29:00 91 mm[Hg] [facility] Heart rate 2023-05-07 15:29:00 98 /min [facility] Body temperature 2023-05-07 15:27:00 36.83 Miriam [facility] Body height 2023-05-07 15:27:00 152.4 cm [facility] Body weight 2023-05-07 15:27:00 82.555 kg [facility] BMI 2023-05-07 15:27:00 35.54 kg/m2 [facility] Systolic blood pressure 2022-05-07 15:39:00 115 mm[Hg] [facility] Diastolic blood pressure 2022-05-07 15:39:00 88 mm[Hg] [facility] Heart rate 2022-05-07 15:39:00 102 /min [facility] alth Body temperature 2022-05-07 15:39:00 36.67 [facility] Body height 2022-05-07 15:39:00 152.4 cm [facility] Body weight 2022-05-07 15:39:00 70.761 kg [facility] BMI 2022-05-07 15:39:00 30.47 kg/m2 [facility] Procedures Procedure Date / Time Performed Performing Clinician Source POCT URINALYSIS DIPSTICK 2024-02-02 16:21:00 Trevor gallrado Rosamaria [facility] POCT , URINE 2023-08-06 17:16:45 Trevorsami [facility] POCT URINALYSIS DIPSTICK 2023-07-27 16:16:27 Mejia Barahona [facility] POCT , URINE 2023-07-27 16:16:01 Beba Barahona Replaced by [facility] THINPREP TIS PAP RFLX HPV MRNA E6/E7,C. TRACH, N. GONORRHOEAE 2023-05-07 [facility]:56[facility] RFLX HPV MRNA E6/E7,C. TRACH, N. GONORRHOEAE 2022-05-07 16:23:00 Shauna [facility] NO SHOW OR MISSED APPOINTMENT POLICY ACKNOWLEDGEMENT 2021-02-27 18:47:57 Doctor Unassigned, [facility] Encounters Start Date/Time End Date/Time Encounter Type Admission Type Attending Clinicians Care Facility Care Department Encounter ID Source 2022-07-23 11:49:01 Outpatient Chapin Fragoso [facility] [id number] [facility] 2022-06-08 13:05:01 Outpatient Frgaoso, Chapin [facility] [id number] [facility] 2022-04-01 14:00:01 Outpatient Fragoso, [facility] [id number] [facility] 2021-12-03 08:37:40 Outpatient SANGALLMEJIA Jama [facility] [id number] [facility] 2021-10-30 15:27:47 Outpatient SANGALLMEJIA Jama [facility] [id number] [facility] 2021-10-29 14:19:41 Outpatient [facility] [id number] [facility] 2021-10-20 14:21:42 Outpatient SANGMEJIA BETTENCOURT [facility] [id number] [facility] 2021-10-15 13:50:46 Outpatient Fragoso, Chap[facility] [id number] [facility] 2021-08-18 10:55:11 Outpatient MEJIA BARAHONA [facility] [id number] [facility] 2021-07-28 14:20:24 Outpatient MEJIA BARAHONA [facility] [id number] [facility] 2024-05-08 11:00:00 2024-05-08 11:00:00 Outpatient ROSAMARIA VILLATORO [facility] [id number] [facility] 2024-04-24 16:00:00 2024-04-24 16:00:00 Outpatient ROSAMARIA VILLATORO [facility] [id number] [facility] 2024-04-21 08:30:00 2024-04-21 08:30:00 Outpatient ALLIRAIGREG [facility] [id number] [facility] 2024-03-24 15:45:00 2024-03-24 15:45:00 Outpatient MEJIA BARAHONA [facility] [id number] [facility] 2024-03-24 09:00:00 2024-03-24 09:00:00 Outpatient SRAVANTHI FORBES [facility] [id number] [facility] 2024-03-21 15:30:00 2024-03-21 15:30:00 Outpatient [facility] [id number] [facility] 2024-03-15 16:00:00 2024-03-15 16:28:19 Routine Rosamaria Villatoro UTP [facility]AL[facility] 1.2.840.114 350.1.13.58 9.2.7.2.686 [id number] [facility] 2024-03-14 16:00:00 2024-03-14 16:00:00 Outpatient ROSAMARIA VILLATORO [facility] [id number] [facility] 2024-03-09 09:00:00 2024-03-09 09:02:53 Nutrition Sravanthi Forbes [facility] 1.2.840.114 350.1.13.58 9.2.7.2.686 [id number] [facility] 2024-02-29 16:00:00 2024-02-29 16:28:53 Routine Rosamaria Villatoro UTP [facility] 1.2.840.114 350.1.13.58 9.2.7.2.686 [id number] [facility] 2024-02-24 09:00:00 2024-02-24 09:34:28 Nutrition [facility]vanthi [facility] 1.2.840.114 350.1.13.58 9.2.7.2.686 [id number] [facility] 2024-02-18 09:00:00 2024-02-18 09:23:00 Routine Mejia Barahona UTP AALIYAH 1.2.840.114 350.1.13.58 9.2.7.2.686 [id number] [facility] 2024-02-17 15:30:00 2024-02-17 15:47:46 Outpatient [facility] [id number] [facility] 2024-02-04 10:30:00 2024-02-04 10:52:01 Outpatient ROSAMARIA VILLATORO [facility] [id number] [facility] 2024-02-04 09:15:00 2024-02-04 09:15:00 Outpatient SRAVANTHI FORBES [facility] [id number] [facility] 2024-02-02 10:30:00 2024-02-02 10:51:36 Routine Rosamaria Villatoro UTP AALIYAH 1.2.840.114 350.1.13.58 9.2.7.2.686 [id number] [facility] 2024-01-18 10:00:00 2024-01-18 10:21:00 Nutrition Sravanthi Forbes [facility] 1.2.840.114 350.1.13.58 9.2.7.2.686 [id number] [facility] 2024-01-17 10:30:00 2024-01-17 11:57:59 Routine Mejia Barahona UTP AALIYAH 1.2.840.114 350.1.13.58 9.2.7.2.686 [id number] [facility] 2024-01-10 10:00:00 2024-01-10 10:00:00 Outpatient HUGO MEJIA [facility] [id number] [facility] 2024-01-05 10:45:00 2024-01-05 11:03:56 Nutrition Sravanthi Forbes [facility] 1.2.840.114 350.1.13.58 9.2.7.2.686 [id number] [facility] 2023-12-30 15:30:00 2023-12-30 15:30:00 Outpatient HUGO MEJIA [facility] [id number] [facility] 2023-12-27 11:15:00 2023-12-27 11:26:11 Routine Josepoolevita Mejia UTP AALIYAH 1.2.840.114 350.1.13.58 9.2.7.2.686 [id number] [facility] 2023-12-21 10:00:00 2023-12-21 10:48:51 Routine Mejia Barahona UTP AALIYAH 1.2.840.114 350.1.13.58 9.2.7.2.686 [id number] [facility] 2023-12-13 09:30:00 2023-12-13 09:40:58 Routine SangallMejia jama UTP AALIYAH 1.2.840.114 350.1.13.58 9.2.7.2.686 [id number] [facility] 2023-12-10 10:00:00 2023-12-10 10:00:00 Outpatient ROSAMARIA VILLATORO [facility] [id number] [facility] 2023-11-25 14:15:00 2023-11-25 16:16:37 Outpatient [facility] [id number] [facility] 2023-11-05 11:00:00 2023-11-05 11:00:00 Outpatient SANGMEJIA BETTENCOURT [facility] [id number] [facility] 2023-11-05 09:45:00 2023-11-05 10:03:23 Routine SangallMejia jama AALIYAH 1.2.840.114 350.1.13.58 9.2.7.2.686 [id number] [facility] 2023-10-12 10:00:00 2023-10-12 10:48:23 Routine Rosamaria Villatoro UTP AALIYAH 1.2.840.114 350.1.13.58 9.2.7.2.686 [id number] [facility] 2023-10-11 10:30:00 2023-10-11 10:30:00 Outpatient ROSAMARIA VILLATORO [facility] [id number] [facility] 2023-09-30 15:00:00 2023-09-30 16:06:00 Outpatient [facility] [id number] [facility] 2023-09-24 10:15:00 2023-09-24 10:44:38 Routine SangallMejia jama AALIYAH 1.2.840.114 350.1.13.58 9.2.7.2.686 [id number] [facility] 2023-09-09 10:00:00 2023-09-09 11:16:42 Routine Rosamaria Villatoro AALIYAH 1.2.840.114 350.1.13.58 9.2.7.2.686 [id number] [facility] 2023-08-24 10:15:00 2023-08-24 10:58:16 Initial Mejia Barahona AALIYAH 1.2.840.114 350.1.13.58 9.2.7.2.686 [id number] [facility] 2023-08-06 10:15:00 2023-08-06 11:27:24 Office Visit Mejia Barahona AALIYAH 1.2.840.114 350.1.13.58 9.2.7.2.686 [id number] [facility] 2023-07-27 10:00:00 2023-07-27 10:32:05 Office Visit Mejia Barahona AALIYAH 1.2.840.114 350.1.13.58 9.2.7.2.686 [id number] [facility] 2023-05-07 10:30:00 2023-05-07 11:00:36 Office Visit Rosamaria Villatoro UTP AALIYAH 1.2.840.114 350.1.13.58 9.2.7.2.686 [id number] [facility] 2022-05-07 11:00:00 2022-05-07 11:40:01 Office Visit Rosamaria Villatoro UTP AALIYAH 1.2.840.114 350.1.13.58 9.2.7.2.686 [id number] [facility] 2022-03-31 11:58:00 2022-03-31 11:58:00 Outpatient GENESIS_NINO [facility] [id number] [facility] 2021-12-30 09:45:00 2021-12-30 10:22:18 Office Visit Mejia Barahona AALIYAH 1.2.840.114 350.1.13.58 9.2.7.2.686 [id number] [facility] 2021-11-25 15:30:00 2021-11-25 16:51:52 Routine Mejia Barahona AALIYAH 1.2.840.114 350.1.13.58 9.2.7.2.686 [id number] [facility] 2021-11-21 11:00:00 2021-11-21 11:03:41 Routine Mejia Barahona AALIYAH 1.2.840.114 350.1.13.58 9.2.7.2.686 [id number] [facility] 2021-11-21 00:00:00 2021-11-21 00:00:00 Telephone Peggy Mena Meagen [facility] [place] [address] [facility] AND WOM[place] 1.2.840.114 350.1.13.58 9.2.7.2.686 [id number] [facility] 2021-11-17 00:00:00 2021-11-17 00:00:00 Telephone Peggy Mena Meagen [facility] [place] [facility] AND WOMENS 1.2.840.114 350.1.13.58 9.2.7.2.686 [id number] [facility] 2021-11-14 14:00:00 2021-11-14 14:20:20 Routine Mejia Barahona AALIYAH 1.2.840.114 350.1.13.58 9.2.7.2.686 [id number] [facility] 2021-11-12 14:00:00 2021-11-12 14:23:31 Diabetes Education Ritu Rodriguez [facility] [place] [facility] [place] 1 AND WOMENS 1.2.840.114 350.1.13.58 9.2.7.2.686 [id number] [facility] 2021-11-07 14:00:00 2021-11-07 14:32:43 Routine SangMejia bettencourt AALIYAH 1.2.840.114 350.1.13.58 9.2.7.2.686 [id number] [facility] 2021-10-30 15:30:00 2021-10-30 15:30:00 Routine SangMejia bettencourt AALIYAH 1.2.840.114 350.1.13.58 9.2.7.2.686 [id number] [facility] 2021-10-29 14:00:00 2021-10-29 14:26:49 Diabetes Education Ritu Rodriguez [facility] [place] 1 AND WOMENS 1.2.840.114 350.1.13.58 9.2.7.2.686 [id number] [facility] 2021-10-22 00:00:00 2021-10-22 00:00:00 Telephone Peggy Mena Meagen UTP AALIYAH 1.2.840.114 350.1.13.58 9.2.7.2.686 [id number] [facility] 2021-10-20 13:45:00 2021-10-20 14:21:49 Routine Mejia Barahona AALIYAH 1.2.840.114 350.1.13.58 9.2.7.2.686 [id number] 1 [id number] [facility] 2021-10-17 15:00:00 2021-10-17 15:19:43 Diabetes Education Ritu Rodriguez [facility] [address] AND WOMENS 1.2.840.114 350.1.13.58 9.2.7.2.686 [id number] [facility] 2021-10-16 14:30:00 2021-10-16 14:30:00 Routine SangallMejia jama AALIYAH 1.2.840.114 350.1.13.58 9.2.7.2.686 [id number] [facility] 2021-10-09 14:45:00 2021-10-09 15:37:39 Routine SangMejia bettencourt AALIYAH 1.2.840.114 350.1.13.58 9.2.7.2.686 [id number] 1 [id number] [facility] 2021-10-03 15:00:00 2021-10-03 15:23:07 Diabetes Education Ritu Rodriguez UTP [facility] [address] [address] AND WOMENS 1.2.840.114 350.1.13.58 9.2.7.2.686 [id number] [facility] 2021-10-02 15:00:00 2021-10-02 15:36:55 Routine SangMejia bettencourt AALIYAH 1.2.840.114 350.1.13.58 9.2.7.2.686 [id number] [facility] 2021-09-30 00:00:00 2021-09-30 00:00:00 Telephone Ritu Rodriguez UTP [address] 1.2.840.114 350.1.13.58 9.2.7.2.686 [id number] 0 [id number] [facility] 2021-09-26 15:30:00 2021-09-26 16:26:34 Routine SangMejia bettencourt AALIYAH 1.2.840.114 350.1.13.58 9.2.7.2.686 [id number] [facility] 2021-09-19 00:00:00 2021-09-19 00:00:00 Telephone Peggy Mena Meagen DEDE AALIYAH 1.2.840.114 350.1.13.58 9.2.7.2.686 [id number] 1 [id number] [facility] 2021-09-18 15:30:00 2021-09-18 16:39:18 Routine SangMejia bettencourt AALIYAH 1.2.840.114 350.1.13.58 9.2.7.2.686 [id number] 1 [id number] [facility] 2021-09-09 00:00:00 2021-09-09 00:00:00 Telephone Peggy Mena Meagen UTP AALIYAH 1.2.840.114 350.1.13.58 9.2.7.2.686 [id number] 1 [id number] [facility] 2021-07-28 13:34:28 2021-07-28 14:20:28 Routine Mejia Barahona AALIYAH 1.2.840.114 350.1.13.58 9.2.7.2.686 [id number] 1 [id number] [facility] 2021-07-08 00:00:00 2021-07-08 00:00:00 Telephone Peggy Mena Meagen UTP AALIYAH 1.2.840.114 350.1.13.58 9.2.7.2.686 [id number] 1 [id number] [facility] 2021-07-03 13:56:29 2021-07-03 14:51:52 Routine Mejia Barahona AALIYAH 1.2.840.114 350.1.13.58 9.2.7.2.686 [id number] [facility] 2021-05-30 09:23:29 2021-05-30 09:52:05 Routine Mejia Barahona AALIYAH 1.2.840.114 350.1.13.58 9.2.7.2.686 [id number] 1 [id number] [facility] 2021-05-01 14:14:35 2021-05-01 14:52:30 Initial Mejia Barahona UTP AALIYAH 1.2.840.114 350.1.13.58 9.2.7.2.686 [id number] 1 [id number] [facility] 2021-04-18 11:25:09 2021-04-18 12:02:26 Office Visit Mejia Barahona AALIYAH 1.2.840.114 350.1.13.58 9.2.7.2.686 [id number] 1 [id number] [facility] 2021-03-31 09:30:00 2021-03-31 09:30:00 Outpatient ELYSSA WYLIE [facility] [id number] [facility] 2021-02-27 14:00:00 2021-02-27 14:00:00 Outpatient ELYSSA WYLIE [facility] [id number] [facility] 2021-02-27 00:00:00 2021-02-27 00:00:00 Orders Only Doctor Unassigned, [facility] 1.2.840.114 350.1.13.10 4.2.7.2.686 [id number] [facility] 2021-02-27 00:00:00 2021-02-27 00:00:00 Orders Only Doctor Unassigned, [facility] 1.2.840.114 350.1.13.10 4.2.7.2.686 [id number] 2020-03-13 13:02:10 2020-03-13 13:22:10 Urgent Care Pob1, Acute Care Clinic Ines Holly [facility] Office [address] 1.2.840.114 350.1.13.10 4.2.7.2.686 [id number] [facility] 2020-03-13 13:02:10 2020-03-13 13:22:10 Urgent Care Pob1, Acute Care [facility] [address] 1.2.840.114 350.1.13.10 4.2.7.2.686 [id number] 2020-03-13 13:00:00 2020-03-13 13:00:00 Outpatient HOLLY SHAW [facility] [id number] [facility] Results Test Description Test Time Test Comments Results Result Co mments [facility] manually [id number] 17:16:45* Test Item Value Reference Range Interpretation Comme [facility] Preg Test, Ur (test code = 1607862) Positive Negative A Lab Interpretation (test cod e = 06916-4) [facility] manually [id number] 16:16:27* Test Item Value Reference Range Interpretation Comme [facility] Glucose, UA (test code = 1884352) Negative Negative Bilirubin, UA (test code = 7773043) Negative Negative Ketones, Urine (test code = 83173-0) Negative Negative, Trace Spec Grav, UA (test code = 145439150) 1.030 Blood, UA (test code = 829576903) Negative pH, UA (test code = 7798707) 5.0 5.0-8.5 Protein, UA (test code = 2042710) Negative Negative, Trace, 200(+2)mg/dL, 15/mg/dL UROBILINOGEN, POC (test code = 65700885) 0.2 Nitrite, UA (test code = 4929158) Negative Negative, Trace Leukocytes, UA (test code = 4615540) Negative Negative, Trace Lab Interpretation (test cod e = 33169-4) Normal [facility] , urine manually [id number] 16:16:01* Test Item Value Reference Range Interpretation Comme [facility] Preg Test, Ur (test code = 4339936) Negative Negative Lab Interpretation (test cod e = 45718-4) Normal [facility] TIS PAP RFLX HPV MRNA E6/E7,C. TRACH, N. [id number] 15:27:00* Test Item Value Reference Range Interpretation Comments CLINICAL INFORMATION: (test code = 55084-9) SEE NOTE None given LMP: (test code = 8665-2) SEE NOTE NONE GIVEN PREV. PAP: (test code = 41883-1) SEE NOTE NONE GIVEN PREV. BX: (test code = 23324-4) SEE NOTE NONE GIVEN SOURCE: (test code = 84612-6) SEE NOTE None given STATEMENT OF ADEQUACY: (test code = 89504-0) SEE NOTE Satisfactory for evaluation.Endocervical/t ransformation zone componentpresent.Age and/or menstrual status not provided INTERPRETATION/R ESULT: (test code = 71067-8) SEE NOTE Cytology Results : Negative for intraepitheliallesion or malignancy. COMMENT: (test code = 39706-9) SEE NOTE This Pap test bar s been evaluated with computerassisted technology. DISABILITY BENEFITS SPECIALIST : (test code = 89836-5) SEE NOTE [facility], CT(ASCP) CT screening location: [address],[address] 3 HOUR SPECIMEN (test code = 319856714) SEE NOTE EXPLANATORY NOTE : The Pap is a screening test for cervical cancer. It is not a diagnostic test and is subject to false negative and false positive results. It is most reliable when a satisfactory sample, regularly obtained, is submitted with relevant clinical findings and history, and when the Pap result is evaluated along with historic and current clinical information. CHLAMYDIA TRACHOMATIS RNA, TMA, UROGENITAL (test code = 20784-3) NOT DETECTED NOT DETECTED NEISSERIA GONORRHOEAE RNA, TMA, UROGENITAL (test code = 13915-5) NOT DETECTED NOT DETECTED (Always Message) (test code = 220005125) SEE NOTE The analytical performance characteristics of thisassay, when used to test SurePath(TM) specimens have beendetermined by RunTitle. The modifications havenot been cleared or approved by the FDA. This assay hasbeen validated pursuant to the CLIA regulations and isused for clinical purposes. For additional information, please refer tohttps://education.[employer]/faq/FAH05 4(This link is being provided for information/educational purposes only.) RAC (test code = RAC) Performing Organization Information: ? ?Site ID: [id number] ? ?Name: [employer] ? ?Address: [address] [place] [id number] ? ?Director: MARIA E CM MD [facility] TIS PAP RFLX HPV MRNA E6/E7,C. TRACH, N. [id number] 15:00:00* Test Item Value Reference Range Interpretation Comments CLINICAL INFORMATION: (test code = 54878-6) SEE NOTE None given LMP: (test code = 8665-2) SEE NOTE NONE GIVEN PREV. PAP: (test code = 57010-3) SEE NOTE NONE GIVEN PREV. BX: (test code = 38926-1) SEE NOTE NONE GIVEN SOURCE: (test code = 19073-6) SEE NOTE None given STATEMENT OF ADEQUACY: (test code = 95223-3) SEE NOTE Satisfactory for evaluation.Endocervic al/transformation zone component absent.Age and/or menstrual status not provided INTERPRETATION/RE SULT: (test code = 68983-9) SEE NOTE Negative for intraepithelial lesion or malignancy. COMMENT: (test code = 07982-2) SEE NOTE This Pap test bar s been evaluated with computerassisted technology. DISABILITY BENEFITS SPECIALIST: (test code = 12211-0) SEE NOTE [facility], CT(ASCP) 3 HOUR SPECIMEN (test code = 374466291) SEE NOTE EXPLANATORY NOTE : The Pap is a screening test for cervical cancer. It is not a diagnostic test and is subject to false negative and false positive results. It is most reliable when a satisfactory sample, regularly obtained, is submitted with relevant clinical findings and history, and when the Pap result is evaluated along with historic and current clinical information. CHLAMYDIA TRACHOMATIS RNA, TMA, UROGENITAL (test code = 64811-2) NOT DETECTED NOT DETECTED NEISSERIA GONORRHOEAE RNA, TMA, UROGENITAL (test code = 01811-0) NOT DETECTED NOT DETECTED (Always Message) (test code = 773333600) SEE NOTE The analytical performance characteristics of thisassay, when used to test SurePath(TM) specimens have beendetermined by RunTitle. The modifications havenot been cleared or approved by the FDA. This assay hasbeen validated pursuant to the CLIA regulations and isused for clinical purposes. For additional information, please refer tohttps://education.[employer].Inferno[employer] Technology/f aq/HBC023(This link is being provided for information/education al purposes only.) RAC (test code = RAC) Performing Organization Information: ? ?Site ID: IG ? ?Name: [employer]LL[employer] ? ?Address: [address] [place], [place] [address], [place] [address] ? ?Director: MARIA E CM MD [facility] Notes Date/Time Note Provider Source 2023-05-07 10:30:00 Formatting of this n ote might be different from the original. Letter/call. Your Pap Smear showed no significant abnormalities. [facility] [place]
--- NOTE | 2024-04-19 17:18 | RAD REPORT ---
EXAM DESCRIPTION: US - Abdomen Exam Limited - 04/19/2024 5:10 pm CLINICAL HISTORY: ABD PAIN COMPARISON: <Comparisons> FINDINGS: The gallbladder demonstrates numerous stones. The gallbladder is distended. No pericholecy stic fluid or gallbladder wall thickening. The common bile duct is mildly enlarged measuring 8 mm. The liver demonstrates mild fatty liver. IMPRESSION: Cholelithiasis with significant distention of gallbladder could indicate acute cholecyst itis. Common duct is mildly dilated.
[2024-04-19] MEDS ORDERED: NA CHLORIDE 0.9% 1,000 ML ONE (17:30)
[2024-04-19] MEDS ORDERED: ONDANSETRON 4 MG/2 ML VIAL ONE (17:30)
[2024-04-19] MEDS ORDERED: FAMOTIDINE 20 MG/2 ML VIAL IV ONE (17:30)
[2024-04-19] MEDS ORDERED: KETOROLAC 30 MG/ML INJ ONE (17:30)
[2024-04-19 17:51] LABS: Absolute Basophils 0.1 K/uL (0-0.5); Absolute Eosinophils 0.1 K/uL (0-0.5); Absolute Lymphocytes (CBC) 1.5 K/uL (0.7-4.9); Absolute Monocytes 0.6 K/uL (0.1-1.3); Basophils % 0.7 % (0-1.3); Eosinophils % 0.9 % (0-4.4); Hematocrit 36.9 % (36.0-45.0); Hemoglobin 11.9 g/dL (12.0-15.0); Lymphocytes % 18.6 % (15.3-44.8); MCH 28.7 pg (27.0-35.0); MCHC 32.4 g/dL (32.0-36.0); MCV 88.8 fL (80-100); MPV 8.9 fL (7.6-11.3); Monocytes % 6.9 % (3.3-12.3); Neutrophils % 72.9 % (41.7-73.7); Platelets 240 thou/uL (152-406); RBC Red Blood Cell Count 4.16 M/uL (3.86-4.86); Red Cell Distribution Width 13.3 % (12.1-15.2)
[2024-04-19 17:55] LABS: Specific Gravity 1.027 (1.005-1.030); Sqamous Epithelial <5 /HPF (None Seen); Urine Bacteria None Seen /HPF (<20); Urine Bilirubin 1+ (Negative); Urine Blood Negative (Negative); Urine Clarity Turbid (Clear); Urine Color Yellow (Yellow); Urine Culture Reflex Order NOT NEEDED; Urine Glucose NEGATIVE (Negative); Urine Ketones NEGATIVE (Negative); Urine Microscopic Reflex YN ORDER UMIC; Urine Mucus Slight /HPF (None Seen); Urine Nitrite NEGATIVE (Negative); Urine Protein NEGATIVE (Negative); Urine RBC <5 /HPF (None Seen); Urine Urobilinogen 1+ (Normal); Urine pH 5.5 (5.0-7.0)
[2024-04-19 17:59] LABS: Specific Gravity 1.027 (1.005-1.030)
[2024-04-19 18:18] LABS: Albumin 4.1 g/dL (3.4-5.0); Albumin/Globulin Ratio 1.1 (1.1-1.8); Anion Gap 8.8 mEq/L (5.0-15.0); Bilirubin Total 1.6 mg/dL (0.2-1.0); Globulin 3.6 g/dL (2.3-3.5); Potassium 3.8 mEq/L (3.5-5.1); Protein, Total 7.7 g/dL (6.4-8.2)
[2024-04-19] MEDS ORDERED: MORPHINE 4 MG/ML SYR ONE (19:05)
--- NOTE | 2024-04-19 19:11 | EDPHYS ---
Physician Documentation [facility] Name: Veronica Lanier Age: 28 yrs Sex: Female : 1995 Arrival Date: 04/19/2024 Time: 16:32 Bed 23 Private MD: ED Physician Quang Ricardo HPI: 04/19 16:40 This 28 yrs old Female presents to ER via Unassigned with complaints of kb Abdominal Pain. 16:40 Pt is a 28 year old female who presents for RUQ pain that started 2 days ago with kb associated nausea and vomiting. denies fever, diarrhea. STates she was diagnosed with gallstones in January, delivered a baby last month and has an appt scheduled for Wednesday with a surgeon in [facility]. . 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 - Infectious Disease History:: Denies. - Social history:: Smoking status: Patient denies any tobacco usage or history of. ROS: 16:40 Constitutional: As per HPI kb Exam: 16:40 Constitutional: This is a well developed, well nourished patient who is awake, alert, kb and in no acute distress. Head/Face: Normocephalic, atraumatic. ENT: Moist Mucous membranes Cardiovascular: Regular rate Respiratory: Respirations even and unlabored. No increased work of breathing. Talking in full sentences Skin: Warm, dry with normal turgor. Normal color. MS/ Extremity: Pulses equal, no cyanosis. Neurovascular intact. Full, normal range of motion. Neuro: Awake and alert, GCS 15, oriented to person, place, time, and situation. Moves all extremities. Normal gait. 16:40 Abdomen/GI: Inspection: abdomen appears normal, Bowel sounds: normal, Palpation: soft, in all quadrants, moderate abdominal tenderness, in the right upper quadrant, Vital Signs: 16:38 BP 127 / 81; Pulse 80; Resp 16; Temp 97; Pulse Ox 97% on R/A; ko1 18:00 BP 120 / 84; Pulse 68; Resp 16; Pulse Ox 100% ; cm10 18:30 BP 138 / 95; Pulse 92; Resp 16; Pulse Ox 100% on R/A; cm10 19:00 BP 123 / 80; Pulse 70; Resp 16; Pulse Ox 100% on R/A; cm10 20:30 BP 122 / 88; Pulse 88; Resp 16; Pulse Ox 98% on R/A; cm10 21:00 BP 121 / 79; Pulse 81; Resp 16; Pulse Ox 100% on R/A; cm10 MDM: 16:35 Patient medically screened. kb 16:41 Differential diagnosis: cholecystitis, Cholelithiasis, gastroesophageal reflux disease, kb non-specific abd pain, pancreatitis. Data reviewed: vital signs, nurses notes. 19:03 Consideration of Admission/Observation Escalation of care including kb admission/observation considered. pt will be transferred. Management of patient was discussed with the following: Scenic Arts Supervisor: Dr Lowry, recommends transfer for ERCP. Historians other than the Patient: Parent: mother. Counseling: I had a detailed discussion with the patient and/or guardian regarding the historical points, exam findings, and any diagnostic results supporting the discharge/admit diagnosis, lab results, radiology results, the need to transfer to another facility, [facility] does not immediately have the required specialist. 19:54 Management of patient was discussed with the following: GI at [facility] accepts pt for consult. Awaiting hospitalist callback. Historians other than the Patient:. 20:01 Management of patient was discussed with the following: Dr Wang, hospitalist at [facility] accepts pt for transfer. 04/19 16:39 Order name: CBC with Diff; Complete Time: 17:54 kb 04/19 16:39 Order name: CMP; Complete Time: 18:24 kb 04/19 16:39 Order name: Lipase; Complete Time: 18:24 kb 04/19 16:39 Order name: Test, Urine; Complete Time: 18:24 kb 04/19 16:39 Order name: Urinalysis w/ reflexes; Complete Time: 17:57 kb 04/19 16:39 Order name: Abdomen Limited US; Complete Time: 17:29 kb 04/19 16:39 Order name: IV Saline Lock; Complete Time: 17:45 kb 04/19 16:39 Order name: Labs collected and sent; Complete Time: 17:45 kb Administered Medications: 17:45 Drug: NS 0.9% IV 1000 ml IV at 1 bolus Per protocol; 1000 mL bolus Route: IV; Rate: 1 cm10 bolus; Site: right antecubital; 19:09 Follow up: Response: No adverse reaction; IV Status: Completed infusion; IV Intake: cm10 1000ml 17:45 Drug: TORadol - Ketorolac IVP 15 mg IVP once Route: IVP; Site: right antecubital; cm10 19:10 Follow up: Response: No adverse reaction cm10 17:45 Drug: Ondansetron IVP 4 mg IVP once; over 2 minutes Route: IVP; Site: right antecubital;cm10 19:10 Follow up: Response: No adverse reaction cm10 17:46 Drug: Famotidine IVP 20 mg IVP once; dilute with 10 mL 0.9% NaCl; give over 2 minutes cm10 Route: IVP; Site: right antecubital; 19:10 Follow up: Response: No adverse reaction cm10 19:09 Drug: morphine IVP or IV 4 mg IVP once over 4 mins Route: IVP; Infused Over: 4 mins; cm10 Site: right antecubital; 20:34 Follow up: Response: No adverse reaction; Marked relief of symptoms cm10 20:33 Drug: Piperacillin-Tazobactam IVPB 3.375 grams IVPB once over 60 mins; (mix in NS 100 cm10 mL) Route: IVPB; Infused Over: 60 mins; Site: right antecubital; 21:28 Follow up: Response: No adverse reaction; IV Status: Completed infusion; IV Intake: cm10 100ml Disposition: 21:46 Co-signature as Attending Physician, Quang Ricardo MD I agree with the assessment and robert plan of care. Disposition Summary: 04/19/24 19:10 Transfer Ordered Notes: Transfer Location: [facility] kb Reason: Higher level of care kb Condition: Stable kb Problem: new kb Symptoms: are unchanged kb Accepting Physician: Dr Wang(04/19/24 21:35) cm10 Diagnosis - choledocholithiasis kb Forms: - Medication Reconciliation Form kb - SBAR form kb Signatures: Dispatcher MedHost Blanca Bey FNP-C FNP-Quang Merino MD MD cha Oliver, Kathy RN RN ko1 Sana Smith RN RN cm10 Bryan Niño Corrections: (The following items were deleted from the chart) 16:41 16:40 Home Meds: Zoloft Oral; ko1 ko1 20:19 19:10 Dr bosch ty 20:27 20:01 Management of patient was discussed with the following: , hospitalist at [facility] accepts pt for transfer. 21:35 20:19 Dr Kathleen fagan cm10
--- NOTE | 2024-04-19 19:11 | ER ---
Nurse's Notes [facility] Name: Veronica Lanier Age: 28 yrs Sex: Female : 1995 Arrival Date: 04/19/2024 Time: 16:32 Bed 23 Private MD: Diagnosis: choledocholithiasis Presentation: 04/19 16:38 Chief complaint: Patient states: abdominal pain RUQ for 3 days, has appt with general ko1 sx on wednesday. Coronavirus screen: At this time, the client does not indicate any symptoms associated with coronavirus-19. Ebola Screen: No symptoms or risks identified at this time. Initial Sepsis Screen: Does the patient meet any 2 criteria? No. Patient's initial sepsis screen is negative. Does the patient have a suspected source of infection? No. Patient's initial sepsis screen is negative. Risk Assessment: Do you want to hurt yourself or someone else? Patient reports no desire to harm self or others. Onset of symptoms is unknown. 16:38 Method Of Arrival: Ambulatory ko1 16:38 Acuity: TICO 3 ko1 Triage Assessment: 16:40 General: Appears uncomfortable, Behavior is calm, cooperative, appropriate for age. ko1 Pain: Complains of pain in right upper quadrant. GI: Reports nausea, vomiting. 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 - Infectious Disease History:: Denies. - Social history:: Smoking status: Patient denies any tobacco usage or history of. Screenin:46 [facility] ED Fall Risk Assessment (Adult) History of falling in the last 3 months, cm10 including since admission No falls in past 3 months (0 pts) Confusion or Disorientation No (0 pts) Intoxicated or Sedated No (0 pts) Impaired Gait No (0 pts) Mobility Assist Device Used No (0 pt) Altered Elimination No (0 pt) Score/Fall Risk Level 0 - 2 = Low Risk Oriented to surroundings, Maintained a safe environment, Hourly rounding (assess needs \T\ fall precautionary measures) done. Abuse screen: Denies threats or abuse. Denies injuries from another. Nutritional screening: No deficits noted. Tuberculosis screening: No symptoms or risk factors identified. Assessment: 17:47 General: Appears in no apparent distress. comfortable, Behavior is calm, cooperative, cm10 appropriate for age. Neuro: No deficits noted. Level of Consciousness is awake, alert, obeys commands, Oriented to person, place, time, situation, Appropriate for age. Respiratory: No deficits noted. Airway is patent Respiratory effort is even, unlabored, Respiratory pattern is regular, symmetrical. GI: Reports upper abdominal pain, nausea, vomiting. Derm: No deficits noted. Skin is healthy with good turgor, Skin is pink, warm \T\ dry. Musculoskeletal: No deficits noted. Range of motion: intact in all extremities. 20:58 Reassessment: Patient appears in no apparent distress at this time. No changes from cm10 previously documented assessment. Patient and/or family updated on plan of care and expected duration. Pain level reassessed. Patient is alert, oriented x 3, equal unlabored respirations, skin warm/dry/pink. Vital Signs: 16:38 BP 127 / 81; Pulse 80; Resp 16; Temp 97; Pulse Ox 97% on R/A; ko1 18:00 BP 120 / 84; Pulse 68; Resp 16; Pulse Ox 100% ; cm10 18:30 BP 138 / 95; Pulse 92; Resp 16; Pulse Ox 100% on R/A; cm10 19:00 BP 123 / 80; Pulse 70; Resp 16; Pulse Ox 100% on R/A; cm10 20:30 BP 122 / 88; Pulse 88; Resp 16; Pulse Ox 98% on R/A; cm10 21:00 BP 121 / 79; Pulse 81; Resp 16; Pulse Ox 100% on R/A; cm10 ED Course: 16:35 Patient arrived in ED. mr 16:35 Blanca Osullivan, DEE DEE is PHCP. kb 16:35 Quang Ricardo MD is Attending Physician. kb 16:40 Triage completed. ko1 16:40 Arm band placed on right wrist. Patient placed in an exam room, on a stretcher, on ko1 potline monitor, on pulse oximetry, Patient notified of wait time. 17:12 Abdomen Limited US In Process Unspecified. EDMS 17:45 CBC with Diff Sent. cm10 17:45 CMP Sent. cm10 17:45 Lipase Sent. cm10 17:45 Test, Urine Sent. cm10 17:45 Urinalysis w/ reflexes Sent. cm10 17:46 Initial lab(s) drawn, by me, sent to lab. Urine collected: clean catch specimen, tea cm10 colored. Inserted saline lock: 20 gauge in right antecubital area, using aseptic technique. Blood collected. Flushed with 10 mL NS. 17:47 Patient has correct armband on for positive identification. Placed in gown. Bed in low cm10 position. Call light in reach. Provided Education on: ER process and procedures.. Pulse ox on. NIBP on. 17:48 Sana Smith, AMARILIS is Primary Nurse. cm10 19:16 [facility] called for Pt. transfer, spoke with Cielo Munroe. ty 19:44 Hnj1Aak. ty 19:58 Orm5Tnc 2nd. ty 20:16 Acceptance given for Pt. ty 20:42 Report given to AMARILIS Muniz at [facility]. cm10 21:34 Report given to Spencer with [facility]. Pt stable for transport at this time. cm10 21:34 No provider procedures requiring assistance completed. Patient transferred, IV remains cm10 in place. Administered Medications: 17:45 Drug: NS 0.9% IV 1000 ml IV at 1 bolus Per protocol; 1000 mL bolus Route: IV; Rate: 1 cm10 bolus; Site: right antecubital; 19:09 Follow up: Response: No adverse reaction; IV Status: Completed infusion; IV Intake: cm10 1000ml 17:45 Drug: TORadol - Ketorolac IVP 15 mg IVP once Route: IVP; Site: right antecubital; cm10 19:10 Follow up: Response: No adverse reaction cm10 17:45 Drug: Ondansetron IVP 4 mg IVP once; over 2 minutes Route: IVP; Site: right antecubital;cm10 19:10 Follow up: Response: No adverse reaction cm10 17:46 Drug: Famotidine IVP 20 mg IVP once; dilute with 10 mL 0.9% NaCl; give over 2 minutes cm10 Route: IVP; Site: right antecubital; 19:10 Follow up: Response: No adverse reaction cm10 19:09 Drug: morphine IVP or IV 4 mg IVP once over 4 mins Route: IVP; Infused Over: 4 mins; cm10 Site: right antecubital; 20:34 Follow up: Response: No adverse reaction; Marked relief of symptoms cm10 20:33 Drug: Piperacillin-Tazobactam IVPB 3.375 grams IVPB once over 60 mins; (mix in NS 100 cm10 mL) Route: IVPB; Infused Over: 60 mins; Site: right antecubital; 21:28 Follow up: Response: No adverse reaction; IV Status: Completed infusion; IV Intake: cm10 100ml Medication: 17:46 VIS not applicable for this client. cm10 Intake: 19:09 IV: 1000ml; Total: 1000ml. cm10 21:28 IV: 100ml; Total: 1100ml. cm10 Outcome: 19:10 ER care complete, transfer ordered by kb 21:35 Transferred by [facility]. to [facility], [facility], Transfer cm10 form completed. 21:35 Condition: good 21:35 Instructed on the need for transfer, 21:35 Patient left the ED. cm10 Signatures: Dispatcher MedHost EDMS Blanca Osullivan, LEXY-C SUPERVISOR HARDBOARD-Beverly Fitch, Reg Reg mr Tiffanie Franklin, RN RN ko1 Sana Smith RN RN cm10 Bryan Niño Corrections: (The following items were deleted from the chart) 16:41 16:40 Home Meds: Zoloft Oral; donna thompson
[2024-04-19] MEDS ORDERED: NA CHLORIDE 0.9% 100 ML ONE (20:28)
[2024-04-19] MEDS ORDERED: PIPERACIL/TAZO 3.375 GM VIAL IV ONE (20:28)
[2024-04-20 04:20] VITALS: TEMP 97
[2024-04-20 04:26] VITALS: BP 121/79; O2SAT 100
== END 2024-04-19 21:35 | disposition short-term general hospital (02) ==
LOC: ER 16:32
DX: K80.50 Calculus of bile duct without cholangitis or cholecystitis without obstruction (principal)
CPT/HCPCS: 85025; 81001; 36415; 81025; 83690; 80053; 76705; J2543; J2405; J7030; 96361; 96365; 96375; 99285